=== PATIENT | male | born 1940 | race Caucasian/White ===

== ENCOUNTER → 2017-07-30 | Outpatient (CLI) | payer MEDICARE, BC ==
--- NOTE | 2017-07-30 15:29 | XR ---
Cervical spine HISTORY: Left neck and arm pain 5 views of the cervical spine Anterolisthesis grade 1 C2-3, C3-4 and C4-5, C5-6, there is loss of disc height at C6-7 and to lesser extent the remaining intervertebral levels. Multilevel spondylosis is present. There is multilevel l evel facet arthropathy. Some foraminal encroachment is present at C5-6 and C6-7 bilaterally as well a s on the right at 4, C4-5. Cervical vertebral bodies show preserved height. Bone mineralization may b e slightly reduced. IMPRESSION: Degenerative disc disease and facet arthropathy. Consider cervical MRI.
== END | disposition home or self-care (01) ==
LOC: RADXRMAIN 11:44
PROVIDERS: ATTEND Internal Medicine
DX: M50.30 Other cervical disc degeneration, unspecified cervical region (principal); M46.92 Unspecified inflammatory spondylopathy, cervical region
CPT/HCPCS: 72050

== ENCOUNTER → 2017-08-23 | Outpatient (CLI) | payer MEDICARE ==
--- NOTE | 2017-08-23 12:16 | MR ---
EXAMINATION TYPE: MR cervical spine wo/w con DATE OF EXAM: 08/23/2017 COMPARISON: Plain film 07/30/2017 HISTORY: Spondylosis with myelopathy, cervical TECHNIQUE: Multiplanar, multisequence images of the cervical spine were acquired utilizing 10 mL intravenous Rm avist gadolinium contrast. Diffusion weighted imaging was performed. C2-C3: Broad-based disc bulge causes minimal mass effect on the thecal sac. There is some minimal adonay ateral foraminal encroachment. C3-C4: Posterior broad-based disc bulge causes mild anterior mass effect on the thecal sac, moderate central stenosis. Foraminal encroachment is greater on the left than on the right due to lateral exte nsion endplate disc complex. C4-C5: No significant central stenosis. Bilateral foraminal encroachment is present due to lateral ex tension endplate disc complex. C5-C6: Posterior broad-based disc bulge causes minimal anterior mass effect on the thecal sac. Latera l extension endplate disc complex causes bilateral foraminal encroachment. C6-C7: Posterior extension of endplate disc complex causes mild anterior mass effect on the thecal sa c. Lateral extension of endplate disc complex results in bilateral foraminal encroachment. C7-T1: Posterior broad-based disc bulge causes mild anterior mass effect on the thecal sac. No signif icant foraminal encroachment or central stenosis. Cervical segments are intact. There is normal alignment. Cervical spinal cord is of normal signal. Craniovertebral junction relationships are within normal limits. There is multilevel spondylosis. Hy pertrophic change along the anterior margin of the lower cervical spine could be indicative of diffus e idiopathic skeletal hyper stenosis. Loss of disc height present at C6-7 and C7-T1 greater than the remaining levels of disc desiccation is present throughout the spine, suspect a hemangioma present wi thin the C6 vertebral body. Minimal anterolisthesis grade 1 C2-3, C3-4, C4-5 and C5-6. No abnormal en hancement following contrast administration. IMPRESSION: Multilevel degenerative disc disease, foraminal encroachment as described.
== END | disposition home or self-care (01) ==
LOC: RADMRIMAIN 09:51
PROVIDERS: ATTEND Internal Medicine
DX: M48.02 Spinal stenosis, cervical region (principal); M50.23 Other cervical disc displacement, cervicothoracic region; M47.812 Spondylosis without myelopathy or radiculopathy, cervical region; M50.323 Other cervical disc degeneration at C6-C7 level
CPT/HCPCS: 82565; 72156; A9581

== ENCOUNTER → 2017-11-19 | Day surgery (SDC) | payer MEDICARE ==
[2017-11-15 11:30] VITALS: BMI 31.9
[~2017-11-19] MED LIST: LACTATED RINGERS 1,000 ML IV ONE; LACTATED RINGERS 1,000 ML IV SCH; LIDOCAINE 1% 20 ML VIAL (10MG/ML) FOR IV START INTRADERMA ONE; PROPOFOL 10 MG/ML 20 ML VIAL IV ONE
[2017-11-19 07:54] VITALS: RESP 16; TEMP 97.8
[2017-11-19 08:02] LABS: Glucose,Whole Blood 104 mg/dL (75-99)
--- NOTE | 2017-11-19 09:04 | P.PCN ---
Date of Procedure: 11/19/17 Procedure(s) Performed: Procedure: Total colonoscopy. Preoperative diagnosis: Screening for neoplasia. Postoperative diagnosis: Diverticulosis with no evidence of acute diverticulitis , strictures, polyps or cancer. Preparation: HalfLytely prep. Sedation: Was provided by anesthesia. Brief clinical history: The patient is a 77-year-old male who is scheduled for this evaluation for screening for neoplasia. He had a prior exam more than 11 years ago. The patient has no abdominal complaints, bleeding or anemia. Procedure: With the patient on his left lateral decubitus position and after informed consent and adequate sedation, the perianal area was inspected and it did not show any fissures or fistulas. There were no masses felt on digital rectal examination. The Olympus CFQ 160L video colonoscope was then inserted in the rectum in the usual fashion and advanced to the cecum. There were multiple diverticular orifices seen scattered along the length of the bowel, the majority were on the left side with occasional orifices on the right side and around the hepatic flexure, with no evidence of acute diverticulitis or strictures. The mucosa appeared healthy. No polyps or tumors were seen. I retroflexed the endoscope in the rectum before the endoscope was withdrawn. The patient tolerated the procedure well. Plan: The patient was reassured. Discussed dietary measures. At his age, I did not recommend further screening and repeat colonoscopy can be considered in the future based on his clinical course. He will discuss that with you.
[2017-11-19 09:34] VITALS: BP 153/73; PULSE 77
== END ==
LOC: ORWHC2ENDO 07:20
DX: Z12.11 Encounter for screening for malignant neoplasm of colon (principal); K57.30 Diverticulosis of large intestine without perforation or abscess without bleeding; I48.91 Unspecified atrial fibrillation; Z79.01 Long term (current) use of anticoagulants; E11.40 Type 2 diabetes mellitus with diabetic neuropathy, unspecified; Z79.84 Long term (current) use of oral hypoglycemic drugs; C91.10 Chronic lymphocytic leukemia of B-cell type not having achieved remission; I10 Essential (primary) hypertension; E78.5 Hyperlipidemia, unspecified; M19.90 Unspecified osteoarthritis, unspecified site; G47.33 Obstructive sleep apnea (adult) (pediatric); Z99.89 Dependence on other enabling machines and devices; Z79.899 Other long term (current) drug therapy
CPT/HCPCS: J2704; G0121; 45378

== ENCOUNTER → 2018-09-03 | Outpatient (CLI) | payer MEDICARE ==
--- NOTE | 2018-09-04 09:00 | ECHOF ---
Referral Reason:I50.32 Chronic diastolic (congestive) heart failur MEASUREMENTS -------- HEIGHT: 177.8 cm WEIGHT: 102.1 kg BP: 169/89 RVIDd: 3.3 cm (< 3.3) IVSd: 1.3 cm (0.6 - 1.1) LVIDd: 4.7 cm (3.9 - 5.3) LVPWd: 1.4 cm (0.6 - 1.1) IVSs: 2.0 cm LVIDs: 2.7 cm LVPWs: 1.9 cm LA Diam: 4.4 cm (2.7 - 3.8) LAESV Index (A-L): 33.09 ml/m Ao Diam: 3.2 cm (2.0 - 3.7) AV Cusp: 1.9 cm (1.5 - 2.6) MV EXCURSION: 14.924 mm (> 18.000) MV EF SLOPE: 85 mm/s (70 - 150) EPSS: 0.4 cm FINDINGS -------- Atrial fibrillation. This was a technically good study. The left ventricular size is normal. There is moderate concentric left ventricular hypertrophy. O verall left ventricular systolic function is normal with, an EF between 60 - 65 %. The right ventricle is mildly enlarged. LA is midly dilated 29-33ml/m2. The right atrium is normal in size. Interatrial and interventricular septum intact. There is mild aortic valve sclerosis. The mitral valve leaflets are mildly thickened. Mild mitral annular calcification present. There is trace to mild mitral regurgitation. The tricuspid valve appears structurally normal. Trace/mild (physiologic) pulmonic regurgitation. The aortic root size is normal. IVC Not well visulized. There is no pericardial effusion. CONCLUSIONS -------- 1. Atrial fibrillation. 2. This was a technically good study. 3. The left ventricular size is normal. 4. There is moderate concentric left ventricular hypertrophy. 5. Overall left ventricular systolic function is normal with, an EF between 60 - 65 %. 6. The right ventricle is mildly enlarged. 7. LA is midly dilated 29-33ml/m2. 8. The right atrium is normal in size. 9. Interatrial and interventricular septum intact. 10. There is mild aortic valve sclerosis. 11. The mitral valve leaflets are mildly thickened. 12. Mild mitral annular calcification present. 13. There is trace to mild mitral regurgitation. 14. The tricuspid valve appears structurally normal. 15. Trace/mild (physiologic) pulmonic regurgitation. 16. The aortic root size is normal. 17. IVC Not well visulized. 18. There is no pericardial effusion. SOFTWARE RELEASE ENGINEER: Kay De Leon RDCS
== END | disposition home or self-care (01) ==
LOC: RADECHMAIN 15:54
PROVIDERS: ATTEND Internal Medicine
DX: I48.91 Unspecified atrial fibrillation (principal); I51.7 Cardiomegaly; I35.8 Other nonrheumatic aortic valve disorders; I34.8 Other nonrheumatic mitral valve disorders; I50.32 Chronic diastolic (congestive) heart failure
CPT/HCPCS: 93306

== ENCOUNTER → 2018-10-29 | Outpatient (CLI) | payer MEDICARE ==
--- NOTE | 2018-10-29 15:29 | US ---
EXAMINATION TYPE: US kidneys/renal and bladder DATE OF EXAM: 10/29/2018 COMPARISON: CT 11/20/2015, MRI 10/13/2015 CLINICAL HISTORY: N18.9 Chronic Kidney Disease. Patient states something was seen on recent MRI EXAM MEASUREMENTS: Right Kidney: 10.6 x 5.6 x 5.3 cm Left Kidney: 10.2 x 6.2 x 5.6 cm Right Kidney: No hydronephrosis. Multiple cystic areas visualized, largest lower pole measuring 8.1 x 7.0 x 7.7 cm Left Kidney: No hydronephrosis. Multiple cystic areas visualized, largest lower pole measuring 2.6 x 2.0 x 2.4 cm. Echogenic foci visualized mid pole measuring 0.6 cm Bladder: wnl Bilateral Jets seen: Yes IMPRESSION: 1. Cyst superior pole right kidney 2. Nonobstructing left renal stone. 3. Inferior pole peripelvic cyst.
== END | disposition home or self-care (01) ==
LOC: RADUSWWP 13:57
PROVIDERS: ATTEND Internal Medicine
DX: N28.1 Cyst of kidney, acquired (principal); N20.0 Calculus of kidney; N18.9 Chronic kidney disease, unspecified
CPT/HCPCS: 76770

== ENCOUNTER → 2019-04-13 | Outpatient (CLI) | payer MEDICARE ==
--- NOTE | 2019-04-13 14:47 | CT ---
EXAMINATION TYPE: CT lumbar spine wo con DATE OF EXAM: 04/13/2019 COMPARISON: None HISTORY: lower back pain spinal stenosis CT DLP: [address] of the lumbar spine was performed. Bone and soft tissue window settings are submitted as well as coronal and sagittal reconstructions. L1-L2: Normal disc space height. No disc herniation protrusion or central stenosis. No facet joint arthropathy. No evidence for foraminal encroachment. L2-L3: Normal disc space height. No disc herniation protrusion or central stenosis. No facet joint arthropathy. No evidence for foraminal encroachment. L3-L4: Vacuum disc noted. Circumferential disc bulge greatest posteriorly. Hypertrophy of the ligamen eloisa flavum and facet joint arthropathy resulting in mild central stenosis and bilateral foraminal enc roachment. L4-L5: Vacuum disks noted. Grade 1 anterolisthesis L4 and L5 measuring 5.5 mm. Distortion thecal sac with degenerative change of the facet joints. Mild central stenosis and bilateral foraminal encroachm ent noted. L5-S1: Mild degenerative disc space narrowing. No disc herniation protrusion or central stenosis. No facet joint arthropathy. No evidence for foraminal encroachment. No paraspinal masses are identified. Lumbar segments are free if fracture. IMPRESSION: 1. Degenerative disc disease as the central stenosis at L3-4 and L4-5 as discussed above.
== END | disposition home or self-care (01) ==
LOC: RADCTMAIN 14:04
PROVIDERS: ATTEND Neurological Surgery
DX: M48.061 Spinal stenosis, lumbar region without neurogenic claudication (principal); M51.36 Other intervertebral disc degeneration, lumbar region
CPT/HCPCS: 72131

== ENCOUNTER → 2019-12-01 | Outpatient (CLI) | payer MEDICARE ==
--- NOTE | 2019-12-01 16:08 | CT ---
EXAMINATION TYPE: CT lumbar spine wo con DATE OF EXAM: 12/01/2019 3:58 PM COMPARISON: 04/13/2019 HISTORY: Low back pain radiating into right hip. CT DLP: 1608.7 mGycm Automated exposure control for dose reduction was used. Unenhanced CT of the lumbar spine was performed. Bone and soft tissue window settings are submitted as well as coronal and sagittal reconstructions. There are multiple bilateral renal calculi. There are multiple renal lesions the majority which appea r to be simple cysts. However, there is at least one lesion which does not appear to be compatible wi th a simple cyst on the left measuring under a centimeter and may represent a hemorrhagic cyst. Addit ional 5 mm lesion mid cortex too small to characterize. Atherosclerotic change aorta. There is hypertrophic and degenerative change of the spine with extensive postsurgical changes. Grade 1 anterolisthesis L4 and L5. L1-L2: No disc herniation or canal stenosis. Mild hypertrophic change of the facets. No foraminal enc roachment L2-L3: Moderate degenerative disc disease with 1 mm retrolisthesis. There is facet arthropathy. Mild bilateral foraminal encroachment and borderline to mild canal stenosis with circumferential disc bulg ing. L3-L4: Vacuum disc and severe degenerative disc disease. There is a right hemilaminectomy. There is a bnormal soft tissue extending from the thecal sac posteriorly into the soft tissues likely postsurgic al. Artifact limits assessment. Spinal canal is limited for assessment of disc herniation or canal st enosis. Suspect bilateral foraminal encroachment and facet arthropathy. L4-L5: Grade 1 anterolisthesis. There is postoperative changes extensive abnormal soft tissue extends to the from the thecal sac to the skin surface. There is abnormal attenuation surrounding the thecal sac which could represent extensive granulation or scar tissue. Suspect bilateral foraminal encroach ment. L5-S1: Facet arthropathy and degenerative disc disease. No Canal stenosis. Mild bilateral foraminal e ncroachment. IMPRESSION: 1. Extensive postsurgical changes with grade 1 anterolisthesis of L4 on L5. Assessment of the spinal canal is limited due to resolution and artifact. Suspect canal stenosis L2-3. Retrolisthesis of L3 on L4 with abnormal attenuation which could represent scar or granulation tissue L3-L4. Thecal sac is n ot identified and limited in assessment for disc herniation or canal stenosis. Recommend MRI with con trast. 2. Extensive postsurgical change L4-L5 with extensive abnormal soft tissue encasing the thecal sac ex tending into the posterior soft tissues. This also could represent granulation or scar tissue. There is some encroachment upon the neural foramina. Recommend MRI with contrast. 3. Multilevel foraminal encroachment 4. Bilateral nephrolithiasis with multiple renal lesions as discussed above.
== END | disposition home or self-care (01) ==
LOC: RADCTMAIN 15:28
PROVIDERS: ATTEND Neurological Surgery
DX: M48.061 Spinal stenosis, lumbar region without neurogenic claudication (principal); M43.16 Spondylolisthesis, lumbar region; Z98.890 Other specified postprocedural states
CPT/HCPCS: 72131

== ENCOUNTER → 2019-12-17 | Outpatient (CLI) | payer MEDICARE ==
--- NOTE | 2019-12-17 15:47 | MR ---
EXAMINATION TYPE: MR lumbar spine wo con DATE OF EXAM: 12/17/2019 COMPARISON: MRI lumbar spine October 13, 2015. CT lumbar spine December 01, 2019 HISTORY: Stenosis per order. Low back pain for 3 months going into right buttocks and thigh per patie nt. TECHNIQUE: Multiplanar, multisequence imaging of the lumbar spine is performed without IV contrast. FINDINGS: Sagittal images of the lumbar spine show vertebral body heights to appear satisfactory. The re is slight grade 1 retrolisthesis L2 on L3 and L3 on L4 redemonstrated. There is grade 1 anterolist hesis L4 on L5 redemonstrated. Multilevel disc desiccation is redemonstrated. There is mild to moder ate multilevel disc space narrowing at L2-L3 and L3-L4 levels redemonstrated. New artifact from right sided surgical posterior intrapedicular rods and screws L4-L5 level. Artificial hyperdense disc mate rial does level seen better on CT. The conus medullaris remains stable in position ending superior L 2 level. Persistent mild to moderate multilevel anterior spurring. Axial images show T12-L1 and L1-L2 levels appear within normal limits. Axial images at L2-L3 level show moderate broad disc bulge effacing the anterior thecal sac and causi ng moderate bilateral inferior neural foraminal narrowing. Axial images at L3-L4 level show artifact from right-sided surgical change. There is moderate to austin re broad disc bulge with right lateral disc protrusion component. There is effacement of the right an terolateral thecal sac and encroaching along central right L4 nerves axial image 17, this corresponds to most recent CT axial image 59. Moderate facet arthropathy at this level. Moderate left and modera te to severe right-sided neural foraminal narrowing. Encroachment of exiting right L3 nerve likely pr esent extraforaminal level. Axial images at the L4-L5 level show artifact from disc material beyond right-sided fusion hardware. Spinal canal fairly well-preserved. Patent bilateral neural foramina. Some scar tissue is present. La minectomy defects noted at this level. Axial images at the L5-S1 level show moderate to advanced facet arthropathy bilaterally. Tiny central disc protrusion minimally effaces the anterior thecal sac. Right-sided neural foramina shows mild to moderate narrowing. There are multiple thin-walled cysts scattered throughout visualized portion of both kidneys of varyi ng size and shape. IMPRESSION: Postsurgical change L4-L5 level. Multilevel spondylolisthesis and degenerative changes as detailed above. Attention to the right L3-L4 level where eccentric disc herniation and facet arthrop athy causes severe right-sided neural foraminal narrowing and encroachment right anterolateral thecal sac. Encroachment on central L4 and extraforaminal right L3 nerve is felt present and may be account ing for patient's right-sided radiculopathy type symptoms.
== END | disposition home or self-care (01) ==
LOC: RADMRIMAIN 14:09
PROVIDERS: ATTEND Neurological Surgery
DX: M48.061 Spinal stenosis, lumbar region without neurogenic claudication (principal); M51.26 Other intervertebral disc displacement, lumbar region; M43.16 Spondylolisthesis, lumbar region; M47.816 Spondylosis without myelopathy or radiculopathy, lumbar region; M47.817 Spondylosis without myelopathy or radiculopathy, lumbosacral region; Z98.890 Other specified postprocedural states
CPT/HCPCS: 72148

== ENCOUNTER → 2020-09-01 | Outpatient (CLI) | payer MEDICARE ==
--- NOTE | 2020-09-01 12:54 | US ---
EXAMINATION TYPE: US kidneys/renal and bladder DATE OF EXAM: 09/01/2020 COMPARISON: NONE CLINICAL HISTORY: Z12.31 screening mammogram. Hematuria EXAM MEASUREMENTS: Right Kidney: 11.3 x 5.6 x 6.2 cm Left Kidney: 10.4 x 6.0 x 5.0 cm Right Kidney: multiple cysts with largest measuring 8.2 x 7.5 x 9.3cm Left Kidney: multiple cysts with largest measuring 3.2 x 2.7 x 2.0cm, 0.7cm stone midpole Bladder: wnl Bilateral Jets seen: no There is no evidence for hydronephrosis at this point in time. No masses are identified. The urinar y bladder is anechoic. IMPRESSION: 1. Bilateral renal cysts. 2. Left nephrolithiasis. 3. Bilateral ureteral jets were not seen in the urinary bladder.
== END | disposition home or self-care (01) ==
LOC: RADUSWWP 12:13
PROVIDERS: ATTEND Internal Medicine
DX: N20.0 Calculus of kidney (principal); N28.1 Cyst of kidney, acquired
CPT/HCPCS: 76770

== ENCOUNTER → 2021-08-10 | Outpatient (CLI) | payer MEDICARE ==
[~2021-08-10] MED LIST changes: -LACTATED RINGERS 1,000 ML IV ONE; -LACTATED RINGERS 1,000 ML IV SCH; -LIDOCAINE 1% 20 ML VIAL (10MG/ML) FOR IV START INTRADERMA ONE; -PROPOFOL 10 MG/ML 20 ML VIAL IV ONE; +TIXAGEVIMAB/CILGAVIMAB (EUA) 300 MG/3 ML COMBO.PKG IM ONE
[2021-08-10 12:37] VITALS: RESP 16
[2021-08-10 12:56] VITALS: TEMP 97.7
[2021-08-10 13:37] VITALS: BP 116/79; PULSE 64
== END ==
LOC: PROCWHC3 12:20
PROVIDERS: ATTEND Internal Medicine Hematology & Oncology
DX: C91.10 Chronic lymphocytic leukemia of B-cell type not having achieved remission (principal); Z23 Encounter for immunization; Z87.891 Personal history of nicotine dependence
CPT/HCPCS: Q0220; M0220

== ENCOUNTER → 2021-08-22 | Outpatient (CLI) | payer MEDICARE ==
--- NOTE | 2021-08-22 17:24 | CA ---
Transthoracic Echo Report Name: Deonte Whitt Age: 81 Gender: M : 1940 Exam Date: 08/22/2021 14:48 Exam Location: [facility] Ht (in): 71 Wt (lb): 214 Ordering Physician: Damaris Silva MD Attending/Referring Phys: Damaris Silva MD Balance Wheel Arm Burnisher Rose Iniguez RDCS Procedure CPT: Indications: I48.91 AFIB Cardiac Hx: Technical Quality: Fair Contrast 1: Total Dose (mL): Contrast 2: Total Dose (mL): MEASUREMENTS (Male / Female) Normal Values 2D ECHO LV Diastolic Diameter PLAX 4.5 cm 4.2 - 5.9 / 3.9 - 5.3 cm LV Systolic Diameter PLAX 2.1 cm IVS Diastolic Thickness 1.2 cm 0.6 - 1.0 / 0.6 - 0.9 cm LVPW Diastolic Thickness 1.2 cm 0.6 - 1.0 / 0.6 - 0.9 cm LV Relative Wall Thickness 0.5 LA Volume 80.5 cm??? 18 - 58 / 22 - 52 cm??? M-MODE Aortic Root Diameter MM 2.7 cm LA Systolic Diameter MM 4.4 cm LA Ao Ratio MM 1.7 AV Cusp Separation MM 1.4 cm DOPPLER AV Peak Velocity 137.5 cm/s AV Peak Gradient 7.6 mmHg LVOT Peak Velocity 98.7 cm/s LVOT Peak Gradient 3.9 mmHg MV E' Velocity 7.9 cm/s FINDINGS Left Ventricle Mildly increased left ventricular wall thickness. Normal left ventricular systolic function with no obvious regional wall motion abnormalities. Left ventricular ejection fraction is estimated at 55-60 %. Right Ventricle Mild right ventricular dilatation. Right Atrium Normal right atrial size. Left Atrium Severely increased left atrial volume. No evidence for an atrial septal defect. Mitral Valve Structurally normal mitral valve. Mild mitral annular calcification. Mild to moderate mitral regurgitation. Aortic Valve Trileaflet aortic valve. No aortic stenosis. No aortic regurgitation. Aortic valve sclerosis. Tricuspid Valve Structurally normal tricuspid valve. No evidence of pulmonary hypertension. Mild tricuspid regurgitation. Pulmonic Valve Structurally normal pulmonic valve. Trace pulmonic regurgitation. Pericardium No pericardial effusion. Aorta Normal size aortic root and proximal ascending aorta. CONCLUSIONS Normal LV size and systolic function. Mitral annular calcification with mild- to-moderate mitral regurgitation. No significant pulmonary hypertension. Mild right ventricular dilatation. No pericardial effusion Previewed by: Dr. Avril Lancaster MD (Electronically Signed) Final Date: 22 August 2021 17:23
--- NOTE | 2021-08-22 18:37 | US ---
EXAMINATION TYPE: US carotid duplex BILAT DATE OF EXAM: 08/22/2021 COMPARISON: NONE CLINICAL HISTORY: 81-year-old male I48.91 Atrial Fibrillation;I65.23 Carotid Stenosis. Stenosis, hype rtension, prior smoker. TECHNIQUE: Carotid duplex ultrasound examination. Indirect Doppler criteria was utilized. FINDINGS: EXAM MEASUREMENTS: RIGHT: Peak Systolic Velocity (PSV) cm/sec ----- Right CCA: 95.3 ----- Right ICA: 90.8 ----- Right ECA: 104.3 ICA/CCA ratio: 1.0 RIGHT: End Diastole cm/sec ----- Right CCA: 17.6 ----- Right ICA: 13.8 ----- Right ECA: 9.0 LEFT: Peak Systolic Velocity (PSV) cm/sec ----- Left CCA: 106.2 ----- Left ICA: 110.6 ----- Left ECA: 64.2 ICA/CCA ratio: 1.0 LEFT: End Diastole cm/sec ----- Left CCA: 13.8 ----- Left ICA: 30.3 ----- Left ECA: 0.0 VERTEBRALS (direction of flow): Right Vertebral: Antegrade Left Vertebral: Antegrade Rhythm: Arrhythmia Experimental Aircraft Mechanic notes: Intimal thickening and plaque seen within bilateral carotid arteries, bilateral bu lb, and prox right ICA. No elevated velocities at this time. Difficult to follow right ICA distally. IMPRESSION: 1. No hemodynamically significant internal carotid artery stenosis on either side. 2. Note that the dehydrogenation operator head indicates an irregular cardiac rhythm for a portion of the study. Clinic ally correlate. Criteria for Assigning % of Stenosis / Diameter reduction (Estimation based on the indirect measurements of the internal carotid artery velocities (ICA PSV). 1. Normal (no stenosis)=ICA PSV < 125 cm/s: ratio < 2.0: ICA EDV<40 cm/s. 2. Less than 50% stenosis=ICA PSV < 125 cm/s: ratio < 2.0: ICA EDV<40 cm/s. 3. 50 to 69% stenosis=ICA PSV of 125 to 230 cm/s: ration 2.0 ? 4.0: ICA EDV 40-100 cm/s. 4. Greater than 70% stenosis to near occlusion= ICA PSV > 230 cm/s: ratio > 4.0: ICA EDV > 100 cm/s. 5. Near occlusion= ICA PSV velocities may be low or undetectable: variable ratio and ICA EDV. 6. Total occlusion=unable to detect flow.
== END | disposition home or self-care (01) ==
LOC: RADUSWWP 13:59
PROVIDERS: ATTEND Internal Medicine
DX: I08.8 Other rheumatic multiple valve diseases (principal); I65.23 Occlusion and stenosis of bilateral carotid arteries; I49.9 Cardiac arrhythmia, unspecified; I10 Essential (primary) hypertension; Z87.891 Personal history of nicotine dependence
CPT/HCPCS: 93306; 93880

== ENCOUNTER → 2022-08-07 | Outpatient (CLI) | payer MEDICARE ==
--- NOTE | 2022-08-07 17:27 | CA ---
Transthoracic Echo Report Name: Deonte Whitt Age: 82 Gender: M : 1940 Exam Date: 08/07/2022 11:44 Exam Location: [facility] Ht (in): 72 Wt (lb): 188 Ordering Physician: Jamie Thomas MD Attending/Referring Phys: Jamie Thomas MD Developmental Behavioral Physician Rose Iniguez RDCS Procedure CPT: Indications: [id number] vertigo Cardiac Hx: Technical Quality: Fair Contrast 1: Total Dose (mL): Contrast 2: Total Dose (mL): MEASUREMENTS (Male / Female) Normal Values 2D ECHO LV Diastolic Diameter PLAX 4.5 cm 4.2 - 5.9 / 3.9 - 5.3 cm LV Systolic Diameter PLAX 3.2 cm IVS Diastolic Thickness 1.3 cm 0.6 - 1.0 / 0.6 - 0.9 cm LVPW Diastolic Thickness 1.2 cm 0.6 - 1.0 / 0.6 - 0.9 cm LV Relative Wall Thickness 0.6 RV Internal Dim ED PLAX 3.3 cm LA Volume 79.8 cm??? 18 - 58 / 22 - 52 cm??? M-MODE Aortic Root Diameter MM 2.8 cm LA Systolic Diameter MM 1.4 cm LA Ao Ratio MM 0.5 AV Cusp Separation MM 4.5 cm DOPPLER AV Peak Velocity 223.7 cm/s AV Peak Gradient 20.0 mmHg AV Mean Velocity 159.8 cm/s AV Mean Gradient 11.6 mmHg AV Velocity Time Integral 39.1 cm LVOT Peak Velocity 144.7 cm/s LVOT Peak Gradient 8.4 mmHg Mitral E Point Velocity 98.2 cm/s Mitral A Point Velocity 41.6 cm/s Mitral E to A Ratio 2.4 MV Deceleration Time 210.1 ms MV E' Velocity 7.6 cm/s Mitral E to MV E' Ratio 12.9 FINDINGS Left Ventricle Left ventricular cavity size normal. Mildly increased left ventricular wall thickness. Normal left ventricular systolic function with no obvious regional wall motion abnormalities. Left ventricular ejection fraction is estimated at 55-60 %. Right Ventricle Normal right ventricular size and function. Right ventricular systolic pressure within normal limits. Right Atrium Normal right atrial size. Left Atrium Severely increased left atrial volume. Mildly increased left atrial area. Mitral Valve Structurally normal mitral valve. Mitral valve thickened. Mild mitral annular calcification. Mild mitral regurgitation. Aortic Valve Trileaflet aortic valve. No aortic regurgitation. Mild aortic stenosis with a peak gradient of 20 mmHg and a mean gradient of 12 mmHg. Tricuspid Valve Structurally normal tricuspid valve. Mild tricuspid regurgitation. Pulmonic Valve Structurally normal pulmonic valve. Trace pulmonic regurgitation. Pericardium No pericardial effusion. Aorta Normal size aortic root and proximal ascending aorta. CONCLUSIONS Normal LV systolic function Mild aortic stenosis Mild mitral regurgitation Previewed by: Dr. Barak Dyer MD (Electronically Signed) Final Date: 07 Aug 2022 17:26
== END | disposition home or self-care (01) ==
LOC: RADECHMAIN 11:08
PROVIDERS: ATTEND Internal Medicine
DX: I08.0 Rheumatic disorders of both mitral and aortic valves (principal); R42 Dizziness and giddiness
CPT/HCPCS: 93225; 93226; 93306

== ENCOUNTER → 2022-08-08 | Outpatient (CLI) | payer MEDICARE ==
--- NOTE | 2022-08-08 11:52 | CT ---
EXAMINATION TYPE: CT brain wo con DATE OF EXAM: 08/08/2022 HISTORY: Headache post new change in chemotherapy. Hx of leukemia. CT DLP: 1133.3 mGycm. Automated Exposure Control for Dose Reduction was Utilized. TECHNIQUE: CT scan of the head is performed without contrast. COMPARISON: CT brain April 20, 2022. FINDINGS: There is no acute intracranial hemorrhage or midline shift identified. There is moderate diffuse ventricular and sulcal prominence redemonstrated. There is mild to moderate low-attenuation in the deep and periventricular white matter redemonstrated. 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 There is minimal mucosal thickening and dependent air-fluid level in the left frontal sinus. There is partial opacification of the anterior ethmoid sinuses bilaterally redemo nstrated. There is completely opacified left maxillary sinus again seen. Nasal septum is deviated to left of midline. Bilateral aphakia is redemonstrated. IMPRESSION: No acute intracranial hemorrhage or midline shift. There is moderate diffuse cerebral a trophy and mild to moderate chronic small vessel ischemic change along with old right occipital lobe infarct all redemonstrated without significant interval change. There is new left frontal acute sinu sitis suspected. Correlate clinically. Left ethmoid and maxillary sinus disease is similar appearance to most recent CT.
== END | disposition home or self-care (01) ==
LOC: RADCTMAIN 11:23
PROVIDERS: ATTEND Internal Medicine Hematology & Oncology
DX: C91.10 Chronic lymphocytic leukemia of B-cell type not having achieved remission (principal); I67.82 Cerebral ischemia
CPT/HCPCS: 70450

== ENCOUNTER → 2023-02-22 | Outpatient (CLI) | payer MEDICARE ==
--- NOTE | 2023-02-22 12:02 | XR ---
EXAM TYPE: LUMBAR SPINE X RAY SERIES COMPARISON: 02/22/2023 HISTORY: Pain TECHNIQUE: 7 views are submitted. FINDINGS: Diffuse osteopenia with multilevel hypertrophic and degenerative changes. Grade 1 anterolisthesis of L4-L5. Postsurgical changes at L4-L5. There is posterior spondylosis at multiple levels with spurring anteriorly. Multilevel degenerative disc disease most marked at L3-L4. There is facet arthropathy. C alcifications in the upper quadrant likely related to renal calculi. IMPRESSION: 1. Postsurgical changes with grade 1 anterolisthesis which is similar in appearance on flexion and ex tension views. 2. Multilevel degenerative disc disease with facet arthropathy. Multilevel foraminal encroachment pillo pected. 3. Bilateral renal calculi.
--- NOTE | 2023-02-22 12:05 | XR ---
EXAMINATION TYPE: XR sacrum coccyx DATE OF EXAM: 02/22/2023 COMPARISON: NONE HISTORY: Pain Three views are submitted. Sacrum is intact. SI joints are symmetric. Diffuse osteopenia and posts urgical changes at L4-L5 with grade 1 anterolisthesis. Bilateral hip arthropathy. Vascular calcificat ions. Coccyx appears to be intact. Visualized pelvic structures intact. Bilateral SI joint arthropa thy. Vascular calcifications in the aorta. IMPRESSION: 1. Diffuse osteopenia 2. Postsurgical changes lumbar spine with grade 1 anterolisthesis. 3. Mild SI joint arthropathy
--- NOTE | 2023-02-25 21:11 | CT ---
EXAMINATION TYPE: CT lumbar spine wo con DATE OF EXAM: 02/22/2023 COMPARISON: 12/01/2019 HISTORY: 83-year-old male M5 4.50, lower back pain TECHNIQUE: Contiguous axial scanning of the lumbar spine without IV contrast. Coronal and sagittal re constructions performed. CT DLP: 867.4 mGycm Automated exposure control for dose reduction was used. FINDINGS: Postsurgical change right-sided L4-L5 posterior and interbody fusion. Fixed grade 1 anterolisthesis a t this level. Corresponding laminotomy defects. As compared to 2019, there is been progressive now moderate to severe degenerative disc disease above the fusion at L3-L4. Redemonstrated hypertrophic facet arthropathy throughout with trace grade 1 retrolisthesis L2-L3 and L3-L4. There is Baastrup's disease with progressive degeneration of the intraspinous ligaments and greater d egree of bony abutment of the spinous processes with reactive sclerosis. Vertebral body heights are preserved. Hypertrophic facet arthropathy throughout. Degenerative changes contribute to mild spinal canal stenoses at L2-L3, L3-L4, L4-L5. On the right, changes result in moderate neuroforaminal stenosis at L3-L4 and L2-L3. Mild to moderate L4-L5 and L5-S1. On the left, changes result in moderate to severe neuroforaminal stenosis at L3-L4 and moderate at L2 -L3. Mild to moderate both L4-L5 and L5-S1. Nonobstructive 4 mm right renal calculus. Partially visualized 3.5 cm cyst right kidney and cysts of the left kidney measuring up to at least 3.5 cm. Mild degenerative change of the bilateral SI joints. IMPRESSION: 1. REDEMONSTRATED RIGHT-SIDED L4-L5 POSTERIOR AND INTERBODY FUSION WITH A FIXED GRADE 1 ANTEROLISTHES IS AT THIS LEVEL AND UNDERLYING LAMINOTOMY DEFECTS. 2. PROGRESSIVE BAASTRUP'S DISEASE AND PROGRESSIVE DEGENERATIVE DISC DISEASE ESPECIALLY AT L3-L4 ABOVE THE PATIENT'S FUSION. 3. DEGENERATIVE TRACE GRADE 1 RETROLISTHESIS L2-L3 AND L3-L4 IS SIMILAR. 4. MILD SPINAL CANAL STENOSES L2-L3, L3-L4, AND L4-L5. 5. VARIABLE NEUROFORAMINAL STENOSES OUTLINED ABOVE. MODERATE TO SEVERE ON THE LEFT AT L3-L4.
== END | disposition home or self-care (01) ==
LOC: RADCTMAIN 10:52
PROVIDERS: ATTEND Internal Medicine
DX: M47.816 Spondylosis without myelopathy or radiculopathy, lumbar region (principal); M51.36 Other intervertebral disc degeneration, lumbar region; N20.0 Calculus of kidney; M43.16 Spondylolisthesis, lumbar region; M48.26 Kissing spine, lumbar region; M48.061 Spinal stenosis, lumbar region without neurogenic claudication; M99.73 Connective tissue and disc stenosis of intervertebral foramina of lumbar region; M96.0 Pseudarthrosis after fusion or arthrodesis; M85.88 Other specified disorders of bone density and structure, other site; M46.1 Sacroiliitis, not elsewhere classified; Z98.1 Arthrodesis status
CPT/HCPCS: 72114; 72131; 72220

== ENCOUNTER 2023-03-02 13:59 | Emergency (ER) | payer MEDICARE ==
[2023-03-02 14:25] VITALS: TEMP 98
[2023-03-02] MEDS ORDERED: SODIUM CHLORIDE 0.9% 500 ML 500 ML IV ONE (14:31)
[2023-03-02 14:57] LABS: Basophils % (A) 0 %; Eosinophils # (A) 0.1 k/uL (0-0.7); Eosinophils % (A) 1 %; HCT 42.5 % (39.0-53.0); HGB 14.2 gm/dL (13.0-17.5); Lymphocytes # (A) 1.1 k/uL (1.0-4.8); Lymphocytes % (A) 15 %; MCH 34.9 pg (25.0-35.0); MCHC 33.4 g/dL (31.0-37.0); MCV 104.5 fL (80.0-100.0); Macrocytosis Slight; Mean Platelet Volume 8.3; Monocytes # (A) 0.7 k/uL (0-1.0); Monocytes % (A) 10 %; Neutrophils # (A) 5.3 k/uL (1.3-7.7); Neutrophils % (A) 72 %; Platelet Count 183 k/uL (150-450); RBC 4.06 m/uL (4.30-5.90); RDW 14.3 % (11.5-15.5); WBC 7.3 k/uL (3.8-10.6)
--- NOTE | 2023-03-02 15:03 | ED ---
Recheck HPI - General Chief Complaint: Recheck/Abnormal Lab/Rx Stated Complaint: Low bp Time Seen by Provider: 03/02/23 14:26 Source: patient, RN notes reviewed Mode of arrival: ambulatory Limitations: no limitations - History of Present Illness Initial Comments: 83-year-old male presents emergency Department chief complaint of low blood pressure. He states over the last few days nose blood pressures been lower than usual. He denies any current symptoms including headache, dizziness, chest pain, shortness breath, nausea vomiting he states his blood pressures is normally 120/80 states that recently and they are mid 90s systolic. Patient denies any recent medication changes. Patient states that he is on blood pressure medications. Patient denies any dysuria hematuria no URI symptoms. Patient offers no complaints. - Related Data Home Medications Medication Instructions Recorded Confirmed Enalapril [Vasotec] 5 mg PO HS@1700 09/20/13 08/10/21 metFORMIN HCL [Glucophage] 1,000 mg PO BID 09/20/13 08/10/21 Atorvastatin Calcium [Lipitor] 10 mg PO DAILY 10/12/15 08/10/21 Cinnamon Bark [Cinnamon] 1,000 mg PO BID 10/12/15 08/10/21 Diphenoxylate HCl/Atropine 1 tab PO TID PRN 10/12/15 08/10/21 [Diphenoxylate-Atrop 2.5-0.025] Fenofibrate 160 mg PO DAILY 10/12/15 08/10/21 Ibrutinib [Imbruvica] 420 mg PO DAILY 10/12/15 08/10/21 Rivaroxaban [Xarelto] 20 mg PO DAILY 10/12/15 08/10/21 Folic Acid 1,200 mcg PO BID 11/20/15 08/10/21 Glimepiride [Amaryl] 2 mg PO [id number]-[id number] 09/23/17 08/10/21 Multivitamin [Men's Multi-Vitamin] 1 each PO DAILY 09/23/17 08/10/21 Allergies Allergy/AdvReac Type Severity Reaction Status Date / Time No Known Allergies Allergy Verified 03/02/23 14:10 Review of Systems ROS Statement: Those systems with pertinent positive or pertinent negative responses have been documented in the HPI. ROS Other: All systems not noted in ROS Statement are negative. Past Medical History Past Medical History: Atrial Fibrillation, Cancer, Diabetes Mellitus, GERD/Reflux, Hyperlipidemia, Hypertension, Musculoskeletal Disorder, Neurologic Disorder, Osteoarthritis (OA), Renal Disease, Sleep Apnea/CPAP/BIPAP Additional Past Medical History / Comment(s): CLL-dx. 5 yrs. ago, unaware of renal problems, was having neck pain, neuropathy adonay feet, has cpap machine History of Any Multi-Drug Resistant Organisms: None Reported Past Surgical History: Cholecystectomy, Orthopedic Surgery, Tonsillectomy Additional Past Surgical History / Comment(s): left shoulder rototor cuff repair, Right shoulder Past Anesthesia/Blood Transfusion Reactions: No Reported Reaction Past Psychological History: No Psychological Hx Reported Smoking Status: Former smoker Past Alcohol Use History: Occasional Past Drug Use History: None Reported - Past Family History Mother Family Medical History: Cancer Additional Family Medical History / Comment(s): of pancreatic cancer General Exam Limitations: no limitations General appearance: alert, in no apparent distress Head exam: Present: atraumatic, normocephalic, normal inspection Eye exam: Present: normal appearance, PERRL, EOMI. Absent: scleral icterus, conjunctival injection, periorbital swelling ENT exam: Present: normal exam, normal oropharynx, mucous membranes moist Neck exam: Present: normal inspection, full ROM. Absent: tenderness, meningismus, lymphadenopathy Respiratory exam: Present: normal lung sounds bilaterally. Absent: respiratory distress, wheezes, rales, rhonchi, stridor Cardiovascular Exam: Present: regular rate, normal rhythm, normal heart sounds. Absent: systolic murmur, diastolic murmur, rubs, gallop, clicks GI/Abdominal exam: Present: soft, normal bowel sounds. Absent: distended, tenderness, guarding, rebound, rigid Neurological exam: Present: alert, oriented X3, CN II-XII intact, reflexes n ormal. Absent: motor sensory deficit Skin exam: Present: warm, dry, intact, normal color. Absent: rash Course Vital Signs 03/02/23 03/02/23 03/02/23 14:05 14:41 15:15 Temperature 98 F Pulse Rate 81 74 Pulse Rate [ 76 Sitting Pulse Oximetery] Pulse Rate [ 81 Standing Pulse Oximetery] Pulse Rate [ 69 Supine Pulse Oximetery] Respiratory 18 18 12 Rate Blood Pressure 99/64 106/73 Blood Pressure 101/69 [Left Arm Sitting] Blood Pressure 89/58 [Left Arm Standing] Blood Pressure 105/71 [Left Arm Supine] O2 Sat by Pulse 98 98 100 Oximetry 03/02/23 16:15 Temperature Pulse Rate 82 Pulse Rate [ Sitting Pulse Oximetery] Pulse Rate [ Standing Pulse Oximetery] Pulse Rate [ Supine Pulse Oximetery] Respiratory 18 Rate Blood Pressure 120/59 Blood Pressure [Left Arm Sitting] Blood Pressure [Left Arm Standing] Blood Pressure [Left Arm Supine] O2 Sat by Pulse Oximetry Medical Decision Making - Medical Decision Making Was pt. sent in by a medical professional or institution (, [facility], [employer], urgent care, hospital, or care home...) When possible be specific @ -No Did you speak to anyone other than the patient for history (EMS, parent, family, police, friend...)? What history was obtained from this source @ -No Did you review nursing and triage notes (agree or disagree)? Why? @ -I reviewed and agree with nursing and triage notes Were old charts reviewed (outside hosp., previous admission, EMS record, old EKG, old radiological studies, urgent care reports/EKG's, care home records)? Report findings @ -No old charts were reviewed Differential Diagnosis (chest pain, altered mental status, abdominal pain women, abdominal pain men, vaginal bleeding, weakness, fever, dyspnea, syncope, headache, dizziness, GI bleed, back pain, seizure, CVA, palpatations, mental health, musculoskeletal)? @ -Differential Weakness: Hypoglycemia, shock, sepsis, hyponatremia, anemia, infection, NH, ETOH, adverse medicine reaction, overdose, stroke, this is not meant to be an all-inclusive list.ble EKG interpreted by me (3pts min.). @ -As above X-rays interpreted by me (1pt min.). @ -None done CT interpreted by me (1pt min.). @ -None done U/S interpreted by me (1pt. min.). @ -None done What testing was considered but not performed or refused? (CT, X-rays, U/S, labs)? Why? @ -None What meds were considered but not given or refused? Why? @ -None Did you discuss the management of the patient with other professionals (professionals i.e. [facility] Colon, [employer], lab, RT, psych nurse, child welfare social worker, steward/stewardess room, teacher, commissioned security officer, pillowcase sewer)? Give summary @ -No Was smoking cessation discussed for >3mins.? @ -No Was critical care preformed (if so, how long)? @ -No Were there social determinants of health that impacted care today? How? (Homelessness, low income, unemployed, alcoholism, drug addiction, transportation, low edu. Level, literacy, decrease access to med. care, long term, rehab)? @ -No Was there de-escalation of care discussed even if they declined (Discuss DNR or withdrawal of care, Hospice)? DNR status @ -No What co-morbidities impacted this encounter? (DM, HTN, Smoking, COPD, CAD, Cancer, CVA, ARF, Chemo, Hep., AIDS, mental health diagnosis, sleep apnea, morbid obesity)? @ -None Was patient admitted / discharged? Hospital course, mention meds given and route, prescriptions, significant lab abnormalities, going to OR and other pertinent info. @ -Discharged patient presented for asymptomatic hypotension. Patient's laboratories are unremarkable other than minimal elevation of his kidney function. Patient was well-hydrated blood pressure is improved and remains at 1820. Patient states that he first go home we've given strict return parameters Undiagnosed new problem with uncertain prognosis? @ -No Drug Therapy requiring intensive monitoring for toxicity (Heparin, Nitro, Insulin, Cardizem)? @ -No Were any procedures done? @ -No Diagnosis/symptom? @ -[Dehydration and orthostatic hypotension Acute, or Chronic, or Acute on Chronic? @ -Acute Uncomplicated (without systemic symptoms) or Complicated (systemic symptoms)? @ -[Uncomplicated Side effects of treatment? @ -No Exacerbation, Progression, or Severe Exacerbation? @ -No Poses a threat to life or bodily function? How? (Chest pain, USA, NH, pneumonia, PE, COPD, DKA, ARF, appy, cholecystitis, CVA, Diverticulitis, Homicidal, Suicidal, threat to staff... and all critical care pts) @ -No - Lab Data Result diagrams: 03/02/23 14:35 03/02/23 14:35 Lab Results 03/02/23 03/02/23 03/02/23 Range/Units 14:35 14:35 14:35 WBC 7.3 (3.8-10.6) k/uL RBC 4.06 L (4.30-5.90) m/uL Hgb 14.2 (13.0-17.5) gm/dL Hct 42.5 (39.0-53.0) % MCV 104.5 H (80.0-100.0) fL MCH 34.9 (25.0-35.0) pg MCHC 33.4 (31.0-37.0) g/dL RDW 14.3 (11.5-15.5) % Plt Count 183 (150-450) k/uL MPV 8.3 Neutrophils % 72 % Lymphocytes % 15 % Monocytes % 10 % Eosinophils % 1 % Basophils % 0 % Neutrophils # 5.3 (1.3-7.7) k/uL Lymphocytes # 1.1 (1.0-4.8) k/uL Monocytes # 0.7 (0-1.0) k/uL Eosinophils # 0.1 (0-0.7) k/uL Basophils # 0.0 (0-0.2) k/uL Macrocytosis Slight Sodium 137 (137-145) mmol/L Potassium 4.5 (3.5-5.1) mmol/L Chloride 97 L (98-107) mmol/L Carbon Dioxide 24 (22-30) mmol/L Anion Gap 16 mmol/L BUN 50 H (9-20) mg/dL Creatinine 1.81 H (0.66-1.25) mg/dL Est GFR (CKD-EPI)AfAm 39 (>60 ml/min/1.73 sqM) Est GFR (CKD-EPI)NonAf 34 (>60 ml/min/1.73 sqM) Glucose 140 H (74-99) mg/dL Plasma Lactic Acid Wisam (0.7-2.0) mmol/L Calcium 9.7 (8.4-10.2) mg/dL Total Bilirubin 0.7 (0.2-1.3) mg/dL AST 25 (17-59) U/L ALT 14 (4-49) U/L Alkaline Phosphatase 72 (38-126) U/L Troponin I (0.000-0.034) ng/mL Total Protein 7.6 (6.3-8.2) g/dL Albumin 4.6 (3.5-5.0) g/dL Urine Color Colorless Urine Appearance Clear (Clear) Urine pH 6.5 (5.0-8.0) Ur Specific [place] 1.006 (1.001-1.035) Urine Protein Negative (Negative) Urine Glucose (UA) 3+ H (Negative) Urine Ketones Negative (Negative) Urine Blood Negative (Negative) Urine Nitrite Negative (Negative) Urine Bilirubin Negative (Negative) Urine Urobilinogen <2.0 (<2.0) mg/dL Ur Leukocyte Esterase Negative (Negative) 03/02/23 03/02/23 Range/Units 14:35 14:35 WBC (3.8-10.6) k/uL RBC (4.30-5.90) m/uL Hgb (13.0-17.5) gm/dL Hct (39.0-53.0) % MCV (80.0-100.0) fL MCH (25.0-35.0) pg MCHC (31.0-37.0) g/dL RDW (11.5-15.5) % Plt Count (150-450) k/uL MPV Neutrophils % % Lymphocytes % % Monocytes % % Eosinophils % % Basophils % % Neutrophils # (1.3-7.7) k/uL Lymphocytes # (1.0-4.8) k/uL Monocytes # (0-1.0) k/uL Eosinophils # (0-0.7) k/uL Basophils # (0-0.2) k/uL Macrocytosis Sodium (137-145) mmol/L Potassium (3.5-5.1) mmol/L Chloride (98-107) mmol/L Carbon Dioxide (22-30) mmol/L Anion Gap mmol/L BUN (9-20) mg/dL Creatinine (0.66-1.25) mg/dL Est GFR (CKD-EPI)AfAm (>60 ml/min/1.73 sqM) Est GFR (CKD-EPI)NonAf (>60 ml/min/1.73 sqM) Glucose (74-99) mg/dL Plasma Lactic Acid Wisam 1.2 (0.7-2.0) mmol/L Calcium (8.4-10.2) mg/dL Total Bilirubin (0.2-1.3) mg/dL AST (17-59) U/L ALT (4-49) U/L Alkaline Phosphatase (38-126) U/L Troponin I 0.012 (0.000-0.034) ng/mL Total Protein (6.3-8.2) g/dL Albumin (3.5-5.0) g/dL Urine Color Urine Appearance (Clear) Urine pH (5.0-8.0) Ur Specific [place] (1.001-1.035) Urine Protein (Negative) Urine Glucose (UA) (Negative) Urine Ketones (Negative) Urine Blood (Negative) Urine Nitrite (Negative) Urine Bilirubin (Negative) Urine Urobilinogen (<2.0) mg/dL Ur Leukocyte Esterase (Negative) - EKG Data -: EKG Interpreted by De EKG Comments: EKG performed at 14:55 A. fib with a rate of 73 QRS 105 QT /QTC 391/[address] elevation or depression. Disposition Clinical Impression: Orthostatic hypotension, Dehydration Disposition: HOME SELF-CARE Condition: Stable Instructions (If sedation given, give patient instructions): Dehydration (ED) Additional Instructions: Please return to the Emergency Department if symptoms worsen or any other concerns. Is patient prescribed a controlled substance at d/c from ED?: No Referrals: Jamie Thomas MD [Primary Care Provider] - 1-2 days Time of Disposition: 16:48
[2023-03-02] MEDS ORDERED: SODIUM CHLORIDE 0.9% 1,000 ML IV ONE (15:13)
[2023-03-02 16:13] LABS: ALT 14 U/L (4-49); AST 25 U/L (17-59); African American GFR (CKD) 39 (>60 ml/min/1.73 sqM); Albumin 4.6 g/dL (3.5-5.0); Alkaline Phosphatase 72 U/L (38-126); Anion Gap 16 mmol/L; Blood Urea Nitrogen 50 mg/dL (9-20); Calcium 9.7 mg/dL (8.4-10.2); Carbon Dioxide 24 mmol/L (22-30); Chloride 97 mmol/L (98-107); Glucose 140 mg/dL (74-99); Non-African American GFR(CKD) 34 (>60 ml/min/1.73 sqM); Potassium 4.5 mmol/L (3.5-5.1); Sodium 137 mmol/L (137-145); Total Bilirubin 0.7 mg/dL (0.2-1.3); Total Protein 7.6 g/dL (6.3-8.2)
[2023-03-02 16:39] VITALS: PULSE 82
[2023-03-02 16:39] LABS: Appearance,Urine Clear (Clear); Bilirubin,Urine Negative (Negative); Blood,Urine Negative (Negative); Color,Urine Colorless; Glucose,Urine (UA) 3+ (Negative); Ketones,Urine Negative (Negative); Leukocyte Esterase,Urine Negative (Negative); Nitrite,Urine Negative (Negative); PH, Urine 6.5 (5.0-8.0); Protein,Urine Negative (Negative); Specific Gravity,Urine 1.006 (1.001-1.035); Urobilinogen,Urine <2.0 mg/dL (<2.0)
[2023-03-02 17:00] VITALS: BP 96/66; RESP 16
== END 2023-03-02 16:54 | disposition home or self-care (01) ==
LOC: EC 13:59
DX: I95.1 Orthostatic hypotension (principal); E86.0 Dehydration; I48.91 Unspecified atrial fibrillation; E11.9 Type 2 diabetes mellitus without complications; E78.5 Hyperlipidemia, unspecified; I10 Essential (primary) hypertension; G47.30 Sleep apnea, unspecified; M19.90 Unspecified osteoarthritis, unspecified site; Z87.891 Personal history of nicotine dependence; Z79.1 Long term (current) use of non-steroidal anti-inflammatories (NSAID); Z79.84 Long term (current) use of oral hypoglycemic drugs; Z79.01 Long term (current) use of anticoagulants; Z79.899 Other long term (current) drug therapy
CPT/HCPCS: 36415; 80053; 81003; 83605; 84484; 85025; 93005; 96360; 99284

== ENCOUNTER → 2023-03-08 | Outpatient (CLI) | payer MEDICARE ==
--- NOTE | 2023-03-08 16:37 | CT ---
EXAMINATION TYPE: CT abdomen pelvis wo con DATE OF EXAM: 03/08/2023 COMPARISON: 05/02/2022 HISTORY: bilateral flank pain, chronic back pain CT DLP: 649.3 mGycm Automated exposure control for dose reduction was used. TECHNIQUE: Helical acquisition of images was performed from the lung bases through the pelvis. FINDINGS: There is a calcified granuloma in the right lung base otherwise the lung bases are clear. There is cholecystectomy. There is no organomegaly involving the solid visceral organs of the upper abdomen. There are multiple large renal cysts bilaterally there are 2 small hemorrhagic cysts in the left kidn ey which is stable. On the right, there is a 6.8 mm obstructing calcification. There are 2 loose smaller lydia-like nonob structing calcifications the right kidney. These are seen on the prior study and are stable. On the left there are 2 calcifications approximately 2 3 cm in size. There are nonobstructing. The 5 mm calcification in the mid left kidney is no longer present. A second smaller calcification seen on the prior study has resolved in the interval. There is no hydronephrosis bilaterally. Caliber the abdominal aorta is normal. The bowel loops are normal in caliber is no evidence of obstruction. There is no pelvic mass or adenopathy. There is marked prostatic hypertrophy. There are postsurgical changes of laminectomy and fusion in the lower lumbar spine. IMPRESSION: Preop 1. Bilateral nephrolithiasis without hydronephrosis. There are fewer left renal calcifications compar ed to previous. The right renal calcifications are stable 2. Marked bilateral cortical cysts. 2 cysts in the left kidney are hemorrhagic but are stable. 3. Marked prostatic hypertrophy. 4. Laminectomy and fusion in the lower lumbar spine. 5. Cholecystectomy.
--- NOTE | 2023-03-08 16:57 | US ---
EXAMINATION TYPE: US kidneys/renal and bladder DATE OF EXAM: 03/08/2023 COMPARISON: 03/08/2023 CLINICAL INDICATION: Male, 83 years old with history of N18.31 CHRONIC KIDNEY DISEASE, STAGE 3A; Sho ent denies any signs or symptoms at this time EXAM MEASUREMENTS: Right Kidney: 9.7 x 6.6 x 5.6 cm Left Kidney: 10.0 x 5.3 x 6.0 cm Post Void Residual Volume: NA mL Right Kidney: Multiple calcifications and cysts, largest cyst = 7.5 x 4.0 x 6.5 cm Left Kidney: Multiple calcifications and cysts, largest cyst = 3.1 x 3.1 x 2.8 cm Bladder: WNL Bilateral Jets seen: Yes Normal Post Void Residual: NA There is no evidence for hydronephrosis at this point in time. The urinary bladder is anechoic. Bila teral ureteral jets are seen. IMPRESSION: Bilateral multicystic kidneys with thin septations. No evidence for hydronephrosis. Renal calculi see n on CT not well appreciated.
== END | disposition home or self-care (01) ==
LOC: RADUSWWP 14:58
PROVIDERS: ATTEND Internal Medicine
DX: N40.0 Benign prostatic hyperplasia without lower urinary tract symptoms (principal); N18.31 Chronic kidney disease, stage 3a; N20.0 Calculus of kidney; N28.1 Cyst of kidney, acquired; Z90.49 Acquired absence of other specified parts of digestive tract; Z98.1 Arthrodesis status
CPT/HCPCS: 74176; 76770

== ENCOUNTER → 2023-03-22 | Outpatient (CLI) | payer MEDICARE ==
--- NOTE | 2023-03-23 14:38 | BD ---
EXAMINATION TYPE: Axial Bone Density DATE OF EXAM: 03/22/2023 CLINICAL HISTORY: 83 years old Male. ICD-10 CODE: Z12.31 SCR MAMMO Height: 68.5" Weight: 182.9lbs FRAX RISK QUESTIONS: Alcohol (3 or more units per day): No Family History (Parent hip fracture): No Glucocorticoids (More than 3mos): No (Ex: prednisone, prednisolone, methylprednisolone, dexamethasone, and hydrocortisone). History of Fracture in Adulthood: No Secondary Osteoporosis: 1. Type 1 Diabetes: No 2. Hyperthyroidism: No 3. Menopause before 45: N/A 4. Malnutrition: No 5. Chronic liver disease: No Rheumatoid Arthritis: No Current Tobacco Use: No RISK FACTORS HISTORY OF: Hip Fracture (Right/Left): No Spine Fracture: No History of Wrist Fracture: No Surgery to Spine/Hip(right/left)/Wrist (right/left): L4 & L5 fusion with hardware When: Approximately 3 years ago Family History of Osteoporosis: No Active: Semi Diet low in dairy products/other sources of calcium: No Lost more than 2 inches in height since high school: Yes Frequent falls: No Poor Health: No Hyperparathyroidism: No Adrenal Insufficiency: No MEDICATIONS: Prednisone or other steroids: No Thyroid Medications: No Osteoporosis Medications: No Additional Medications: Metformin for diabetes Additional History: EXAM MEASUREMENTS: Bone mineral densitometry was performed using the [place] Depollution System. Bone mineral density about the R hip (g/cm2): 0.867 Bone mineral density about the L hip (g/cm2): 0.867 T Score values are as follows: -----R Neck: -1.0 -----L Neck: -1.6 -----R Total: -1.1 -----L Total: -1.1 Z Score values are as follows: -----R Neck: 0.1 -----L Neck: -0.5 -----R Total: -0.5 -----L Total: -0.5 Baseline @MPH Bone mineral density about the L Wrist (g/cm2): 0.663 T Score values are as follows: -----Dist. R+U: -1.3 -----Prox. R+U: -1.1 -----Radius total: -1.3 Z Score values are as follows: -----Dist. R+U: -0.1 -----Prox. R+U: 0.2 -----Radius total: 0.0 Baseline @MPH FRAX%s: The graph provided illustrates a 8.7% chance for a major osteoporotic fx and a 3.6% chance fo r the hips probability for fx in 10 years time. IMPRESSION: Osteopenia (T Score between -2.5 and -1). There is slightly increased risk of fracture and the patient may be considered for treatment. Re-Screen 2-5 years. NOTE: T-SCORE=SD OF THE YOUNG ADULT MEAN.
== END | disposition home or self-care (01) ==
LOC: RADBDWWP 13:45
PROVIDERS: ATTEND Internal Medicine
DX: M85.89 Other specified disorders of bone density and structure, multiple sites (principal)
CPT/HCPCS: 77080

== ENCOUNTER 2023-05-26 20:39 | Inpatient (IN) | payer MEDICARE ==
[2023-05-26] MEDS: ACETAMINOPHEN TAB 500 MG TAB PO STA (20:55)
[2023-05-26 21:24] LABS: Basophils % (A) 0 %; Eosinophils % (A) 0 %; HCT 42.8 % (39.0-53.0); HGB 13.9 gm/dL (13.0-17.5); Lymphocytes # (A) 0.4 k/uL (1.0-4.8); Lymphocytes % (A) 4 %; MCH 34.3 pg (25.0-35.0); MCHC 32.5 g/dL (31.0-37.0); MCV 105.4 fL (80.0-100.0); Macrocytosis Moderate; Monocytes # (A) 0.8 k/uL (0-1.0); Monocytes % (A) 8 %; Neutrophils % (A) 87 %; RBC 4.06 m/uL (4.30-5.90); RDW 14.3 % (11.5-15.5); WBC 10.4 k/uL (3.8-10.6)
[2023-05-26 21:25] LABS: INR 1.2 (<1.2); Partial Thromboplastin Time 25.6 sec (22.0-30.0); Prothrombin Time 12.3 sec (10.0-12.5)
[2023-05-26 21:26] LABS: Mean Platelet Volume 8.4; Platelet Count 101 k/uL (150-450)
[2023-05-26 21:32] LABS: ALT 40 U/L (4-49); AST 70 U/L (17-59); African American GFR (CKD) 58 (>60 ml/min/1.73 sqM); Albumin 3.6 g/dL (3.5-5.0); Alkaline Phosphatase 82 U/L (38-126); Anion Gap 12 mmol/L; Blood Urea Nitrogen 33 mg/dL (9-20); Carbon Dioxide 17 mmol/L (22-30); Chloride 104 mmol/L (98-107); Glucose 131 mg/dL (74-99); Magnesium 1.6 mg/dL (1.6-2.3); Non-African American GFR(CKD) 50 (>60 ml/min/1.73 sqM); Potassium 4.5 mmol/L (3.5-5.1); Sodium 133 mmol/L (137-145); Total Bilirubin 1.5 mg/dL (0.2-1.3); Total Protein 6.5 g/dL (6.3-8.2)
[2023-05-26 22:44] LABS: Appearance,Urine Turbid (Clear); Bacteria,Urine Many /hpf; Bilirubin,Urine Negative (Negative); Blood,Urine Moderate (Negative); Color,Urine Light Red; Glucose,Urine (UA) Negative (Negative); Ketones,Urine Negative (Negative); Leukocyte Esterase,Urine Large (Negative); Mucus,Urine Few /hpf; Nitrite,Urine Positive (Negative); Protein,Urine 2+ (Negative); RBC,Urine 37 /hpf (0-5); Urobilinogen,Urine <2.0 mg/dL (<2.0); WBC,Urine >182 /hpf (0-5)
[2023-05-26 22:47] LABS: Specific Gravity,Urine 1.015 (1.001-1.035)
--- NOTE | 2023-05-26 22:48 | CT ---
EXAMINATION TYPE: CT brain wo con CT DLP: 1341.8 mGycm, Automated exposure control for dose reduction was used. DATE OF EXAM: 05/26/2023 9:48 PM COMPARISON: 08/08/2022. CLINICAL INDICATION:Male, 83 years old with history of weakness, weakness TECHNIQUE: Brain: Axial CT images of the brain were obtained with coronal and sagittal reformats created and rev iewed. Contrast used: None. Oral contrast used: None. FINDINGS: Extra-axial spaces: No abnormal extra-axial fluid collections. Ventricular system: Ventricles appear dilated in proportion to the degree of cerebral atrophy. Cerebral parenchyma: No increased attenuation to suggest acute intraparenchymal hemorrhage. The gra y-white matter interface appears maintained. Moderate generalized brain atrophy. Scattered hypoatte nuating areas are seen within the cerebral white matter, nonspecific but most often seen with chronic microvascular ischemic changes; mild/moderate in degree. Stable appearance of remote right occipita l infarct. Cerebellum: No acute abnormality. Mass effect: No evidence of mass effect or midline shift. Intracranial vasculature: Atherosclerotic calcifications of the larger arteries near the skull base. Soft tissues: No acute or concerning abnormality. Visualized orbits: Orbital contents appear grossly intact. There has likely been previous lens surg aysha. Calvarium/osseous structures: No evidence of calvarial fracture. Paranasal sinuses and mastoid air cells: Complete opacification of the left frontal sinus, frontoethm oidal recess, multiple bilateral ethmoid air cells left more than right, and the left maxillary sinus ; this appears generally similar to prior except for the left frontal sinus shows increased opacifica tion. The other sinuses are relatively clear. No air-fluid levels are seen. Mastoid air cells are hakan ar. There is an S-shaped nasal septal deviation. MRI is more sensitive for detecting acute processes such as infarct, and may be considered if clinica lly warranted. IMPRESSION: 1. Atrophy and chronic microvascular ischemic changes. Remote right occipital infarct. 2. No acute intracranial abnormality. 3. Near complete opacification of the left frontal, multiple left anterior ethmoid, and left maxillar y sinuses.
--- NOTE | 2023-05-26 23:52 | XR ---
EXAMINATION TYPE: XR chest 2V DATE OF EXAM: 05/26/2023 9:48 PM CLINICAL INDICATION:Male, 83 years old with history of Weakness; PHH COMPARISON: None TECHNIQUE: XR chest 2V. Frontal and lateral views of the chest.. FINDINGS: Lines/Tubes/Devices: EKG leads overlie the chest. No indwelling lines are seen. Extrinsic densities over the chest. Heart/mediastinum: Heart appears mildly to moderately enlarged. Mildly tortuous partially calcified aorta. Mediastinal contours are relatively well-defined. Pulmonary vascularity: There appears to be central vascular congestion. Diffusely increased interstit ial markings raise concern for edema or pneumonitis. Lungs/Pleura: Lung volumes are somewhat low with crowding of the bronchovascular markings. Linear pat laurent opacities in the mid to lower lungs are seen with partial obscuration of the left costophrenic an gle. Right costophrenic angle is relatively sharp. No pneumothorax evident. Musculoskeletal: No acute osseous abnormality demonstrated in the limits of the exam. Generalized oss eous demineralization. Moderate degenerative changes. Other findings: None. IMPRESSION: 1. Cardiomegaly and ASVD of the aorta. 2. Pulmonary vascular congestion and increased interstitial opacities suggesting edema. Correlate cl inically for CHF. 3. Bibasilar opacities may represent edema and atelectasis, with superimposed infectious process not excluded in the proper setting. Suspect small to moderate left pleural effusion.
[2023-05-26] MEDS ORDERED: ACETAMINOPHEN TAB 325 MG TAB PO PRN (23:59)
[2023-05-26] MEDS ORDERED: NALOXONE 0.4 MG/ML 1 ML VIAL IV PRN (23:59)
--- NOTE | 2023-05-27 00:11 | ED ---
General Adult HPI - General Chief complaint: Fall Stated complaint: Weakness Time Seen by Provider: 05/26/23 20:40 Source: patient, EMS, RN notes reviewed, old records reviewed Mode of arrival: EMS - History of Present Illness Initial comments: Patient is an 83-year-old male who presents emergency department after multiple falls over the last few days. Last fall occurring prior to arrival. He told EMS he is not on blood thinners but patient is on Xarelto. Has a history of A- fib. Has a chronic indwelling Kirk. EMS found the patient with the leg bag Kirk pressurized with backup of urine into his bladder. They drained the Kirk twice. Patient states he has fallen, but states is more of a slumped over. States he is uncertain why. Endorses possible subjective chills. Is alert and oriented x 4. Has no other acute complaints at this time. Denies losing consciousness or hitting his head. Presents for further evaluation. - Related Data Home Medications Medication Instructions Recorded Confirmed Enalapril [Vasotec] 5 mg PO HS@1700 09/20/13 08/10/21 metFORMIN HCL [Glucophage] 1,000 mg PO BID 09/20/13 08/10/21 Atorvastatin Calcium [Lipitor] 10 mg PO DAILY 10/12/15 08/10/21 Cinnamon Bark [Cinnamon] 1,000 mg PO BID 10/12/15 08/10/21 Diphenoxylate HCl/Atropine 1 tab PO TID PRN 10/12/15 08/10/21 [Diphenoxylate-Atrop 2.5-0.025] Fenofibrate 160 mg PO DAILY 10/12/15 08/10/21 Ibrutinib [Imbruvica] 420 mg PO DAILY 10/12/15 08/10/21 Rivaroxaban [Xarelto] 20 mg PO DAILY 10/12/15 08/10/21 Folic Acid 1,200 mcg PO BID 11/20/15 08/10/21 Glimepiride [Amaryl] 2 mg PO [id number]-[id number] 09/23/17 08/10/21 Multivitamin [Men's Multi-Vitamin] 1 each PO DAILY 09/23/17 08/10/21 Allergies Allergy/AdvReac Type Severity Reaction Status Date / Time No Known Allergies Allergy Verified 03/02/23 14:10 Review of Systems ROS Statement: Those systems with pertinent positive or pertinent negative responses have been documented in the HPI. Review of Systems: CONST: Denies fever EYES: Denies blurry vision ENT: Denies nasal congestion C/V: Denies Chest pain RESP: Denies shortness of breath GI: Denies abdominal pain : Denies dysuria SKIN: Denies rash. MSK: Denies joint pain. NEURO: Denies headache ROS Other: All systems not noted in ROS Statement are negative. Past Medical History Past Medical History: Atrial Fibrillation, Cancer, Diabetes Mellitus, GERD/Reflux, Hyperlipidemia, Hypertension, Musculoskeletal Disorder, Neurologic Disorder, Osteoarthritis (OA), Renal Disease, Sleep Apnea/CPAP/BIPAP Additional Past Medical History / Comment(s): CLL-dx. 5 yrs. ago, unaware of renal problems, was having neck pain, neuropathy adonay feet, has cpap machine History of Any Multi-Drug Resistant Organisms: None Reported Past Surgical History: Cholecystectomy, Orthopedic Surgery, Tonsillectomy Additional Past Surgical History / Comment(s): left shoulder rototor cuff repair, Right shoulder Past Anesthesia/Blood Transfusion Reactions: No Reported Reaction Past Psychological History: No Psychological Hx Reported Smoking Status: Former smoker Past Alcohol Use History: Occasional Past Drug Use History: None Reported - Past Family History Mother Family Medical History: Cancer Additional Family Medical History / Comment(s): of pancreatic cancer General Exam - General Exam Comments Initial Comments: General: Appears in no acute distress.. Febrile. HEAD: Normal with no signs of head trauma. Negative Villavicencio sign. Negative raccoon eyes. EYES: PERRLA, EOMI, conjunctiva normal, no discharge. ENT: Hearing grossly intact, normal oropharynx. RESPIRATORY: Clear breath sounds bilaterally. No wheezes, rales, or rhonchi. C/V: Regular rate and rhythm. S1 and S2 auscultated, Symmetrical pitting edema, peripheral pulses 2+ and intact throughout ABD: Abd is soft, nontender, nondistended. Urine is dark. EXT: Normal range of motion, no obvious deformity no midline spinal tenderness to palpation. Pelvis is stable. SKIN: No rashes or lesions observed on exposed skin. NEURO: Alert and oriented x 4. Cranial nerves II-XII intact. No focal sensory or strength deficits. GCS of 15. Course Vital Signs 05/26/23 05/26/23 05/26/23 20:43 21:26 22:03 Temperature 100.9 F H 100.8 F H Pulse Rate 87 82 80 Respiratory 18 19 18 Rate Blood Pressure 129/77 127/68 115/69 O2 Sat by Pulse 97 97 Oximetry 05/26/23 23:02 Temperature Pulse Rate 73 Respiratory 14 Rate Blood Pressure 120/70 O2 Sat by Pulse 98 Oximetry Medical Decision Making - Medical Decision Making Was pt. sent in by a medical professional or institution (, QUINTIN, SCOURING TRAIN OPERATOR CHIEF, urgent care, hospital, or correction...) When possible be specific @ -No Did you speak to anyone other than the patient for history (EMS, parent, family, police, friend...)? What history was obtained from this source @ -No Did you review nursing and triage notes (agree or disagree)? Why? @ -I reviewed and agree with nursing and triage notes Were old charts reviewed (outside hosp., previous admission, EMS record, old EKG, old radiological studies, urgent care reports/EKG's, correction records)? Report findings @ -Old charts reviewed Differential Diagnosis (chest pain, altered mental status, abdominal pain women, abdominal pain men, vaginal bleeding, weakness, fever, dyspnea, syncope, headache, dizziness, GI bleed, back pain, seizure, CVA, palpatations, mental health, musculoskeletal)? @ -Dehydration, intracranial trauma, infection, UTI, Kirk malfunction. This list is not all inclusive. EKG interpreted by me (3pts min.). @ -As above X-rays interpreted by me (1pt min.). @ -Chest x-ray does show findings suggestive of volume overload. No hypoxia. CT interpreted by me (1pt min.). @ -CT brain negative for any obvious acute intracranial injury. U/S interpreted by me (1pt. min.). @ -None done What testing was considered but not performed or refused? (CT, X-rays, U/S, labs)? Why? @ -None What meds were considered but not given or refused? Why? @ -None Did you discuss the management of the patient with other professionals (professionals i.e. QUINTIN Colon, SCOURING TRAIN OPERATOR CHIEF, lab, RT, psych nurse, marriage and family social worker, light cleaner, teacher, sustainability officer, block and case maker)? Give summary @ - I spoke with the admitting physician, Dr. Wakefield who accepted the admission. Was smoking cessation discussed for >3mins.? @ -No Was critical care preformed (if so, how long)? @ -No Were there social determinants of health that impacted care today? How? (Homelessness, low income, unemployed, alcoholism, drug addiction, transportation, low edu. Level, literacy, decrease access to med. care, prison, rehab)? @ -No Was there de-escalation of care discussed even if they declined (Discuss DNR or withdrawal of care, Hospice)? DNR status @ -No What co-morbidities impacted this encounter? (DM, HTN, Smoking, COPD, CAD, Ca ncer, CVA, ARF, Chemo, Hep., AIDS, mental health diagnosis, sleep apnea, morbid obesity)? @ -None Was patient admitted / discharged? Hospital course, mention meds given and route, prescriptions, significant lab abnormalities, going to OR and other pertinent info. @ -Based on the patient's presentation and physical exam, presents after a fall on blood thinners from standing. Does not meet trauma activation criteria. Patient also has a Kirk catheter in place and is febrile. I do suspect a UTI as it appears that when EMS arrived patient was not adequately draining his Kirk bag. He also appears somewhat volume overloaded and states he is no longer on water pills. Presents for further evaluation. Vital signs are within acceptable limits. Laboratory studies remarkable for CKD. Urinalysis positive for UTI. Urine culture sent. Blood culture sent. Kirk catheter replaced. CT brain shows no obvious acute intracranial process. Chest x-ray does show some findings suggestive of volume overload state. On reevaluation, patient remains unchanged. I did offer admission and he did a ccept at this time as he is a fall risk. We will continue to treat his UTI with IV Rocephin. We will treat fevers. Will continue to monitor his volume overload status. I did give him a dose of Lasix and BNP was ordered. Volume overload could be related to the decreased ability of draining has Kirk leg bag. Patient was in agreement this plan. Patient shows no respiratory distress despite appearing to be volume overloaded at this time. I spoke with the admitting physician, Dr. Wakefield who accepted the admission. Undiagnosed new problem with uncertain prognosis? @ -No Drug Therapy requiring intensive monitoring for toxicity (Heparin, Nitro, Insulin, Cardizem)? @ -No Were any procedures done? @ -No Diagnosis/symptom? @ -UTI, volume overload, fall Acute, or Chronic, or Acute on Chronic? @ -Acute Uncomplicated (without systemic symptoms) or Complicated (systemic symptoms)? @ -Complicated Side effects of treatment? @ -No Exacerbation, Progression, or Severe Exacerbation? @ -No Poses a threat to life or bodily function? How? (Chest pain, [place], [place], pneumonia, PE, COPD, DKA, ARF, appy, cholecystitis, CVA, Diverticulitis, Homicidal, Suicidal, threat to staff... and all critical care pts) @ -Yes - Lab Data Result diagrams: 05/26/23 20:54 05/26/23 20:54 Lab Results 05/26/23 05/26/23 05/26/23 Range/Units 20:54 20:54 20:54 WBC 10.4 (3.8-10.6) k/uL RBC 4.06 L (4.30-5.90) m/uL Hgb 13.9 (13.0-17.5) gm/dL Hct 42.8 (39.0-53.0) % MCV 105.4 H (80.0-100.0) fL MCH 34.3 (25.0-35.0) pg MCHC 32.5 (31.0-37.0) g/dL RDW 14.3 (11.5-15.5) % Plt Count 101 L (150-450) k/uL MPV 8.4 Neutrophils % 87 % Lymphocytes % 4 % Monocytes % 8 % Eosinophils % 0 % Basophils % 0 % Neutrophils # 9.0 H (1.3-7.7) k/uL Lymphocytes # 0.4 L (1.0-4.8) k/uL Monocytes # 0.8 (0-1.0) k/uL Eosinophils # 0.0 (0-0.7) k/uL Basophils # 0.0 (0-0.2) k/uL Macrocytosis Moderate PT 12.3 (10.0-12.5) sec INR 1.2 H (<1.2) APTT 25.6 (22.0-30.0) sec Sodium 133 L (137-145) mmol/L Potassium 4.5 (3.5-5.1) mmol/L Chloride 104 (98-107) mmol/L Carbon Dioxide 17 L (22-30) mmol/L Anion Gap 12 mmol/L BUN 33 H (9-20) mg/dL Creatinine 1.32 H (0.66-1.25) mg/dL Est GFR (CKD-EPI)AfAm 58 (>60 ml/min/1.73 sqM) Est GFR (CKD-EPI)NonAf 50 (>60 ml/min/1.73 sqM) Glucose 131 H (74-99) mg/dL Plasma Lactic Acid [place] (0.7-2.0) mmol/L Calcium 9.0 (8.4-10.2) mg/dL Magnesium 1.6 (1.6-2.3) mg/dL Total Bilirubin 1.5 H (0.2-1.3) mg/dL AST 70 H (17-59) U/L ALT 40 (4-49) U/L Alkaline Phosphatase 82 (38-126) U/L Total Protein 6.5 (6.3-8.2) g/dL Albumin 3.6 (3.5-5.0) g/dL Urine Color Urine Appearance (Clear) Urine pH (5.0-8.0) Ur Specific [place] (1.001-1.035) Urine Protein (Negative) Urine Glucose (UA) (Negative) Urine Ketones (Negative) Urine Blood (Negative) Urine Nitrite (Negative) Urine Bilirubin (Negative) Urine Urobilinogen (<2.0) mg/dL Ur Leukocyte Esterase (Negative) Urine RBC (0-5) /hpf Urine WBC (0-5) /hpf Urine WBC Clumps (None) /hpf Urine Bacteria (None) /hpf Urine Mucus (None) /hpf Influenza Type A (PCR) (Not Detectd) Influenza Type B (PCR) (Not Detectd) RSV (PCR) (Not Detectd) SARS-CoV-2 (PCR) (Not Detectd) 05/26/23 05/26/23 05/26/23 Range/Units 20:54 20:54 22:20 WBC (3.8-10.6) k/uL RBC (4.30-5.90) m/uL Hgb (13.0-17.5) gm/dL Hct (39.0-53.0) % MCV (80.0-100.0) fL MCH (25.0-35.0) pg MCHC (31.0-37.0) g/dL RDW (11.5-15.5) % Plt Count (150-450) k/uL MPV Neutrophils % % Lymphocytes % % Monocytes % % Eosinophils % % Basophils % % Neutrophils # (1.3-7.7) k/uL Lymphocytes # (1.0-4.8) k/uL Monocytes # (0-1.0) k/uL Eosinophils # (0-0.7) k/uL Basophils # (0-0.2) k/uL Macrocytosis PT (10.0-12.5) sec INR (<1.2) APTT (22.0-30.0) sec Sodium (137-145) mmol/L Potassium (3.5-5.1) mmol/L Chloride (98-107) mmol/L Carbon Dioxide (22-30) mmol/L Anion Gap mmol/L BUN (9-20) mg/dL Creatinine (0.66-1.25) mg/dL Est GFR (CKD-EPI)AfAm (>60 ml/min/1.73 sqM) Est GFR (CKD-EPI)NonAf (>60 ml/min/1.73 sqM) Glucose (74-99) mg/dL Plasma Lactic Acid [place] 1.5 (0.7-2.0) mmol/L Calcium (8.4-10.2) mg/dL Magnesium (1.6-2.3) mg/dL Total Bilirubin (0.2-1.3) mg/dL AST (17-59) U/L ALT (4-49) U/L Alkaline Phosphatase (38-126) U/L Total Protein (6.3-8.2) g/dL Albumin (3.5-5.0) g/dL Urine Color Light Red Urine Appearance Turbid (Clear) Urine pH 6.0 (5.0-8.0) Ur Specific [place] 1.015 (1.001-1.035) Urine Protein 2+ H (Negative) Urine Glucose (UA) Negative (Negative) Urine Ketones Negative (Negative) Urine Blood Moderate H (Negative) Urine Nitrite Positive (Negative) Urine Bilirubin Negative (Negative) Urine Urobilinogen <2.0 (<2.0) mg/dL Ur Leukocyte Esterase Large H (Negative) Urine RBC 37 H (0-5) /hpf Urine WBC >182 H (0-5) /hpf Urine WBC Clumps Many H (None) /hpf Urine Bacteria Many H (None) /hpf Urine Mucus Few H (None) /hpf Influenza Type A (PCR) Not Detected (Not Detectd) Influenza Type B (PCR) Not Detected (Not Detectd) RSV (PCR) Not Detected (Not Detectd) SARS-CoV-2 (PCR) Not Detected (Not Detectd) - EKG Data -: EKG Interpreted by Me EKG Comments: 12-lead Electrocardiogram Interpretation Note EKG was reviewed and interpreted by myself. 12-lead ECG performed at 2202 is interpreted by me as revealing atrial fibrillation at a rate of 79 beats per minute. [place] is normal. QRS duration is 110 ms, QTc is 410 ms.. There were no ST or T wave abnormalities to suggest myocardial ischemia or injury. R wave progression across the precordium was satisfactory. By my interpretation this EKG is non-diagnostic for acute ischemia. Disposition Clinical Impression: Fall, UTI (urinary tract infection), Volume overload Disposition: ADMITTED IP TO THIS HOSP Condition: Stable Referrals: Jamie Thomas DO [Primary Care Provider] - 1-2 days Time of Disposition: 23:58
[2023-05-27] MEDS: KETOROLAC 15 MG/ML 1 ML VIAL IVP STA (00:16)
[2023-05-27] MEDS: FUROSEMIDE 10 MG/ML 4 ML VIAL IV STA (00:17)
[2023-05-27] MEDS ORDERED: DEXTROSE 50% SYRINGE 50 ML IVP PRN ×2 (01:10)
--- NOTE | 2023-05-27 02:19 | P.HPIM ---
History of Present Illness H&P Date: 05/26/23 Chief Complaint: Frequent falling at home 83-year-old male with A-fib on Xarelto, CKD, diabetes mellitus, peripheral neuropathy Patient coming in for evaluation of multiple falls over the past week or so. He describes that he every time he stands up from a sitting or laying down position he would feel fine but then he tries to take a step and then he feels weak in the legs and falls. Today he had another episode where he stood up from sitting position he felt great try to take a step and then immediately felt weak in the legs and fell down he describes the falls more like a slumped over without head injury without passing out with no reported seizure-like activity. His was trying to help him today however despite that he still fell for which his notified EMS and brought him to the hospital for evaluation. Patient denies any headache changes in vision or hearing denies any new onset focal neurodeficits. He does endorses chronic peripheral neuropathy. With these episodes of falling patient denies any associated dizziness lightheadedness shortness of breath chest pain or palpitations denies any associated profuse sweating. Patient also reports chronic history of bilateral leg swelling that comes and goes usually his doctor will give him some Lasix when the legs are swollen and then goes away. He is supposed to use compression stocking but he does not like them. He denies any history of congestive heart failure He also reports long history of low back pain for which she had surgery in the past but now he is describing some left anterior thigh pain denies any history of left hip replacement or surgeries. Patient was recently diagnosed with urinary retention visited his urologist for which he inserted a Kirk catheter and try to schedule him for a cystoscopy in 2 months patient has an appointment tomorrow with urology and requested a consultation as he is cannot miss that appointment that he was looking forward to. However EMS reported upon their arrival that his urine bag was full with back pressure into his Kirk catheter that required emptying. Patient denies any abdominal pain nausea vomiting fevers or chills Patient does take blood thinners for A-fib however he denies any head injuries with these episodes of falling. review of systems Pertinent positives as noted in HPI. All other systems were reviewed and are negative on exam Constitutional: No acute distress, conversant, pleasant Eyes: Anicteric sclerae, moist conjunctiva, Pupils equal round reactive to light ENMT: NC/AT Oropharynx clear, no erythema, or exudates Neck: Supple, no masses, or JVD No carotid bruits No thyromegaly Lungs: Clear to auscultation Clear to percussion Normal respiratory effort, no accessory muscle use Cardiovascular: Heart regular in rate and rhythm, No murmurs, gallops, or rubs +2 bilateral peripheral leg edema Abdominal: Soft Nontender, no guarding, rebound or rigidity Abdomen moving with respiration Normoactive bowel sounds Extremities: No digital cyanosis No clubbing Pedal pulses intact and symmetrical Radial pulses intact and symmetrical No calf tenderness Psychiatric: Alert and oriented to person, place and time Neuro Muscles Strength 5/5 in bilateral upper extremities, 3 out of 5 in bilateral lower extremities Sensation to light touch grossly present throughout Cranial nerves II-XII grossly intact Past Medical History Past Medical History: Atrial Fibrillation, Cancer, Diabetes Mellitus, GERD/Reflux, Hyperlipidemia, Hypertension, Musculoskeletal Disorder, Neurologic Disorder, Osteoarthritis (OA), Renal Disease, Sleep Apnea/CPAP/BIPAP Additional Past Medical History / Comment(s): CLL-dx. 5 yrs. ago, unaware of renal problems, was having neck pain, neuropathy adonay feet, has cpap machine History of Any Multi-Drug Resistant Organisms: None Reported Past Surgical History: Cholecystectomy, Orthopedic Surgery, Tonsillectomy Additional Past Surgical History / Comment(s): left shoulder rototor cuff repair, Right shoulder Past Anesthesia/Blood Transfusion Reactions: No Reported Reaction Past Psychological History: No Psychological Hx Reported Smoking Status: Former smoker Past Alcohol Use History: Occasional Past Drug Use History: None Reported - Past Family History Mother Family Medical History: Cancer Additional Family Medical History / Comment(s): of pancreatic cancer Medications and Allergies Home Medications Medication Instructions Recorded Confirmed Type Enalapril [Vasotec] 5 mg PO HS@1700 09/20/13 08/10/21 History metFORMIN HCL [Glucophage] 1,000 mg PO BID 09/20/13 08/10/21 History Atorvastatin Calcium [Lipitor] 10 mg PO DAILY 10/12/15 08/10/21 History Cinnamon Bark [Cinnamon] 1,000 mg PO BID 10/12/15 08/10/21 History Diphenoxylate HCl/Atropine 1 tab PO TID PRN 10/12/15 08/10/21 History [Diphenoxylate-Atrop 2.5-0.025] Fenofibrate 160 mg PO DAILY 10/12/15 08/10/21 History Ibrutinib [Imbruvica] 420 mg PO DAILY 10/12/15 08/10/21 History Rivaroxaban [Xarelto] 20 mg PO DAILY 10/12/15 08/10/21 History Folic Acid 1,200 mcg PO BID 11/20/15 08/10/21 History Glimepiride [Amaryl] 2 mg PO [id number] 09/23/17 08/10/21 History Multivitamin [Men's Multi-Vitamin] 1 each PO DAILY 09/23/17 08/10/21 History Allergies Allergy/AdvReac Type Severity Reaction Status Date / Time No Known Allergies Allergy Verified 03/02/23 14:10 Physical Exam Vitals: Vital Signs Temp Pulse Resp BP Pulse Ox 05/26/23 23:02 73 14 120/70 98 05/26/23 22:03 100.8 F H 80 18 115/69 97 05/26/23 21:26 82 19 127/68 05/26/23 20:43 100.9 F H 87 18 129/77 97 Intake and Output 05/26/23 05/26/23 05/27/23 14:59 22:59 06:59 Other: Weight 95.254 kg Results CBC & Chem 7: 05/26/23 20:54 05/26/23 20:54 Labs: Abnormal Lab Results - Last 24 Hours (Table) 05/26/23 05/26/23 05/26/23 Range/Units 20:54 20:54 20:54 RBC 4.06 L (4.30-5.90) m/uL MCV 105.4 H (80.0-100.0) fL Plt Count 101 L (150-450) k/uL Neutrophils # 9.0 H (1.3-7.7) k/uL Lymphocytes # 0.4 L (1.0-4.8) k/uL INR 1.2 H (<1.2) Sodium 133 L (137-145) mmol/L Carbon Dioxide 17 L (22-30) mmol/L BUN 33 H (9-20) mg/dL Creatinine 1.32 H (0.66-1.25) mg/dL Glucose 131 H (74-99) mg/dL Total Bilirubin 1.5 H (0.2-1.3) mg/dL AST 70 H (17-59) U/L Urine Protein (Negative) Urine Blood (Negative) Ur Leukocyte Esterase (Negative) Urine RBC (0-5) /hpf Urine WBC (0-5) /hpf Urine WBC Clumps (None) /hpf Urine Bacteria (None) /hpf Urine Mucus (None) /hpf 05/26/23 Range/Units 22:20 RBC (4.30-5.90) m/uL MCV (80.0-100.0) fL Plt Count (150-450) k/uL Neutrophils # (1.3-7.7) k/uL Lymphocytes # (1.0-4.8) k/uL INR (<1.2) Sodium (137-145) mmol/L Carbon Dioxide (22-30) mmol/L BUN (9-20) mg/dL Creatinine (0.66-1.25) mg/dL Glucose (74-99) mg/dL Total Bilirubin (0.2-1.3) mg/dL AST (17-59) U/L Urine Protein 2+ H (Negative) Urine Blood Moderate H (Negative) Ur Leukocyte Esterase Large H (Negative) Urine RBC 37 H (0-5) /hpf Urine WBC >182 H (0-5) /hpf Urine WBC Clumps Many H (None) /hpf Urine Bacteria Many H (None) /hpf Urine Mucus Few H (None) /hpf Assessment and Plan Assessment: 84-year-old male with A-fib on blood thinners, diabetes mellitus with peripheral neuropathy, coming in for evaluation of multiple falls at home when he changes position from sitting seated or laying down to standing up I discussed the case with ED doctor and accepted the admission for suspected UTI with further neurology and physical therapy evaluation with anticipated length of stay less than 2 midnights Urinary tract infection with Kirk catheter present upon admission from home Kirk catheter care Urology consultation for urinary retention Follow-up cultures Rocephin 2 g IV piggyback daily Tylenol 1 g p.o. every 6 hours as needed for fever or pain Monitor vital signs White count 10.4 hemoglobin 13.9 unremarkable Patient afebrile Urine analysis positive for nitrite Frequent falling CT of the brain showed no acute intracranial findings however suggested chronic small blood vessel ischemia PT evaluation Fall precautions Check orthostatic vitals in the morning Neurology consultation Chronic kidney disease stage III Sodium 133 potassium 4.5 BUN 33 creatinine 1.3 Monitor urine output Monitor renal function Avoid nephrotoxic meds Bilateral leg edema Status post 40 mg IV Lasix once in the ED Compression stockings Reevaluate in a.m. Diabetes mellitus Insulin sliding scale Hypertension Controlled Continue lisinopril Chronic A-fib EKG showing A-fib, showing T wave inversion in lead III which is unchanged compared to EKG from February 2023 Continue with Xarelto 20 mg p.o. 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 every 6 hours as needed Full code DVT prophylaxis on Xarelto for A-fib GI prophylaxis Protonix 40 mg p.o. daily
[2023-05-27] MEDS: ACETAMINOPHEN TAB 500 MG TAB PO PRN (04:43)
[2023-05-27] MEDS: INSULIN ASPART (NovoLOG) 100 UNIT/ML VIAL SQ SCH (06:08)
[2023-05-27 06:09] LABS: Glucose,Whole Blood 132 mg/dL (70-110)
[2023-05-27] MEDS: PANTOPRAZOLE 40 MG TABLET PO SCH (06:15)
[2023-05-27] MEDS: ATORVASTATIN 10 MG TAB PO SCH (09:12)
--- NOTE | 2023-05-27 09:58 | P.GSCN ---
History of Present Illness Consult date: 05/27/23 History of present illness: The 3-year-old gentleman who was brought to the hospital because of persistent inability to stand. He has fallen. He has been somewhat dizzy. He is not on Flomax. He has an indwelling catheter placed last week by for urine retention. We are asked to see him for this reason. He saw Dr. Beltran proximally a month ago for symptomatic BPH and was placed on Flomax without benefit. He subsequently went into urinary retention. The volume was under 1 L according to the patient. He was supposed to be seen for cystoscopy and another voiding trial today in the office. The etiology of his neurologic issues indeterminate. His brain CAT scan was normal. On computed tomography scan back in February he was identified to have bilateral renal cysts and a significantly enlarged prostate. He has had symptomatic BPH for some time. Review of Systems All systems: negative - Constitutional Denies fever, Denies weight loss - EENT Eyes: denies blurred vision Ears, nose, mouth and throat: Denies dysphagia - Cardiovascular Denies chest pain, Denies shortness of breath - Respiratory Denies cough, Denies 7 - Gastrointestinal Reports as per HPI - Genitourinary Denies dysuria, Denies hematuria - Integumentary Denies rash, Denies unusual bruising - Neurological Denies headaches, Denies syncope - Hematologic/Lymphatic Denies easy bleeding, Denies easy bruising Past Medical History Past Medical History: Atrial Fibrillation, Cancer, Diabetes Mellitus, GERD/Reflux, Hyperlipidemia, Hypertension, Musculoskeletal Disorder, Neurologic Disorder, Osteoarthritis (OA), Renal Disease, Sleep Apnea/CPAP/BIPAP Additional Past Medical History / Comment(s): CLL-dx. 5 yrs. ago, unaware of renal problems, was having neck pain, neuropathy adonay feet, has cpap machine History of Any Multi-Drug Resistant Organisms: None Reported Past Surgical History: Cholecystectomy, Orthopedic Surgery, Tonsillectomy Additional Past Surgical History / Comment(s): left shoulder rototor cuff repair, Right shoulder Past Anesthesia/Blood Transfusion Reactions: No Reported Reaction Past Psychological History: No Psychological Hx Reported Smoking Status: Former smoker Past Alcohol Use History: Occasional Past Drug Use History: None Reported - Past Family History Mother Family Medical History: Cancer Additional Family Medical History / Comment(s): of pancreatic cancer Medications and Allergies Home Medications Medication Instructions Recorded Confirmed Type Atorvastatin Calcium [Lipitor] 10 mg PO DAILY 10/12/15 05/27/23 History Fenofibrate 160 mg PO DAILY 10/12/15 05/27/23 History Rivaroxaban [Xarelto] 20 mg PO DAILY 10/12/15 05/27/23 History Acetaminophen [Tylenol Extra 1,000 mg PO Q6H PRN 05/27/23 05/27/23 History Strength] Gabapentin [Neurontin] 300 mg PO BID 05/27/23 05/27/23 History Semaglutide [Ozempic] 0.25 mg SQ Q7D 05/27/23 05/27/23 History Tamsulosin [Flomax] 0.4 mg PO DAILY 05/27/23 05/27/23 History Venetoclax [Venclexta] 300 mg PO DAILY 05/27/23 05/27/23 History metFORMIN HCL ER [Glucophage XR] 500 mg PO DAILY 05/27/23 05/27/23 History Allergies Allergy/AdvReac Type Severity Reaction Status Date / Time No Known Allergies Allergy Verified 03/02/23 14:10 Surgical - Exam Vital Signs Temp Pulse Resp BP Pulse Ox 100.9 F H 87 18 129/77 97 05/26/23 20:43 05/26/23 20:43 05/26/23 20:43 05/26/23 20:43 05/26/23 20:43 - General well developed, well nourished, no distress - Eyes normal ocular movement, no icteric - ENT no hearing loss, no congestion - Neck no masses, trachea midline - Respiratory normal respiratory effort, clear to auscultation - Abdomen Abdomen: soft, non tender, no guarding, no rigid, no rebound - Integumentary no rash, no abnormal pigmentation - Neurologic no disoriented, no combative - Psychiatric oriented to time, oriented to person, oriented to place, speech is normal, memory intact Results - Labs 05/26/23 20:54 05/26/23 20:54 Abnormal Lab Results - Last 24 Hours (Table) 05/26/23 05/26/23 05/26/23 Range/Units 20:54 20:54 20:54 RBC 4.06 L (4.30-5.90) m/uL MCV 105.4 H (80.0-100.0) fL Plt Count 101 L (150-450) k/uL Neutrophils # 9.0 H (1.3-7.7) k/uL Lymphocytes # 0.4 L (1.0-4.8) k/uL INR 1.2 H (<1.2) Sodium 133 L (137-145) mmol/L Carbon Dioxide 17 L (22-30) mmol/L BUN 33 H (9-20) mg/dL Creatinine 1.32 H (0.66-1.25) mg/dL Glucose 131 H (74-99) mg/dL POC Glucose (mg/dL) (70-110) mg/dL Total Bilirubin 1.5 H (0.2-1.3) mg/dL AST 70 H (17-59) U/L Urine Protein (Negative) Urine Blood (Negative) Ur Leukocyte Esterase (Negative) Urine RBC (0-5) /hpf Urine WBC (0-5) /hpf Urine WBC Clumps (None) /hpf Urine Bacteria (None) /hpf Urine Mucus (None) /hpf 05/26/23 05/27/23 Range/Units 22:20 06:08 RBC (4.30-5.90) m/uL MCV (80.0-100.0) fL Plt Count (150-450) k/uL Neutrophils # (1.3-7.7) k/uL Lymphocytes # (1.0-4.8) k/uL INR (<1.2) Sodium (137-145) mmol/L Carbon Dioxide (22-30) mmol/L BUN (9-20) mg/dL Creatinine (0.66-1.25) mg/dL Glucose (74-99) mg/dL POC Glucose (mg/dL) 132 H (70-110) mg/dL Total Bilirubin (0.2-1.3) mg/dL AST (17-59) U/L Urine Protein 2+ H (Negative) Urine Blood Moderate H (Negative) Ur Leukocyte Esterase Large H (Negative) Urine RBC 37 H (0-5) /hpf Urine WBC >182 H (0-5) /hpf Urine WBC Clumps Many H (None) /hpf Urine Bacteria Many H (None) /hpf Urine Mucus Few H (None) /hpf Diabetes panel 05/26/23 Range/Units 20:54 Sodium 133 L (137-145) mmol/L Potassium 4.5 (3.5-5.1) mmol/L Chloride 104 (98-107) mmol/L Carbon Dioxide 17 L (22-30) mmol/L BUN 33 H (9-20) mg/dL Creatinine 1.32 H (0.66-1.25) mg/dL Glucose 131 H (74-99) mg/dL Calcium 9.0 (8.4-10.2) mg/dL AST 70 H (17-59) U/L ALT 40 (4-49) U/L Alkaline Phosphatase 82 (38-126) U/L Total Protein 6.5 (6.3-8.2) g/dL Albumin 3.6 (3.5-5.0) g/dL Calcium panel 05/26/23 Range/Units 20:54 Calcium 9.0 (8.4-10.2) mg/dL Albumin 3.6 (3.5-5.0) g/dL Pituitary panel 05/26/23 Range/Units 20:54 Sodium 133 L (137-145) mmol/L Potassium 4.5 (3.5-5.1) mmol/L Chloride 104 (98-107) mmol/L Carbon Dioxide 17 L (22-30) mmol/L BUN 33 H (9-20) mg/dL Creatinine 1.32 H (0.66-1.25) mg/dL Glucose 131 H (74-99) mg/dL Calcium 9.0 (8.4-10.2) mg/dL Adrenal panel 05/26/23 Range/Units 20:54 Sodium 133 L (137-145) mmol/L Potassium 4.5 (3.5-5.1) mmol/L Chloride 104 (98-107) mmol/L Carbon Dioxide 17 L (22-30) mmol/L BUN 33 H (9-20) mg/dL Creatinine 1.32 H (0.66-1.25) mg/dL Glucose 131 H (74-99) mg/dL Calcium 9.0 (8.4-10.2) mg/dL Total Bilirubin 1.5 H (0.2-1.3) mg/dL AST 70 H (17-59) U/L ALT 40 (4-49) U/L Alkaline Phosphatase 82 (38-126) U/L Total Protein 6.5 (6.3-8.2) g/dL Albumin 3.6 (3.5-5.0) g/dL - Imaging CT scan - abdomen: report reviewed, image reviewed CT scan - pelvis: report reviewed, image reviewed Assessment and Plan Assessment: Impression: Urinary retention secondary large prostate. BPH with obstruction. Recommendations: Clearly urologic standpoint nothing further should be done. He states Flomax did not work and given that he has had dizziness I do not recommend restarting that. I will discuss with and make appropriate follow-up appointment with him for cystoscopy as previously planned.
--- NOTE | 2023-05-27 11:03 | P.PN ---
Subjective Progress Note Date: 05/27/23 83-year-old male with PMH of atrial fibrillation on Xarelto, chronic kidney disease, diabetes mellitus, peripheral neuropathy, urinary retention with Kirk catheter presents the ED for multiple falls, left anterior thigh pain. Of note, patient had a Kirk catheter placed by his urologist with plans of cystoscopy in 2 months. EMS reported upon their arrival that his urine bag was full with back pressure into his Kirk catheter that required emptying. In the ED, he underwent extensive evaluation. BP 129/77, HR 87, RR 18, T 100.9 F, 97% on RA. CBC, coag panel and CMP done significant for RBC 4.06, MCV 105.4, platelet 101, INR 1.2, sodium 133, bicarb 17, BUN 33, creatinine 1.3 to, glucose 131, total bilirubin 1.5, AST 70. Lactic acid 1.5. Magnesium 1.6. BNP 3150. Urinalysis 2+ protein, moderate blood, positive nitrite, large leukocyte esterase with greater than 182 CBCs. Flu, RSV, COVID-[address] showed atrophy and chronic microvascular ischemic changes with sinusitis. Chest x-ray showed pulmonary vascular congestion with basilar opacities. EKG showed atrial fibrillation with ventricular rate of 79. Patient is admitted for further workup and management. 05/26 Patient was seen and examined. Appears quite uncomfortable due to the pain in his left thigh. Urology recommends outpatient follow up. General: non toxic, no distress, appears at stated age Derm: warm, dry Head: atraumatic, normocephalic, symmetric Eyes: EOMI, no lid lag, anicteric sclera Mouth: no lip lesion, mucus membranes moist Cardiovascular: S1S2 Irreg, no murmur Lungs: CTA bilateral, no rhonchi, no rales , no accessory muscle use Abdominal: soft, nontender to palpation, no guarding, no appreciable organomegaly, + Kirk Ext: no gross muscle atrophy, 2+ bilateral LE edema, no contractures Neuro: Strength 3/5 in bilateral lower extremities. Strength 5/5 otherwise and sensation intact to touch. Psych: Alert, oriented, appropriate affect Based on my assessment of this patient, this patient meets a moderate complexity level of care. Patient has an acute diagnosis of UTI with lower extremity weakness that poses a threat to life or bodily function. UTI due to Kirk catheter present on admission: Rocephin 2g IV QD. Patient does not meet sepsis criteria. UCx and BCx collected. Left anterior thigh pain: Obtain Femur, Hip and Lumbar XR to evaluate for referred pain. Fall precautions. PT and OT evaluation. Lower extremity weakness: Neurology consulted. Metabolic acidosis: Likely due to CKD. Encourage hydration by mouth. Macrocytosis: Obtain B12, Folate. Hyponatremia: Encourage hydration by mouth. Supratherapeutic INR: Patient on Xarelto. Transaminitis: Repeat CMP tomorrow. Abdominal exam benign. Obtain Liver and GB US if remains elevated tomorrow. Chronic conditions: Atrial fibrillation on Xarelto, chronic kidney disease, diabetes mellitus, peripheral neuropathy, urinary retention with Kirk catheter CODE STATUS: FULL CODE. DVT Prophylaxis: Xarelto GI Prophylaxis: Protonix PO Designated medical POA if patient is not able to make medical decisions for themselves: I have reviewed the following solar consultant notes: Urology. I have reviewed the results of the following tests: I have ordered the following tests: As above. I have discussed the care of this patient with the following independent historian: Case management at bedside. I have independently interpreted the following test below: I have discussed the management of this patient with the following physician: Objective - Vital Signs Vital signs: Vital Signs Temp 98.1 F 05/27/23 07:00 Pulse 74 05/27/23 08:00 Resp 16 05/27/23 08:00 BP 101/66 05/27/23 07:00 Pulse Ox 97 05/27/23 09:01 FiO2 21 05/27/23 09:01 Intake & Output 05/26/23 05/27/23 05/27/23 18:59 06:59 18:59 Intake Total 118 Output Total 250 Balance -250 118 Weight 95.254 kg Intake: Oral 118 Output: Urine 250 Other: Voiding Method Indwelling Catheter Indwelling Catheter # Bowel Movements 0 1 - Labs CBC & Chem 7: 05/26/23 20:54 05/26/23 20:54 Labs: Abnormal Lab Results - Last 24 Hours (Table) 05/26/23 05/26/23 05/26/23 Range/Units 20:54 20:54 20:54 RBC 4.06 L (4.30-5.90) m/uL MCV 105.4 H (80.0-100.0) fL Plt Count 101 L (150-450) k/uL Neutrophils # 9.0 H (1.3-7.7) k/uL Lymphocytes # 0.4 L (1.0-4.8) k/uL INR 1.2 H (<1.2) Sodium 133 L (137-145) mmol/L Carbon Dioxide 17 L (22-30) mmol/L BUN 33 H (9-20) mg/dL Creatinine 1.32 H (0.66-1.25) mg/dL Glucose 131 H (74-99) mg/dL POC Glucose (mg/dL) (70-110) mg/dL Total Bilirubin 1.5 H (0.2-1.3) mg/dL AST 70 H (17-59) U/L Urine Protein (Negative) Urine Blood (Negative) Ur Leukocyte Esterase (Negative) Urine RBC (0-5) /hpf Urine WBC (0-5) /hpf Urine WBC Clumps (None) /hpf Urine Bacteria (None) /hpf Urine Mucus (None) /hpf 05/26/23 05/27/23 Range/Units 22:20 06:08 RBC (4.30-5.90) m/uL MCV (80.0-100.0) fL Plt Count (150-450) k/uL Neutrophils # (1.3-7.7) k/uL Lymphocytes # (1.0-4.8) k/uL INR (<1.2) Sodium (137-145) mmol/L Carbon Dioxide (22-30) mmol/L BUN (9-20) mg/dL Creatinine (0.66-1.25) mg/dL Glucose (74-99) mg/dL POC Glucose (mg/dL) 132 H (70-110) mg/dL Total Bilirubin (0.2-1.3) mg/dL AST (17-59) U/L Urine Protein 2+ H (Negative) Urine Blood Moderate H (Negative) Ur Leukocyte Esterase Large H (Negative) Urine RBC 37 H (0-5) /hpf Urine WBC >182 H (0-5) /hpf Urine WBC Clumps Many H (None) /hpf Urine Bacteria Many H (None) /hpf Urine Mucus Few H (None) /hpf
[2023-05-27] MEDS: RIVAROXABAN 20 MG TAB PO SCH (11:42)
[2023-05-27 12:08] LABS: Glucose,Whole Blood 122 mg/dL (70-110)
--- NOTE | 2023-05-27 13:42 | XR ---
EXAMINATION TYPE: XR Hip Complete LT DATE OF EXAM: 05/27/2023 COMPARISON: NONE HISTORY: LEFT HIP PAIN TECHNIQUE: 2 views submitted FINDINGS: There is no evidence of erosive change or acute fracture. Diffuse osteopenia. Mild hypertrophic arthr opathy of the left hip. Spur along the greater trochanter. Vascular calcium aeration is noted. IMPRESSION: 1. Left hip arthropathy. Correlate for femoral acetabular impingement.
--- NOTE | 2023-05-27 13:52 | XR ---
EXAMINATION TYPE: XR femur LT DATE OF EXAM: 05/27/2023 CLINICAL HISTORY: None TECHNIQUE: Two views of the more femur are obtained. COMPARISON: None FINDINGS: There is no acute fracture or dislocation seen in the left femur. There is arthritic daly e involving the knee and hip. Spurring along the patella. Diffuse osteopenia. Vascular calcifications . IMPRESSION: 1. Arthropathy of the hip and knee joint with no acute fracture.
--- NOTE | 2023-05-27 13:54 | XR ---
EXAM TYPE: LUMBAR SPINE X RAY SERIES COMPARISON: 02/22/2023 HISTORY: Low back pain TECHNIQUE: 4 views are submitted. FINDINGS: Alignment is anatomic. The pedicles are intact. The transverse processes are intact. There is diff use osteopenia and multilevel hypertrophic and degenerative disc disease. Postsurgical changes L4-L5 with grade 1 anterolisthesis. Posterior spondylosis L3-L4. Multilevel facet arthropathy and foraminal encroachment. Vascular calcifications aorta. IMPRESSION: 1. Postsurgical changes L4-L5. 2. Multilevel degenerative disc disease with multilevel foraminal encroachment. 3. There is a grade 1 anterolisthesis L4-L5
[2023-05-27] MEDS: Venetoclax [Venclexta] 100 MG Tablet PO SCH (14:24)
[2023-05-27 16:31] LABS: Immunoglobulin M 37.8 mg/dL (40.0-280.0)
[2023-05-27 17:21] LABS: Glucose,Whole Blood 188 mg/dL (70-110)
[2023-05-27] MEDS: lisinopriL 5 MG TAB PO SCH (17:42)
[2023-05-27 20:13] LABS: Glucose,Whole Blood 141 mg/dL (70-110)
[2023-05-28 06:16] LABS: Glucose,Whole Blood 138 mg/dL (70-110)
[2023-05-28 08:46] LABS: ALT 37 U/L (4-49); AST 59 U/L (17-59); African American GFR (CKD) 60 (>60 ml/min/1.73 sqM); Albumin 3.1 g/dL (3.5-5.0); Albumin/Globulin Ratio 1.2; Alkaline Phosphatase 104 U/L (38-126); Anion Gap 10 mmol/L; Blood Urea Nitrogen 31 mg/dL (9-20); Calcium 8.5 mg/dL (8.4-10.2); Carbon Dioxide 20 mmol/L (22-30); Chloride 104 mmol/L (98-107); Globulin 2.6 g/dL; Glucose 138 mg/dL (74-99); Non-African American GFR(CKD) 52 (>60 ml/min/1.73 sqM); Potassium 3.9 mmol/L (3.5-5.1); Sodium 134 mmol/L (137-145); Total Protein 5.7 g/dL (6.3-8.2)
--- NOTE | 2023-05-28 10:33 | P.CNNES ---
History of Present Illness Consult date: 05/27/23 Requesting physician: Kane Wakefield Reason for Consult: Bilateral leg weakness History of Present Illness: Patient is a 83-year-old right-handed male came to the hospital by ambulance yesterday at 8:39 PM with history of chronic back pain, previous back surgery developed urinary retention about 1 and half to 2 weeks ago. He has been seen by urologist diagnosed with prostate enlargement, underwent placement of Kirk's catheter by the urologist. However in the last couple days, he started falling, and has fell about 2 or 3 times. After the last fall, his left leg has been hurting, 10, pointing to the left anterior thigh region. He also had similar pain in the right thigh but has gone away now only involving the left anterior thigh. Patient states that he has history of low back surgery about 3-1/2 years ago. Now the upper and lower and of the previous fusion has been painful. He has been complaining of some neck pain in the last 1 to 2 days, which he believes may have occurred after he fell, when he twisted his neck trying to get around. Patient lives at home with his . Patient at present complaining of low back pain 08/18. He is noticing that he is losing upper body strength, because when he falls down, he cannot get up. His has to help him get up. And when she lets him go, he wobbles and goes down. Patient has history of diabetes type 2 for last 5 to 6 years. 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 He has developed peripheral neuropathy since he was diagnosed with CLL 2 years ago. He has numbness of his lower legs from knees down to the feet. Denies any numbness of the hands. As per EMS flowsheet, they were dispatched to the scene for a male who fell. When they arrived, patient was alert and oriented x 4, laying supine on the floor. Patient mentioned that this is his second fall in 24 hours. He mentioned that he has been experiencing generalized weakness for the last 3 days. Patient mentioned that he caught himself during both falls, so he did not injure himself in the time. Patient was too weak to stand on his own. Patient has a Kirk's catheter in place. Patient's urine bag was very full, inflated with pressure. EMS emptied the urine into a urinal. The urine was dark in color and had a foul odor. EKG shows sinus rhythm. Patient was warm to touch, otherwise was not hurting. Temperature was 100.2. Patient does have history of hypertension, chronic back pain, type 2 diabetes. Patient's blood pressure was 159/76, pulse rate 103, heart rate 90, saturation 97%, blood glucose 146. Temperature 37.9. Patient's Tmax is 100.9 on arrival. Blood pressure was 129/77. Blood test shows normal CBC with elevated MCV 105. PT PTT normal, sodium 133 potassium is normal, BUN 33 creatinine 1.32. AST is slightly elevated 70 with normal ALT. UA shows large amount of leukocyte esterase, more than 182 WBCs, many WBC clumps and many bacteria. Influenza, RSV and coronavirus PCR negative. CT head revealed atrophy and chronic microvascular ischemic changes. Remote right occipital infarct. No acute intracranial abnormality. Near complete opacification of the left frontal, multiple left anterior ethmoid, and left maxillary sinuses. I personally reviewed CT head, agree with the findings. Chest x-ray showed cardiomegaly and ASVD of the aorta. Pulmonary vascular congestion increased interstitial opacities suggesting edema. Correlate clinically for CHF. Bibasilar opacities may represent edema and atelectasis. Superimposed infectious process not excluded in the proper setting. Suspect small to moderate left pleural effusion. EKG shows atrial fibrillation. Home medications include Xarelto 20 mg, fenofibrate, Lipitor 10 mg, Ozempic, gabapentin 300 mg twice daily, metformin, Flomax and Venclexta. Patient states that at baseline he did not used to use any assistive device at home. For the last 1-1/2 years, when he goes outside for a walk, then he has been using high roller walker for last 1 and half years. Just in the last few days, he has been using walker because of the frequent falls. He does have numerous canes at home as well. Patient smoked 1 to 2 pack/day from age 21 until he quit at age 51. He takes some mixed drinks occasionally. Not a regular drinker. Review of Systems Constitutional: Reports weight loss (With Ozempic), Denies chills, Denies fever Eyes: bilateral blurred vision (Once in a while), bilateral diplopia (Once in a while), denies pain Ears: deny: decreased hearing, tinnitus Ears, nose, mouth and throat: Denies headache, Denies sore throat Cardiovascular: Denies chest pain, Denies lightheadedness, Denies shortness of breath Respiratory: Reports cough with sputum (in am), Denies excessive sputum Gastrointestinal: Denies abdominal pain, Denies diarrhea, Denies nausea, Denies vomiting Genitourinary: Reports urinary retention, Denies dysuria, Denies incontinence Musculoskeletal: Reports frequent falls, Reports low back pain, Reports muscle weakness, Denies neck pain Integumentary: Denies pruritus, Denies rash Neurological: Reports as per HPI Psychiatric: Denies anxiety, Denies depression Endocrine: Reports fatigue, Reports weight change Hematologic/Lymphatic: Reports easy bleeding, Reports easy bruising Past Medical History Past Medical History: Atrial Fibrillation, Cancer, Diabetes Mellitus, GERD/Reflux, Hyperlipidemia, Hypertension, Musculoskeletal Disorder, Neurologic Disorder, Osteoarthritis (OA), Renal Disease, Sleep Apnea/CPAP/BIPAP Additional Past Medical History / Comment(s): CLL-dx. 5 yrs. ago, unaware of renal problems, was having neck pain, neuropathy adonay feet, has cpap machine History of Any Multi-Drug Resistant Organisms: None Reported Past Surgical History: Cholecystectomy, Orthopedic Surgery, Tonsillectomy Additional Past Surgical History / Comment(s): left shoulder rototor cuff repair, Right shoulder Past Anesthesia/Blood Transfusion Reactions: No Reported Reaction Past Psychological History: No Psychological Hx Reported Smoking Status: Former smoker Past Alcohol Use History: Occasional Past Drug Use History: None Reported - Past Family History Mother Family Medical History: Cancer Additional Family Medical History / Comment(s): of pancreatic cancer Medications and Allergies Home Medications Medication Instructions Recorded Confirmed Type Atorvastatin Calcium [Lipitor] 10 mg PO DAILY 10/12/15 05/27/23 History Fenofibrate 160 mg PO DAILY 10/12/15 05/27/23 History Rivaroxaban [Xarelto] 20 mg PO DAILY 10/12/15 05/27/23 History Acetaminophen [Tylenol Extra 1,000 mg PO Q6H PRN 05/27/23 05/27/23 History Strength] Gabapentin [Neurontin] 300 mg PO BID 05/27/23 05/27/23 History Semaglutide [Ozempic] 0.25 mg SQ Q7D 05/27/23 05/27/23 History Tamsulosin [Flomax] 0.4 mg PO DAILY 05/27/23 05/27/23 History Venetoclax [Venclexta] 300 mg PO DAILY 05/27/23 05/27/23 History metFORMIN HCL ER [Glucophage XR] 500 mg PO DAILY 05/27/23 05/27/23 History Allergies Allergy/AdvReac Type Severity Reaction Status Date / Time No Known Allergies Allergy Verified 03/02/23 14:10 Physical Examination - Vital Signs Vital Signs: Vital Signs Temp Pulse Pulse Resp BP BP Pulse Ox 05/27/23 09:01 97 05/27/23 07:00 98.1 F 74 16 101/66 97 05/27/23 02:00 16 05/27/23 01:20 98.5 F 84 16 118/69 97 05/27/23 00:22 84 17 123/82 96 05/26/23 23:02 73 14 120/70 98 05/26/23 22:03 100.8 F H 80 18 115/69 97 05/26/23 21:26 82 19 127/68 05/26/23 20:43 100.9 F H 87 18 129/77 97 FiO2 05/27/23 09:01 21 05/27/23 07:00 05/27/23 02:00 05/27/23 01:20 05/27/23 00:22 05/26/23 23:02 05/26/23 22:03 05/26/23 21:26 05/26/23 20:43 Intake and Output 05/26/23 05/27/23 05/27/23 22:59 06:59 14:59 Intake Total 118 Output Total 250 Balance -250 118 Intake: Oral 118 Output: Urine 250 Other: Voiding Method Indwelling Catheter # Bowel Movements 0 Weight 95.254 kg 95.254 kg Patient is an elderly male, in no acute distress. Patient is alert awake oriented to time place and person. Speech and language functions are normal. Patient can name and repeat very well. No aphasia or dysarthria. Attention, concentration and fund of knowledge is adequate. On cranial nerve examination, pupils are equal, round and reacting to light, visual messina are full on confrontation, with no neglect on double simultaneous stimulation. Extraocular muscles are intact with no nystagmus. Face is symmetric, tongue protrudes to the midline. Palatal elevation and sensation normal, hearing and shoulder shrug normal, facial sensation normal. On muscle strength testing, there is no pronator drift and the strength is normal in arms distally and proximally. In the lower extremities hip flexion is 4-/3-, adduction 5/5, abduction 5/5, knee extension 5/5, ankles and toes are all normal bilaterally. Deep tendon reflexes are symmetric trace at the biceps, trace at the brachioradialis, 0 at the knees, plantars are flat. Questionable up on the left. Sensory to touch revealed decreased sensation from toes up to below knees bilaterally. Cerebellar function showed no ataxia for [id number] testing on either side. No dysdiadochokinesia. No ataxia for [id number] testing with the right leg, cannot perform with the left leg. Tone and bulk of muscles normal. Gait deferred.. On general examination, there is no carotid bruit or murmur, S1-S2 audible. Chest is clear on consultation. Abdomen is soft nontender. No organomegaly, bowel sounds present. Peripheral pulses are present. Patient has moderate peripheral edema. Results - Laboratory Findings CBC and BMP: 05/26/23 20:54 05/28/23 06:31 Abnormal Lab Findings: Abnormal Labs 05/26/23 05/26/23 05/26/23 20:54 20:54 20:54 RBC 4.06 L MCV 105.4 H Plt Count 101 L Neutrophils # 9.0 H Lymphocytes # 0.4 L INR 1.2 H Sodium 133 L Carbon Dioxide 17 L BUN 33 H Creatinine 1.32 H Glucose 131 H POC Glucose (mg/dL) Total Bilirubin 1.5 H AST 70 H Urine Protein Urine Blood Ur Leukocyte Esterase Urine RBC Urine WBC Urine WBC Clumps Urine Bacteria Urine Mucus 05/26/23 05/27/23 22:20 06:08 RBC MCV Plt Count Neutrophils # Lymphocytes # INR Sodium Carbon Dioxide BUN Creatinine Glucose POC Glucose (mg/dL) 132 H Total Bilirubin AST Urine Protein 2+ H Urine Blood Moderate H Ur Leukocyte Esterase Large H Urine RBC 37 H Urine WBC >182 H Urine WBC Clumps Many H Urine Bacteria Many H Urine Mucus Few H Assessment and Plan Assessment: * New onset recurrent falls, unclear cause. Patient has chronic back pain, with previous history of back surgery, but has developed low back pain, left anterior thigh pain and weakness of the left hip flexion. Rule out lumbar radiculopathy. * History of back surgery 3-1/2 years ago. * Peripheral neuropathy. * Diabetes, not well-controlled. Last A1c 7.9 on 07/09/2022. * Urinary retention, probably due to prostate enlargement. Urologist on case. * Acute UTI. * Left frontal, maxillary and ethmoid sinuses with complete opacification of left frontal and left maxillary sinus. * Atrial fibrillation, currently on Xarelto * History of CLL * Ex tobacco use Plan: * MRI of the thoracic and lumbar spine to evaluate for possible disc herniation * Patient has peripheral neuropathy. We will check B12, folate, MMA, B6, A1c, IgG, IgA, IgM, immunofixation electrophoresis. * PT OT, evaluate gait. * Urologist on the case for prostate enlargement and urinary retention. Patient has acute UTI, currently on ceftriaxone. * Neurology will follow. Thank you for the consult. Time with Patient: Greater than 30
[2023-05-28 11:40] LABS: BUN/Creat Ratio 21.36 Ratio (12.00-20.00); Blood Urea Nitrogen 29.9 mg/dL (9.0-27.0); Calcium 8.9 mg/dL (8.7-10.3); Carbon Dioxide 21.3 mmol/L (21.6-31.8); Chloride 100 mmol/L (96-109); Glucose 140 mg/dL (70-110); Sodium 135 mmol/L (135-145)
[2023-05-28 11:48] LABS: Basophils # (A) 0.02 X 10*3/uL (0.00-0.10); Basophils % (A) 0.3 %; Eosinophils # (A) 0.01 X 10*3/uL (0.04-0.35); Eosinophils % (A) 0.1 %; HCT 40.2 % (39.6-50.0); HGB 13.3 g/dL (13.0-17.0); Lymphocytes # (A) 0.53 X 10*3/uL (0.90-5.00); Lymphocytes % (A) 7.6 %; MCH 34.1 pg (27.0-32.0); MCHC 33.1 g/dL (32.0-37.0); MCV 103.1 FL (80.0-97.0); Monocytes # (A) 0.91 X 10*3/uL (0.20-1.00); Monocytes % (A) 13.1 %; NRBC Per 100 WBC 0 X 10*3/uL (0.00-0.01); Neutrophils # (A) 5.46 X 10*3/uL (1.80-7.70); Neutrophils % (A) 78.6 %; Platelet Count 80 X 10*3/uL (140-440); RBC Morphology Normal (Normal); RDW 14.3 % (11.5-14.5); WBC 6.95 X 10*3/uL (4.50-10.00)
[2023-05-28] MEDS: LACTOBACILLUS ACIDOPHILUS/PECT 1 EACH CAPSULE PO SCH (14:13)
[2023-05-28] MEDS: CYANOCOBALAMIN 1,000 MCG/ML 1 ML VIAL IM SCH (14:13)
[2023-05-28] MEDS ORDERED: HYDROcodone/APAP 5-325MG 1 EACH TAB PO PRN (15:02)
--- NOTE | 2023-05-28 15:10 | P.PN ---
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 He presented to the emergency department on 05/26/2023 secondary to recurrent falls at home with a chief complaint of generalized weakness. Upon arrival to the emergency department, patient underwent full evaluation. Vital signs upon ar rival show blood pressure 129/77, heart rate 87, respiratory rate 18, temp 100.9 F, and SpO2 of 97% on room air. EKG was completed showing atrial fibrillation with a controlled ventricular rate of 79 bpm. Chest x-ray completed showing cardiomegaly and ASVD of the aorta with pulmonary vascular congestion and increased interstitial opacities secondary to pulmonary edema versus infectious process. CT brain was completed showing atrophy and chronic microvascular ischemic changes with a remote right occipital infarct and near complete opacification of the left frontal, multiple left anterior easement wide, and left maxillary sinuses. X-ray left hip completed showing left hip arthroplasty and concerning for possible femoral acetabular impingement. X-ray left femur showing arthropathy of the hip and knee joint with no acute fracture. X-ray lumbar spine showing postsurgical changes of L4-L5 and multilevel degenerative disc disease with multilevel foraminal and encroachment and grade 1 a nterolisthesis L4-L5. Labs completed and reviewed. CBC showing thrombocytopenia with platelet count of 101. Coagulation profile showing slightly elevated INR of 1.2. BMP revealing hyponatremia with sodium of 133 and hypocarbia with bicarb of 17 and renal function consistent with known stage IIIb CKD with BUN of 33, creatinine 1.32, GFR 50 with baseline creatinine of 1.3. Liver profile showing hyperbilirubinemia with bilirubin of 1.5 and elevated AST of 70. proBNP was 3150. Urinalysis positive for blood and infection. Influenza A, influenza B, RSV, and COVID PCR negative. Patient was admitted under our services with consultation to urology. Preliminary blood cultures positive x 2 for gram-negative bacilli. Physical exam: Patient seen and fully evaluated at bedside this morning. Patient was attempting to get up and walk with physical therapy. Patient reports significant pain to left lateral hip and difficulties ambulating. Patient requiring a walker and does not require any walking aids at baseline. Vital signs reviewed and stable. General: Nontoxic, no distress and appears stated age. Derm: Skin warm and dry, normal coloration for ethnicity. Head: Atraumatic, normocephalic and symmetric. Eyes: EOMs intact, no lid lag, and anicteric sclera Mouth: no lip lesions, mucus membranes moist Cardiovascular: Irregularly irregular with normal S1S2, systolic murmur, positive posterior tibial pulses bilaterally, and cap refill < 2 seconds. Lungs: Respirations even, regular, and unlabored on room air. Lungs CTA bilaterally, no rhonchi, no rales, no wheezing, and no accessory muscle usage. Abdominal: soft, nontender to palpation, no guarding, no appreciable organomegaly Ext: No gross muscle atrophy, no edema, no contractures. Movement and sensation intact. Patient continues to have pain left lateral lower leg and hi p. Neuro: Speech clear, face symmetrical and CN II-XII grossly intact with no noted focal neuro deficits Psych: Alert and oriented to person, place, time, and situation. Appropriate and pleasant affect. Assessment and Plan of Care: UTI, associated with chronic indwelling Kirk catheter Bacteremia, gram-negative likely secondary to above -Follow-up on final blood culture results and sensitivity report -Follow-up on urine culture results once available -Continue IV antibiotics with Rocephin 2 g daily -Infectious disease consulted -Urology following, reviewed documentation in chart Left lower extremity pain and weakness -X-ray left hip completed showing left hip arthroplasty and concerning for possible femoral acetabular impingement. -X-ray left femur showing arthropathy of the hip and knee joint with no acute fracture. X-ray lumbar spine showing postsurgical changes of L4-L5 and multilevel degenerative disc disease with multilevel foraminal and encroachment and grade 1 anterolisthesis L4-L5. -Orthopedic surgery consulted -PT/OT following -Fall precautions in place -Continue symptomatic care and pain management -Neurology following. Metabolic acidosis: Likely due to CKD. Continue oral hydration. Macrocytosis: B12 is low at 159 and folate 13.70. Hyponatremia: Improving, continue to encourage hydration by mouth. Transaminitis: Resolved. Chronic conditions: Chronic atrial fibrillation on Xarelto, chronic kidney disease, diabetes mellitus, peripheral neuropathy. Data reviewed: Morning labs reviewed. CBC showing continued macrocytosis with MCH 103.1 and thrombocytopenia with platelet count of 80. BMP revealing mild hyponatremia with sodium of 134 and hypocarbia with bicarb of 20, renal function consistent with CKD stage III with BUN of 31, creatinine 1.27, and GFR of 52. Hemoglobin A1c resulting at 6.2%. Vital signs reviewed. Blood pressure 104/64, heart rate 73, respiratory rate 16, temp 99.4 F, and SpO2 of 99% on room air. Orthostatic vitals also completed and upon review, they were negative for orthostatic hypotension. CODE STATUS: DNR/DNI DVT prophylaxis: Xarelto Anticipated discharge date: Clinical course to determine Anticipated discharge place: Clinical course to determine Patient was seen independently by Nurse Pracitioner. This document was prepared using [employer]anno dictation software. 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 I reviewed the documentation as provided by the JANNETTE above, who is the original author of this note. I agree with the documented assessment and plan, with the following changes: none Objective - Vital Signs Vital signs: Vital Signs Temp 99.4 F 05/28/23 07:00 Pulse 73 05/28/23 07:00 Resp 16 05/28/23 07:00 BP 104/64 05/28/23 07:00 Pulse Ox 99 05/28/23 07:00 FiO2 21 05/27/23 09:01 Intake & Output 05/27/23 05/28/23 05/28/23 18:59 06:59 18:59 Intake Total 776 Output Total 850 1400 651 Balance -74 -1400 -651 Intake: Oral 776 Output: Urine 850 1400 650 Stool 1 Other: Voiding Method Indwelling Catheter Indwelling Catheter # Bowel Movements 1 - Labs CBC & Chem 7: 05/28/23 06:31 05/28/23 06:31 Labs: Abnormal Lab Results - Last 24 Hours (Table) 05/27/23 05/27/23 05/27/23 Range/Units 12:06 12:14 12:14 Sodium (137-145) mmol/L Carbon Dioxide (22-30) mmol/L BUN (9-20) mg/dL Creatinine (0.66-1.25) mg/dL Glucose (74-99) mg/dL POC Glucose (mg/dL) 122 H (70-110) mg/dL Total Protein (6.3-8.2) g/dL Albumin (3.5-5.0) g/dL Vitamin B12 159.0 L (200.0-944.0) pg/mL IgM 37.8 L (40.0-280.0) mg/dL 05/27/23 05/27/23 05/28/23 Range/Units 17:20 20:12 06:14 Sodium (137-145) mmol/L Carbon Dioxide (22-30) mmol/L BUN (9-20) mg/dL Creatinine (0.66-1.25) mg/dL Glucose (74-99) mg/dL POC Glucose (mg/dL) 188 H 141 H 138 H (70-110) mg/dL Total Protein (6.3-8.2) g/dL Albumin (3.5-5.0) g/dL Vitamin B12 (200.0-944.0) pg/mL IgM (40.0-280.0) mg/dL 05/28/23 Range/Units 06:31 Sodium 134 L (137-145) mmol/L Carbon Dioxide 20 L (22-30) mmol/L BUN 31 H (9-20) mg/dL Creatinine 1.27 H (0.66-1.25) mg/dL Glucose 138 H (74-99) mg/dL POC Glucose (mg/dL) (70-110) mg/dL Total Protein 5.7 L (6.3-8.2) g/dL Albumin 3.1 L (3.5-5.0) g/dL Vitamin B12 (200.0-944.0) pg/mL IgM (40.0-280.0) mg/dL Microbiology - Last 24 Hours (Table) 05/26/23 23:59 Blood Culture Gram Stain - Preliminary Blood Blood Culture - Preliminary Gram Neg Bacilli 05/27/23 00:15 Blood Culture Gram Stain - Preliminary Blood Blood Culture - Preliminary Gram Neg Bacilli
--- NOTE | 2023-05-28 17:01 | MR ---
EXAMINATION TYPE: MR lumbar spine wo/w con, MR thoracic spine wo con DATE OF EXAM: 05/28/2023 2:00 PM CLINICAL INDICATION:Male, 83 years old with history of Falls, left leg pain, hx of back surgery; COMPARISON: 05/27/2023 02/27/2023. TECHNIQUE: Multi planar, multi sequence imaging was performed utilizing: T1-weighted, T2-weighted, a nd turbo inversion recovery imaging of the the thoracic and lumbar spine. IV Contrast: cc 9 cc Gadavist utilized for the lumbar spine with postcontrast imaging performed. FINDINGS: Alignment: The lumbar vertebral bodies have preserved heights and alignment. Cord: The conus medullaris and the distal spinal cord appear unremarkable with regards to their signa l intensity and morphology. No abnormal postcontrast enhancement. Bones/Discs: Degeneration changes throughout the spine with osteophyte formation and facet joint arth ropathy. Multilevel disc desiccation is present. No abnormal postcontrast enhancement. Fixation hardw are present at L4 and L5. Postsurgical changes in this region without evidence for abnormal postcontr ast enhancement. Thoracic spine:Degeneration changes throughout the spine with osteophyte formation and facet joint ar thropathy. No evidence for significant spinal canal stenosis or neural foraminal stenosis. T12-L1: No evidence of significant spinal canal stenosis or neural foraminal stenosis. L1-L2: No evidence of significant spinal canal stenosis or neural foraminal stenosis. L2-L3: Disc bulge and facet joint arthropathy result in mild spinal canal and moderate to severe bila teral neural foraminal stenosis. L3-L4: Disc bulge and facet joint arthropathy result in mild spinal canal and severe bilateral neural foraminal stenosis. L4-L5: Disc bulge and facet joint arthropathy result in mild spinal canal and moderate to severe bila teral neural foraminal stenosis. L5-S1: The disc is rounded posterior morphology without significant spinal canal stenosis. Facet join t arthropathy with moderate to severe bilateral neural foraminal stenosis. No significant spinal canal or neural foraminal stenosis in the remainder of the visualized levels. Other findings: None. IMPRESSION: 1. Postsurgical change with degeneration changes present. 2. Neural foraminal stenosis worse at L3-L4 bilaterally with severe stenosis. Moderate to severe shahram nosis at L4-L5 and L5-S1 as well as L2-L3. 3. No evidence for significant spinal canal stenosis in the lumbar spine. No abnormal postcontrast e nhancement. 4. Degeneration changes of the thoracic spine without evidence of significant spinal canal or neural foraminal stenosis.
[2023-05-28 17:26] LABS: Glucose,Whole Blood 140 mg/dL (70-110)
[2023-05-28 21:01] LABS: Glucose,Whole Blood 176 mg/dL (70-110)
--- NOTE | 2023-05-28 23:10 | P.CONS ---
History of Present Illness - Reason for Consult Consult date: 05/28/23 Bacteremia Requesting physician: Siva Lizarraga - Chief Complaint Weakness and fall x days - History of Present Illness Patient is a 83-year-old male with a past medical history significant for diabetes mellitus hypertension hyperlipidemia atrial fibrillation presenting to the hospital for evaluation of multiple falls apparently has been going on for about a week before presentation to the hospital patient was complaining of weakness anytime he stands up his legs can give out patient also have some urinary retention requiring Kirk catheter placement patient has significant burning frequency suprapubic of flank pain patient denies having headache or URI symptoms no chest pain shortness of breath or cough no nausea no vomiting no abdominal pain did have some diarrhea patient on presentation to the hospital was febrile temperature of 100.9 F patient fever has resolved subsequently patient was not tachycardic hypotensive or hypoxic and no need for supplemental oxygen did have white count of 10.4 BUN and creatinine has been mildly elevated liver enzymes also mildly elevated especially bilirubin and AST subsequently normalized, patient did have a positive UA influenza RSV COVID testing was negative blood and urine cultures came back positive with gram-negative bacilli prompting this infectious disease consultation Review of Systems Positive point and negatives has been mentioned in the HPI, complete review of systems was performed and all other systems are negative Past Medical History Past Medical History: Atrial Fibrillation, Cancer, Diabetes Mellitus, GERD/Reflux, Hyperlipidemia, Hypertension, Musculoskeletal Disorder, Neurologic Disorder, Osteoarthritis (OA), Renal Disease, Sleep Apnea/CPAP/BIPAP Additional Past Medical History / Comment(s): CLL-dx. 5 yrs. ago, unaware of renal problems, was having neck pain, neuropathy adonay feet, has cpap machine History of Any Multi-Drug Resistant Organisms: None Reported Past Surgical History: Cholecystectomy, Orthopedic Surgery, Tonsillectomy Additional Past Surgical History / Comment(s): left shoulder rototor cuff repair, Right shoulder Past Anesthesia/Blood Transfusion Reactions: No Reported Reaction Past Psychological History: No Psychological Hx Reported Smoking Status: Former smoker Past Alcohol Use History: Occasional Past Drug Use History: None Reported - Past Family History Mother Family Medical History: Cancer Additional Family Medical History / Comment(s): of pancreatic cancer Medications and Allergies Home Medications Medication Instructions Recorded Confirmed Type Atorvastatin Calcium [Lipitor] 10 mg PO DAILY 10/12/15 05/27/23 History Fenofibrate 160 mg PO DAILY 10/12/15 05/27/23 History Rivaroxaban [Xarelto] 20 mg PO DAILY 10/12/15 05/27/23 History Acetaminophen [Tylenol Extra 1,000 mg PO Q6H PRN 05/27/23 05/27/23 History Strength] Gabapentin [Neurontin] 300 mg PO BID 05/27/23 05/27/23 History Semaglutide [Ozempic] 0.25 mg SQ Q7D 05/27/23 05/27/23 History Tamsulosin [Flomax] 0.4 mg PO DAILY 05/27/23 05/27/23 History Venetoclax [Venclexta] 300 mg PO DAILY 05/27/23 05/27/23 History metFORMIN HCL ER [Glucophage XR] 500 mg PO DAILY 05/27/23 05/27/23 History Allergies Allergy/AdvReac Type Severity Reaction Status Date / Time No Known Allergies Allergy Verified 03/02/23 14:10 Physical Exam Vitals: Vital Signs Temp Pulse Pulse Pulse Pulse Resp BP 05/28/23 10:21 98.1 F 79 75 80 16 117/66 05/28/23 07:00 99.4 F 73 16 05/28/23 02:00 97.7 F 75 82 79 118/70 05/27/23 20:00 99.4 F 71 05/27/23 16:45 99.1 F 78 81 77 18 107/65 05/27/23 14:00 74 16 BP BP BP Pulse Ox 05/28/23 10:21 115/68 111/71 98 05/28/23 07:00 104/64 99 05/28/23 02:00 120/72 115/68 100 05/27/23 20:00 113/69 100 05/27/23 16:45 132/70 115/66 92 L 05/27/23 14:00 Intake and Output 05/27/23 05/28/23 05/28/23 22:59 06:59 14:59 Intake Total 118 118 Output Total 400 1000 651 Balance -970 -7647 -420 Intake: Oral 118 118 Output: Urine 400 1000 650 Stool 1 Other: Voiding Method Indwelling Catheter Indwelling Catheter # Bowel Movements 2 GENERAL DESCRIPTION: Elderly male up in the chair, no distress. No tachypnea or accessory muscle of respiration use. HEENT: Shows Pallor , no scleral icterus. Oral mucous membrane is dry. No pharyngeal erythema or thrush NECK: Trachea central, no thyromegaly. LUNGS: Unlabored breathing. Clear to auscultation anteriorly. No wheeze or c rackle. HEART: S1, S2, regular rate and rhythm. No loud murmur ABDOMEN: Soft, no tenderness , guarding or rigidity, no organomegaly EXTREMITIES: No edema of feet. SKIN: No rash, no masses palpable. NEUROLOGICAL: The patient is awake, alert, mood and affect normal. Results CBC & Chem 7: 05/28/23 06:31 05/28/23 06:31 Labs: Abnormal Lab Results - Last 24 Hours (Table) 05/27/23 05/27/23 05/27/23 Range/Units 12:06 12:14 12:14 RBC (4.40-5.60) X 10*6/uL MCV (80.0-97.0) FL MCH (27.0-32.0) pg Plt Count (140-440) X 10*3/uL Lymphocytes # (0.90-5.00) X 10*3/uL Eosinophils # (0.04-0.35) X 10*3/uL Sodium (137-145) mmol/L Carbon Dioxide (21.6-31.8) mmol/L Anion Gap (4.00-12.00) mmol/L BUN (9.0-27.0) mg/dL Creatinine (0.66-1.25) mg/dL Est GFR (CKD-EPI) (>=60) BUN/Creatinine Ratio (12.00-20.00) Ratio Glucose (70-110) mg/dL POC Glucose (mg/dL) 122 H (70-110) mg/dL Hemoglobin A1c (<=6.0) % Total Protein (6.3-8.2) g/dL Albumin (3.5-5.0) g/dL Vitamin B12 159.0 L (200.0-944.0) pg/mL IgM 37.8 L (40.0-280.0) mg/dL 05/27/23 05/27/23 05/28/23 Range/Units 17:20 20:12 06:14 RBC (4.40-5.60) X 10*6/uL MCV (80.0-97.0) FL MCH (27.0-32.0) pg Plt Count (140-440) X 10*3/uL Lymphocytes # (0.90-5.00) X 10*3/uL Eosinophils # (0.04-0.35) X 10*3/uL Sodium (137-145) mmol/L Carbon Dioxide (21.6-31.8) mmol/L Anion Gap (4.00-12.00) mmol/L BUN (9.0-27.0) mg/dL Creatinine (0.66-1.25) mg/dL Est GFR (CKD-EPI) (>=60) BUN/Creatinine Ratio (12.00-20.00) Ratio Glucose (70-110) mg/dL POC Glucose (mg/dL) 188 H 141 H 138 H (70-110) mg/dL Hemoglobin A1c (<=6.0) % Total Protein (6.3-8.2) g/dL Albumin (3.5-5.0) g/dL Vitamin B12 (200.0-944.0) pg/mL IgM (40.0-280.0) mg/dL 05/28/23 05/28/23 05/28/23 Range/Units 06:30 06:31 06:31 RBC 3.90 L (4.40-5.60) X 10*6/uL MCV 103.1 H (80.0-97.0) FL MCH 34.1 H (27.0-32.0) pg Plt Count 80 L (140-440) X 10*3/uL Lymphocytes # 0.53 L (0.90-5.00) X 10*3/uL Eosinophils # 0.01 L (0.04-0.35) X 10*3/uL Sodium (137-145) mmol/L Carbon Dioxide 21.3 L (21.6-31.8) mmol/L Anion Gap 13.70 H (4.00-12.00) mmol/L BUN 29.9 H (9.0-27.0) mg/dL Creatinine (0.66-1.25) mg/dL Est GFR (CKD-EPI) 50 L (>=60) BUN/Creatinine Ratio 21.36 H (12.00-20.00) Ratio Glucose 140 H (70-110) mg/dL POC Glucose (mg/dL) (70-110) mg/dL Hemoglobin A1c 6.2 H (<=6.0) % Total Protein (6.3-8.2) g/dL Albumin (3.5-5.0) g/dL Vitamin B12 (200.0-944.0) pg/mL IgM (40.0-280.0) mg/dL 05/28/23 Range/Units 06:31 RBC (4.40-5.60) X 10*6/uL MCV (80.0-97.0) FL MCH (27.0-32.0) pg Plt Count (140-440) X 10*3/uL Lymphocytes # (0.90-5.00) X 10*3/uL Eosinophils # (0.04-0.35) X 10*3/uL Sodium 134 L (137-145) mmol/L Carbon Dioxide 20 L (21.6-31.8) mmol/L Anion Gap (4.00-12.00) mmol/L BUN 31 H (9.0-27.0) mg/dL Creatinine 1.27 H (0.66-1.25) mg/dL Est GFR (CKD-EPI) (>=60) BUN/Creatinine Ratio (12.00-20.00) Ratio Glucose 138 H (70-110) mg/dL POC Glucose (mg/dL) (70-110) mg/dL Hemoglobin A1c (<=6.0) % Total Protein 5.7 L (6.3-8.2) g/dL Albumin 3.1 L (3.5-5.0) g/dL Vitamin B12 (200.0-944.0) pg/mL IgM (40.0-280.0) mg/dL Microbiology - Last 24 Hours (Table) 05/26/23 22:20 Urine Culture - Preliminary Urine,Voided Gram Neg Bacilli 05/26/23 23:59 Blood Culture Gram Stain - Preliminary Blood Blood Culture - Preliminary Gram Neg Bacilli 05/27/23 00:15 Blood Culture Gram Stain - Preliminary Blood Blood Culture - Preliminary Gram Neg Bacilli Assessment and Plan (1) Positive blood culture Current Visit: Yes Status: Acute Code(s): R78.81 - BACTEREMIA SNOMED Code(s): 995873523 (2) UTI (urinary tract infection) Current Visit: Yes Status: Acute Code(s): N39.0 - URINARY TRACT INFECTION, SITE NOT SPECIFIED SNOMED Code(s): 34562310 Plan: 1patient with a E. coli bacteremia source likely UTI in this patient who did have symptoms of urinary retention requiring Kirk catheter likely risk factor for his UTI and bacteremia 2-patient did have elevated creatinine will need to rule out any obstructive uropathy 3-we will check ultrasound of the kidney and the bladder area 4-continue with Rocephin 2 g daily while waiting for sensitivity to finalize We will follow on clinical condition and cultures to further adjust medication if needed Thank you for this consultation we will follow the patient along with you Dictation was produced using [employer] dictation software. please excuse any grammatical, word or spelling errors. Time with Patient: Greater than 30
[2023-05-29 06:01] LABS: Glucose,Whole Blood 160 mg/dL (70-110)
--- NOTE | 2023-05-29 08:42 | US ---
EXAMINATION TYPE: US kidneys/renal and bladder DATE OF EXAM: 05/29/2023 COMPARISON: NONE CLINICAL INDICATION: Male, 83 years old with history of uti and bacteremia; UTI, bacteremia EXAM MEASUREMENTS: Right Kidney: 12.1 x 5.5 x 5.5 cm Left Kidney: 11.6 x 6.4 x 5.1 cm Right Kidney: multiple cystic lesions, largest = 6.1 x 4.4 x 5.5cm. dense echogenic focus = 0.5cm Left Kidney: multiple cystic lesions, largest = 3.3 x 3.4 x 3.5cm Bladder: Kirk catheter There is no evidence for hydronephrosis at this point in time. No nephrolithiasis is seen. No suspi cious masses are identified. The urinary bladder is nondistended and limited due to Kirk catheter p lacement.. IMPRESSION: 1. Bilateral simple appearing renal cysts. 2. Nonobstructing 5 mm right renal calculus.
--- NOTE | 2023-05-29 10:07 | P.PN ---
Subjective Progress Note Date: 05/28/23 Patient was seen for a follow-up. Patient's sister was also present today. Patient is sitting comfortably in the recliner. Patient offers no new complaints. Still has pain in the left anterior thigh but better. Objective - Vital Signs Vital signs: Vital Signs Temp 97.7 F 05/28/23 15:00 Pulse 74 05/28/23 15:00 Resp 16 05/28/23 15:00 BP 120/73 05/28/23 15:00 Pulse Ox 99 05/28/23 15:00 FiO2 21 05/27/23 09:01 Intake & Output 05/27/23 05/28/23 05/28/23 18:59 06:59 18:59 Intake Total 776 236 Output Total 850 1400 1500 Balance -74 -1400 -1264 Intake: Oral 776 236 Output: Urine 850 1400 1500 Other: Voiding Method Indwelling Catheter Indwelling Catheter Indwelling Catheter # Bowel Movements 1 1 - Exam Examination unchanged. Detailed examination deferred. Mentation is normal. - Labs CBC & Chem 7: 05/28/23 06:31 05/28/23 06:31 Labs: Abnormal Lab Results - Last 24 Hours (Table) 05/27/23 05/28/23 05/28/23 Range/Units 20:12 06:14 06:30 RBC (4.40-5.60) X 10*6/uL MCV (80.0-97.0) FL MCH (27.0-32.0) pg Plt Count (140-440) X 10*3/uL Lymphocytes # (0.90-5.00) X 10*3/uL Eosinophils # (0.04-0.35) X 10*3/uL Sodium (137-145) mmol/L Carbon Dioxide (21.6-31.8) mmol/L Anion Gap (4.00-12.00) mmol/L BUN (9.0-27.0) mg/dL Creatinine (0.66-1.25) mg/dL Est GFR (CKD-EPI) (>=60) BUN/Creatinine Ratio (12.00-20.00) Ratio Glucose (70-110) mg/dL POC Glucose (mg/dL) 141 H 138 H (70-110) mg/dL Hemoglobin A1c 6.2 H (<=6.0) % Total Protein (6.3-8.2) g/dL Albumin (3.5-5.0) g/dL 05/28/23 05/28/23 05/28/23 Range/Units 06:31 06:31 06:31 RBC 3.90 L (4.40-5.60) X 10*6/uL MCV 103.1 H (80.0-97.0) FL MCH 34.1 H (27.0-32.0) pg Plt Count 80 L (140-440) X 10*3/uL Lymphocytes # 0.53 L (0.90-5.00) X 10*3/uL Eosinophils # 0.01 L (0.04-0.35) X 10*3/uL Sodium 134 L (137-145) mmol/L Carbon Dioxide 21.3 L 20 L (21.6-31.8) mmol/L Anion Gap 13.70 H (4.00-12.00) mmol/L BUN 29.9 H 31 H (9.0-27.0) mg/dL Creatinine 1.27 H (0.66-1.25) mg/dL Est GFR (CKD-EPI) 50 L (>=60) BUN/Creatinine Ratio 21.36 H (12.00-20.00) Ratio Glucose 140 H 138 H (70-110) mg/dL POC Glucose (mg/dL) (70-110) mg/dL Hemoglobin A1c (<=6.0) % Total Protein 5.7 L (6.3-8.2) g/dL Albumin 3.1 L (3.5-5.0) g/dL 05/28/23 Range/Units 17:24 RBC (4.40-5.60) X 10*6/uL MCV (80.0-97.0) FL MCH (27.0-32.0) pg Plt Count (140-440) X 10*3/uL Lymphocytes # (0.90-5.00) X 10*3/uL Eosinophils # (0.04-0.35) X 10*3/uL Sodium (137-145) mmol/L Carbon Dioxide (21.6-31.8) mmol/L Anion Gap (4.00-12.00) mmol/L BUN (9.0-27.0) mg/dL Creatinine (0.66-1.25) mg/dL Est GFR (CKD-EPI) (>=60) BUN/Creatinine Ratio (12.00-20.00) Ratio Glucose (70-110) mg/dL POC Glucose (mg/dL) 140 H (70-110) mg/dL Hemoglobin A1c (<=6.0) % Total Protein (6.3-8.2) g/dL Albumin (3.5-5.0) g/dL Microbiology - Last 24 Hours (Table) 05/26/23 22:20 Urine Culture - Preliminary Urine,Voided Gram Neg Bacilli 05/26/23 23:59 Blood Culture Gram Stain - Preliminary Blood Blood Culture - Preliminary Gram Neg Bacilli 05/27/23 00:15 Blood Culture Gram Stain - Preliminary Blood Blood Culture - Preliminary Gram Neg Bacilli Assessment and Plan Assessment: * New onset recurrent falls, unclear cause. Patient has chronic back pain, with previous history of back surgery, but has developed low back pain, left anterior thigh pain and weakness of the left hip flexion. Possible L3 radiculopathy. * History of back surgery 3-1/2 years ago. * Peripheral neuropathy. * Vitamin B12 deficiency * Diabetes, not well-controlled. Last A1c 7.9 on 07/09/2022. * Urinary retention, probably due to prostate enlargement. Urologist on case. * Acute UTI. * Left frontal, maxillary and ethmoid sinuses with complete opacification of left frontal and left maxillary sinus. * Atrial fibrillation, currently on Xarelto * History of CLL * Ex tobacco use Plan: * MRI of the thoracic and lumbar spine revealed postsurgical change with degeneration changes present. Neural foraminal stenosis worse at L3-L4 bilaterally with severe stenosis. Moderate to severe stenosis at L4-L5 and L5-S1 as well as L2-L3. No evidence for significant spinal canal stenosis in the lumbar spine. No abnormal postcontrast enhancement. * Orthopedic surgery consultation initiated for possible left L3 radiculopathy. * Patient has peripheral neuropathy. 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 Suggest hematology consultation. * PT OT, evaluate gait. * Urologist on the case for prostate enlargement and urinary retention. Patient has acute UTI, currently on ceftriaxone.
--- NOTE | 2023-05-29 12:17 | P.CNOR ---
History of Present Illness - HPI Consult date: 05/29/23 History of present illness: Physical 83-year-old who is admitted after multiple falls. Orthopedics is consulted due to left hip pain. Patient is seen and evaluated at bedside today. Patient states that he has had multiple falls over the last few days. Patient states that when he stands he feels weak in his legs and falls. Patient also reports significant pain in the left hip. Patient denies any numbness or tingling in the legs. Patient states that he has a history of back surgery a few years ago by Dr. Vega. Patient states that he is currently using a walker to ambulate, but continues to feel weakness in both lower extremities. Patient's past medical history is significant for atrial fibrillation, CLL, Diabetes Mellitus, GERD/Reflux, Hyperlipidemia, Hypertension, Musculoskeletal Disorder, Neurologic Disorder, Osteoarthritis (OA), Renal Disease with mason catheter, Sleep Apnea/CPAP/BIPAP. Review of Systems See HPI. Past Medical History Past Medical History: Atrial Fibrillation, Cancer, Diabetes Mellitus, GERD/Reflux, Hyperlipidemia, Hypertension, Musculoskeletal Disorder, Neurologic Disorder, Osteoarthritis (OA), Renal Disease, Sleep Apnea/CPAP/BIPAP Additional Past Medical History / Comment(s): CLL-dx. 5 yrs. ago, unaware of renal problems, was having neck pain, neuropathy adonay feet, has cpap machine History of Any Multi-Drug Resistant Organisms: None Reported Past Surgical History: Cholecystectomy, Orthopedic Surgery, Tonsillectomy Additional Past Surgical History / Comment(s): left shoulder rototor cuff repair, Right shoulder Past Anesthesia/Blood Transfusion Reactions: No Reported Reaction Past Psychological History: No Psychological Hx Reported Smoking Status: Former smoker Past Alcohol Use History: Occasional Past Drug Use History: None Reported - Past Family History Mother Family Medical History: Cancer Additional Family Medical History / Comment(s): of pancreatic cancer Medications and Allergies Home Medications Medication Instructions Recorded Confirmed Type Atorvastatin Calcium [Lipitor] 10 mg PO DAILY 10/12/15 05/27/23 History Fenofibrate 160 mg PO DAILY 10/12/15 05/27/23 History Rivaroxaban [Xarelto] 20 mg PO DAILY 10/12/15 05/27/23 History Acetaminophen [Tylenol Extra 1,000 mg PO Q6H PRN 05/27/23 05/27/23 History Strength] Gabapentin [Neurontin] 300 mg PO BID 05/27/23 05/27/23 History Semaglutide [Ozempic] 0.25 mg SQ Q7D 05/27/23 05/27/23 History Tamsulosin [Flomax] 0.4 mg PO DAILY 05/27/23 05/27/23 History Venetoclax [Venclexta] 300 mg PO DAILY 05/27/23 05/27/23 History metFORMIN HCL ER [Glucophage XR] 500 mg PO DAILY 05/27/23 05/27/23 History Allergies Allergy/AdvReac Type Severity Reaction Status Date / Time No Known Allergies Allergy Verified 03/02/23 14:10 Physical Examination On exam patient is sitting comfortably in a chair in no acute distress. Patient is alert and oriented x3. There is significant discomfort and limited motion wit h internal and external rotation of the left hip. Positive straight leg raise. Patient has pain and some weakness with active elevation of the left thigh. Otherwise, strength is intact of bilateral lower extremities. Neurovascular status and circulatory status are intact bilaterally. Results X-rays of the left hip and femur are reviewed and reveal mild arthritic changes of the left hip. - Labs Labs: Abnormal Lab Results - Last 24 Hours (Table) 05/27/23 05/27/23 05/28/23 Range/Units 12:14 12:14 17:24 POC Glucose (mg/dL) 140 H (70-110) mg/dL Vitamin B6 2 L (5-50) ug/L Methylmalonic Acid 0.50 H (<0.40) umol/L 05/28/23 05/29/23 Range/Units 20:59 05:59 POC Glucose (mg/dL) 176 H 160 H (70-110) mg/dL Vitamin B6 (5-50) ug/L Methylmalonic Acid (<0.40) umol/L Microbiology - Last 24 Hours (Table) 05/27/23 00:15 Blood Culture Gram Stain - Final Blood Blood Culture - Final Escherichia coli 05/26/23 23:59 Blood Culture Gram Stain - Final Blood Blood Culture - Final Escherichia coli 05/26/23 22:20 Urine Culture - Final Urine,Voided Escherichia coli H & H 05/26/23 05/28/23 Range/Units 20:54 06:31 Hgb 13.9 13.3 (13.0-17.5) gm/dL Hct 42.8 40.2 (39.0-53.0) % Coagulation 05/26/23 Range/Units 20:54 INR 1.2 H (<1.2) Result Diagrams: 05/28/23 06:31 05/28/23 06:31 Assessment and Plan Plan: 1. A CT of the left hip is pending. 2. Recommend spine consult to evaluate lower extremity weakness. 3. Patient will likely benefit from physical therapy for mobilization. Further recommendations pending CT results.
--- NOTE | 2023-05-29 12:23 | P.CNOR ---
History of Present Illness - [facility] Consult date: 05/29/23 Consult reason: other (Left lower extremity weakness) History of present illness: Patient is a very pleasant 83-year-old male who lives at home with his and normally is a community ambulator without any assistance. He says that about a week ago he he started having trouble urinating and was not able to urinate. He went to his doctor had a catheter placed. He says that the day after that he started having weakness in his left lower extremity where he tried to get up and his left leg was not strong enough to hold him up. He said when he tried to get up a few times over the past week he fell because his left leg was not supporting him. He has pain over his left thigh and toward his left knee. He has a history of chronic low back issues. He had lumbar spinal fusion about 3 and half years ago at L4-[address] His graham. He says that at that point his pain was severe at his back and that this pain is not similar to the pain that he had then. He said this pain is different and that it just feels like his left leg is weak but he does have significant pain in his left leg. He says his back pain is not worse than it usually is. He denies any fevers chills. Denies any chest pain shortness of breath. He still is a Kirk catheter in place. He does not feel safe standing up and walking around. He feels that he is left leg does not hold him well and he would fall and was uses walker but even then can only use this for transferring. He has been seen by neurology as well as infectious disease and orthopedics and we are counseled in regards to his lower extremity weakness as it relates to his spine. Review of Systems As stated per HPI. He denies any fevers or chills. Denies any new injury. Denies any problems in his right lower extremity. He says his back chronically has some pain and that is normal for him. But the left lower extremity is new issue for him particular with the weakness. Past Medical History Past Medical History: Atrial Fibrillation, Cancer, Diabetes Mellitus, GERD/Reflux, Hyperlipidemia, Hypertension, Musculoskeletal Disorder, Neurologic Disorder, Osteoarthritis (OA), Renal Disease, Sleep Apnea/CPAP/BIPAP Additional Past Medical History / Comment(s): CLL-dx. 5 yrs. ago, unaware of renal problems, was having neck pain, neuropathy adonay feet, has cpap machine. History of lumbar fusion L4-5 approximately 3 and half years ago with Dr. Vega for low back pain History of Any Multi-Drug Resistant Organisms: None Reported Past Surgical History: Cholecystectomy, Orthopedic Surgery, Tonsillectomy Additional Past Surgical History / Comment(s): left shoulder rototor cuff repair, Right shoulder Past Anesthesia/Blood Transfusion Reactions: No Reported Reaction Past Psychological History: No Psychological Hx Reported Smoking Status: Former smoker Past Alcohol Use History: Occasional Past Drug Use History: None Reported - Past Family History Mother Family Medical History: Cancer Additional Family Medical History / Comment(s): of pancreatic cancer Medications and Allergies Home Medications Medication Instructions Recorded Confirmed Type Atorvastatin Calcium [Lipitor] 10 mg PO DAILY 10/12/15 05/27/23 History Fenofibrate 160 mg PO DAILY 10/12/15 05/27/23 History Rivaroxaban [Xarelto] 20 mg PO DAILY 10/12/15 05/27/23 History Acetaminophen [Tylenol Extra 1,000 mg PO Q6H PRN 05/27/23 05/27/23 History Strength] Gabapentin [Neurontin] 300 mg PO BID 05/27/23 05/27/23 History Semaglutide [Ozempic] 0.25 mg SQ Q7D 05/27/23 05/27/23 History Tamsulosin [Flomax] 0.4 mg PO DAILY 05/27/23 05/27/23 History Venetoclax [Venclexta] 300 mg PO DAILY 05/27/23 05/27/23 History metFORMIN HCL ER [Glucophage XR] 500 mg PO DAILY 05/27/23 05/27/23 History Allergies Allergy/AdvReac Type Severity Reaction Status Date / Time No Known Allergies Allergy Verified 03/02/23 14:10 Physical Examination Osteopathic Statement: *. No significant issues noted on an osteopathic structural exam other than those noted in the History and Physical/Consult. - L Spine: dermatomal strength & reflexes left Strength: hip flexion: 4/5 (His back incision site is clear and well-healed. There is no erythema and no new drainage. His left lower extremity has 4-5 strength with hip flexion and knee extension. Right lower extremity is 5 out of 5.) Strength: ankle dorsiflexion: 5/5 (Dorsiflexion bilaterally is 5 out of 5 plantarflexion is 5-5. He has pain with rotation around his knee but he is not tender with palpation his knee. There is no erythema no significant swelling. He has diffuse edema of the bilateral lower extremities) Strength: ankle plantar flexion: 5/5 Results - Labs Labs: Abnormal Lab Results - Last 24 Hours (Table) 05/27/23 05/27/23 05/28/23 Range/Units 12:14 12:14 17:24 POC Glucose (mg/dL) 140 H (70-110) mg/dL Vitamin B6 2 L (5-50) ug/L Methylmalonic Acid 0.50 H (<0.40) umol/L 05/28/23 05/29/23 Range/Units 20:59 05:59 POC Glucose (mg/dL) 176 H 160 H (70-110) mg/dL Vitamin B6 (5-50) ug/L Methylmalonic Acid (<0.40) umol/L Microbiology - Last 24 Hours (Table) 05/27/23 00:15 Blood Culture Gram Stain - Final Blood Blood Culture - Final Escherichia coli 05/26/23 23:59 Blood Culture Gram Stain - Final Blood Blood Culture - Final Escherichia coli 05/26/23 22:20 Urine Culture - Final Urine,Voided Escherichia coli H & H 05/26/23 05/28/23 Range/Units 20:54 06:31 Hgb 13.9 13.3 (13.0-17.5) gm/dL Hct 42.8 40.2 (39.0-53.0) % Coagulation 05/26/23 Range/Units 20:54 INR 1.2 H (<1.2) Result Diagrams: 05/28/23 06:31 05/28/23 06:31 - Diagnostic results Lumbar MRI with contrast: report reviewed (There is no significant central stenosis. There is no evidence of any cauda equina syndrome. There is bilateral foraminal stenosis L3-4 L4-5 L5-S1. Prior fusion L4-5 which appears stable. Thoracic spine does not show to significant stenosis), image reviewed (Thoracic and lumbar MRI imaging and reports reviewed. There is prior laminectomy decompression with unilateral pedicle screws and interbody device at L4-5. There is some foraminal stenosis L3-4 L4-5 L5-S1. There is no s ignificant central stenosis) Assessment and Plan Assessment: New left lower extremity weakness of uncertain etiology Chronic foraminal encroachment with stenosis L3-4 L4-5 L5-S1 No significant central stenosis at the lumbar or thoracic spine History of prior fusion L4-5 which appears stable Urinary tract infection Difficulty ambulating with multiple falls and gait abnormality due to lower extremity weakness Plan: New left lower extremity weakness of uncertain etiology Chronic foraminal encroachment with stenosis L3-4 L4-5 L5-S1 No significant central stenosis at the lumbar or thoracic spine History of prior fusion L4-5 which appears stable Urinary tract infection Difficulty ambulating with multiple falls and gait abnormality due to lower extremity weakness The patient is continuing his treatment in regards to his urinary tract infection and urinary retention appropriately. In regards to the patient's falls and lower extremity weakness, it is difficult to determine the specific cause. His prior fusion at L4-5 appears to be stable. There is foraminal stenosis L3-4 L4-5 and L5-S1 in the upper labels 6 can correlate with lower extremity weakness. However there is not appear to be any new disc herniation and there is no significant central stenosis. There is no evidence of any cauda equina syndrome. The foraminal stenosis can cause some radicular symptoms however it would be quite unusual for the appearance of no significant new herniation or acute obvious change to cause his abrupt symptoms in terms of his spine. He may have some irritation at his nerve root contributing to some of his symptoms and he can have some benefit with dedicated treatment. I think that it could be useful to try a short course of steroid medication first 30 IV and then transitioning to oral tapering steroid to see if this helps alleviate some of the lower extremity issues. He should continue with his physical therapy as well. He should continue with mobilization and transfers ambulation and strengthening. If he is not making benefit then he could consider interventional pain management for epidural steroid injections. He is on blood thinner and does have active urinary tract infection so I would try the medications prior to pursuing this. I discussed this with him today. If he is not making progress with safely mobilizing that I think he is a good candidate for senior living or rehab placement prior to returning home. At this point I do not have acute plan for surgical intervention for his spine and he should continue with conservative treatment.
[2023-05-29 12:27] LABS: Glucose,Whole Blood 124 mg/dL (70-110)
--- NOTE | 2023-05-29 14:58 | CT ---
EXAMINATION TYPE: CT hip LT wo con CT DLP: 364 mGycm, Automated exposure control for dose reduction was used. DATE OF EXAM: 05/28/2023 1:44 PM COMPARISON: CT abdomen pelvis of 03/08/2023 CLINICAL INDICATION:Male, 83 years old with history of pain; PHH, left hip pain TECHNIQUE: Axial images were obtained of the CT hip LT wo con, Additional coronal and sagittal reform atted images and soft tissue and bone window were obtained for review. 3-D reconstruction was created on a separate workstation. Contrast used: mL of , (None if empty) Oral contrast used: (None if empty) FINDINGS: There is no evidence of fracture, subluxation, or dislocation. No significant soft tissue swelling or joint effusion is identified. No focal muscular atrophy or edema is identified. No radiop aque foreign body identified. Cartilage loss in the posterior hip joint is identified. No subchondral geodes or sclerosis appreciat ed. IMPRESSION: No evidence of fracture.
--- NOTE | 2023-05-29 15:24 | P.PN ---
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 He presented to the emergency department on 05/26/2023 secondary to recurrent falls at home with a chief complaint of generalized weakness. Upon arrival to the emergency department, patient underwent full evaluation. Vital signs upon arrival show blood pressure 129/77, heart rate 87, respiratory rate 18, temp 100.9 F, and SpO2 of 97% on room air. EKG was completed showing atrial fibrillation with a controlled ventricular rate of 79 bpm. Chest x-ray completed showing cardiomegaly and ASVD of the aorta with pulmonary vascular congestion and increased interstitial opacities secondary to pulmonary edema versus infectious process. CT brain was completed showing atrophy and chronic microvascular ischemic changes with a remote right occipital infarct and near complete opacification of the left frontal, multiple left anterior easement wide, and left maxillary sinuses. X-ray left hip completed showing left hip arthroplasty and concerning for possible femoral acetabular impingement. X-ray left femur showing arthropathy of the hip and knee joint with no acute fracture. X-ray lumbar spine showing postsurgical changes of L4-L5 and multilevel degenerative disc disease with multilevel foraminal and encroachment and grade 1 anterolisthesis L4-L5. Labs completed and reviewed. CBC showing thrombocytopenia with platelet count of 101. Coagulation profile showing slightly elevated INR of 1.2. BMP revealing hyponatremia with sodium of 133 and hypocarbia with bicarb of 17 and renal function consistent with known stage IIIb CKD with BUN of 33, creatinine 1.32, GFR 50 with baseline creatinine of 1.3. Liver profile showing hyperbilirubinemia with bilirubin of 1.5 and elevated AST of 70. proBNP was 3150. Urinalysis positive for blood and infection. Influenza A, influenza B, RSV, and COVID PCR negative. Patient was admitted under our services with consultation to urology. Preliminary blood cultures positive x 2 for gram-negative bacilli. Physical exam: Patient seen and fully evaluated at bedside this morning. Patient was attempting to get up and walk with physical therapy. Patient reports significant pain continues to left lateral hip and difficulties ambulating. Vital signs reviewed and stable. General: Nontoxic, no distress and appears stated age. Derm: Skin warm and dry, normal coloration for ethnicity. Head: Atraumatic, normocephalic and symmetric. Eyes: EOMs intact, no lid lag, and anicteric sclera Mouth: no lip lesions, mucus membranes moist Cardiovascular: Irregularly irregular with normal S1S2, systolic murmur, positive posterior tibial pulses bilaterally, and cap refill < 2 seconds. Lungs: Respirations even, regular, and unlabored on room air. Lungs CTA bilaterally, no rhonchi, no rales, no wheezing, and no accessory muscle usage. Abdominal: soft, nontender to palpation, no guarding, no appreciable organomegaly. Kirk catheter remains in place. Ext: No gross muscle atrophy, no edema, no contractures. Movement and sensa tion intact. Patient continues to have pain left lateral lower leg and hip. Neuro: Speech clear, face symmetrical and CN II-XII grossly intact with no noted focal neuro deficits Psych: Alert and oriented to person, place, time, and situation. Appropriate and pleasant affect. Assessment and Plan of Care: E: UTI, associated with chronic indwelling Kirk catheter E. coli bacteremia, secondary to complicated UTI -2 of 2 blood cultures positive for E. coli -Urine culture positive for E. 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 Consult placed to hematology as requested by neurologist. Metabolic acidosis: Improved. Likely due to CKD. Continue oral hydration. Macrocytosis: B12 is low at 159 and folate 13.70. Hyponatremia: Improved, continue to encourage hydration by mouth. Transaminitis: Resolved. Chronic conditions: Chronic atrial fibrillation on Xarelto, chronic kidney disease, diabetes mellitus, peripheral neuropathy. Data reviewed: Morning labs reviewed. 2 of 2 blood cultures positive for E. coli -Urine culture positive for E. coli Vital signs reviewed. Imaging reviewed CT thoracic and lumbar spine showing neuroforaminal stenosis worse at L3-L4 bilaterally with severe stenosis, moderate to severe stenosis at L4-L5 and L5-S1 and L2-L3. Abdominal ultrasound completed showing bilateral simple appearing renal cyst with nonobstructing 5 mm right renal calculi. CODE STATUS: DNR/DNI DVT prophylaxis: Xarelto Anticipated discharge date: Clinical course to determine Anticipated discharge place: SNF Patient was seen independently by Nurse Pracitioner. This document was prepared using [employer] dictation software. Please allow for errors in thread singer, while rare they do occur. Siva Lizarraga NURSES ASSISTANT rendered care for this patient independently, reviewed the findings and plan as documented in the note above. I did not physically speak with or examine the patient on this date. Objective - Vital Signs Vital signs: Vital Signs Temp 98.4 F 05/29/23 07:00 Pulse 78 05/29/23 07:00 Resp 17 05/29/23 07:00 BP 110/73 05/29/23 07:00 Pulse Ox 98 05/29/23 07:00 FiO2 21 05/27/23 09:01 Intake & Output 05/28/23 05/29/23 05/29/23 18:59 06:59 18:59 Intake Total 236 Output Total 1900 1040 Balance -1664 -1040 Intake: Oral 236 Output: Urine 1900 1040 Other: Voiding Method Indwelling Catheter Indwelling Catheter # Voids 1 # Bowel Movements 1 1 - Labs CBC & Chem 7: 05/28/23 06:31 05/28/23 06:31 Labs: Abnormal Lab Results - Last 24 Hours (Table) 05/27/23 05/28/23 05/28/23 Range/Units 12:14 06:30 06:31 RBC 3.90 L (4.40-5.60) X 10*6/uL MCV 103.1 H (80.0-97.0) FL MCH 34.1 H (27.0-32.0) pg Plt Count 80 L (140-440) X 10*3/uL Lymphocytes # 0.53 L (0.90-5.00) X 10*3/uL Eosinophils # 0.01 L (0.04-0.35) X 10*3/uL Carbon Dioxide (21.6-31.8) mmol/L Anion Gap (4.00-12.00) mmol/L BUN (9.0-27.0) mg/dL Est GFR (CKD-EPI) (>=60) BUN/Creatinine Ratio (12.00-20.00) Ratio Glucose (70-110) mg/dL POC Glucose (mg/dL) (70-110) mg/dL Hemoglobin A1c 6.2 H (<=6.0) % Methylmalonic Acid 0.50 H (<0.40) umol/L 05/28/23 05/28/23 05/28/23 Range/Units 06:31 17:24 20:59 RBC (4.40-5.60) X 10*6/uL MCV (80.0-97.0) FL MCH (27.0-32.0) pg Plt Count (140-440) X 10*3/uL Lymphocytes # (0.90-5.00) X 10*3/uL Eosinophils # (0.04-0.35) X 10*3/uL Carbon Dioxide 21.3 L (21.6-31.8) mmol/L Anion Gap 13.70 H (4.00-12.00) mmol/L BUN 29.9 H (9.0-27.0) mg/dL Est GFR (CKD-EPI) 50 L (>=60) BUN/Creatinine Ratio 21.36 H (12.00-20.00) Ratio Glucose 140 H (70-110) mg/dL POC Glucose (mg/dL) 140 H 176 H (70-110) mg/dL Hemoglobin A1c (<=6.0) % Methylmalonic Acid (<0.40) umol/L 05/29/23 Range/Units 05:59 RBC (4.40-5.60) X 10*6/uL MCV (80.0-97.0) FL MCH (27.0-32.0) pg Plt Count (140-440) X 10*3/uL Lymphocytes # (0.90-5.00) X 10*3/uL Eosinophils # (0.04-0.35) X 10*3/uL Carbon Dioxide (21.6-31.8) mmol/L Anion Gap (4.00-12.00) mmol/L BUN (9.0-27.0) mg/dL Est GFR (CKD-EPI) (>=60) BUN/Creatinine Ratio (12.00-20.00) Ratio Glucose (70-110) mg/dL POC Glucose (mg/dL) 160 H (70-110) mg/dL Hemoglobin A1c (<=6.0) % Methylmalonic Acid (<0.40) umol/L Microbiology - Last 24 Hours (Table) 05/26/23 22:20 Urine Culture - Final Urine,Voided Escherichia coli 05/26/23 23:59 Blood Culture Gram Stain - Preliminary Blood Blood Culture - Preliminary Gram Neg Bacilli 05/27/23 00:15 Blood Culture Gram Stain - Preliminary Blood Blood Culture - Preliminary Gram Neg Bacilli
[2023-05-29] MEDS: methylPREDNISolone SOD SUCCI 125 MG/2 ML VIAL IV SCH (16:22)
--- NOTE | 2023-05-29 16:41 | P.CONS ---
History of Present Illness - Reason for Consult Consult date: 05/29/23 IgG [place] pararoteinemia, Hx on CLL Requesting physician: Siva Lizarraga - Chief Complaint can't walk, no leg strength - History of Present Illness Mr. Alexander is a pleasant 83-year-old longtime patient of Dr. Irlanda peralta, diagnosed with CLL in 2008. He stayed on a watchful approach for quite some time. In 2013 lymphocytosis and anemia were worsening. 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 CAP showed borderline enlarged generalized lymphadenopathy and splenomegaly. Anemia worsened, admitted to hospital 09/18/2013 with hemolysis. Patient recovered, started on [id number] trial, randomized to ibrutinib, started 10/05/2013, September 2014 he was changed to active treatment because the trial was discontinued when the hospital was sold to a different company. Follow-up imaging showed no adenopathy. Repeat bone marrow 05/11/2014 revealed 30 to 35% monoclonal B-cell population. Patient continued and did well. Was admitted 10/12/2015 to the hospital for right upper quadrant pain, elevated LFTs, fall at home, CT CAP was normal, ibrutinib was held. Ultimately found to have a common bile duct stone, ERCP with sphincterectomy 11/23/2015 and cholecystectomy 11/25/2015. He resumed ibrutinib 12/07/2015. 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 He was started on venetoclax July 2022. He has been on since with no significant complaints. Recently the patient reported that he was unable to urinate, he was seen by urology, catheter was placed. After that time he could not stand, he fell twice. He came to the ER, no other symptoms other than the weak legs. His left leg continues to be weak. He denies any joint swelling. He is going to be seen by Orthopedics for L spine imaging abnormalities, he is on antibiotics. 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 Review of Systems 10 point review of systems is negative except as stated in HPI Past Medical History Past Medical History: Atrial Fibrillation, Cancer, Diabetes Mellitus, GERD/Reflux, Hyperlipidemia, Hypertension, Musculoskeletal Disorder, Neurologic Disorder, Osteoarthritis (OA), Renal Disease, Sleep Apnea/CPAP/BIPAP Additional Past Medical History / Comment(s): CLL-dx. 5 yrs. ago, unaware of renal problems, was having neck pain, neuropathy adonay feet, has cpap machine. History of lumbar fusion L4-5 approximately 3 and half years ago with Dr. Vega for low back pain History of Any Multi-Drug Resistant Organisms: None Reported Past Surgical History: Cholecystectomy, Orthopedic Surgery, Tonsillectomy Additional Past Surgical History / Comment(s): left shoulder rototor cuff repair, Right shoulder Past Anesthesia/Blood Transfusion Reactions: No Reported Reaction Past Psychological History: No Psychological Hx Reported Smoking Status: Former smoker Past Alcohol Use History: Occasional Past Drug Use History: None Reported - Past Family History Mother Family Medical History: Cancer Additional Family Medical History / Comment(s): of pancreatic cancer Medications and Allergies Home Medications Medication Instructions Recorded Confirmed Type Atorvastatin Calcium [Lipitor] 10 mg PO DAILY 10/12/15 05/27/23 History Fenofibrate 160 mg PO DAILY 10/12/15 05/27/23 History Rivaroxaban [Xarelto] 20 mg PO DAILY 10/12/15 05/27/23 History Acetaminophen [Tylenol Extra 1,000 mg PO Q6H PRN 05/27/23 05/27/23 History Strength] Gabapentin [Neurontin] 300 mg PO BID 05/27/23 05/27/23 History Semaglutide [Ozempic] 0.25 mg SQ Q7D 05/27/23 05/27/23 History Tamsulosin [Flomax] 0.4 mg PO DAILY 05/27/23 05/27/23 History Venetoclax [Venclexta] 300 mg PO DAILY 05/27/23 05/27/23 History metFORMIN HCL ER [Glucophage XR] 500 mg PO DAILY 05/27/23 05/27/23 History Allergies Allergy/AdvReac Type Severity Reaction Status Date / Time No Known Allergies Allergy Verified 03/02/23 14:10 Physical Exam Vitals: Vital Signs Temp Pulse Pulse Resp BP BP Pulse Ox 05/29/23 15:00 97.9 F 76 16 112/66 98 05/29/23 07:00 98.4 F 78 17 110/73 98 05/29/23 02:00 98.7 F 72 16 113/73 100 05/28/23 20:00 99.2 F 75 16 112/69 98 05/28/23 18:35 87 116/74 Intake and Output 05/29/23 05/29/23 05/29/23 06:59 14:59 22:59 Intake Total 354 Output Total 800 1200 Balance -800 -846 Intake: Oral 354 Output: Urine 800 1200 Other: Voiding Method Indwelling Catheter # Bowel Movements 2 - Constitutional General appearance: average body habitus, cooperative, no acute distress - EENT Eyes: anicteric sclerae, EOMI ENT: hearing grossly normal, normal oropharynx - Neck Neck: no lymphadenopathy - Respiratory Respiratory: bilateral: CTA - Cardiovascular Rhythm: regular Heart sounds: normal: S1, S2 Abnormal Heart Sounds: no systolic murmur, no diastolic murmur, no rub, no S3 Gallop, no S4 Gallop, no click, no other leg Peripheral Edema: bilateral: None - Gastrointestinal General gastrointestinal: no absent bowel sounds, no decreased bowel sounds, no distended, no hepatomegaly, no hyperactive bowel sounds, normal bowel sounds, no organomegaly, no rigid, no scaphoid, soft, no splenomegaly, no tenderness, no umbilical hernia, no ventral hernia - Integumentary Integumentary: normal - Neurologic Neurologic: CNII-XII intact - Psychiatric Psychiatric: A&O x's 3, appropriate affect, intact judgment & insight Results CBC & Chem 7: 05/28/23 06:31 05/28/23 06:31 Labs: Abnormal Lab Results - Last 24 Hours (Table) 05/27/23 05/27/23 05/28/23 Range/Units 12:14 12:14 17:24 POC Glucose (mg/dL) 140 H (70-110) mg/dL Vitamin B6 2 L (5-50) ug/L Methylmalonic Acid 0.50 H (<0.40) umol/L 05/28/23 05/29/23 05/29/23 Range/Units 20:59 05:59 12:25 POC Glucose (mg/dL) 176 H 160 H 124 H (70-110) mg/dL Vitamin B6 (5-50) ug/L Methylmalonic Acid (<0.40) umol/L Microbiology - Last 24 Hours (Table) 05/27/23 00:15 Blood Culture Gram Stain - Final Blood Blood Culture - Final Escherichia coli 05/26/23 23:59 Blood Culture Gram Stain - Final Blood Blood Culture - Final Escherichia coli 05/26/23 22:20 Urine Culture - Final Urine,Voided Escherichia coli Comments: Multiple spinal images taken, reports briefly reviewed CT Scan - head: report reviewed Assessment and Plan (1) CLL (chronic lymphocytic leukemia) Current Visit: No Status: Chronic Priority: Low Code(s): C91.10 - CHRONIC LYMPHOCYTIC LEUK OF B-CELL TYPE NOT ACHIEVE REMIS SNOMED Code(s): 21264205 Plan: 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 History of CLL -Diagnosis as documented in HPI -Been on Venclexta for almost a year. Done well overall. Hold Venclexta while hospitalized. Will advise patient when to resume. -Patient concerned about CLL progressing well off. Patient has done very well on treatment, being off treatment for few days even a few weeks is not going to impact his disease. Doctor attests: I performed a history and physical examination of this patient, developed impression and plan of care. Discussed with dictator. I agree with dictators note, documented as a scribe.
[2023-05-29] MEDS: LOPERAMIDE 2 MG CAP PO PRN (16:56)
[2023-05-29 17:28] LABS: Glucose,Whole Blood 118 mg/dL (70-110)
[2023-05-29] MEDS: PYRIDOXINE 50 MG TAB PO SCH (18:56)
[2023-05-29 21:00] LABS: Glucose,Whole Blood 281 mg/dL (70-110)
--- NOTE | 2023-05-29 23:33 | P.PN ---
Subjective Progress Note Date: 05/29/23 Principal diagnosis: Reason for follow-up is E. coli UTI and bacteremia Patient is a 83-year-old male with a past medical history significant for diabetes mellitus hypertension hyperlipidemia atrial fibrillation presenting to the hospital for evaluation of multiple falls, patient noted to have positive UA with both urine and blood cultures coming back positive with E. coli prompting this consultation. On today's evaluation that is 05/29/2023,the patient denies any fever or any chills, patient is breathing comfortably on room air, the patient denies chest pain shortness of breath and no significant cough, patient denies abdominal pain, no nausea vomiting or diarrhea. No new labs has been obtained today his white count was normal as of yesterday Objective - Vital Signs Vital signs: Vital Signs Temp 98.2 F 05/29/23 19:29 Pulse 72 05/29/23 19:29 Resp 15 05/29/23 19:29 BP 147/81 05/29/23 19:29 Pulse Ox 98 05/29/23 19:29 FiO2 21 05/27/23 09:01 Intake & Output 05/29/23 05/29/23 05/30/23 06:59 18:59 06:59 Intake Total 590 Output Total 1040 1200 1200 Balance -1040 -610 -1200 Intake: Oral 590 Output: Urine 1040 1200 1200 Other: Voiding Method Indwelling Catheter Indwelling Catheter # Voids 1 # Bowel Movements 1 2 - Exam GENERAL DESCRIPTION: An elderly male up in the chair in no distress RESPIRATORY SYSTEM: Unlabored breathing , decreased breath sounds at bases HEART: S1 S2 regular rate and rhythm , ABDOMEN: Soft , no tenderness EXTREMITIES: No edema feet - Labs CBC & Chem 7: 05/28/23 06:31 05/28/23 06:31 Labs: Abnormal Lab Results - Last 24 Hours (Table) 05/27/23 05/27/23 05/29/23 Range/Units 12:14 12:14 05:59 POC Glucose (mg/dL) 160 H (70-110) mg/dL Vitamin B6 2 L (5-50) ug/L Methylmalonic Acid 0.50 H (<0.40) umol/L 05/29/23 05/29/23 05/29/23 Range/Units 12:25 17:25 20:56 POC Glucose (mg/dL) 124 H 118 H 281 H (70-110) mg/dL Vitamin B6 (5-50) ug/L Methylmalonic Acid (<0.40) umol/L Microbiology - Last 24 Hours (Table) 05/27/23 00:15 Blood Culture Gram Stain - Final Blood Blood Culture - Final Escherichia coli 05/26/23 23:59 Blood Culture Gram Stain - Final Blood Blood Culture - Final Escherichia coli 05/26/23 22:20 Urine Culture - Final Urine,Voided Escherichia coli Assessment and Plan (1) Positive blood culture Current Visit: Yes Status: Acute Code(s): R78.81 - BACTEREMIA SNOMED Code(s): 360126900 (2) UTI (urinary tract infection) Current Visit: Yes Status: Acute Code(s): N39.0 - URINARY TRACT INFECTION, SITE NOT SPECIFIED SNOMED Code(s): 08110217 Plan: 1patient with a E. coli bacteremia source likely UTI in this patient who did have symptoms of urinary retention requiring Kirk catheter likely risk factor for his UTI and bacteremia 2-patient did have elevated creatinine, ultrasound kidney bladder area did not show any hydronephrosis some simple appearing cyst and nonobstructing stone 3-patient will continue with Rocephin 2 g daily while inpatient however plan to finish therapy with oral antibiotics Dictation was produced using [employer] dictation software. please excuse any grammatical, word or spelling errors. Time with Patient: Less than 30
[2023-05-30 06:16] LABS: Glucose,Whole Blood 243 mg/dL (70-110)
[2023-05-30 08:33] LABS: HCT 38.1 % (39.6-50.0); HGB 12.7 g/dL (13.0-17.0); MCH 33.7 pg (27.0-32.0); MCHC 33.3 g/dL (32.0-37.0); MCV 101.1 FL (80.0-97.0); Mean Platelet Volume 10.1 FL (9.5-12.2); NRBC Per 100 WBC 0 X 10*3/uL (0.00-0.01); Platelet Count 93 X 10*3/uL (140-440); RBC 3.77 X 10*6/uL (4.40-5.60); RDW 14.1 % (11.5-14.5); WBC 3.73 X 10*3/uL (4.50-10.00)
[2023-05-30 09:45] LABS: Erythrocyte Sedimentation Rate 56 mm/Hr (0-20)
--- NOTE | 2023-05-30 09:55 | P.PN ---
Progress Note - Text Progress Note Date: 05/30/23 Patient is seen and examined today at bedside. Pain is being controlled with medication. Patient feels he may have some slight improvement in terms of his legs and his stability. He is able to get up with his walker and he feels comfortable with this but he has great difficulty when he lets go of the walker. Physical Exam Afebrile with stable vital signs Abdomen is soft nontender. Chest has good excursion deep and space expiration Extremities have not had neurologic changed. He still has weakness with hip flexion and knee extension on the left Calves and thighs were soft nontender without evidence of DVT. Assessment/Plan Lower extremity weakness particularly to the left side with frequent falls No specific evidence of central compression or cauda equina but there is some foraminal stenosis which may contribute to his lower extremity issues. I do not have any plans for surgical intervention but he has made some improvement with his oral medication and I would continue with oral care and physical therapy. He may weight-bear as tolerated. Once he leaves it is okay t o transition him over to oral steroids for tapering continuation. If he is having continued issues then he should consider interventional pain management referral. We will continue to increase the patient's mobilization with therapy.
--- NOTE | 2023-05-30 10:56 | P.PN ---
Subjective Progress Note Date: 05/30/23 This is an 83-year-old male who is admitted for lower extremity weakness, urinary tract infection and multiple falls. Patient is seen and evaluated at bedside today regarding his left hip pain. Patient states that he was able to walk with physical therapy today using a walker. Patient states that he has noticed a little improvement in his pain and weakness. Patient states that his pain is worse in the morning and improves when he starts moving. Patient he denies any new complaints. Objective - Vital Signs Vital signs: Vital Signs Temp 97.4 F L 05/30/23 07:00 Pulse 70 05/30/23 07:00 Resp 16 05/30/23 07:00 BP 122/72 05/30/23 07:00 Pulse Ox 98 05/30/23 07:00 FiO2 21 05/27/23 09:01 Intake & Output 05/29/23 05/30/23 05/30/23 18:59 06:59 18:59 Intake Total 590 Output Total 1200 1950 150 Balance -610 1950 -150 Intake: Oral 590 Output: Urine 1200 1950 150 Other: Voiding Method Indwelling Catheter Indwelling Catheter # Bowel Movements 2 - Exam On exam patient is resting comfortably in a chair in no acute distress. Patient is alert and oriented 3. There is mild discomfort with motion of the left hip. There is discomfort and limitation with internal and external rotation of the left hip. Calf is soft and nontender to palpation. Sensation intact. Neurovascular status and circulatory status are intact. - Labs CBC & Chem 7: 05/30/23 06:19 05/28/23 06:31 Labs: Abnormal Lab Results - Last 24 Hours (Table) 05/27/23 05/29/23 05/29/23 Range/Units 12:14 12:25 17:25 WBC (4.50-10.00) X 10*3/uL RBC (4.40-5.60) X 10*6/uL Hgb (13.0-17.0) g/dL Hct (39.6-50.0) % MCV (80.0-97.0) FL MCH (27.0-32.0) pg Plt Count (140-440) X 10*3/uL ESR (0-20) mm/Hr POC Glucose (mg/dL) 124 H 118 H (70-110) mg/dL Vitamin B6 2 L (5-50) ug/L 05/29/23 05/30/23 05/30/23 Range/Units 20:56 06:15 06:19 WBC 3.73 L (4.50-10.00) X 10*3/uL RBC 3.77 L (4.40-5.60) X 10*6/uL Hgb 12.7 L (13.0-17.0) g/dL Hct 38.1 L (39.6-50.0) % MCV 101.1 H (80.0-97.0) FL MCH 33.7 H (27.0-32.0) pg Plt Count 93 L (140-440) X 10*3/uL ESR 56 H (0-20) mm/Hr POC Glucose (mg/dL) 281 H 243 H (70-110) mg/dL Vitamin B6 (5-50) ug/L Microbiology - Last 24 Hours (Table) 05/28/23 12:15 Stool Culture - Preliminary Stool 05/27/23 00:15 Blood Culture Gram Stain - Final Blood Blood Culture - Final Escherichia coli 05/26/23 23:59 Blood Culture Gram Stain - Final Blood Blood Culture - Final Escherichia coli 05/26/23 22:20 Urine Culture - Final Urine,Voided Escherichia coli Assessment and Plan (1) Hip pain Current Visit: Yes Status: Acute Code(s): M25.559 - PAIN IN UNSPECIFIED HIP SNOMED Code(s): 99658555 (2) Fall Current Visit: Yes Status: Acute Code(s): W19.XXXA - UNSPECIFIED FALL, INITIAL ENCOUNTER SNOMED Code(s): 9735088 (3) Osteoarthritis of left hip Current Visit: Yes Status: Acute Code(s): M16.12 - UNILATERAL PRIMARY OSTEOARTHRITIS, LEFT HIP SNOMED Code(s): 566844282451113 Plan: 1. The CT report of the left hip dated 05/28/2023 shows: No evidence of fracture. Cartilage loss in the posterior hip joint is identified. 2. Recommend continuation of physical therapy for mobilization. Patient may follow-up as an outpatient as needed basis.
[2023-05-30 11:11] LABS: Glucose,Whole Blood 343 mg/dL (70-110)
--- NOTE | 2023-05-30 11:16 | P.PN ---
Subjective Progress Note Date: 05/29/23 Patient was seen for a follow-up. Patient is sitting comfortably in the recliner. Patient states the infection in the blood is better. He feels good. He continues to have pain in the left anterior thigh region, and also involved sometimes the left hip region. Denies any pain in the lower back. When he is sitting still, it is around 2/10 but when he moves around, the pain goes up to 9/10. No other concerns. Objective - Vital Signs Vital signs: Vital Signs Temp 97.4 F L 05/30/23 07:00 Pulse 70 05/30/23 07:00 Resp 16 05/30/23 07:00 BP 122/72 05/30/23 07:00 Pulse Ox 98 05/30/23 07:00 FiO2 21 05/27/23 09:01 Intake & Output 05/29/23 05/30/23 05/30/23 18:59 06:59 18:59 Intake Total 590 Output Total 1200 1950 150 Balance -610 -1950 -150 Intake: Oral 590 Output: Urine 1200 1950 150 Other: Voiding Method Indwelling Catheter Indwelling Catheter Indwelling Catheter # Bowel Movements 2 - Exam Patient's mental status, speech and language functions are normal. Cranial nerves are normal. On muscle strength testing, the strength is normal in the both upper limbs. In the lower limbs (right/left) hip flexion 5/3+4-, adduction 5/5, abduction 4/4-, knee extension 5/5, ankle dorsiflexion 5/5. Reflexes are absent in the lower limbs. - Labs CBC & Chem 7: 05/30/23 06:19 05/28/23 06:31 Labs: Abnormal Lab Results - Last 24 Hours (Table) 05/27/23 05/29/23 05/29/23 Range/Units 12:14 12:25 17:25 WBC (4.50-10.00) X 10*3/uL RBC (4.40-5.60) X 10*6/uL Hgb (13.0-17.0) g/dL Hct (39.6-50.0) % MCV (80.0-97.0) FL MCH (27.0-32.0) pg Plt Count (140-440) X 10*3/uL ESR (0-20) mm/Hr POC Glucose (mg/dL) 124 H 118 H (70-110) mg/dL Vitamin B6 2 L (5-50) ug/L 05/29/23 05/30/23 05/30/23 Range/Units 20:56 06:15 06:19 WBC 3.73 L (4.50-10.00) X 10*3/uL RBC 3.77 L (4.40-5.60) X 10*6/uL Hgb 12.7 L (13.0-17.0) g/dL Hct 38.1 L (39.6-50.0) % MCV 101.1 H (80.0-97.0) FL MCH 33.7 H (27.0-32.0) pg Plt Count 93 L (140-440) X 10*3/uL ESR 56 H (0-20) mm/Hr POC Glucose (mg/dL) 281 H 243 H (70-110) mg/dL Vitamin B6 (5-50) ug/L Microbiology - Last 24 Hours (Table) 05/28/23 12:15 Stool Culture - Preliminary Stool 05/27/23 00:15 Blood Culture Gram Stain - Final Blood Blood Culture - Final Escherichia coli 05/26/23 23:59 Blood Culture Gram Stain - Final Blood Blood Culture - Final Escherichia coli 05/26/23 22:20 Urine Culture - Final Urine,Voided Escherichia coli Assessment and Plan Assessment: * New onset recurrent falls, unclear cause. Patient has chronic back pain, with previous history of back surgery, but has developed low back pain, left anterior thigh pain and weakness of the left hip flexion. Possible L3 radiculopathy. * History of back surgery 3-1/2 years ago. * Peripheral neuropathy. * Vitamin B12 deficiency * Monoclonal gammopathy noted on [place]. * Diabetes, not well-controlled. Last A1c 7.9 on 07/09/2022. * Urinary retention, probably due to prostate enlargement. Urologist on case. * Acute E. coli UTI, and bacteremia. ID on the case. * Left frontal, maxillary and ethmoid sinuses with complete opacification of left frontal and left maxillary sinus. * Atrial fibrillation, currently on Xarelto * History of CLL * Ex tobacco use Plan: * MRI of the thoracic and lumbar spine revealed postsurgical change with degeneration changes present. Neural foraminal stenosis worse at L3-L4 bilaterally with severe stenosis. Moderate to severe stenosis at L4-L5 and L5-S1 as well as L2-L3. No evidence for significant spinal canal stenosis in the lumbar spine. No abnormal postcontrast enhancement. * Orthopedic surgery consultation initiated for possible left L3 radiculopathy. * Patient has peripheral neuropathy. 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 * Appreciate hematology consultation. Awaiting quantitation of kappa/lambda light chains. Patient has history of CLL, stable. * Patient has significant vitamin B12 deficiency. Patient started on daily vitamin B12 injections 1000 mcg IM daily for 5 days. * PT OT, evaluate gait. * Urologist on the case for prostate enlargement and urinary retention. Patient has acute UTI, with bacteremia, currently on ceftriaxone. ID following.
[2023-05-30 12:01] LABS: Magnesium 2.1 mg/dL (1.5-2.4)
[2023-05-30 12:02] LABS: BUN/Creat Ratio 21.64 Ratio (12.00-20.00); Blood Urea Nitrogen 23.8 mg/dL (9.0-27.0); Calcium 8.7 mg/dL (8.7-10.3); Carbon Dioxide 19.7 mmol/L (21.6-31.8); Chloride 105 mmol/L (96-109); Glucose 244 mg/dL (70-110); Potassium 4.4 mmol/L (3.5-5.5); Sodium 138 mmol/L (135-145)
--- NOTE | 2023-05-30 12:48 | P.PN ---
Progress Note - Text Progress Note Date: 05/30/23 the patient is improving. The catheter remains in place with clear urine.upon discharge he should see Dr Jama in the office in one week for cystoscopy as previously recommended.
--- NOTE | 2023-05-30 15:45 | P.PN ---
Subjective Progress Note Date: 05/30/23 Principal diagnosis: Reason for follow-up is E. coli UTI and bacteremia Patient is a 83-year-old male with a past medical history significant for diabetes mellitus hypertension hyperlipidemia atrial fibrillation presenting to the hospital for evaluation of multiple falls, patient noted to have positive UA with both urine and blood cultures coming back positive with E. coli prompting this consultation. On today's evaluation that is 05/30/2023,the patient remains to be afebrile, patient is on room air not requiring supplemental oxygen and denies any shortness of breath no chest pain or cough.Patient denies having any nausea or vomiting, no abdominal pain and no diarrhea has been reported, complaining of some weakness of the left lower extremity no back pain. Patient did have a white count of 3.73 sed rate is 56 creatinine is 1.1 Objective - Vital Signs Vital signs: Vital Signs Temp 97.4 F L 05/30/23 07:00 Pulse 70 05/30/23 07:00 Resp 16 05/30/23 07:00 BP 122/72 05/30/23 07:00 Pulse Ox 98 05/30/23 07:00 FiO2 21 05/27/23 09:01 Intake & Output 05/29/23 05/30/23 05/30/23 18:59 06:59 18:59 Intake Total 590 Output Total 1200 1950 150 Balance -610 -1950 -150 Intake: Oral 590 Output: Urine 1200 1950 150 Other: Voiding Method Indwelling Catheter Indwelling Catheter Indwelling Catheter # Bowel Movements 2 - Exam GENERAL DESCRIPTION: An elderly male up in the chair in no distress RESPIRATORY SYSTEM: Unlabored breathing , decreased breath sounds at bases HEART: S1 S2 regular rate and rhythm , ABDOMEN: Soft , no tenderness EXTREMITIES: No edema feet - Labs CBC & Chem 7: 05/30/23 06:19 05/30/23 06:19 Labs: Abnormal Lab Results - Last 24 Hours (Table) 05/27/23 05/29/23 05/29/23 Range/Units 12:14 12:25 17:25 WBC (4.50-10.00) X 10*3/uL RBC (4.40-5.60) X 10*6/uL Hgb (13.0-17.0) g/dL Hct (39.6-50.0) % MCV (80.0-97.0) FL MCH (27.0-32.0) pg Plt Count (140-440) X 10*3/uL ESR (0-20) mm/Hr POC Glucose (mg/dL) 124 H 118 H (70-110) mg/dL Vitamin B6 2 L (5-50) ug/L 05/29/23 05/30/23 05/30/23 Range/Units 20:56 06:15 06:19 WBC 3.73 L (4.50-10.00) X 10*3/uL RBC 3.77 L (4.40-5.60) X 10*6/uL Hgb 12.7 L (13.0-17.0) g/dL Hct 38.1 L (39.6-50.0) % MCV 101.1 H (80.0-97.0) FL MCH 33.7 H (27.0-32.0) pg Plt Count 93 L (140-440) X 10*3/uL ESR 56 H (0-20) mm/Hr POC Glucose (mg/dL) 281 H 243 H (70-110) mg/dL Vitamin B6 (5-50) ug/L 05/30/23 Range/Units 11:09 WBC (4.50-10.00) X 10*3/uL RBC (4.40-5.60) X 10*6/uL Hgb (13.0-17.0) g/dL Hct (39.6-50.0) % MCV (80.0-97.0) FL MCH (27.0-32.0) pg Plt Count (140-440) X 10*3/uL ESR (0-20) mm/Hr POC Glucose (mg/dL) 343 H (70-110) mg/dL Vitamin B6 (5-50) ug/L Microbiology - Last 24 Hours (Table) 05/28/23 12:15 Stool Culture - Preliminary Stool 05/27/23 00:15 Blood Culture Gram Stain - Final Blood Blood Culture - Final Escherichia coli 05/26/23 23:59 Blood Culture Gram Stain - Final Blood Blood Culture - Final Escherichia coli 05/26/23 22:20 Urine Culture - Final Urine,Voided Escherichia coli Assessment and Plan (1) Positive blood culture Current Visit: Yes Status: Acute Code(s): R78.81 - BACTEREMIA SNOMED Code(s): 091976875 (2) UTI (urinary tract infection) Current Visit: Yes Status: Acute Code(s): N39.0 - URINARY TRACT INFECTION, SITE NOT SPECIFIED SNOMED Code(s): 81070297 Plan: 1patient with a E. coli bacteremia source likely UTI in this patient who did have symptoms of urinary retention requiring Kirk catheter likely risk factor for his UTI and bacteremia 2-patient did have elevated creatinine, ultrasound kidney bladder area did not show any hydronephrosis some simple appearing cyst and nonobstructing stone 3-patient is afebrile and did have some clinic improvement, will continue with Rocephin 2 g daily while inpatient however plan to finish therapy with oral Cipro x 10 days on discharge Dictation was produced using [employer] dictation software. please excuse any grammatical, word or spelling errors. Time with Patient: Less than 30
--- NOTE | 2023-05-30 17:07 | P.PN ---
Subjective Progress Note Date: 05/30/23 Principal diagnosis: CLL, IGG KLC on work up In f/u today pt reports that he can now stand up with help of walker! His legs have some strength in them today Objective - Vital Signs Vital signs: Vital Signs Temp 97.5 F L 05/30/23 14:07 Pulse 72 05/30/23 14:07 Resp 16 05/30/23 14:07 BP 150/70 05/30/23 14:07 Pulse Ox 99 05/30/23 14:07 FiO2 21 05/27/23 09:01 Intake & Output 05/29/23 05/30/23 05/30/23 18:59 06:59 18:59 Intake Total 590 240 Output Total 1200 1950 150 Balance -610 -1950 90 Intake: Oral 590 240 Output: Urine 1200 1950 150 Other: Voiding Method Indwelling Catheter Indwelling Catheter Indwelling Catheter # Voids 1 # Bowel Movements 2 - Constitutional General appearance: Present: average body habitus, cooperative, no acute distress - EENT Eyes: Present: anicteric sclerae, EOMI ENT: Present: hearing grossly normal - Respiratory Details: Respirations even and unlabored at rest - Cardiovascular Details: Skin warm and dry to the touch - Peripheral edema leg Peripheral Edema: bilateral: None - Integumentary Integumentary: Present: normal - Musculoskeletal Musculoskeletal: Present: generalized weakness - Psychiatric Psychiatric: Present: A&O x's 3, appropriate affect, intact judgment & insight - Labs CBC & Chem 7: 05/30/23 06:19 05/30/23 06:19 Labs: Abnormal Lab Results - Last 24 Hours (Table) 05/29/23 05/29/23 05/30/23 Range/Units 17:25 20:56 06:15 WBC (4.50-10.00) X 10*3/uL RBC (4.40-5.60) X 10*6/uL Hgb (13.0-17.0) g/dL Hct (39.6-50.0) % MCV (80.0-97.0) FL MCH (27.0-32.0) pg Plt Count (140-440) X 10*3/uL ESR (0-20) mm/Hr Carbon Dioxide (21.6-31.8) mmol/L Anion Gap (4.00-12.00) mmol/L BUN/Creatinine Ratio (12.00-20.00) Ratio Glucose (70-110) mg/dL POC Glucose (mg/dL) 118 H 281 H 243 H (70-110) mg/dL C-Reactive Protein (0.00-0.80) mg/dL 05/30/23 05/30/23 05/30/23 Range/Units 06:19 06:19 11:09 WBC 3.73 L (4.50-10.00) X 10*3/uL RBC 3.77 L (4.40-5.60) X 10*6/uL Hgb 12.7 L (13.0-17.0) g/dL Hct 38.1 L (39.6-50.0) % MCV 101.1 H (80.0-97.0) FL MCH 33.7 H (27.0-32.0) pg Plt Count 93 L (140-440) X 10*3/uL ESR 56 H (0-20) mm/Hr Carbon Dioxide 19.7 L (21.6-31.8) mmol/L Anion Gap 13.30 H (4.00-12.00) mmol/L BUN/Creatinine Ratio 21.64 H (12.00-20.00) Ratio Glucose 244 H (70-110) mg/dL POC Glucose (mg/dL) 343 H (70-110) mg/dL C-Reactive Protein 9.30 H (0.00-0.80) mg/dL Microbiology - Last 24 Hours (Table) 05/28/23 12:15 Stool Culture - Preliminary Stool Assessment and Plan (1) CLL (chronic lymphocytic leukemia) Current Visit: No Status: Chronic Priority: Low Code(s): C91.10 - CHRONIC LYMPHOCYTIC LEUK OF B-CELL TYPE NOT ACHIEVE REMIS SNOMED Code(s): 80233379 Plan: 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 History of CLL -Diagnosis as documented in HPI of consult -Been on Venclexta for almost a year. Done well overall. Hold Venclexta while hospitalized and while on antibiotics and while in rehab. Patient is not to resume until after he has completed antibiotics and rehabilitation. Patient verbalized understanding. -F/U Dr. Fournier in DC plan Patient being followed by Orthopedics for musculoskeletal complaints. He is also being seen by PT/OT and being treated for UTI-which may have contributed to patient's lower extremity weakness.
[2023-05-30 17:18] LABS: Glucose,Whole Blood 196 mg/dL (70-110)
--- NOTE | 2023-05-30 18:24 | P.PN ---
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 He presented to the emergency department on 05/26/2023 secondary to recurrent falls at home with a chief complaint of generalized weakness. Upon arrival to the emergency department, patient underwent full evaluation. Vital signs upon arrival show blood pressure 129/77, heart rate 87, respiratory rate 18, temp 100.9 F, and SpO2 of 97% on room air. EKG was completed showing atrial fibrillation with a controlled ventricular rate of 79 bpm. Chest x-ray completed showing cardiomegaly and ASVD of the aorta with pulmonary vascular congestion and increased interstitial opacities secondary to pulmonary edema versus infectious process. CT brain was completed showing atrophy and chronic microvascular ischemic changes with a remote right occipital infarct and near complete opacification of the left frontal, multiple left anterior easement wide, and left maxillary sinuses. X-ray left hip completed showing left hip arthroplasty and concerning for possible femoral acetabular impingement. X-ray left femur showing arthropathy of the hip and knee joint with no acute fracture. X-ray lumbar spine showing postsurgical changes of L4-L5 and multilevel degenerative disc disease with multilevel foraminal and encroachment and grade 1 anterolisthesis L4-L5. Labs completed and reviewed. CBC showing thrombocytopenia with platelet count of 101. Coagulation profile showing slightly elevated INR of 1.2. BMP revealing hyponatremia with sodium of 133 and hypocarbia with bicarb of 17 and renal function consistent with known stage IIIb CKD with BUN of 33, creatinine 1.32, GFR 50 with baseline creatinine of 1.3. Liver profile showing hyperbilirubinemia with bilirubin of 1.5 and elevated AST of 70. proBNP was 3150. Urinalysis positive for blood and infection. Influenza A, influenza B, RSV, and COVID PCR negative. Patient was admitted under our services with consultation to urology. Preliminary blood cultures positive x 2 for gram-negative bacilli.MRI thoracic and lumbar spine showing neuroforaminal stenosis worse at L3-L4 bilaterally with severe stenosis, moderate to severe stenosis at L4-L5 and L5-S1 and L2-L3. Abdominal ultrasound completed showing bilateral simple appearing renal cyst with nonobstructing 5 mm right renal calculi. Physical exam: Patient seen and fully evaluated at bedside this morning. Patient sitting up in the chair this morning. He reports pain is improved from yesterday but continues in lower back and left lateral hip and thigh. He denies having any other complaints at this time. Vital signs reviewed and stable. General: Nontoxic, no distress and appears stated age. Derm: Skin warm and dry, normal coloration for ethnicity. Head: Atraumatic, normocephalic and symmetric. Eyes: EOMs intact, no lid lag, and anicteric sclera Mouth: no lip lesions, mucus membranes moist Cardiovascular: Irregularly irregular with normal S1S2, systolic murmur, positive posterior tibial pulses bilaterally, and cap refill < 2 seconds. Lungs: Respirations even, regular, and unlabored on room air. Lungs CTA bilaterally, no rhonchi, no rales, no wheezing, and no accessory muscle usage. Abdominal: soft, nontender to palpation, no guarding, no appreciable organomegaly. Kirk catheter remains in place. Ext: No gross muscle atrophy, no edema, no contractures. Movement and sensation intact. Patient continues to have pain left lateral lower leg and hip. Neuro: Speech clear, face symmetrical and CN II-XII grossly intact with no noted focal neuro deficits Psych: Alert and oriented to person, place, time, and situation. Appropriate and pleasant affect. Assessment and Plan of Care: E. coli UTI, associated with chronic indwelling Kirk catheter E. coli bacteremia, secondary to complicated UTI -2 of 2 blood cultures positive for E. coli -Urine culture positive for E. 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 Consult placed to hematology as requested by neurologist. Pancytopenia. CBC showing pancytopenia with WBC count of 3.73, hemoglobin 12.7, and platelet count of 93. Possibly secondary to Venclexta vs current infectious process. Will continue to monitor closely with repeat morning CBC. Hematology/oncology is following. Metabolic acidosis: Improved. Likely due to CKD. Continue oral hydration. Macrocytosis: B12 is low at 159, B6 also low at 2 and folate 13.70. Patient was started on pyridoxine 50 mg daily and cyanocobalamin 1000 mcg daily. Hyponatremia: Improved, continue to encourage hydration by mouth. Transaminitis: Resolved. Chronic conditions: Chronic atrial fibrillation on Xarelto, chronic kidney disease, diabetes mellitus, peripheral neuropathy. Data reviewed: Morning labs reviewed. CBC showing pancytopenia with WBC count of 3.73, hemoglobin 12.7, and platelet count of 93. Possibly secondary to Venclexta vs current infectious process. BMP showing hyperglycemia with glucose of 244. Magnesium 2.1. CRP 9.30. ESR 56. 2 of 2 blood cultures positive for E. coli -Urine culture positive for E. coli Vital signs reviewed. Imaging reviewed CT left hip completed and radiology report reviewed stating negative for acute process. CODE STATUS: DNR/DNI DVT prophylaxis: Xarelto Anticipated discharge date: Plans for discharge tomorrow morning to [facility] Anticipated discharge place: [facility] Patient was seen independently by Nurse Pracitioner. This document was prepared using [employer] dictation software. Please allow for errors in sports administrator, while rare they do occur. Siva Lizarraga NP rendered care for this patient independently, reviewed the findings and plan as documented in the note above. I did not physically speak with or examine the patient on this date. Objective - Vital Signs Vital signs: Vital Signs Temp 97.4 F L 05/30/23 07:00 Pulse 70 05/30/23 07:00 Resp 16 05/30/23 07:00 BP 122/72 05/30/23 07:00 Pulse Ox 98 05/30/23 07:00 FiO2 21 05/27/23 09:01 Intake & Output 05/29/23 05/30/23 05/30/23 18:59 06:59 18:59 Intake Total 590 Output Total 1200 1950 Balance -610 -1949 Intake: Oral 590 Output: Urine 1200 1950 Other: Voiding Method Indwelling Catheter Indwelling Catheter # Bowel Movements 2 - Labs CBC & Chem 7: 05/30/23 06:19 05/30/23 06:19 Labs: Abnormal Lab Results - Last 24 Hours (Table) 05/27/23 05/29/23 05/29/23 Range/Units 12:14 12:25 17:25 WBC (4.50-10.00) X 10*3/uL RBC (4.40-5.60) X 10*6/uL Hgb (13.0-17.0) g/dL Hct (39.6-50.0) % MCV (80.0-97.0) FL MCH (27.0-32.0) pg Plt Count (140-440) X 10*3/uL POC Glucose (mg/dL) 124 H 118 H (70-110) mg/dL Vitamin B6 2 L (5-50) ug/L 05/29/23 05/30/23 05/30/23 Range/Units 20:56 06:15 06:19 WBC 3.73 L (4.50-10.00) X 10*3/uL RBC 3.77 L (4.40-5.60) X 10*6/uL Hgb 12.7 L (13.0-17.0) g/dL Hct 38.1 L (39.6-50.0) % MCV 101.1 H (80.0-97.0) FL MCH 33.7 H (27.0-32.0) pg Plt Count 93 L (140-440) X 10*3/uL POC Glucose (mg/dL) 281 H 243 H (70-110) mg/dL Vitamin B6 (5-50) ug/L Microbiology - Last 24 Hours (Table) 05/27/23 00:15 Blood Culture Gram Stain - Final Blood Blood Culture - Final Escherichia coli 05/26/23 23:59 Blood Culture Gram Stain - Final Blood Blood Culture - Final Escherichia coli 05/26/23 22:20 Urine Culture - Final Urine,Voided Escherichia coli
[2023-05-30 20:36] LABS: Glucose,Whole Blood 259 mg/dL (70-110)
[2023-05-31 05:52] LABS: Glucose,Whole Blood 218 mg/dL (70-110)
[2023-05-31 08:02] LABS: Protein, Total 5.8 g/dL (6.2-8.2)
[2023-05-31 08:19] VITALS: BP 147/94; PULSE 71; RESP 18; TEMP 97.6
--- NOTE | 2023-05-31 10:15 | P.PN ---
Subjective Progress Note Date: 05/30/23 Patient was seen for a follow-up. Patient is sitting comfortably in the recliner. Patient states the infection in the blood is better. He feels good. He continues to have pain in the left anterior thigh region, and also involved sometimes the left hip region. Denies any pain in the lower back. When he is sitting still, it is around 2/10 but when he moves around, the pain goes up to 6/10, overall better than yesterday. Patient states that he has been using walker all the time. He does have some back pain, but it does not stop him from walking. The pain continues to be in the left anterior thigh region, which is worse when he gets out of bed in the morning as when the left hip hurts as well. Denies any numbness in the legs. Patient is currently on Solu-Medrol 60 mg every 12 hours and initiated by orthopedic surgery for possible lumbar radiculopathy. Objective - Vital Signs Vital signs: Vital Signs Temp 97.4 F L 05/30/23 07:00 Pulse 70 05/30/23 07:00 Resp 16 05/30/23 07:00 BP 122/72 05/30/23 07:00 Pulse Ox 98 05/30/23 07:00 FiO2 21 05/27/23 09:01 Intake & Output 05/29/23 05/30/23 05/30/23 18:59 06:59 18:59 Intake Total 590 Output Total 1200 1950 150 Balance -610 1950 -150 Intake: Oral 590 Output: Urine 1200 1950 150 Other: Voiding Method Indwelling Catheter Indwelling Catheter Indwelling Catheter # Bowel Movements 2 - Exam Patient's mental status, speech and language functions are normal. Cranial nerves are normal. On muscle strength testing, the strength is normal in the both upper limbs. In the lower limbs (right/left) hip flexion 5/4+5-, knee extension 5/5, ankle dorsiflexion 5/5. Reflexes are absent in the lower limbs. Patient has moderate peripheral edema bilaterally. - Labs CBC & Chem 7: 05/30/23 06:19 05/30/23 06:19 Labs: Abnormal Lab Results - Last 24 Hours (Table) 05/29/23 05/29/23 05/30/23 Range/Units 17:25 20:56 06:15 WBC (4.50-10.00) X 10*3/uL RBC (4.40-5.60) X 10*6/uL Hgb (13.0-17.0) g/dL Hct (39.6-50.0) % MCV (80.0-97.0) FL MCH (27.0-32.0) pg Plt Count (140-440) X 10*3/uL ESR (0-20) mm/Hr Carbon Dioxide (21.6-31.8) mmol/L Anion Gap (4.00-12.00) mmol/L BUN/Creatinine Ratio (12.00-20.00) Ratio Glucose (70-110) mg/dL POC Glucose (mg/dL) 118 H 281 H 243 H (70-110) mg/dL C-Reactive Protein (0.00-0.80) mg/dL 05/30/23 05/30/23 05/30/23 Range/Units 06:19 06:19 11:09 WBC 3.73 L (4.50-10.00) X 10*3/uL RBC 3.77 L (4.40-5.60) X 10*6/uL Hgb 12.7 L (13.0-17.0) g/dL Hct 38.1 L (39.6-50.0) % MCV 101.1 H (80.0-97.0) FL MCH 33.7 H (27.0-32.0) pg Plt Count 93 L (140-440) X 10*3/uL ESR 56 H (0-20) mm/Hr Carbon Dioxide 19.7 L (21.6-31.8) mmol/L Anion Gap 13.30 H (4.00-12.00) mmol/L BUN/Creatinine Ratio 21.64 H (12.00-20.00) Ratio Glucose 244 H (70-110) mg/dL POC Glucose (mg/dL) 343 H (70-110) mg/dL C-Reactive Protein 9.30 H (0.00-0.80) mg/dL Microbiology - Last 24 Hours (Table) 05/28/23 12:15 Stool Culture - Preliminary Stool 05/27/23 00:15 Blood Culture Gram Stain - Final Blood Blood Culture - Final Escherichia coli 05/26/23 23:59 Blood Culture Gram Stain - Final Blood Blood Culture - Final Escherichia coli Assessment and Plan Assessment: * New onset recurrent falls, unclear cause. Patient has chronic back pain, with previous history of back surgery, but has developed low back pain, left anterior thigh pain and weakness of the left hip flexion. Possible left L3 radiculopathy. * History of back surgery 3-1/2 years ago. * Peripheral neuropathy. * Vitamin B12 deficiency * Monoclonal gammopathy noted on [place]. * Vitamin B6 deficiency * Diabetes, much better controlled now. Repeat A1c 6.2 but improved * Urinary retention, probably due to prostate enlargement. Urologist on case. * Acute E. coli UTI, and bacteremia. ID on the case. * Left frontal, maxillary and ethmoid sinuses with complete opacification of left frontal and left maxillary sinus. * Atrial fibrillation, currently on Xarelto * History of CLL * Ex tobacco use Plan: * MRI of the thoracic and lumbar spine revealed postsurgical change with degeneration changes present. Neural foraminal stenosis worse at L3-L4 bilaterally with severe stenosis. Moderate to severe stenosis at L4-L5 and L5-S1 as well as L2-L3. No evidence for significant spinal canal stenosis in the lumbar spine. No abnormal postcontrast enhancement. * Orthopedic surgery consultation initiated for possible left L3 radiculopathy. * Patient has peripheral neuropathy. B12 159, MMA elevated 0.50, vitamin B6 is 2 (5-50). Folate 13.7, B6, A1c 6.2, IgG 831, IgA 245, IgM 37.8, immunofixation electrophoresis revealed IgG kappa paraprotein. * Appreciate hematology consultation. Awaiting quantitation of kappa/lambda light chains. Patient has history of CLL, stable. * Patient has significant vitamin B12 deficiency. Patient started on daily vitamin B12 injections 1000 mcg IM daily for 5 days. * Patient also has vitamin B6 deficiency, started on vitamin B6 50 mg daily. * PT OT, evaluate gait. * Urologist on the case for prostate enlargement and urinary retention. Patient has acute UTI, with bacteremia, currently on ceftriaxone. ID following. * Neurologically clear otherwise.
--- NOTE | 2023-05-31 11:54 | P.DS ---
Providers Date of admission: 05/28/23 09:16 Expected date of discharge: 05/31/23 Attending physician: Kane Wakefield MD Consults: 05/27/23 02:04 Consult Physician Routine Consulting Provider: Martín Shaffer Consult Reason/Comments: bilateral leg weakness Do you want consulting provider notified?: Yes, Notify in am Consult Physician Routine Consulting Provider: Jb Beltran Consult Reason/Comments: urinary retention Do you want consulting provider notified?: Yes, Notify in am 05/28/23 09:15 Consult Physician Routine Consulting Provider: Morro Winn Consult Reason/Comments: possible impingement syndrome L hip, pain and BLE weakness Do you want consulting provider notified?: Yes 05/28/23 09:17 Consult Physician Routine Consulting Provider: Viji Sinclair Consult Reason/Comments: bactermia Do you want consulting provider notified?: Yes 05/29/23 10:11 Consult Physician Routine Consulting Provider: Patti Saleh Consult Reason/Comments: Positive immune fixation w/ IgG kappa paraprotein Do you want consulting provider notified?: Yes 05/29/23 11:37 Consult Physician Routine Consulting Provider: Lm Silva Consult Reason/Comments: LE weakness Do you want consulting provider notified?: Already Contacted [facility] Course: Discharge Diagnosis: E. coli UTI, associated with chronic indwelling Kirk catheter. Patient completed a 5-day course of IV antibiotics with Rocephin and evaluated by infectious disease recommending discharge on ciprofloxacin 500 mg twice daily for an additional 10 days. E. coli bacteremia, secondary to complicated UTI. Patient completed a 5-day course of IV antibiotics with Rocephin and evaluated by infectious disease recommending discharge on ciprofloxacin 500 mg twice daily for an additional 10 days. Severe lumbar stenosis with Left lower extremity pain and weakness. Patient was evaluated by orthopedic surgery and orthospine surgery.Orthospine surgery started pt on steroids and he began to have some improvement in your pain. Orthopedic surgery recommending continuation of prednisone 10 mg daily for an additional 24 days and if pt continues to have pain/discomfort, he may follow-up in their office as needed and also recommend evaluation by a pain management physician for possible epidural injections for long-term management of this pain.. Pancytopenia. CBC showing pancytopenia with WBC count of 3.73, hemoglobin 12.7, and platelet count of 93. Possibly secondary to Venclexta vs current infectious process. Follow-up outpatient with hematology/oncology upon discharge from [facility]. Metabolic acidosis: Improved. Likely due to CKD. Continue oral hydration. Macrocytosis: B12 is low at 159, B6 also low at 2 and folate 13.70. Patient was started on pyridoxine 50 mg daily and cyanocobalamin 500 mcg daily. Hyponatremia: Improved, continue to encourage hydration by mouth. Transaminitis: Resolved. Chronic conditions: Chronic atrial fibrillation on Xarelto, chronic kidney disease, diabetes mellitus, peripheral neuropathy. 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 He presented to the emergency department on 05/26/2023 secondary to recurrent falls at home with a chief complaint of generalized weakness. Upon arrival to the emergency department, patient underwent full evaluation. Vital signs upon arrival show blood pressure 129/77, heart rate 87, respiratory rate 18, temp 100.9 F, and SpO2 of 97% on room air. EKG was completed showing atrial fibrillation with a controlled ventricular rate of 79 bpm. Chest x-ray completed showing cardiomegaly and ASVD of the aorta with pulmonary vascular congestion and increased interstitial opacities secondary to pulmonary edema versus infectious process. CT brain was completed showing atrophy and chronic microvascular ischemic changes with a remote right occipital infarct and near complete opacification of the left frontal, multiple left anterior easement wide, and left maxillary sinuses. X-ray left hip completed showing left hip arthroplasty and concerning for possible femoral acetabular impingement. X-ray left femur showing arthropathy of the hip and knee joint with no acute fracture. X-ray lumbar spine showing postsurgical changes of L4-L5 and multilevel degenerative disc disease with multilevel foraminal and encroachment and grade 1 anterolisthesis L4-L5. Labs completed and reviewed. CBC showing thrombocytopenia with platelet count of 101. Coagulation profile showing slightly elevated INR of 1.2. BMP revealing hyponatremia with sodium of 133 and hypocarbia with bicarb of 17 and renal function consistent with known stage IIIb CKD with BUN of 33, creatinine 1.32, GFR 50 with baseline creatinine of 1.3. Liver profile showing hyperbilirubinemia with bilirubin of 1.5 and elevated AST of 70. proBNP was 3150. Urinalysis positive for blood and infection. Influenza A, influenza B, RSV, and COVID PCR negative. Patient was admitted under our services with consultation to urology. MRI thoracic and lumbar spine showing neuroforaminal stenosis worse at L3-L4 bilaterally with severe stenosis, moderate to severe stenosis at L4-L5 and L5-S1 and L2-L3. Abdominal ultrasound completed showing bilateral simple appearing renal cyst with nonobstructing 5 mm right renal calculi. 2 of 2 blood cultures positive for E. coli and Urine culture positive for E. coli he completed a 5-day course of IV antibiotics with Rocephin and evaluated by infectious disease recommending discharge on ciprofloxacin 500 mg twice daily for an additional [address] left hip completed and radiology report reviewed stating negative for acute process. Patient was evaluated by orthopedic surgery and orthospine surgery.Orthospine surgery started pt on steroids and he began to have some improvement in your pain. Orthopedic surgery recommending continuation of prednisone 10 mg daily for an additional 24 days and if pt continues to have pain/discomfort, he may follow-up in their office as needed and also recommend evaluation by a pain management physician for possible epidural injections for long-term management of this pain.. Patient is medically cleared for discharge at this time and has been cleared by infectious disease, orthospine surgery, hematology/oncology, and urology. Patient being discharged to [facility] for rehab with physical and Occupational Therapy. Physical exam: Vital signs reviewed and stable. General: Nontoxic, no distress and appears stated age. Derm: Skin warm and dry, normal coloration for ethnicity. Head: Atraumatic, normocephalic and symmetric. Eyes: EOMs intact, no lid lag, and anicteric sclera Mouth: no lip lesions, mucus membranes moist Cardiovascular: Irregularly irregular with normal S1S2, systolic murmur, positive posterior tibial pulses bilaterally, and cap refill < 2 seconds. Lungs: Respirations even, regular, and unlabored on room air. Lungs CTA bilaterally, no rhonchi, no rales, no wheezing, and no accessory muscle usage. Abdominal: soft, nontender to palpation, no guarding, no appreciable organomegaly. Kirk catheter remains in place. Ext: No gross muscle atrophy, no edema, no contractures. Movement and sensation intact. Patient continues to have pain left lateral lower leg and hip. Neuro: Speech clear, face symmetrical and CN II-XII grossly intact with no noted focal neuro deficits Psych: Alert and oriented to person, place, time, and situation. Appropriate and pleasant affect. A total of 38 minutes of time were spent preparing this complex discharge summary. Pt was discharged on 05/31/2023 at 10:59 AM. Patient was seen independently by Nurse Practitioner. This document was prepared using [employer] dictation software. Please allow for errors in manufacturing job titles while rare they do occur. Siva Lizarraga NP rendered care for this patient independently, reviewed the findings and plan as documented in the note above. I did not physically speak with or examine the patient on this date. Patient Condition at Discharge: Stable Plan - Discharge Summary Discharge Rx Participant: No New Discharge Prescriptions: New predniSONE 10 mg PO DAILY #24 tab Ciprofloxacin HCl [Cipro] 500 mg PO Q12HR 10 Days #20 tab HYDROcodone/APAP 5-325MG [[place] 5-325] 1 each PO Q4HR PRN #6 tab PRN Reason: Moderate Pain (Scale 4 To 6) INSULIN ASPART (NovoLOG) [NovoLOG (formulary)] See Rx Instructions .ROUTE .COMPLEX each Pantoprazole [Protonix] 40 mg PO AC-BRKFST tab Cyanocobalamin [Vitamin B-12] 500 mcg PO DAILY #30 tablet Pyridoxine [Vitamin B-6] 50 mg PO DAILY tab Continue Fenofibrate 160 mg PO DAILY Rivaroxaban [Xarelto] 20 mg PO DAILY Atorvastatin Calcium [Lipitor] 10 mg PO DAILY metFORMIN HCL ER [Glucophage XR] 500 mg PO DAILY Tamsulosin [Flomax] 0.4 mg PO DAILY Acetaminophen [Tylenol Extra Strength] 1,000 mg PO Q6H PRN PRN Reason: Fever And/ Or Pain Gabapentin [Neurontin] 300 mg PO BID #6 cap Discontinued Semaglutide [Ozempic] 0.25 mg SQ Q7D Venetoclax [Venclexta] 300 mg PO DAILY Discharge Medication List Atorvastatin Calcium [Lipitor] 10 mg PO DAILY 10/12/15 [History] Fenofibrate 160 mg PO DAILY 10/12/15 [History] Rivaroxaban [Xarelto] 20 mg PO DAILY 10/12/15 [History] Acetaminophen [Tylenol Extra Strength] 1,000 mg PO Q6H PRN 05/27/23 [History] Tamsulosin [Flomax] 0.4 mg PO DAILY 05/27/23 [History] metFORMIN HCL ER [Glucophage XR] 500 mg PO DAILY 05/27/23 [History] predniSONE 10 mg PO DAILY #24 tab 05/30/23 [Rx] Ciprofloxacin HCl [Cipro] 500 mg PO Q12HR 10 Days #20 tab 05/31/23 [Rx] Cyanocobalamin [Vitamin B-12] 500 mcg PO DAILY #30 tablet 05/31/23 [Rx] Gabapentin [Neurontin] 300 mg PO BID #6 cap 05/31/23 [Rx] HYDROcodone/APAP 5-325MG [[place] 5-325] 1 each PO Q4HR PRN #6 tab 05/31/23 [Rx] INSULIN ASPART (NovoLOG) [NovoLOG (formulary)] See Rx Instructions .ROUTE .COMPLEX each 05/31/23 [Rx] Pantoprazole [Protonix] 40 mg PO AC-BRKFST tab 05/31/23 [Rx] Pyridoxine [Vitamin B-6] 50 mg PO DAILY tab 05/31/23 [Rx] Follow up Appointment(s)/Referral(s): Jb Beltran MD [STAFF PHYSICIAN] - 1 Week (cysto) Jamie Thomas DO [Primary Care Provider] - 1-2 days Hiram Fournier MD [STAFF PHYSICIAN] - 07/26/23 2:00 pm Viji Sinclair MD [STAFF PHYSICIAN] - 1 Week Activity/Diet/Wound Care/Special Instructions: Activity: As tolerated. Take breaks as needed. Diet: Heart healthy and carb consistent diet. Avoid salts, or foods with hidden salts such as canned or boxed foods and frozen dinners. Extra salt makes your heart work harder and traps the fluid in your body for longer. Special Instructions: As we discussed at bedside, you will need to hold your Venclexta and Ozempic while you are at rehab and [facility] and will continue with NovoLog sliding scale for control of your blood sugars. Once discharged from rehab, you may discontinue sliding scale insulin and resume your Ozempic 0.25 mg subcutaneously every 7 days and Venclexta 300 mg daily as previously prescribed. Thank you for allowing us to participate in your care, it was truly a pleasure having you for our patient!!! . Discharge Disposition: TRANSFER TO SNF/ECF
[2023-05-31 12:14] LABS: Glucose,Whole Blood 381 mg/dL (70-110)
[2023-05-31 12:34] LABS: Free Kappa Lt Chain Qnt, Serum 3.87 mg/dL (0.33-1.94); Free Lambda Lt Chain Qnt, Seru 1.65 mg/dL (0.57-2.63)
[2023-05-31 12:44] LABS: Glucose,Whole Blood 396 mg/dL (70-110)
[2023-05-31 15:46] LABS: Albumin 2.97 g/dL (3.80-4.90); Gamma Globulin 0.64 g/dL (0.70-1.50)
--- NOTE | 2023-05-31 16:30 | P.PN ---
Subjective Progress Note Date: 05/31/23 Principal diagnosis: Reason for follow-up is E. coli UTI and bacteremia Patient is a 83-year-old male with a past medical history significant for diabetes mellitus hypertension hyperlipidemia atrial fibrillation presenting to the hospital for evaluation of multiple falls, patient noted to have positive UA with both urine and blood cultures coming back positive with E. coli prompting this consultation. On today's evaluation that is 05/31/2023, the patient continues to be afebrile, the patient is on room air and breathing comfortably, the Pt denies having any chest pain or cough, the patient denies having any abdominal pain no vomiting or any diarrhea, overall feeling better. No new labs has been obtained today blood culture repeat so far negative Objective - Vital Signs Vital signs: Vital Signs Temp 97.6 F 05/31/23 08:00 Pulse 71 05/31/23 08:00 Resp 18 05/31/23 08:00 BP 147/94 05/31/23 08:00 Pulse Ox 100 05/31/23 08:00 FiO2 21 05/27/23 09:01 Intake & Output 05/30/23 05/31/23 05/31/23 18:59 06:59 18:59 Intake Total 240 500 240 Output Total 400 1200 Balance -160 -700 240 Intake: Oral 240 500 240 Output: Urine 400 1200 Other: Voiding Method Indwelling Catheter Indwelling Catheter Indwelling Catheter # Voids 1 - Exam GENERAL DESCRIPTION: An elderly male up in the chair in no distress RESPIRATORY SYSTEM: Unlabored breathing , decreased breath sounds at bases HEART: S1 S2 regular rate and rhythm , ABDOMEN: Soft , no tenderness EXTREMITIES: No edema feet - Labs CBC & Chem 7: 05/30/23 06:19 05/30/23 06:19 Labs: Abnormal Lab Results - Last 24 Hours (Table) 05/30/23 05/30/23 05/30/23 Range/Units 00:28 06:19 17:16 Carbon Dioxide 19.7 L (21.6-31.8) mmol/L Anion Gap 13.30 H (4.00-12.00) mmol/L BUN/Creatinine Ratio 21.64 H (12.00-20.00) Ratio Glucose 244 H (70-110) mg/dL POC Glucose (mg/dL) 196 H (70-110) mg/dL C-Reactive Protein 9.30 H (0.00-0.80) mg/dL Total Protein (PEP) 5.8 L (6.2-8.2) g/dL 05/30/23 05/31/23 Range/Units 20:34 05:50 Carbon Dioxide (21.6-31.8) mmol/L Anion Gap (4.00-12.00) mmol/L BUN/Creatinine Ratio (12.00-20.00) Ratio Glucose (70-110) mg/dL POC Glucose (mg/dL) 259 H 218 H (70-110) mg/dL C-Reactive Protein (0.00-0.80) mg/dL Total Protein (PEP) (6.2-8.2) g/dL Microbiology - Last 24 Hours (Table) 05/28/23 12:15 Stool Culture - Final Stool Assessment and Plan (1) Positive blood culture Status: Acute Code(s): R78.81 - BACTEREMIA SNOMED Code(s): 423199915 (2) UTI (urinary tract infection) Status: Acute Code(s): N39.0 - URINARY TRACT INFECTION, SITE NOT SPECIFIED SNOMED Code(s): 28060869 Plan: 1patient with a E. coli bacteremia source likely UTI in this patient who did have symptoms of urinary retention requiring Kirk catheter likely risk factor for his UTI and bacteremia 2-patient did have elevated creatinine, ultrasound kidney bladder area did not show any hydronephrosis some simple appearing cyst and nonobstructing stone 3-patient is afebrile and repeat blood cultures have been negative so far, plan to finish therapy with oral Cipro x 10 days on discharge and close outpatient follow-up Dictation was produced using [employer] dictation software. please excuse any grammatical, word or spelling errors.
== END 2023-05-31 13:30 | DRG 699 ==
LOC: EC 20:39 → 6NMEDSUR 05-27 00:01 → OBSVTOIN 05-28 09:16
PROVIDERS: ADMIT Internal Medicine; ATTEND Internal Medicine
DX: T83.511A Infection and inflammatory reaction due to indwelling urethral catheter, initial encounter (principal); C91.10 Chronic lymphocytic leukemia of B-cell type not having achieved remission; D61.818 Other pancytopenia; R78.81 Bacteremia; E87.20 Acidosis, unspecified; E87.1 Hypo-osmolality and hyponatremia; I48.20 Chronic atrial fibrillation, unspecified; N13.8 Other obstructive and reflux uropathy; I13.0 Hypertensive heart and chronic kidney disease with heart failure and stage 1 through stage 4 chronic kidney disease, or unspecified chronic kidney disease; E86.0 Dehydration; N39.0 Urinary tract infection, site not specified; E11.42 Type 2 diabetes mellitus with diabetic polyneuropathy; E11.22 Type 2 diabetes mellitus with diabetic chronic kidney disease; E11.65 Type 2 diabetes mellitus with hyperglycemia; N18.32 Chronic kidney disease, stage 3b; I50.9 Heart failure, unspecified; B96.20 Unspecified Escherichia coli [E. coli] as the cause of diseases classified elsewhere; D75.89 Other specified diseases of blood and blood-forming organs; N40.1 Benign prostatic hyperplasia with lower urinary tract symptoms; M48.061 Spinal stenosis, lumbar region without neurogenic claudication; T45.1X5A Adverse effect of antineoplastic and immunosuppressive drugs, initial encounter; E78.5 Hyperlipidemia, unspecified; E53.8 Deficiency of other specified B group vitamins; D47.2 Monoclonal gammopathy; Z66 Do not resuscitate; G89.29 Other chronic pain; E53.1 Pyridoxine deficiency; G47.30 Sleep apnea, unspecified; R74.01 Elevation of levels of liver transaminase levels; K21.9 Gastro-esophageal reflux disease without esophagitis; M19.90 Unspecified osteoarthritis, unspecified site; R33.8 Other retention of urine; M48.07 Spinal stenosis, lumbosacral region; M43.16 Spondylolisthesis, lumbar region; M51.36 Other intervertebral disc degeneration, lumbar region; N20.0 Calculus of kidney; N28.1 Cyst of kidney, acquired; R29.6 Repeated falls; R79.1 Abnormal coagulation profile; M16.12 Unilateral primary osteoarthritis, left hip; M54.2 Cervicalgia; M79.652 Pain in left thigh; R16.1 Splenomegaly, not elsewhere classified; Z79.84 Long term (current) use of oral hypoglycemic drugs; Z79.01 Long term (current) use of anticoagulants; Z79.899 Other long term (current) drug therapy; Z79.85 Long-term (current) use of injectable non-insulin antidiabetic drugs; Z91.81 History of falling; Z87.891 Personal history of nicotine dependence; Z96.642 Presence of left artificial hip joint; Z98.1 Arthrodesis status; Z86.73 Personal history of transient ischemic attack (TIA), and cerebral infarction without residual deficits; Y84.6 Urinary catheterization as the cause of abnormal reaction of the patient, or of later complication, without mention of misadventure at the time of the procedure; W19.XXXA Unspecified fall, initial encounter; Y92.009 Unspecified place in unspecified non-institutional (private) residence as the place of occurrence of the external cause
CPT/HCPCS: 36415; 51702; 51798; 70450; 71046; 72100; 72146; 72158; 73502; 76770; 80048; 80053; 81001; 82607; 82746; 82784; 83036; 83605; 83735; 83880; 83883; 83921; 84165; 84207; 85025; 85027; 85610; 85652; 85730; 86140; 86334; 87040; 87045; 87046; 87077; 87086; 87186; 87324; 87636; 93005; 94760; 96365; 96375; 99285

== ENCOUNTER → 2023-07-08 | Outpatient (CLI) | payer MEDICARE ==
--- NOTE | 2023-07-09 10:22 | CA ---
Transthoracic Echo Report Name: Deonte Whitt Age: 83 Gender: M : 1940 Exam Date: 07/08/2023 13:35 Exam Location: [facility] Ht (in): 70 Wt (lb): 192 Ordering Physician: Jamie Thomas DO Attending/Referring Phys: Jamie Thomas DO Compensation Business Partner Rose Iniguez RDCS Procedure CPT: Indications: R60.0 lower extremity edema Cardiac Hx: Technical Quality: Fair Contrast 1: Total Dose (mL): Contrast 2: Total Dose (mL): MEASUREMENTS (Male / Female) Normal Values 2D ECHO LV Diastolic Diameter PLAX 4.3 cm 4.2 - 5.9 / 3.9 - 5.3 cm LV Systolic Diameter PLAX 2.2 cm IVS Diastolic Thickness 1.1 cm 0.6 - 1.0 / 0.6 - 0.9 cm LVPW Diastolic Thickness 1.4 cm 0.6 - 1.0 / 0.6 - 0.9 cm LV Relative Wall Thickness 0.6 RV Internal Dim ED PLAX 3.2 cm LVOT Diameter 2.1 cm LA Volume 82.7 cm??? 18 - 58 / 22 - 52 cm??? LA Volume Index 39.6 cm???/m??? 16 - 28 cm???/m??? M-MODE Aortic Root Diameter MM 2.7 cm LA Systolic Diameter MM 4.7 cm LA Ao Ratio MM 1.7 AV Cusp Separation MM 1.5 cm DOPPLER AV Peak Velocity 220.2 cm/s AV Peak Gradient 19.4 mmHg AV Mean Velocity 143.2 cm/s AV Mean Gradient 9.3 mmHg AV Velocity Time Integral 40.3 cm LVOT Peak Velocity 114.8 cm/s LVOT Peak Gradient 5.3 mmHg LVOT Velocity Time Integral 23.2 cm LVOT Stroke Volume 82.6 cm??? LVOT Stroke Volume Index 40.3 ml/m??? LVOT Cardiac Index 2449.7 cm???/min???m??? AV Area Cont Eq vti 2.0 cm??? AV Area Cont Eq pk 1.9 cm??? MV E' Velocity 8.4 cm/s TR Peak Velocity 231.5 cm/s TR Peak Gradient 21.4 mmHg Right Ventricular Systolic Press 25.2 mmHg FINDINGS Left Ventricle Mildly increased left ventricular wall thickness. Left ventricular cavity size normal. Normal left ventricular systolic function with no obvious regional wall motion abnormalities. Left ventricular ejection fraction is estimated at 55-60 %. Grade 1 diastolic dysfunction. Right Ventricle Normal right ventricular size and function. Right ventricular systolic pressure within normal limits. Right Atrium Mild right atrial dilatation. Left Atrium Moderately increased left atrial volume. Mildly increased left atrial area. Mitral Valve Mitral valve thickened. Moderate mitral annular calcification. [id number] mitral regurgitation. Aortic Valve Trileaflet aortic valve. Mild aortic stenosis with a peak gradient of 19 mmHg and a mean gradient of 9mmHg. Tricuspid Valve Structurally normal tricuspid valve. Qcyi-ic-vyhjnsyk tricuspid regurgitation. Pulmonic Valve Structurally normal pulmonic valve. Pericardium No pericardial effusion. Aorta Normal size aortic root and proximal ascending aorta. CONCLUSIONS Normal LV systolic function Normal RV systolic function Moderate biatrial enlargement Mild to moderate mitral regurgitation. Mitral annular calcification Aortic sclerosis with mild aortic stenosis No evidence of pericardial effusion Previewed by: Dr. Galindo Savaedra MD (Electronically Signed) Final Date: 09 July 2023 10:21
== END | disposition home or self-care (01) ==
LOC: RADECHMAIN 13:21
PROVIDERS: ATTEND Internal Medicine
DX: I08.0 Rheumatic disorders of both mitral and aortic valves (principal); R60.0 Localized edema
CPT/HCPCS: 93306

== ENCOUNTER 2023-09-05 11:47 | Emergency (ER) | payer MEDICARE ==
[2023-09-05 11:54] VITALS: RESP 16
[2023-09-05 12:33] LABS: Appearance,Urine Cloudy (Clear); Bacteria,Urine Occasional /hpf; Bilirubin,Urine Negative (Negative); Blood,Urine Small (Negative); Color,Urine Yellow; Glucose,Urine (UA) 4+ (Negative); Hyaline Casts,Urine 1 /lpf (0-2); Ketones,Urine Negative (Negative); Leukocyte Esterase,Urine Large (Negative); Mucus,Urine Rare /hpf; Nitrite,Urine Negative (Negative); PH, Urine 5.5 (5.0-8.0); Protein,Urine 1+ (Negative); RBC,Urine 2 /hpf (0-5); Specific Gravity,Urine 1.013 (1.001-1.035); Urobilinogen,Urine <2.0 mg/dL (<2.0); WBC,Urine >182 /hpf (0-5)
--- NOTE | 2023-09-05 12:43 | ED ---
Male Urogenital HPI - General Chief complaint: Urogenital Stated complaint: Urogenital Time Seen by Provider: 09/05/23 11:55 Source: patient, family, RN notes reviewed Mode of arrival: wheelchair Limitations: no limitations - History of Present Illness Initial comments: This is an 83-year-old male who presents to the emergency department for urinary hesitancy/retention. States that over the last 24 hours he has been struggling to urinate and has only been able to go small amounts, causing substantial pain. He does follow with Dr. Beltran, urology, for prostate issues and has had problems with retention and UTIs in the past. Denies any fever/chills or nausea/vomiting. Since coming to the emergency department he has been able to urinate and states that his pain did improve afterwards. He does still complain of some suprapubic pressure. - Related Data Home Medications Medication Instructions Recorded Confirmed Atorvastatin Calcium [Lipitor] 10 mg PO DAILY 10/12/15 05/27/23 Fenofibrate 160 mg PO DAILY 10/12/15 05/27/23 Rivaroxaban [Xarelto] 20 mg PO DAILY 10/12/15 05/27/23 Acetaminophen [Tylenol Extra 1,000 mg PO Q6H PRN 05/27/23 05/27/23 Strength] Tamsulosin [Flomax] 0.4 mg PO DAILY 05/27/23 05/27/23 metFORMIN HCL ER [Glucophage XR] 500 mg PO DAILY 05/27/23 05/27/23 Previous Rx's Medication Instructions Recorded predniSONE 10 mg PO DAILY #24 tab 05/30/23 Ciprofloxacin HCl [Cipro] 500 mg PO Q12HR 10 Days #20 tab 05/31/23 Cyanocobalamin [Vitamin B-12] 500 mcg PO DAILY #30 tablet 05/31/23 Gabapentin [Neurontin] 300 mg PO BID #6 cap 05/31/23 HYDROcodone/APAP 5-325MG [[place] 1 each PO Q4HR PRN #6 tab 05/31/23 5-325] INSULIN ASPART (NovoLOG) [NovoLOG See Rx Instructions .ROUTE 05/31/23 (formulary)] .COMPLEX each Pantoprazole [Protonix] 40 mg PO AC-BRKFST tab 05/31/23 Pyridoxine [Vitamin B-6] 50 mg PO DAILY tab 05/31/23 cefUROXime axetiL [Ceftin] 500 mg PO BID 10 Days #20 tab 09/05/23 Allergies Allergy/AdvReac Type Severity Reaction Status Date / Time No Known Allergies Allergy Verified 03/02/23 14:10 Review of Systems ROS Statement: Those systems with pertinent positive or pertinent negative responses have been documented in the HPI. ROS Other: All systems not noted in ROS Statement are negative. Past Medical History Past Medical History: Atrial Fibrillation, Cancer, Diabetes Mellitus, GERD/Reflux, Hyperlipidemia, Hypertension, Musculoskeletal Disorder, Neurologic Disorder, Osteoarthritis (OA), Renal Disease, Sleep Apnea/CPAP/BIPAP Additional Past Medical History / Comment(s): CLL-dx. 5 yrs. ago, unaware of renal problems, was having neck pain, neuropathy adonay feet, has cpap machine History of Any Multi-Drug Resistant Organisms: None Reported Past Surgical History: Cholecystectomy, Orthopedic Surgery, Tonsillectomy Additional Past Surgical History / Comment(s): left shoulder rototor cuff repair, Right shoulder Past Anesthesia/Blood Transfusion Reactions: No Reported Reaction Past Psychological History: No Psychological Hx Reported Smoking Status: Former smoker Past Alcohol Use History: Occasional Past Drug Use History: None Reported - Past Family History Mother Family Medical History: Cancer Additional Family Medical History / Comment(s): of pancreatic cancer General Exam Limitations: no limitations General appearance: alert, in no apparent distress Head exam: Present: atraumatic, normocephalic, normal inspection Respiratory exam: Present: normal lung sounds bilaterally. Absent: respiratory distress, wheezes, rales, rhonchi, stridor Cardiovascular Exam: Present: regular rate, normal rhythm, normal heart sounds. Absent: systolic murmur, diastolic murmur, rubs, gallop, clicks GI/Abdominal exam: Present: soft, normal bowel sounds. Absent: distended, tenderness, guarding, rebound, rigid Neurological exam: Present: alert, oriented X3, CN II-XII intact Psychiatric exam: Present: normal affect, normal mood Skin exam: Present: warm, dry, intact, normal color. Absent: rash Course Vital Signs 09/05/23 09/05/23 11:52 14:13 Temperature 97.8 F 98 F Pulse Rate 80 78 Respiratory 16 16 Rate Blood Pressure 164/84 151/79 O2 Sat by Pulse 98 98 Oximetry Medical Decision Making - Medical Decision Making This is an 83 year old male who presents to the emergency department for urinary retention Was pt. sent in by a medical professional or institution? @ -No Did you speak to anyone other than the patient for history? @ -No Did you review nursing and triage notes? @ -Yes, and I agree, it is accurate with regards to the patient's symptoms. Were old charts reviewed? @ -No Differential Diagnosis? @ -Differential Urinary Retention: UTI, ureteral calculus, pyelonephritis, blood clot, neurological issue, this is not meant to be an all-inclusive list. EKG interpreted by me (3pts min.)? @ -Not obtained X-rays interpreted by me (1pt min.)? @ -Not obtained CT interpreted by me (1pt min.)? @ -Not obtained U/S interpreted by me (1pt. min.)? @ -Not obtained What testing was considered but not performed? (CT, X-rays, U/S, labs)? Why? @ -None What meds were considered but not given? Why? @ -None Did you discuss the management of the patient with other professionals? @ -No Did you reconcile home meds? @ -No Was smoking cessation discussed for >3mins.? @ -No Was critical care preformed (if so, how long)? @ -No Were there social determinants of health that impacted care today? How? (Homelessness, low income, unemployed, alcoholism, drug addiction, transportatio n, low edu. Level, literacy, decrease access to med. care, residential, rehab)? @ -No Was there de-escalation of care discussed even if they declined? (Discuss DNR or withdrawal of care, Hospice)? @ -No What co-morbidities impacted this encounter? (DM, HTN, Smoking, COPD, CAD, Cancer, CVA, Hep., AIDS, mental health diagnosis, sleep apnea, morbid obesity)? @ -BPH Was patient admitted / discharged? @ -Discharged. After the patient was brought back in the emergency department he was able to urinate and had improvement in symptoms. Bladder scan performed demonstrating about 12 mL of urine. Urinalysis consistent with infection and urine was sent for culture. We did another bladder scan demonstrating 30 to 100 mL of urine. Discussed with the patient that at this current level a catheter is not indicated. Patient is in agreement with this given that he is now able to urinate. 1 g ceftriaxone administered in the emergency department and a prescription for cefuroxime was provided. He was given strict return parameters with regards to additional episodes of urinary retention and will otherwise follow-up with his PCP. Undiagnosed new problem with uncertain prognosis? @ -None Drug Therapy requiring intensive monitoring for toxicity (Heparin, Nitro, Insulin, Cardizem)? @ -None Were any procedures done? @ -None Diagnosis/symptom? @ -UTI, urinary retention Acute, or Chronic, or Acute on Chronic? @ -Acute Uncomplicated (without systemic symptoms) or Complicated (systemic symptoms)? @ -Uncomplicated Side effects of treatment? @ -None Exacerbation, Progression, or Severe Exacerbation] @ -Not applicable Poses a threat to life or bodily function? @ -No Return precautions reviewed in depth, the patient is instructed to return to the emergency department with any new, worsening, or concerning symptoms. Patient verbalized understanding. This case was discussed in detail with the attending ED physician, Dr. Gómez. Presentation, findings, and treatment plan discussed in detail as well. - Lab Data Lab Results 09/05/23 Range/Units 12:08 Urine Color Yellow Urine Appearance Cloudy (Clear) Urine pH 5.5 (5.0-8.0) Ur Specific [place] 1.013 (1.001-1.035) Urine Protein 1+ H (Negative) Urine Glucose (UA) 4+ H (Negative) Urine Ketones Negative (Negative) Urine Blood Small H (Negative) Urine Nitrite Negative (Negative) Urine Bilirubin Negative (Negative) Urine Urobilinogen <2.0 (<2.0) mg/dL Ur Leukocyte Esterase Large H (Negative) Urine RBC 2 (0-5) /hpf Urine WBC >182 H (0-5) /hpf Urine WBC Clumps Few H (None) /hpf Urine Bacteria Occasional H (None) /hpf Hyaline Casts 1 (0-2) /lpf Urine Mucus Rare H (None) /hpf Disposition Clinical Impression: UTI (urinary tract infection), Urinary retention Disposition: HOME SELF-CARE Instructions (If sedation given, give patient instructions): Urinary Retention in Men (ED), Urinary Tract Infection in Men (ED) Additional Instructions: Return to the emergency department with any new, worsening, or concerning symptoms. Take the antibiotic as prescribed for 10 days. Follow up with your primary care provider in 1-2 days. Prescriptions: cefUROXime axetiL [Ceftin] 500 mg PO BID 10 Days #20 tab Is patient prescribed a controlled substance at d/c from ED?: No Referrals: Jamie Thomas DO [Primary Care Provider] - 1-2 days Time of Disposition: 13:30
[2023-09-05] MEDS: cefTRIAXone 1,000 MG VIAL (IM USE) IM STA (13:49)
[2023-09-05 14:14] VITALS: BP 151/79; PULSE 78; TEMP 98
== END 2023-09-05 14:14 | disposition home or self-care (01) ==
LOC: EC 11:47
DX: N39.0 Urinary tract infection, site not specified (principal); Z87.891 Personal history of nicotine dependence
CPT/HCPCS: 51798; 81001; 87086; 99284; 96372; J0696

== ENCOUNTER → 2023-10-10 | Outpatient (CLI) | payer MEDICARE ==
--- NOTE | 2023-10-10 18:41 | XR ---
EXAMINATION TYPE: XR chest 2V DATE OF EXAM: 10/10/2023 2:12 PM CLINICAL INDICATION:Male, 83 years old with history of R06.09 CH XR 2V; [facility] COMPARISON: Chest radiographs from 05/26/2023 TECHNIQUE: XR chest 2V Frontal view of the chest. FINDINGS: Lungs/Pleura: There is no evidence of pleural effusion, focal consolidation, or pneumothorax. Pulmonary vascularity: Unremarkable. Heart/mediastinum: Cardiomediastinal silhouette is unremarkable. Musculoskeletal: No acute osseous pathology. IMPRESSION: No acute cardiopulmonary disease/process.
== END | disposition home or self-care (01) ==
LOC: RADXRMAIN 13:50
PROVIDERS: ATTEND Internal Medicine
DX: R06.09 Other forms of dyspnea (principal)
CPT/HCPCS: 71046

== ENCOUNTER → 2023-10-10 | Outpatient (CLI) | payer MEDICARE ==
[2023-10-10 13:01] LABS: African American GFR (CKD) 69 (>60 ml/min/1.73 sqM); Blood Urea Nitrogen 23 mg/dL (9-20); Non-African American GFR(CKD) 59 (>60 ml/min/1.73 sqM)
--- NOTE | 2023-10-10 16:26 | CT ---
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 Delayed images through the kidneys were obtained. Coronal/ sagittal reconstructions performed. C1190.8 1190.8 mGycm Automated exposure control for dose reduction was used. FINDINGS: Chest: Heart borderline enlarged without pericardial effusion. LAD and RCA coronary artery calcifications ar e present. Ectatic upper descending thoracic aorta. Mild atherosclerotic arch calcifications with conventional a [place] vessel branching anatomy. No thoracic lymphadenopathy by CT size criteria. Moderate emphysematous change. Mild interstitial prominence suggesting some underlying interstitial f ibrosis. 5 mm lingular pulmonary nodule, axial image 32, unchanged. Calcified granuloma right middle lobe, axi al image 35. Unchanged 3 mm pulmonary nodule lateral left base, axial image 45. No suspicious pulmona ry nodules. No consolidation or pleural effusion. ABDOMEN: No focal liver lesion. Portal venous system is patent. No biliary ductal dilatation. Cholecystectomy clips. Adrenal glands, spleen, and pancreas within normal limits. 2.6 cm diverticulum of the second portion of the duodenum projecting into the pancreatic head region. A punctate 3 mm nonobstructive stone within either kidney. Numerous bilateral renal cortical cysts measuring up to 7.1 cm on the right and 3.5 cm on the left. A hemorrhagic 1.4 cm cyst posterior lower pole left kidney is also redemonstrated. No dilated small bowel, free fluid, or free air. Mild stool burden. There is extensive sigmoid diverticulosis. Pericolonic stranding likely prominent pericolonic vessels. Correlate for any symptoms to exclude mild acute diverticulitis. There is new retroperitoneal adenopathy. Aortocaval node measuring 3.3 cm. Retrocaval node measuring 1.9 cm. Left periaortic node measuring up to 9 mm. Numerous left iliac chain nodes measuring up to 1.1 cm. No mesenteric adenopathy seen. Pelvis: Mild cerebral ventral bladder wall thickening. Marked prostatomegaly measuring up to 6.6 cm with soft tissue impressing into the base of the bladder. Pelvic phleboliths. No abnormal fluid collection the pelvis. Slightly patulous right neural canal. There is a right femoral canal/inguinal lymph node radha t is likely mildly enlarged at 1.6 cm, also increased in the interval. Bones: Mild to moderate degenerative change of the hips. Mild degenerative change SI joints. Postsurgical change of right-sided posterior lumbar fusion at L4-L5 with interbody fusion. Advanced h ypertrophic facet arthropathy mid to lower lumbar spine. Moderate degenerative disc disease L3-L4. IMPRES N: 1. New disease (compared to 03/08/2023) characterized by retroperitoneal adenopathy measuring up to 3 .3 cm. Numerous small left iliac chain lymph nodes are new as well measuring up to 1.1 cm. A right fe moral femoral chain lymph node near the inguinal region is borderline enlarged at 1.6 cm. 2. COPD with moderate emphysema. A few pulmonary nodules measuring up to 5 mm remain stable and benig n. 3. Extensive sigmoid diverticulosis. Pericolonic stranding likely represents prominent pericolonic ve ssels. Correlate with symptoms to exclude mild acute diverticulitis.
== END | disposition home or self-care (01) ==
LOC: RADCTMAIN 12:28
PROVIDERS: ATTEND Internal Medicine Hematology & Oncology
DX: C91.10 Chronic lymphocytic leukemia of B-cell type not having achieved remission (principal); D75.1 Secondary polycythemia; R19.7 Diarrhea, unspecified; D69.6 Thrombocytopenia, unspecified; E11.9 Type 2 diabetes mellitus without complications; R59.0 Localized enlarged lymph nodes; I51.7 Cardiomegaly; R91.8 Other nonspecific abnormal finding of lung field; K57.30 Diverticulosis of large intestine without perforation or abscess without bleeding; Z71.3 Dietary counseling and surveillance
CPT/HCPCS: 82565; 84520; 71260; 74177; 36415; Q9967

== ENCOUNTER 2023-10-21 12:46 | Emergency (ER) | payer MEDICARE ==
[2023-10-21] MEDS ORDERED: KETOROLAC 15 MG/ML 1 ML VIAL ONE (15:14)
[2023-10-21] MEDS ORDERED: PHENAZOPYRIDINE 100 MG TAB ONE ×2 (15:50→15:52)
[2023-10-21] MEDS ORDERED: cefTRIAXone 1,000 MG VIAL (IM USE) IM ONE (15:51)
== END 2023-10-21 16:40 | disposition home or self-care (01) ==
LOC: EC 12:46
DX: N39.0 Urinary tract infection, site not specified (principal)
CPT/HCPCS: 51798; 99283

== ENCOUNTER 2023-11-04 19:58 | Emergency (ER) | payer MEDICARE ==
--- NOTE | 2023-11-04 20:26 | ED ---
Fall HPI - General Chief Complaint: Fall Stated Complaint: Fall- weakness Time Seen by Provider: 11/04/23 20:12 Source: patient, EMS, RN notes reviewed Mode of arrival: EMS - History of Present Illness Initial Comments: 83-year-old male with history of A-fib on Xarelto presents to the emergency department via EMS for chief complaint of a fall. Patient states that he was in his bathroom on a stool getting dressed when he slid off the stool and fell between the stool and his washer and had a difficult time getting up due to weakness. Patient states that he has been experiencing diffuse weakness over the past few months and has an appointment scheduled with his primary care provider this week for further evaluation of this. Patient denies hitting his head or loss of consciousness at the time of this event. Patient denies exertional dyspnea. Currently he is denying chest pain, shortness of breath, difficulty breathing, headaches, blurry or double vision. Patient denies any bony complaints at this time. - Related Data Home Medications Medication Instructions Recorded Confirmed Atorvastatin Calcium [Lipitor] 10 mg PO DAILY 10/12/15 05/27/23 Fenofibrate 160 mg PO DAILY 10/12/15 05/27/23 Rivaroxaban [Xarelto] 20 mg PO DAILY 10/12/15 05/27/23 Acetaminophen [Tylenol Extra 1,000 mg PO Q6H PRN 05/27/23 05/27/23 Strength] Tamsulosin [Flomax] 0.4 mg PO DAILY 05/27/23 05/27/23 metFORMIN HCL ER [Glucophage XR] 500 mg PO DAILY 05/27/23 05/27/23 Previous Rx's Medication Instructions Recorded predniSONE 10 mg PO DAILY #24 tab 05/30/23 Ciprofloxacin HCl [Cipro] 500 mg PO Q12HR 10 Days #20 tab 05/31/23 Cyanocobalamin [Vitamin B-12] 500 mcg PO DAILY #30 tablet 05/31/23 Gabapentin [Neurontin] 300 mg PO BID #6 cap 05/31/23 HYDROcodone/APAP 5-325MG [[place] 1 each PO Q4HR PRN #6 tab 05/31/23 5-325] INSULIN ASPART (NovoLOG) [NovoLOG See Rx Instructions .ROUTE 05/31/23 (formulary)] .COMPLEX each Pantoprazole [Protonix] 40 mg PO AC-BRKFST tab 05/31/23 Pyridoxine [Vitamin B-6] 50 mg PO DAILY tab 05/31/23 cefUROXime axetiL [Ceftin] 500 mg PO BID 10 Days #20 tab 09/05/23 Nitrofurantoin Monohyd/M-Cryst 100 mg PO Q12HR #20 cap 09/09/23 [Macrobid] Ciprofloxacin HCl [Cipro] 500 mg PO Q12HR #20 tablet 11/04/23 Allergies Allergy/AdvReac Type Severity Reaction Status Date / Time No Known Allergies Allergy Verified 03/02/23 14:10 Review of Systems ROS Statement: Those systems with pertinent positive or pertinent negative responses have been documented in the HPI. ROS Other: All systems not noted in ROS Statement are negative. Past Medical History Past Medical History: Atrial Fibrillation, Cancer, Diabetes Mellitus, GERD/Reflux, Hyperlipidemia, Hypertension, Musculoskeletal Disorder, Neurologic Disorder, Osteoarthritis (OA), Renal Disease, Sleep Apnea/CPAP/BIPAP Additional Past Medical History / Comment(s): CLL-dx. 5 yrs. ago, unaware of renal problems, was having neck pain, neuropathy adonay feet, has cpap machine History of Any Multi-Drug Resistant Organisms: None Reported Past Surgical History: Cholecystectomy, Orthopedic Surgery, Tonsillectomy Additional Past Surgical History / Comment(s): left shoulder rototor cuff repair, Right shoulder Past Anesthesia/Blood Transfusion Reactions: No Reported Reaction Past Psychological History: No Psychological Hx Reported Smoking Status: Former smoker Past Alcohol Use History: Occasional Past Drug Use History: None Reported - Past Family History Mother Family Medical History: Cancer Additional Family Medical History / Comment(s): of pancreatic cancer Course Vital Signs 11/04/23 20:01 Temperature 100 F H Pulse Rate 64 Respiratory 18 Rate Blood Pressure 117/65 Medical Decision Making - Medical Decision Making Was pt. sent in by a medical professional or institution (, PA, TELEPHONE CLEANER, urgent care, hospital, or retirement...) When possible be specific @ -No Did you speak to anyone other than the patient for history (EMS, parent, family, police, friend...)? What history was obtained from this source @ -No Did you review nursing and triage notes (agree or disagree)? Why? @ -I reviewed and agree with nursing and triage notes Were old charts reviewed (outside hosp., previous admission, EMS record, old EKG, old radiological studies, urgent care reports/EKG's, retirement records)? Report findings @ -No old charts were reviewed Differential Diagnosis (chest pain, altered mental status, abdominal pain women, abdominal pain men, vaginal bleeding, weakness, fever, dyspnea, syncope, headache, dizziness, GI bleed, back pain, seizure, CVA, palpatations, mental health, musculoskeletal)? @ -Differential Weakness: Hypoglycemia, shock, sepsis, hyponatremia, anemia, infection, [place], ETOH, adverse medicine reaction, overdose, stroke, this is not meant to be an all-inclusive list. EKG interpreted by me (3pts min.). @ -Completed at 2045, atrial fibrillation with PVCs, ventricular rate 95, QTc 389. No acute signs of ischemia. X-rays interpreted by me (1pt min.). @ -None done CT interpreted by me (1pt min.). @ -None done U/S interpreted by me (1pt. min.). @ -None done What testing was considered but not performed or refused? (CT, X-rays, U/S, labs)? Why? @ -None What meds were considered but not given or refused? Why? @ -None Did you discuss the management of the patient with other professionals (professionals i.e. , PA, TELEPHONE CLEANER, lab, RT, psych nurse, geriatric social worker, post partum nurse, teacher, ict customer support officer, binder caser)? Give summary @ -No Was smoking cessation discussed for >3mins.? @ -No Was critical care preformed (if so, how long)? @ -No Were there social determinants of health that impacted care today? How? (Home lessness, low income, unemployed, alcoholism, drug addiction, transportation, low edu. Level, literacy, decrease access to med. care, residential, rehab)? @ -No Was there de-escalation of care discussed even if they declined (Discuss DNR or withdrawal of care, Hospice)? DNR status @ -No What co-morbidities impacted this encounter? (DM, HTN, Smoking, COPD, CAD, Cancer, CVA, ARF, Chemo, Hep., AIDS, mental health diagnosis, sleep apnea, morbid obesity)? @ -None Was patient admitted / discharged? Hospital course, mention meds given and route, prescriptions, significant lab abnormalities, going to OR and other pertinent info. @ -3-year-old male with weakness. Patient was brought to the emergency depart ment via EMS for chief complaint of a fall when he was dressing himself in his bathroom. He was sitting on a stool when he slipped between the washer and stool was unable to get up. Patient states that over the past 2 months he has been experiencing bilateral lower and upper extremity weakness. He is asymptomatic and is denying bony pain. CLL atrial fibrillation, rate controlled. CBC reveals hyponatremia correct sodium of 132, BUN of 28 and creatinine 1.68 which is consistent as compared to previous laboratory results, urinalysis remarkable for infection including large leukocyte esterase greater than 182 white blood cells and red blood cell clumps. Patient is provided with a 1 L fluid bolus and dose of ciprofloxacin in the emergency department for concern of urinary tract infection. Patient's bladder scan revealed over 400 cc of urine retained and a Kirk catheter was placed. Patient does have an appointment scheduled with his urologist on Saturday of this week and urinary catheter will be kept in place until follow-up with urology. Patient is sent a prescription for ciprofloxacin to his pharmacy. All questions answered at bedside and strict return parameters mellisa with the patient he is verbalized understanding. Discussed with Dr. Hoover. Undiagnosed new problem with uncertain prognosis? @ -No Drug Therapy requiring intensive monitoring for toxicity (Heparin, Nitro, Insulin, Cardizem)? @ -No Were any procedures done? @ -No Diagnosis/symptom? @ -hyponatremia, UTI, urinary retention, fall Acute, or Chronic, or Acute on Chronic? @ -acute Uncomplicated (without systemic symptoms) or Complicated (systemic symptoms)? @ -uncomplicated Side effects of treatment? @ -No Exacerbation, Progression, or Severe Exacerbation? @ -No Poses a threat to life or bodily function? How? (Chest pain, [place], [place], pneumonia, PE, COPD, DKA, ARF, appy, cholecystitis, CVA, Diverticulitis, Homicidal, Suicidal, threat to staff... and all critical care pts) @ -No - Lab Data Result diagrams: 11/04/23 20:44 11/04/23 20:44 Lab Results 11/04/23 11/04/23 11/04/23 Range/Units 20:44 20:44 20:44 WBC 10.2 (3.8-10.6) k/uL RBC 3.37 L (4.30-5.90) m/uL Hgb 11.7 L (13.0-17.5) gm/dL Hct 35.8 L (39.0-53.0) % MCV 106.3 H (80.0-100.0) fL MCH 34.6 (25.0-35.0) pg MCHC 32.6 (31.0-37.0) g/dL RDW 15.7 H (11.5-15.5) % Plt Count 146 L (150-450) k/uL MPV 8.3 Neutrophils % 83 % Lymphocytes % 8 % Monocytes % 7 % Eosinophils % 1 % Basophils % 0 % Neutrophils # 8.5 H (1.3-7.7) k/uL Lymphocytes # 0.8 L (1.0-4.8) k/uL Monocytes # 0.8 (0-1.0) k/uL Eosinophils # 0.1 (0-0.7) k/uL Basophils # 0.0 (0-0.2) k/uL Macrocytosis Moderate Sodium 131 L (137-145) mmol/L Potassium 4.1 (3.5-5.1) mmol/L Chloride 101 (98-107) mmol/L Carbon Dioxide 18 L (22-30) mmol/L Anion Gap 12 mmol/L BUN 28 H (9-20) mg/dL Creatinine 1.68 H (0.66-1.25) mg/dL Est GFR (CKD-EPI)AfAm 43 (>60 ml/min/1.73 sqM) Est GFR (CKD-EPI)NonAf 37 (>60 ml/min/1.73 sqM) Glucose 162 H (74-99) mg/dL Calcium 9.6 (8.4-10.2) mg/dL Phosphorus 2.5 (2.5-4.5) mg/dL Magnesium 1.4 L (1.6-2.3) mg/dL Total Bilirubin 1.3 (0.2-1.3) mg/dL AST 31 (17-59) U/L ALT 15 (4-49) U/L Alkaline Phosphatase 67 (38-126) U/L Troponin I (0.000-0.034) ng/mL Total Protein 6.6 (6.3-8.2) g/dL Albumin 3.9 (3.5-5.0) g/dL Urine Color Light Yellow Urine Appearance Turbid (Clear) Urine pH 5.5 (5.0-8.0) Ur Specific [place] 1.012 (1.001-1.035) Urine Protein 1+ H (Negative) Urine Glucose (UA) Negative (Negative) Urine Ketones Negative (Negative) Urine Blood Small H (Negative) Urine Nitrite Negative (Negative) Urine Bilirubin Negative (Negative) Urine Urobilinogen <2.0 (<2.0) mg/dL Ur Leukocyte Esterase Large H (Negative) Urine RBC 8 H (0-5) /hpf Urine WBC >182 H (0-5) /hpf Urine WBC Clumps Occasional H (None) /hpf Urine Bacteria Occasional H (None) /hpf Influenza Type A (PCR) (Not Detectd) Influenza Type B (PCR) (Not Detectd) RSV (PCR) (Not Detectd) SARS-CoV-2 (PCR) (Not Detectd) 11/04/23 11/04/23 Range/Units 20:44 20:44 WBC (3.8-10.6) k/uL RBC (4.30-5.90) m/uL Hgb (13.0-17.5) gm/dL Hct (39.0-53.0) % MCV (80.0-100.0) fL MCH (25.0-35.0) pg MCHC (31.0-37.0) g/dL RDW (11.5-15.5) % Plt Count (150-450) k/uL MPV Neutrophils % % Lymphocytes % % Monocytes % % Eosinophils % % Basophils % % Neutrophils # (1.3-7.7) k/uL Lymphocytes # (1.0-4.8) k/uL Monocytes # (0-1.0) k/uL Eosinophils # (0-0.7) k/uL Basophils # (0-0.2) k/uL Macrocytosis Sodium (137-145) mmol/L Potassium (3.5-5.1) mmol/L Chloride (98-107) mmol/L Carbon Dioxide (22-30) mmol/L Anion Gap mmol/L BUN (9-20) mg/dL Creatinine (0.66-1.25) mg/dL Est GFR (CKD-EPI)AfAm (>60 ml/min/1.73 sqM) Est GFR (CKD-EPI)NonAf (>60 ml/min/1.73 sqM) Glucose (74-99) mg/dL Calcium (8.4-10.2) mg/dL Phosphorus (2.5-4.5) mg/dL Magnesium (1.6-2.3) mg/dL Total Bilirubin (0.2-1.3) mg/dL AST (17-59) U/L ALT (4-49) U/L Alkaline Phosphatase (38-126) U/L Troponin I 0.020 (0.000-0.034) ng/mL Total Protein (6.3-8.2) g/dL Albumin (3.5-5.0) g/dL Urine Color Urine Appearance (Clear) Urine pH (5.0-8.0) Ur Specific [place] (1.001-1.035) Urine Protein (Negative) Urine Glucose (UA) (Negative) Urine Ketones (Negative) Urine Blood (Negative) Urine Nitrite (Negative) Urine Bilirubin (Negative) Urine Urobilinogen (<2.0) mg/dL Ur Leukocyte Esterase (Negative) Urine RBC (0-5) /hpf Urine WBC (0-5) /hpf Urine WBC Clumps (None) /hpf Urine Bacteria (None) /hpf Influenza Type A (PCR) Not Detected (Not Detectd) Influenza Type B (PCR) Not Detected (Not Detectd) RSV (PCR) Not Detected (Not Detectd) SARS-CoV-2 (PCR) Not Detected (Not Detectd) Disposition Clinical Impression: Weakness, Hyponatremia, Urinary retention, UTI (urinary tract infection) Disposition: HOME SELF-CARE Condition: Good Instructions (If sedation given, give patient instructions): Urinary Tract Infection in Men (ED), Fall Prevention for Older Adults (ED) Additional Instructions: Return to the emergency department for any new or worsening symptoms. Complete full course of antibiotics as prescribed. Follow-up with urology as scheduled this week for further evaluation and potential removal of catheter. Prescriptions: Ciprofloxacin HCl [Cipro] 500 mg PO Q12HR #20 tablet Is patient prescribed a controlled substance at d/c from ED?: No Referrals: Jamie Thomas DO [Primary Care Provider] - 1-2 days Time of Disposition: 22:01
[2023-11-04] MEDS: ACETAMINOPHEN TAB 500 MG TAB PO STA (20:31)
[2023-11-04 21:03] LABS: Basophils % (A) 0 %; Eosinophils # (A) 0.1 k/uL (0-0.7); Eosinophils % (A) 1 %; HCT 35.8 % (39.0-53.0); HGB 11.7 gm/dL (13.0-17.5); Lymphocytes # (A) 0.8 k/uL (1.0-4.8); Lymphocytes % (A) 8 %; MCH 34.6 pg (25.0-35.0); MCHC 32.6 g/dL (31.0-37.0); MCV 106.3 fL (80.0-100.0); Macrocytosis Moderate; Mean Platelet Volume 8.3; Monocytes # (A) 0.8 k/uL (0-1.0); Monocytes % (A) 7 %; Neutrophils # (A) 8.5 k/uL (1.3-7.7); Neutrophils % (A) 83 %; Platelet Count 146 k/uL (150-450); RBC 3.37 m/uL (4.30-5.90); RDW 15.7 % (11.5-15.5); WBC 10.2 k/uL (3.8-10.6)
[2023-11-04 21:18] LABS: Appearance,Urine Turbid (Clear); Bacteria,Urine Occasional /hpf; Bilirubin,Urine Negative (Negative); Blood,Urine Small (Negative); Color,Urine Light Yellow; Glucose,Urine (UA) Negative (Negative); Ketones,Urine Negative (Negative); Leukocyte Esterase,Urine Large (Negative); Nitrite,Urine Negative (Negative); PH, Urine 5.5 (5.0-8.0); Protein,Urine 1+ (Negative); RBC,Urine 8 /hpf (0-5); Specific Gravity,Urine 1.012 (1.001-1.035); Urobilinogen,Urine <2.0 mg/dL (<2.0); WBC,Urine >182 /hpf (0-5)
[2023-11-04 21:23] LABS: ALT 15 U/L (4-49); AST 31 U/L (17-59); African American GFR (CKD) 43 (>60 ml/min/1.73 sqM); Albumin 3.9 g/dL (3.5-5.0); Alkaline Phosphatase 67 U/L (38-126); Anion Gap 12 mmol/L; Blood Urea Nitrogen 28 mg/dL (9-20); Calcium 9.6 mg/dL (8.4-10.2); Carbon Dioxide 18 mmol/L (22-30); Chloride 101 mmol/L (98-107); Glucose 162 mg/dL (74-99); Magnesium 1.4 mg/dL (1.6-2.3); Non-African American GFR(CKD) 37 (>60 ml/min/1.73 sqM); Phosphorus 2.5 mg/dL (2.5-4.5); Potassium 4.1 mmol/L (3.5-5.1); Sodium 131 mmol/L (137-145); Total Bilirubin 1.3 mg/dL (0.2-1.3); Total Protein 6.6 g/dL (6.3-8.2)
[2023-11-04] MEDS: SODIUM CHLORIDE 0.9% 1,000 ML IV STA (21:38)
[2023-11-04] MEDS: MAGNESIUM OXIDE 400 MG TAB PO STA ×2 (22:17→22:18)
[2023-11-04] MEDS: CIPROFLOXACIN HCL 500 MG TAB PO STA (22:18)
[2023-11-05 00:24] VITALS: RESP 18; TEMP 98
[2023-11-05 00:29] VITALS: PULSE 93
[2023-11-05 00:31] VITALS: BP 94/55
== END 2023-11-05 05:24 | disposition home or self-care (01) ==
LOC: EC 19:58
DX: R53.1 Weakness (principal); E87.1 Hypo-osmolality and hyponatremia; N39.0 Urinary tract infection, site not specified; W01.0XXA Fall on same level from slipping, tripping and stumbling without subsequent striking against object, initial encounter
CPT/HCPCS: 36415; 80053; 81001; 83735; 84100; 84484; 85025; 87636; 93005; 96360; 96361; 99285

== ENCOUNTER 2023-11-05 10:48 | Inpatient (IN) | payer MEDICARE ==
[2023-11-05 11:45] LABS: Basophils % (A) 0 %; Eosinophils # (A) 0.1 k/uL (0-0.7); Eosinophils % (A) 1 %; HCT 34.3 % (39.0-53.0); HGB 11.3 gm/dL (13.0-17.5); Hypochromasia Slight; Lymphocytes # (A) 0.6 k/uL (1.0-4.8); Lymphocytes % (A) 5 %; MCH 34.6 pg (25.0-35.0); MCV 105.1 fL (80.0-100.0); Macrocytosis Moderate; Mean Platelet Volume 7.7; Monocytes # (A) 0.9 k/uL (0-1.0); Monocytes % (A) 8 %; Neutrophils # (A) 9.6 k/uL (1.3-7.7); Neutrophils % (A) 85 %; Platelet Count 135 k/uL (150-450); RBC 3.27 m/uL (4.30-5.90); RDW 15.2 % (11.5-15.5); WBC 11.3 k/uL (3.8-10.6)
[2023-11-05 11:57] LABS: ALT 17 U/L (4-49); AST 43 U/L (17-59); African American GFR (CKD) 51 (>60 ml/min/1.73 sqM); Albumin 3.5 g/dL (3.5-5.0); Alkaline Phosphatase 62 U/L (38-126); Anion Gap 12 mmol/L; Blood Urea Nitrogen 25 mg/dL (9-20); Carbon Dioxide 16 mmol/L (22-30); Chloride 104 mmol/L (98-107); Glucose 107 mg/dL (74-99); Magnesium 1.5 mg/dL (1.6-2.3); Non-African American GFR(CKD) 44 (>60 ml/min/1.73 sqM); Potassium 3.9 mmol/L (3.5-5.1); Sodium 132 mmol/L (137-145); Total Bilirubin 1.1 mg/dL (0.2-1.3)
--- NOTE | 2023-11-05 13:10 | ED ---
Weakness HPI - General Chief complaint: Weakness Stated complaint: Weakness Time Seen by Provider: 11/05/23 10:55 Source: patient, EMS, RN notes reviewed Mode of arrival: EMS Limitations: no limitations - History of Present Illness Initial comments: 83-year-old male presents emergency department with chief complaint of weakness. Patient was seen over the night diagnosed UTI, urinary retention and weakness states that he was discharged home in which she was unable to get up out of his chair as after he was brought home. Patient states he is too weak to ambulate. Patient denies any falls, injuries. He states that he does live at home with his usually walks with a walker states he still unable to ambulate with help. Denies any fever no chest pain. - Related Data Home Medications Medication Instructions Recorded Confirmed Atorvastatin Calcium [Lipitor] 10 mg PO DAILY 10/12/15 05/27/23 Fenofibrate 160 mg PO DAILY 10/12/15 05/27/23 Rivaroxaban [Xarelto] 20 mg PO DAILY 10/12/15 05/27/23 Acetaminophen [Tylenol Extra 1,000 mg PO Q6H PRN 05/27/23 05/27/23 Strength] Tamsulosin [Flomax] 0.4 mg PO DAILY 05/27/23 05/27/23 metFORMIN HCL ER [Glucophage XR] 500 mg PO DAILY 05/27/23 05/27/23 Previous Rx's Medication Instructions Recorded predniSONE 10 mg PO DAILY #24 tab 05/30/23 Ciprofloxacin HCl [Cipro] 500 mg PO Q12HR 10 Days #20 tab 05/31/23 Cyanocobalamin [Vitamin B-12] 500 mcg PO DAILY #30 tablet 05/31/23 Gabapentin [Neurontin] 300 mg PO BID #6 cap 05/31/23 HYDROcodone/APAP 5-325MG [Mcnary 1 each PO Q4HR PRN #6 tab 05/31/23 5-325] INSULIN ASPART (NovoLOG) [NovoLOG See Rx Instructions .ROUTE 05/31/23 (formulary)] .COMPLEX each Pantoprazole [Protonix] 40 mg PO AC-BRKFST tab 05/31/23 Pyridoxine [Vitamin B-6] 50 mg PO DAILY tab 05/31/23 cefUROXime axetiL [Ceftin] 500 mg PO BID 10 Days #20 tab 09/05/23 Nitrofurantoin Monohyd/M-Cryst 100 mg PO Q12HR #20 cap 09/09/23 [Macrobid] Ciprofloxacin HCl [Cipro] 500 mg PO Q12HR #20 tablet 11/04/23 Allergies Allergy/AdvReac Type Severity Reaction Status Date / Time No Known Allergies Allergy Verified 11/05/23 10:54 Review of Systems ROS Statement: Those systems with pertinent positive or pertinent negative responses have been documented in the HPI. ROS Other: All systems not noted in ROS Statement are negative. Past Medical History Past Medical History: Atrial Fibrillation, Cancer, Diabetes Mellitus, GERD/Reflux, Hyperlipidemia, Hypertension, Musculoskeletal Disorder, Neurologic Disorder, Osteoarthritis (OA), Renal Disease, Sleep Apnea/CPAP/BIPAP Additional Past Medical History / Comment(s): CLL-dx. 5 yrs. ago, unaware of renal problems, was having neck pain, neuropathy adonay feet, has cpap machine History of Any Multi-Drug Resistant Organisms: None Reported Past Surgical History: Cholecystectomy, Orthopedic Surgery, Tonsillectomy Additional Past Surgical History / Comment(s): left shoulder rototor cuff repair , Right shoulder Past Anesthesia/Blood Transfusion Reactions: No Reported Reaction Past Psychological History: No Psychological Hx Reported Smoking Status: Former smoker Past Alcohol Use History: Occasional Past Drug Use History: None Reported - Past Family History Mother Family Medical History: Cancer Additional Family Medical History / Comment(s): of pancreatic cancer General Exam Limitations: no limitations General appearance: alert, in no apparent distress Head exam: Present: atraumatic, normocephalic, normal inspection Eye exam: Present: normal appearance, PERRL, EOMI. Absent: scleral icterus, conjunctival injection, periorbital swelling ENT exam: Present: normal exam, mucous membranes moist Neck exam: Present: normal inspection, full ROM. Absent: tenderness, meningismus, lymphadenopathy Respiratory exam: Present: normal lung sounds bilaterally. Absent: respiratory distress, wheezes, rales, rhonchi, stridor Cardiovascular Exam: Present: regular rate, normal rhythm, normal heart sounds. Absent: systolic murmur, diastolic murmur, rubs, gallop, clicks GI/Abdominal exam: Present: soft, normal bowel sounds. Absent: distended, tenderness, guarding, rebound, rigid Neurological exam: Present: alert, oriented X3 Course Vital Signs 11/05/23 11/05/23 11/05/23 11:13 13:15 13:53 Temperature 97.9 F Pulse Rate 82 79 86 Respiratory 16 14 20 Rate Blood Pressure 108/90 103/76 115/62 O2 Sat by Pulse 99 99 95 Oximetry EKG Findings - EKG Comments: EKG Findings:: EKG 111: 30 A-fib with rate of 91 QRS 102 QT/QTc 372/420 - EKG Results: EKG: interpreted by ERMD Medical Decision Making - Medical Decision Making Was pt. sent in by a medical professional or institution (, QUINTIN, STORE CLERK CHECKER, urgent care, hospital, or assisted...) When possible be specific @ -No Did you speak to anyone other than the patient for history (EMS, parent, family, police, friend...)? What history was obtained from this source @ -No Did you review nursing and triage notes (agree or disagree)? Why? @ -I reviewed and agree with nursing and triage notes Were old charts reviewed (outside hosp., previous admission, EMS record, old EKG, old radiological studies, urgent care reports/EKG's, assisted records)? Report findings @ -Reviewed laboratory studies from yesterday including CBC comp urinalysis Differential Diagnosis (chest pain, altered mental status, abdominal pain women, abdominal pain men, vaginal bleeding, weakness, fever, dyspnea, syncope, headache, dizziness, GI bleed, back pain, seizure, CVA, palpatations, mental health, musculoskeletal)? @ -Differential Weakness: UTI dehydration hypoglycemia, shock, sepsis, hyponatremia, anemia, infection, PR, ETOH, adverse medicine reaction, overdose, stroke, this is not meant to be an all-inclusive list. EKG interpreted by me (3pts min.). @ -As above X-rays interpreted by me (1pt min.). @ -None done CT interpreted by me (1pt min.). @ -None done U/S interpreted by me (1pt. min.). @ -None done What testing was considered but not performed or refused? (CT, X-rays, U/S, labs)? Why? @ -None What meds were considered but not given or refused? Why? @ -None Did you discuss the management of the patient with other professionals (professionals i.e. , QUINTIN, STORE CLERK CHECKER, lab, RT, psych nurse, school social worker, director of first impressions, teacher, interface control officer, mattress spring encaser)? Give summary @ -Siva on-call for sound physician group excepting admission Was smoking cessation discussed for >3mins.? @ -No Was critical care preformed (if so, how long)? @ -No Were there social determinants of health that impacted care today? How? (Homelessness, low income, unemployed, alcoholism, drug addiction, transportation, low edu. Level, literacy, decrease access to med. care, shelter, rehab)? @ -No Was there de-escalation of care discussed even if they declined (Discuss DNR or withdrawal of care, Hospice)? DNR status @ -No What co-morbidities impacted this encounter? (DM, HTN, Smoking, COPD, CAD, Cancer, CVA, ARF, Chemo, Hep., AIDS, mental health diagnosis, sleep apnea, morbid obesity)? @ -Diabetes CAD Was patient admitted / discharged? Hospital course, mention meds given and route, prescriptions, significant lab abnormalities, going to OR and other pertinent info. @ -Admitted patient profoundly weak, unable to ambulate without significant assistance and still barely able to ambulate patient is found to be acutely dehydrated acute kidney injury with UTI started on IV antibiotics, IV fluids, consult to therapy and Occupational Therapy Undiagnosed new problem with uncertain prognosis? @ -No Drug Therapy requiring intensive monitoring for toxicity (Heparin, Nitro, Insul in, Cardizem)? @ -No Were any procedures done? @ -No Diagnosis/symptom? @ -Acute kidney injury, UTI, dehydration, weakness, unable to ambulate Acute, or Chronic, or Acute on Chronic? @ -Acute Uncomplicated (without systemic symptoms) or Complicated (systemic symptoms)? @ -Complicated Side effects of treatment? @ -No Exacerbation, Progression, or Severe Exacerbation? @ -No Poses a threat to life or bodily function? How? (Chest pain, USA, PR, pneumonia, PE, COPD, DKA, ARF, appy, cholecystitis, CVA, Diverticulitis, Homicidal, Suicidal, threat to staff... and all critical care pts) @ -No - Lab Data Result diagrams: 11/05/23 11:31 11/05/23 11:31 Lab Results 11/05/23 11/05/23 11/05/23 Range/Units 10:57 11:31 11:31 WBC 11.3 H (3.8-10.6) k/uL RBC 3.27 L (4.30-5.90) m/uL Hgb 11.3 L (13.0-17.5) gm/dL Hct 34.3 L (39.0-53.0) % MCV 105.1 H (80.0-100.0) fL MCH 34.6 (25.0-35.0) pg MCHC 33.0 (31.0-37.0) g/dL RDW 15.2 (11.5-15.5) % Plt Count 135 L (150-450) k/uL MPV 7.7 Neutrophils % 85 % Lymphocytes % 5 % Monocytes % 8 % Eosinophils % 1 % Basophils % 0 % Neutrophils # 9.6 H (1.3-7.7) k/uL Lymphocytes # 0.6 L (1.0-4.8) k/uL Monocytes # 0.9 (0-1.0) k/uL Eosinophils # 0.1 (0-0.7) k/uL Basophils # 0.0 (0-0.2) k/uL Hypochromasia Slight Macrocytosis Moderate Sodium 132 L (137-145) mmol/L Potassium 3.9 (3.5-5.1) mmol/L Chloride 104 (98-107) mmol/L Carbon Dioxide 16 L (22-30) mmol/L Anion Gap 12 mmol/L BUN 25 H (9-20) mg/dL Creatinine 1.47 H (0.66-1.25) mg/dL Est GFR (CKD-EPI)AfAm 51 (>60 ml/min/1.73 sqM) Est GFR (CKD-EPI)NonAf 44 (>60 ml/min/1.73 sqM) Glucose 107 H (74-99) mg/dL Plasma Lactic Acid [place] (0.7-2.0) mmol/L Calcium 9.0 (8.4-10.2) mg/dL Magnesium 1.5 L (1.6-2.3) mg/dL Total Bilirubin 1.1 (0.2-1.3) mg/dL AST 43 (17-59) U/L ALT 17 (4-49) U/L Alkaline Phosphatase 62 (38-126) U/L Troponin I (0.000-0.034) ng/mL Total Protein 6.0 L (6.3-8.2) g/dL Albumin 3.5 (3.5-5.0) g/dL Urine Color Yellow Urine Appearance Turbid (Clear) Urine pH 5.5 (5.0-8.0) Ur Specific [place] 1.016 (1.001-1.035) Urine Protein 1+ H (Negative) Urine Glucose (UA) Negative (Negative) Urine Ketones Trace H (Negative) Urine Blood Moderate H (Negative) Urine Nitrite Negative (Negative) Urine Bilirubin Negative (Negative) Urine Urobilinogen <2.0 (<2.0) mg/dL Ur Leukocyte Esterase Large H (Negative) Urine RBC 13 H (0-5) /hpf Urine WBC >182 H (0-5) /hpf Urine WBC Clumps Many H (None) /hpf Ur Squamous Epith Cells 1 (0-4) /hpf Urine Mucus Rare H (None) /hpf 11/05/23 11/05/23 Range/Units 11:31 11:31 WBC (3.8-10.6) k/uL RBC (4.30-5.90) m/uL Hgb (13.0-17.5) gm/dL Hct (39.0-53.0) % MCV (80.0-100.0) fL MCH (25.0-35.0) pg MCHC (31.0-37.0) g/dL RDW (11.5-15.5) % Plt Count (150-450) k/uL MPV Neutrophils % % Lymphocytes % % Monocytes % % Eosinophils % % Basophils % % Neutrophils # (1.3-7.7) k/uL Lymphocytes # (1.0-4.8) k/uL Monocytes # (0-1.0) k/uL Eosinophils # (0-0.7) k/uL Basophils # (0-0.2) k/uL Hypochromasia Macrocytosis Sodium (137-145) mmol/L Potassium (3.5-5.1) mmol/L Chloride (98-107) mmol/L Carbon Dioxide (22-30) mmol/L Anion Gap mmol/L BUN (9-20) mg/dL Creatinine (0.66-1.25) mg/dL Est GFR (CKD-EPI)AfAm (>60 ml/min/1.73 sqM) Est GFR (CKD-EPI)NonAf (>60 ml/min/1.73 sqM) Glucose (74-99) mg/dL Plasma Lactic Acid [place] 1.3 (0.7-2.0) mmol/L Calcium (8.4-10.2) mg/dL Magnesium (1.6-2.3) mg/dL Total Bilirubin (0.2-1.3) mg/dL AST (17-59) U/L ALT (4-49) U/L Alkaline Phosphatase (38-126) U/L Troponin I 0.029 (0.000-0.034) ng/mL Total Protein (6.3-8.2) g/dL Albumin (3.5-5.0) g/dL Urine Color Urine Appearance (Clear) Urine pH (5.0-8.0) Ur Specific [place] (1.001-1.035) Urine Protein (Negative) Urine Glucose (UA) (Negative) Urine Ketones (Negative) Urine Blood (Negative) Urine Nitrite (Negative) Urine Bilirubin (Negative) Urine Urobilinogen (<2.0) mg/dL Ur Leukocyte Esterase (Negative) Urine RBC (0-5) /hpf Urine WBC (0-5) /hpf Urine WBC Clumps (None) /hpf Ur Squamous Epith Cells (0-4) /hpf Urine Mucus (None) /hpf Disposition Clinical Impression: UTI (urinary tract infection), Weakness, Unable to ambulate, Dehydration, GUERITA (acute kidney injury) Disposition: ADMITTED IP TO THIS [facility] Time of Disposition: 13:41
[2023-11-05] MEDS: SODIUM CHLORIDE 0.9% 500 ML 500 ML IV ONE (13:22)
[2023-11-05] MEDS: SODIUM CHLORIDE 0.9% 1,000 ML IV SCH (13:26)
[2023-11-05] MEDS ORDERED: ONDANSETRON 4 MG/2 ML VIAL IVP PRN (13:41)
[2023-11-05] MEDS ORDERED: NALOXONE 0.4 MG/ML 1 ML VIAL IV PRN (13:41)
[2023-11-05 13:55] LABS: Appearance,Urine Turbid (Clear); Bilirubin,Urine Negative (Negative); Blood,Urine Moderate (Negative); Color,Urine Yellow; Glucose,Urine (UA) Negative (Negative); Ketones,Urine Trace (Negative); Leukocyte Esterase,Urine Large (Negative); Mucus,Urine Rare /hpf; Nitrite,Urine Negative (Negative); PH, Urine 5.5 (5.0-8.0); Protein,Urine 1+ (Negative); RBC,Urine 13 /hpf (0-5); Specific Gravity,Urine 1.016 (1.001-1.035); Squamous Epithelial Cell,Urine 1 /hpf (0-4); Urobilinogen,Urine <2.0 mg/dL (<2.0); WBC,Urine >182 /hpf (0-5)
[2023-11-05] MEDS: MAGNESIUM SULFATE-D5W PMX 1 GM in DEXTROSE/WATER 1 100ML.BAG IVPB SCH (16:06)
--- NOTE | 2023-11-05 17:00 | P.HPIM ---
History of Present Illness H&P Date: 11/05/23 History of Presenting Illness: Patient is a pleasant 83-year-old male with a past medical history of hypertension, hyperlipidemia, atrial fibrillation on anticoagulation with Eliq uis, insulin-dependent diabetes mellitus, chronic kidney disease stage IIIa, CLL, and neuropathy. He presented to the emergency department with a chief complaint of generalized weakness. Patient recently seen in the emergency department where he was diagnosed with urinary retention and a UTI and d ischarged home with Kirk catheter in place and on oral antibiotic. Patient reports since discharge from the emergency department he has experienced increased weakness and lethargy resulting in inability to ambulate. He denies having any fevers, chills, dizziness, lightheadedness, chest pain, palpitations, shortness of breath, abdominal pain or discomfort, back pain, experiencing any numbness/tingling/weakness in his extremities and denies any recent falls or injuries. He reports his weakness is due to the extreme that he is unable to ambulate or care for himself. Patient and requesting evaluation for his UTI and possible placement in rehab. He reports that he had an appointment with urologist on 11/06/2023, but is unable to make it to the appointment secondary to his new onset weakness. Upon arrival to our facility, patient underwent evaluation in the emergency department. Vital signs upon arrival show blood pressure 108/90, heart rate 82, respiratory rate 16, temp 97.9 F, and SpO2 of 99% on room air. EKG was completed showing atrial fibrillation with occasional PVC with a controlled rate of 91 bpm. Labs completed and reviewed. CBC showing leukocytosis with a WBC count of 11.3 and bicytopenia with hemoglobin of 11.3 and platelet count of 135. BMP showing mild hyponatremia with sodium of 132 and slightly elevated renal function with BUN of 25, creatinine 1.47, and GFR 44 with baseline creatinine around 1.2. Magnesium was low at 1.5. Liver profile normal findings. Troponin was 0.029. Urinalysis positive for ketones, blood, 13 RBCs, leukocyte esterase and greater than 182 WBCs. Blood culture and urine culture were sent to lab for analysis. Review of systems: Pertinent positives and negatives as discussed in HPI, a complete review of systems was performed and all other systems are negative. Physical exam: Vital signs reviewed and stable. General: Nontoxic, no distress and appears stated age. Derm: Skin warm and dry, normal coloration for ethnicity. Head: Atraumatic, normocephalic and symmetric. Eyes: EOM's intact, no lid lag, and anicteric sclera Mouth: no lip lesions, mucus membranes moist Cardiovascular: Irregularly irregular with systolic murmur, positive posterior tibial pulses bilaterally, and cap refill < 2 seconds. Lungs: Respirations even, regular, and unlabored on room air. Lungs CTA bilaterally, no rhonchi, no rales, no wheezing, and no accessory muscle usage. Abdominal: soft, nontender to palpation, no guarding, no appreciable organomegaly. Kirk catheter in place. Ext: ROM intact. No gross muscle atrophy, plus pitting bilateral lower extremity edema, no contractures Neuro: Speech clear, face symmetrical and CN II-XII grossly intact with no noted focal neuro deficits Psych: Alert and oriented to person, place, time, and situation. Appropriate and pleasant affect. Assessment and Plan of Care: Acute cystitis Urinary retention Generalized weakness, secondary to above Hyponatremia Acute kidney injury on chronic kidney disease Continue gentle IV fluid hydration with 0.9% normal saline at 75 cc/h. Continue IV antibiotic with Rocephin 2 g every 24 hours. Follow-up on urine culture and blood culture results. Consult placed to urology, appreciate recommendations Continue Kirk catheter management. Continue Flomax 0.8 mg nightly. Chronic atrial fibrillation Hypertension Hyperlipidemia CLL Continue daily medication regimen with Xarelto 20 mg daily, atorvastatin 10 mg nightly, fenofibrate 160 mg daily and will hold Bumex at this time secondary to GUERITA and mild hyponatremia. Troponin was negative at 0.029 and patient asymptomatic of cardiac complaints will repeat troponin level x 1 secondary to patient's reports of generalized weakness. Patient to remain on telemetry monitoring pending repeat troponin results. Insulin-dependent diabetes mellitus Diabetic neuropathy Continue glycemic protocol with NovoLog sliding scale. Continue Levemir 13 units nightly. Continue Neurontin 300 mg daily for treatment of diabetic neuropathy. Data and imaging reviewed: As stated above in HPI The patient is admitted with an anticipated less than 2 midnight stay for evaluation of generalized weakness and acute cystitis CODE STATUS: Full code DVT prophylaxis: Xarelto Anticipated discharge date: Pending clinical course, likely 24 to 48-hour Anticipated discharge place: [facility] Patient was seen independently by Nurse Practitioner. This document was prepared using [employer] dictation software. Please allow for errors in life agent while rare they do occur. I reviewed the documentation as provided by the JANNETTE above, who is the original author of this note. I agree with the documented assessment and plan, with the following changes: none Past Medical History Past Medical History: Atrial Fibrillation, Cancer, Diabetes Mellitus, GERD/Reflux, Hyperlipidemia, Hypertension, Musculoskeletal Disorder, Neurologic Disorder, Osteoarthritis (OA), Renal Disease, Sleep Apnea/CPAP/BIPAP Additional Past Medical History / Comment(s): CLL-dx. 5 yrs. ago, unaware of renal problems, was having neck pain, neuropathy adonay feet, has cpap machine History of Any Multi-Drug Resistant Organisms: None Reported Past Surgical History: Cholecystectomy, Orthopedic Surgery, Tonsillectomy Additional Past Surgical History / Comment(s): left shoulder rototor cuff repair, Right shoulder Past Anesthesia/Blood Transfusion Reactions: No Reported Reaction Past Psychological History: No Psychological Hx Reported Smoking Status: Former smoker Past Alcohol Use History: Occasional Past Drug Use History: None Reported - Past Family History Mother Family Medical History: Cancer Additional Family Medical History / Comment(s): of pancreatic cancer Medications and Allergies Home Medications Medication Instructions Recorded Confirmed Type Atorvastatin Calcium [Lipitor] 10 mg PO HS 10/12/15 11/05/23 History Fenofibrate 160 mg PO DAILY 10/12/15 11/05/23 History Rivaroxaban [Xarelto] 20 mg PO DAILY 10/12/15 11/05/23 History Tamsulosin [Flomax] 0.8 mg PO HS 05/27/23 11/05/23 History metFORMIN HCL ER [Glucophage XR] 500 mg PO DAILY 05/27/23 11/05/23 History Bumetanide [Bumex] 0.5 mg PO DAILY 11/05/23 11/05/23 History Ergocalciferol (Vitamin D2) 1,250 mcg PO WEEKLY 11/05/23 11/05/23 History [Drisdol (50,000 Iu)] Gabapentin [Neurontin] 300 mg PO DAILY 11/05/23 11/05/23 History Insulin Glargine,Hum.rec.anlog 13 units SQ HS 11/05/23 11/05/23 History [Lantus Solostar Pen] glipiZIDE XL [Glucotrol Xl] 10 mg PO DAILY 11/05/23 11/05/23 History Allergies Allergy/AdvReac Type Severity Reaction Status Date / Time No Known Allergies Allergy Verified 11/05/23 16:16 Physical Exam Vitals: Vital Signs Temp Pulse Resp BP Pulse Ox 11/05/23 13:53 86 20 115/62 95 11/05/23 13:15 79 14 103/76 99 11/05/23 11:13 97.9 F 82 16 108/90 99 Intake and Output 11/04/23 11/05/23 11/05/23 22:59 06:59 14:59 Other: Voiding Method Indwelling Catheter Weight 77.111 kg Results CBC & Chem 7: 11/11/23 08:43 11/11/23 08:43 Labs: Abnormal Lab Results - Last 24 Hours (Table) 11/05/23 11/05/23 11/05/23 Range/Units 10:57 11:31 11:31 WBC 11.3 H (3.8-10.6) k/uL RBC 3.27 L (4.30-5.90) m/uL Hgb 11.3 L (13.0-17.5) gm/dL Hct 34.3 L (39.0-53.0) % MCV 105.1 H (80.0-100.0) fL Plt Count 135 L (150-450) k/uL Neutrophils # 9.6 H (1.3-7.7) k/uL Lymphocytes # 0.6 L (1.0-4.8) k/uL Sodium 132 L (137-145) mmol/L Carbon Dioxide 16 L (22-30) mmol/L BUN 25 H (9-20) mg/dL Creatinine 1.47 H (0.66-1.25) mg/dL Glucose 107 H (74-99) mg/dL Magnesium 1.5 L (1.6-2.3) mg/dL Total Protein 6.0 L (6.3-8.2) g/dL Urine Protein 1+ H (Negative) Urine Ketones Trace H (Negative) Urine Blood Moderate H (Negative) Ur Leukocyte Esterase Large H (Negative) Urine RBC 13 H (0-5) /hpf Urine WBC >182 H (0-5) /hpf Urine WBC Clumps Many H (None) /hpf Urine Mucus Rare H (None) /hpf
[2023-11-05] MEDS ORDERED: DEXTROSE 50% SYRINGE 50 ML IVP PRN (17:08)
[2023-11-05 18:10] LABS: Glucose,Whole Blood 78 mg/dL (70-110)
[2023-11-05 19:26] LABS: Glucose,Whole Blood 94 mg/dL (70-110)
[2023-11-05] MEDS: ACETAMINOPHEN TAB 325 MG TAB PO PRN (19:37)
[2023-11-05] MEDS: INSULIN ASPART (NovoLOG) 100 UNIT/ML VIAL SQ SCH (19:40)
[2023-11-05] MEDS: SODIUM CHLORIDE 0.9% 1,000 ML IV ONE (21:42)
[2023-11-05] MEDS: ATORVASTATIN 10 MG TAB PO SCH (21:43)
[2023-11-05] MEDS: TAMSULOSIN 0.4 MG CAP.ER.24H PO SCH (21:44)
[2023-11-05] MEDS: INSULIN DETEMIR (LEVEMIR) 100 UNIT/ML SYR SQ SCH (21:48)
[2023-11-06] MEDS ORDERED: VANCOMYCIN IV PER PHARMACY 1 EACH MISC MISCELLANE PRN ×2 (00:13→21:15)
[2023-11-06] MEDS: SODIUM CHLORIDE 0.9% 1,000 ML IV ONE (00:18)
[2023-11-06] MEDS: IBUPROFEN 400 MG TAB PO STA (00:41)
[2023-11-06] MEDS: VANCOMYCIN 1,500 MG in SODIUM CHLORIDE 0.9% 500 ML 500 ML IVPB ONE (00:43)
[2023-11-06 01:45] LABS: Glucose,Whole Blood 79 mg/dL (70-110)
[2023-11-06] MEDS: NOREPINEPHRINE 4 MG in SODIUM CHLORIDE 0.9% 250 ML IV SCH (03:42)
[2023-11-06] MEDS: CEFEPIME 2 GM in SODIUM CHLORIDE 0.9% 100 ML IVPB SCH (03:43)
[2023-11-06 04:02] LABS: African American GFR (CKD) 83 (>60 ml/min/1.73 sqM); Anion Gap 5 mmol/L; Blood Urea Nitrogen 17 mg/dL (9-20); Calcium 7.7 mg/dL (8.4-10.2); Carbon Dioxide 15 mmol/L (22-30); Chloride 112 mmol/L (98-107); Non-African American GFR(CKD) 72 (>60 ml/min/1.73 sqM); Potassium 2.9 mmol/L (3.5-5.1); Sodium 132 mmol/L (137-145)
[2023-11-06 04:06] LABS: Basophils % (A) 0 %; Eosinophils % (A) 0 %; HCT 28.9 % (39.0-53.0); Lymphocytes # (A) 0.6 k/uL (1.0-4.8); Lymphocytes % (A) 6 %; MCV 106.2 fL (80.0-100.0); Macrocytosis Moderate; Mean Platelet Volume 8.5; Monocytes # (A) 0.7 k/uL (0-1.0); Monocytes % (A) 6 %; Neutrophils # (A) 9.4 k/uL (1.3-7.7); Neutrophils % (A) 87 %; Platelet Count 105 k/uL (150-450); RBC 2.72 m/uL (4.30-5.90); RDW 15.6 % (11.5-15.5); WBC 10.9 k/uL (3.8-10.6)
[2023-11-06 04:10] LABS: Glucose 47 mg/dL (74-99); HGB 9.5 gm/dL (13.0-17.5)
[2023-11-06] MEDS: DEXTROSE 50% SYRINGE 50 ML IVP PRN (04:21)
[2023-11-06] MEDS ORDERED: Potassium Replacement Protocol 1 EACH MISC MISCELLANE PRN (04:22)
[2023-11-06 04:28] LABS: Glucose,Whole Blood 66 mg/dL (70-110)
[2023-11-06] MEDS: POTASSIUM CHLORIDE ER 20 MEQ TAB.ER PO SCH (04:43)
[2023-11-06 04:53] LABS: Glucose,Whole Blood 181 mg/dL (70-110)
--- NOTE | 2023-11-06 04:55 | XR ---
EXAM: XR Chest, 1 View CLINICAL HISTORY: ITS.REASON XR Reason: sepsis TECHNIQUE: Frontal view of the chest. COMPARISON: Chest radiograph On 10/10/2023 FINDINGS: Hardware: None. Lungs/pleura: Prominent lung markings and hazy opacities. No pleural effusion or pneumothorax. Heart/mediastinum: Borderline size of the cardiac silhouette. Atherosclerotic changes in aorta. Soft tissues: Unremarkable. Bones: No acute fracture. Upper abdomen: Normal. IMPRESSION: Prominent lung markings and hazy opacities may be secondary to technique and atelectasis versus pulmonary vasculature congestion/edema.
[2023-11-06] MEDS ORDERED: Magnesium Replacement Protocol 1 EACH MISC MISCELLANE PRN (04:58)
[2023-11-06] MEDS ORDERED: Phosphorus Replacement Protoco 1 EACH MISC MISCELLANE PRN (04:58)
--- NOTE | 2023-11-06 04:58 | P.CNPUL ---
History of Present Illness Consult date: 11/06/23 Requesting physician: Heide Corona Reason for consult: other (ICU evaluation) Chief complaint: Generalized weakness History of present illness: I was contacted by [facility] about this patient who is an ER hold at the moment. He was originally brought in for generalized weakness and thought to have urinary tract infection/urosepsis. He has been hypotensive and received several fluid boluses. He has been fluid resuscitated with a total of 30 mL per kilogram of Normal saline. Despite this, he remains hypotensive, most recent blood pressure 70s/40s mmHg. We were asked to evaluate this patient for possible ICU transfer. Patient is a 83-year-old white male with past medical history significant for atrial fibrillation, hyperlipidemia, hypertension, CLL, frequent falls, lower extremity weakness, BPH, urinary retention, previous urinary tract infections, among other things. Of note, he was evaluated by the emergency room department on 11/04/2023. Apparently, had a fall while at home. He has been progressively more weak. He was found to have urinary retention, had an indwelling urinary catheter placed, and diagnosed with urinary tract infection. He was discharged home on antibiotics and direction to follow-up with urologist. Less than 24 hours later, could not stand up out of chair without assistance, and brought back into the emergency department for evaluation. Urinalysis positive for leukocyte esterase. Urine culture pending. Patient currently covered on broad-spectrum antibiotics in the form of cefepime and vancomycin. CBC: WBC count 11, hemoglobin 9.5, hematocrit 28.9, platelets 105. Most recent BMP: Sodium 132, potassium 2.9, chloride 112, serum bicarb 15, BUN 17, creatinine 0.98, glucose 79. Lactic 0.8. Troponin 0.026. Patient is currently in the emergency department. Current vital signs include blood pressure 78/49, heart rate 81 bpm, respiratory rate 20, SpO2 97% on room air, febrile with a Tmax of 100.5 F. Normal saline infusing at 130 mL/h. He is currently lying in bed with his legs elevated. No apparent distress. He is very hard of hearing. He is alert and answers most of my questions appropriately, although unfamiliar with some of his medical history. He denies any specific complaints. Previously, was having issues with "dribbling" and incomplete voiding. Denies any dysuria, hematuria. There is an indwelling urinary catheter. He is also been incontinent to stool. He has chronic lumbar back pain. Previously evaluated by orthopedics. Denies flank pain. Denies nausea, vomiting, abdominal pain, suprapubic pain. As stated above, patient's blood pressure remains hypotensive, he will have to be started on vasopressors. Will be admitted to the intensive care unit once bed available. Review of Systems REVIEW OF SYSTEMS: CONSTITUTIONAL: Denies any recent significant weight loss or weight gain. Admits progressively worsening generalized weakness and fatigue. No longer can ambulate without assistance. EYES: Denies change in vision. EARS, NOSE, MOUTH, THROAT: Denies headaches, denies sore throat. CARDIOVASCULAR: Denies chest pain, palpitations or syncopal episodes. RESPIRATORY: Denies shortness of breath, cough, congestion or hemoptysis. GASTROINTESTINAL: Denies change in appetite, abdominal pain, nausea and vomiting, or diarrhea. Admits occasional fecal incontinence GENITOURINARY: See HPI MUSKULOSKELETAL: Denies pain, denies swelling. INTEGUMENTARY: Denies rash, denies eczema. NEUROLOGICAL: Denies recent memory loss, no recent seizure activity. PSYCHIATRIC: Denies anxiety, denies depression. HEMATOLOGIC/LYMPHATIC: Denies anemia, denies enlarged lymph node Past Medical History Past Medical History: Atrial Fibrillation, Cancer, Diabetes Mellitus, GERD/Reflux, Hyperlipidemia, Hypertension, Musculoskeletal Disorder, Neurologic Disorder, Osteoarthritis (OA), Renal Disease, Sleep Apnea/CPAP/BIPAP Additional Past Medical History / Comment(s): CLL-dx. 5 yrs. ago, unaware of renal problems, was having neck pain, neuropathy adonay feet, has cpap machine History of Any Multi-Drug Resistant Organisms: None Reported Past Surgical History: Cholecystectomy, Orthopedic Surgery, Tonsillectomy Additional Past Surgical History / Comment(s): left shoulder rototor cuff repair, Right shoulder Past Anesthesia/Blood Transfusion Reactions: No Reported Reaction Past Psychological History: No Psychological Hx Reported Smoking Status: Former smoker Past Alcohol Use History: Occasional Additional Past Alcohol Use History / Comment(s): Patient was a smoker 3 packs per day for 25 years, quit 28 years ago. Past Drug Use History: None Reported - Past Family History Mother Family Medical History: Cancer Additional Family Medical History / Comment(s): of pancreatic cancer Medications and Allergies Home Medications Medication Instructions Recorded Confirmed Type Atorvastatin Calcium [Lipitor] 10 mg PO HS 10/12/15 11/05/23 History Fenofibrate 160 mg PO DAILY 10/12/15 11/05/23 History Rivaroxaban [Xarelto] 20 mg PO DAILY 10/12/15 11/05/23 History Tamsulosin [Flomax] 0.8 mg PO HS 05/27/23 11/05/23 History metFORMIN HCL ER [Glucophage XR] 500 mg PO DAILY 05/27/23 11/05/23 History Bumetanide [Bumex] 0.5 mg PO DAILY 11/05/23 11/05/23 History Ergocalciferol (Vitamin D2) 1,250 mcg PO WEEKLY 11/05/23 11/05/23 History [Drisdol (50,000 Iu)] Gabapentin [Neurontin] 300 mg PO DAILY 11/05/23 11/05/23 History Insulin Glargine,Hum.rec.anlog 13 units SQ 11/05/23 11/05/23 History [Lantus Solostar Pen] glipiZIDE XL [Glucotrol Xl] 10 mg PO DAILY 11/05/23 11/05/23 History Allergies Allergy/AdvReac Type Severity Reaction Status Date / Time No Known Allergies Allergy Verified 11/05/23 16:16 Physical Exam Vitals: Vital Signs Temp Pulse Resp BP Pulse Ox 11/06/23 04:00 75 20 85/50 11/06/23 03:47 73 18 82/49 97 11/06/23 02:06 100.4 F H 11/06/23 02:00 81 20 78/49 97 11/06/23 01:45 98 20 88/58 98 11/06/23 00:14 99.5 F 120 H 32 H 159/105 97 11/05/23 21:18 99.2 F 79 17 93/53 94 L 11/05/23 19:37 100.5 F H 11/05/23 19:25 92 17 88/77 97 11/05/23 13:53 86 20 115/62 95 11/05/23 13:15 79 14 103/76 99 11/05/23 11:13 97.9 F 82 16 108/90 99 Intake and Output 11/05/23 11/05/23 11/06/23 14:59 22:59 06:59 Intake Total 2.937 Output Total 1000 Balance -997.063 Intake: Intake, IV Titration 2.937 Amount Norepinephrine 4 mg In 2.937 Sodium Chloride 0.9% 250 ml @ 0.03 MCG/KG/MIN 8. 814 mls/hr IV .Q[facility]H [facility] Rx#:[id number] Output: Urine 1000 Other: Voiding Method Indwelling Catheter Weight 77.111 kg 77.111 kg GENERAL EXAM: Alert, 83-year-old white male, lying in the stretcher with his legs elevated, fairly comfortable in no apparent distress. Blood pressure remains profoundly hypotensive. Normal saline infusing at 130 mL/h. Indwelling urinary catheter noted. HEAD: Normocephalic and atraumatic EYES: Normal reaction of pupils, equal size. NOSE: Clear with pink turbinates. THROAT: No erythema or exudates. NECK: No masses, no JVD. CHEST: No chest wall deformity. LUNGS: Equal air entry with no crackles, wheeze, rhonchi or dullness. On room air. No conversational dyspnea or accessory muscle use.. CVS: S1 and S2 normal with no audible murmur, regular rhythm. No extra heart sounds ABDOMEN: No hepatosplenomegaly, active bowel sounds, no guarding or rigidity. SPINE: No scoliosis or deformity. Negative for CVA tenderness. SKIN: No rashes CENTRAL NERVOUS SYSTEM: No focal deficits, tone is normal in all 4 extremities. EXTREMITIES: There is bilateral lower extremity mild nonpitting edema. Distal extremities warm. No cyanosis. Peripheral pulses are intact. Results - Laboratory Findings CBC and BMP: 11/05/23 11:31 11/05/23 11:31 Abnormal lab findings: Abnormal Labs 11/05/23 11/05/23 11/05/23 10:57 11:31 11:31 WBC 11.3 H RBC 3.27 L Hgb 11.3 L Hct 34.3 L MCV 105.1 H Plt Count 135 L Neutrophils # 9.6 H Lymphocytes # 0.6 L Sodium 132 L Carbon Dioxide 16 L BUN 25 H Creatinine 1.47 H Glucose 107 H Plasma Lactic Acid Wisam Magnesium 1.5 L Total Protein 6.0 L Urine Protein 1+ H Urine Ketones Trace H Urine Blood Moderate H Ur Leukocyte Esterase Large H Urine RBC 13 H Urine WBC >182 H Urine WBC Clumps Many H Urine Mucus Rare H 11/06/23 00:10 WBC RBC Hgb Hct MCV Plt Count Neutrophils # Lymphocytes # Sodium Carbon Dioxide BUN Creatinine Glucose Plasma Lactic Acid Wisam 2.5 H* Magnesium Total Protein Urine Protein Urine Ketones Urine Blood Ur Leukocyte Esterase Urine RBC Urine WBC Urine WBC Clumps Urine Mucus Assessment and Plan Assessment: Hypotension, refractory to fluid resuscitation with a total of 30 mL/kg, going to be initiated on vasopressors in the form of norepinephrine. Sepsis and septic shock, likely urinary source Urinary retention, status post indwelling urinary catheterization History of BPH Acute kidney injury, likely postrenal, improved Hypokalemia, being replaced per protocol Non-anion gap metabolic acidosis Diabetes mellitus type 2 Hypoglycemia, treated with 1 amp dextrose History of hyperlipidemia Atrial fibrillation with controlled ventricular response, anticoagulated on Xarelto Chronic lymphocytic leukemia Anemia Frequent falls, bilateral lower extremity weakness, and gait disturbance, previous evaluated by orthopedic surgery Plan: I was contacted by [facility], patient has remained hypotensive despite adequate fluid resuscitation with a total of 2.5 L normal saline bolus. He is going to be initiated on norepinephrine for blood pressure support to maintain a mean arterial pressure greater than 65 mmHg. He will need to be transferred to the intensive care unit once bed available. Continue on broad-spectrum antibiotic coverage. Blood and urine cultures are pending Indwelling urinary catheter in place. Urology consulted Monitor intake output Hypoglycemia protocol, will likely need adjustment in his insulin coverage, as he is not eating per usual Replace electrolytes per protocol including potassium Obtain chest x-ray, portable Anticoagulated on Xarelto Protonix for GI prophylaxis Patient's condition is critical, and he is being transferred to the intensive care unit once bed available. I have personally seen and examined the patient, performed the documentation and the assessment and plan as written. Number of minutes spent on the visit:20 Time with Patient: Greater than 30
[2023-11-06 06:50] LABS: Glucose,Whole Blood 256 mg/dL (70-110)
[2023-11-06 07:23] LABS: Glucose,Whole Blood 236 mg/dL (70-110)
[2023-11-06 07:28] LABS: Magnesium 1.9 mg/dL (1.6-2.3)
[2023-11-06] MEDS: PANTOPRAZOLE 40 MG/10 ML VIAL IV SCH (08:14)
[2023-11-06] MEDS: GABAPENTIN 300 MG CAP PO SCH (08:15)
[2023-11-06] MEDS: RIVAROXABAN 20 MG TAB PO SCH (08:37)
[2023-11-06] MEDS: FENOFIBRATE 160 MG TAB PO SCH (08:37)
[2023-11-06] MEDS: MAGNESIUM SULFATE-D5W PMX 1 GM in DEXTROSE/WATER 1 100ML.BAG IVPB ONE (10:27)
[2023-11-06 11:59] LABS: Glucose,Whole Blood 236 mg/dL (70-110)
[2023-11-06] MEDS: POTASSIUM CHLORIDE 20 MEQ in WATER FOR INJECTION 1 100ML.BAG IVPB SCH (14:31)
--- NOTE | 2023-11-06 15:33 | P.PN ---
Subjective Progress Note Date: 11/06/23 Principal diagnosis: UTI 83-year-old male with a past medical history of hypertension, hyperlipidemia, atrial fibrillation on anticoagulation with Eliquis, insulin-dependent diabetes mellitus, chronic kidney disease stage IIIa, CLL, and neuropathy. He presented to the emergency department with a chief complaint of generalized weakness. Patient recently seen in the emergency department where he was diagnosed with urinary retention and a UTI and discharged home with Kirk catheter in place and on oral antibiotic. Patient reports since discharge from the emergency departm ent he has experienced increased weakness and lethargy resulting in inability to ambulate. He denies having any fevers, chills, dizziness, lightheadedness, chest pain, palpitations, shortness of breath, abdominal pain or discomfort, back pain, experiencing any numbness/tingling/weakness in his extremities and denies any recent falls or injuries. He reports his weakness is due to the extreme that he is unable to ambulate or care for himself. Patient and requesting evaluation for his UTI and possible placement in rehab. He reports that he had an appointment with urologist on 11/06/2023, but is unable to make it to the appointment secondary to his new onset weakness. Upon arrival to our facility, patient underwent evaluation in the emergency department. Vital signs upon arrival show blood pressure 108/90, heart rate 82, respiratory rate 16, temp 97.9 F, and SpO2 of 99% on room air. EKG was completed showing atrial fibrillation with occasional PVC with a controlled rate of 91 bpm. Labs completed and reviewed. CBC showing leukocytosis with a WBC count of 11.3 and bicytopenia with hemoglobin of 11.3 and platelet count of 135. BMP showing mild hyponatremia with sodium of 132 and slightly elevated renal function with BUN of 25, creatinine 1.47, and GFR 44 with baseline creatinine around 1.2. Magnesium was low at 1.5. Liver profile normal findings. Troponin was 0.029. Urinalysis positive for ketones, blood, 13 RBCs, leukocyte esterase and greater than 182 WBCs. Blood culture and urine culture were sent to lab for analysis. 11/05 reports feeling well, blood glucose was low this morning, he is hypotensive, requiring low-dose Levophed. Objective - Vital Signs Vital signs: Vital Signs Temp 97.8 F 11/06/23 14:00 Pulse 80 11/06/23 12:00 Resp 23 11/06/23 14:00 BP 100/57 11/06/23 14:00 Pulse Ox 96 11/06/23 14:00 FiO2 Intake & Output 11/05/23 11/06/23 11/06/23 18:59 06:59 18:59 Intake Total 36.723 948.328 Output Total 1000 515 Balance -963.277 433.328 Weight 77.111 kg 77.111 kg 77.111 kg Intake: IV 765 0.9 765 Intake, IV Titration 36.723 183.328 Amount Norepinephrine 4 mg In 36.723 183.328 Sodium Chloride 0.9% 250 ml @ 0.03 MCG/KG/MIN 8. 814 mls/hr IV .Q24H [facility] Rx#:[id number] Output: Urine 1000 515 Other: Voiding Method Indwelling Catheter Indwelling Catheter - Exam Vital signs reviewed and stable. General: Nontoxic, no distress and appears stated age. Derm: Skin warm and dry, normal coloration for ethnicity. Head: Atraumatic, normocephalic and symmetric. Eyes: EOM's intact, no lid lag, and anicteric sclera Mouth: no lip lesions, mucus membranes moist Cardiovascular: Irregularly irregular with systolic murmur, positive posterior tibial pulses bilaterally, and cap refill < 2 seconds. Lungs: Respirations even, regular, and unlabored on room air. Lungs CTA bilaterally, no rhonchi, no rales, no wheezing, and no accessory muscle usage. Abdominal: soft, nontender to palpation, no guarding, no appreciable organomegaly. Kirk catheter in place. Ext: ROM intact. No gross muscle atrophy, plus pitting bilateral lower extremity edema, no contractures Neuro: Speech clear, face symmetrical and CN II-XII grossly intact with no noted focal neuro deficits Psych: Alert and oriented to person, place, time, and situation. Appropriate and pleasant affect. - Labs CBC & Chem 7: 11/06/23 03:21 11/06/23 11:17 Labs: Abnormal Lab Results - Last 24 Hours (Table) 11/06/23 11/06/23 11/06/23 Range/Units 00:10 03:21 03:21 WBC 10.9 H (3.8-10.6) k/uL RBC 2.72 L (4.30-5.90) m/uL Hgb 9.5 L D (13.0-17.5) gm/dL Hct 28.9 L (39.0-53.0) % MCV 106.2 H (80.0-100.0) fL RDW 15.6 H (11.5-15.5) % Plt Count 105 L (150-450) k/uL Neutrophils # 9.4 H (1.3-7.7) k/uL Lymphocytes # 0.6 L (1.0-4.8) k/uL Sodium 132 L (137-145) mmol/L Potassium 2.9 L (3.5-5.1) mmol/L Chloride 112 H (98-107) mmol/L Carbon Dioxide 15 L (22-30) mmol/L Glucose 47 L* (74-99) mg/dL POC Glucose (mg/dL) (70-110) mg/dL Plasma Lactic Acid Wisam 2.5 H* (0.7-2.0) mmol/L Calcium 7.7 L (8.4-10.2) mg/dL 11/06/23 11/06/23 11/06/23 Range/Units 04:26 04:51 06:43 WBC (3.8-10.6) k/uL RBC (4.30-5.90) m/uL Hgb (13.0-17.5) gm/dL Hct (39.0-53.0) % MCV (80.0-100.0) fL RDW (11.5-15.5) % Plt Count (150-450) k/uL Neutrophils # (1.3-7.7) k/uL Lymphocytes # (1.0-4.8) k/uL Sodium (137-145) mmol/L Potassium (3.5-5.1) mmol/L Chloride (98-107) mmol/L Carbon Dioxide (22-30) mmol/L Glucose (74-99) mg/dL POC Glucose (mg/dL) 66 L 181 H 256 H (70-110) mg/dL Plasma Lactic Acid Wisam (0.7-2.0) mmol/L Calcium (8.4-10.2) mg/dL 11/06/23 11/06/23 11/06/23 Range/Units 07:22 11:17 11:57 WBC (3.8-10.6) k/uL RBC (4.30-5.90) m/uL Hgb (13.0-17.5) gm/dL Hct (39.0-53.0) % MCV (80.0-100.0) fL RDW (11.5-15.5) % Plt Count (150-450) k/uL Neutrophils # (1.3-7.7) k/uL Lymphocytes # (1.0-4.8) k/uL Sodium (137-145) mmol/L Potassium 3.1 L (3.5-5.1) mmol/L Chloride (98-107) mmol/L Carbon Dioxide (22-30) mmol/L Glucose (74-99) mg/dL POC Glucose (mg/dL) 236 H 236 H (70-110) mg/dL Plasma Lactic Acid Wisam (0.7-2.0) mmol/L Calcium (8.4-10.2) mg/dL Assessment and Plan Plan: Acute cystitis has hx of MDR organisms Urinary retention, hx of BPH Generalized weakness, secondary to above Hyponatremia Acute kidney injury on chronic kidney disease Continue gentle IV fluid hydration with 0.9% normal saline at 75 cc/h. Continue IV antibiotic with Rocephin 2 g every 24 hours. Follow-up on urine culture and blood culture results. Consult placed to urology, appreciate recommendations Continue Kirk catheter management. Continue Flomax 0.8 mg nightly. Hypotension, refractory to fluid resuscitation, on vasopressors in the form of norepinephrine. Sepsis and septic shock, likely urinary source Acute kidney injury, likely postrenal, improved Chronic atrial fibrillation Hypertension Hyperlipidemia CLL Continue daily medication regimen with Xarelto 20 mg daily, atorvastatin 10 mg nightly, fenofibrate 160 mg daily and will hold Bumex at this time secondary to GUERITA and mild hyponatremia. Troponin was negative at 0.029 and patient asymptomatic of cardiac complaints will repeat troponin level x 1 secondary to patient's reports of generalized weakness. Patient to remain on telemetry monitoring pending repeat troponin results. Insulin-dependent diabetes mellitus with hypoglycemia Diabetic neuropathy Continue glycemic protocol with NovoLog sliding scale. NO LONG ACTING INSULIN FOR NOW HE IS NOT EATING Continue Neurontin 300 mg daily for treatment of diabetic neuropathy. Data and imaging reviewed: As stated above in HPI The patient is admitted with an anticipated less than 2 midnight stay for evaluation of generalized weakness and acute cystitis CODE STATUS: Full code DVT prophylaxis: Xarelto Anticipated discharge date: Pending clinical course, likely 24 to 48-hour [address]tic[address] discharge place: SN[facility]
[2023-11-06 16:26] LABS: Glucose,Whole Blood 102 mg/dL (70-110)
[2023-11-06] MEDS ORDERED: VANCOMYCIN 1,500 MG in SODIUM CHLORIDE 0.9% 500 ML 500 ML IVPB SCH (17:00)
[2023-11-06] MEDS ORDERED: ZINC OXIDE PASTE (Z-GUARD) 1 APPLIC TOPICAL PRN (18:20)
[2023-11-06 20:11] LABS: Glucose,Whole Blood 191 mg/dL (70-110)
--- NOTE | 2023-11-06 21:18 | P.CONS ---
History of Present Illness - Reason for Consult Consult date: 11/06/23 Sepsis Requesting physician: Heide Corona - Chief Complaint Weakness x few days - History of Present Illness Patient is a 83-year-old male with a past medical history significant for atrial fibrillation hypertension hyperlipidemia CLL BPH UTIs presenting to the ER for evaluation of weakness that apparently has been getting worse for few days patient denies any falls or injuries with generalized weakness patient presenting to the ER patient was complaining of low-grade fever and chills denies any headache or URI symptoms no chest pain shortness of the cough did have some nausea but no vomiting no abdominal pain and did have some diarrhea but no blood or mucus in the stool patient on presentation to the hospital did have low-grade fever 100.5 degrees following right patient was tachycardic at 1 point hypotensive requiring fluid bolus and subsequently has been transferred to ICU patient is currently on room air patient did have white count of 11.3 with a left shift BUN and creatinine was mildly elevated subsequently normalized liver isms are normal urine was positive stool for C. difficile negative culture currently pending patient was started on vancomycin and cefepime infectious disease was consulted for further management of antibiotic therapy Review of Systems Positive point and negatives has been mentioned in the HPI, complete review of systems was performed and all other systems are negative Past Medical History Past Medical History: Atrial Fibrillation, Cancer, Diabetes Mellitus, GERD/Reflux, Hyperlipidemia, Hypertension, Musculoskeletal Disorder, Neurologic Disorder, Osteoarthritis (OA), Renal Disease, Sleep Apnea/CPAP/BIPAP Additional Past Medical History / Comment(s): CLL-dx. 5 yrs. ago, unaware of renal problems, was having neck pain, neuropathy adonay feet, has cpap machine History of Any Multi-Drug Resistant Organisms: None Reported Past Surgical History: Cholecystectomy, Orthopedic Surgery, Tonsillectomy Additional Past Surgical History / Comment(s): left shoulder rototor cuff repair, Right shoulder Past Anesthesia/Blood Transfusion Reactions: No Reported Reaction Past Psychological History: No Psychological Hx Reported Smoking Status: Former smoker Past Alcohol Use History: Occasional Additional Past Alcohol Use History / Comment(s): Patient was a smoker 3 packs per day for 25 years, quit 28 years ago. Past Drug Use History: None Reported - Past Family History Mother Family Medical History: Cancer Additional Family Medical History / Comment(s): of pancreatic cancer Medications and Allergies Home Medications Medication Instructions Recorded Confirmed Type Atorvastatin Calcium [Lipitor] 10 mg PO HS 08/03/16 08/27/24 History Fenofibrate 160 mg PO DAILY 10/12/15 11/05/23 History Rivaroxaban [Xarelto] 20 mg PO DAILY 10/12/15 11/05/23 History Tamsulosin [Flomax] 0.8 mg PO HS 05/27/23 11/05/23 History metFORMIN HCL ER [Glucophage XR] 500 mg PO DAILY 05/27/23 11/05/23 History Bumetanide [Bumex] 0.5 mg PO DAILY 11/05/23 11/05/23 History Ergocalciferol (Vitamin D2) 1,250 mcg PO WEEKLY 11/05/23 11/05/23 History [Drisdol (50,000 Iu)] Gabapentin [Neurontin] 300 mg PO DAILY 11/05/23 11/05/23 History Insulin Glargine,Hum.rec.anlog 13 units SQ 11/05/23 11/05/23 History [Lantus Solostar Pen] glipiZIDE XL [Glucotrol Xl] 10 mg PO DAILY 11/05/23 11/05/23 History Allergies Allergy/AdvReac Type Severity Reaction Status Date / Time No Known Allergies Allergy Verified 11/05/23 16:16 Physical Exam Vitals: Vital Signs Temp Pulse Resp BP Pulse Ox 11/06/23 10:00 18 86/56 92 L 11/06/23 09:00 72 18 100/62 86 L 11/06/23 08:00 97.5 F L 82 19 108/58 99 11/06/23 07:00 73 9 L 105/69 11/06/23 06:50 69 20 105/69 97 11/06/23 04:46 98/56 11/06/23 04:00 75 20 85/50 11/06/23 03:47 73 18 82/49 97 11/06/23 02:06 100.4 F H 11/06/23 02:00 89 8 L 88/58 96 11/06/23 01:45 98 20 88/58 98 11/06/23 01:00 98 22 109/54 96 11/06/23 00:14 99.5 F 120 H 32 H 159/105 97 11/06/23 00:00 120 H 27 H 156/130 11/05/23 23:00 87 16 99/48 11/05/23 22:00 77 17 83/50 11/05/23 21:18 99.2 F 79 17 93/53 94 L 11/05/23 21:00 78 20 91/55 98 11/05/23 20:00 93 19 118/56 98 11/05/23 19:37 100.5 F H 11/05/23 19:25 92 17 88/77 97 11/05/23 19:00 91/44 11/05/23 18:00 102/61 11/05/23 17:00 120/63 11/05/23 16:00 110/71 11/05/23 15:00 107/70 11/05/23 14:00 115/62 11/05/23 13:53 86 20 115/62 95 11/05/23 13:20 108/90 11/05/23 13:15 79 14 103/76 99 11/05/23 11:13 97.9 F 82 16 108/90 99 Intake and Output 11/05/23 11/06/23 11/06/23 22:59 06:59 14:59 Intake Total 36.723 703.328 Output Total 1000 310 Balance -963.277 393.328 Intake: IV 520 0.9 520 Intake, IV Titration 36.723 183.328 Amount Norepinephrine 4 mg In 36.723 183.328 Sodium Chloride 0.9% 250 ml @ 0.03 MCG/KG/MIN 8. 814 mls/hr IV .Q24H [facility] Rx#:[id number] Output: Urine 1000 310 Other: Voiding Method Indwelling Catheter Weight 77.111 kg GENERAL DESCRIPTION: Elderly male lying in bed, no distress. No tachypnea or accessory muscle of respiration use. HEENT: Shows Pallor , no scleral icterus. Oral mucous membrane is dry. No pharyngeal erythema or thrush NECK: Trachea central, no thyromegaly. LUNGS: Unlabored breathing. Clear to auscultation anteriorly. No wheeze or crackle. HEART: S1, S2, regular rate and rhythm. No loud murmur ABDOMEN: Soft, no tenderness , guarding or rigidity, no organomegaly EXTREMITIES: No edema of feet. SKIN: No rash, no masses palpable. NEUROLOGICAL: The patient is awake, alert, oriented x3, mood and affect normal. Results CBC & Chem 7: 11/06/23 03:21 11/06/23 11:17 Labs: Abnormal Lab Results - Last 24 Hours (Table) 11/05/23 11/05/23 11/05/23 Range/Units 10:57 11:31 11:31 WBC 11.3 H (3.8-10.6) k/uL RBC 3.27 L (4.30-5.90) m/uL Hgb 11.3 L (13.0-17.5) gm/dL Hct 34.3 L (39.0-53.0) % MCV 105.1 H (80.0-100.0) fL RDW (11.5-15.5) % Plt Count 135 L (150-450) k/uL Neutrophils # 9.6 H (1.3-7.7) k/uL Lymphocytes # 0.6 L (1.0-4.8) k/uL Sodium 132 L (137-145) mmol/L Potassium (3.5-5.1) mmol/L Chloride (98-107) mmol/L Carbon Dioxide 16 L (22-30) mmol/L BUN 25 H (9-20) mg/dL Creatinine 1.47 H (0.66-1.25) mg/dL Glucose 107 H (74-99) mg/dL POC Glucose (mg/dL) (70-110) mg/dL Plasma Lactic Acid Wisam (0.7-2.0) mmol/L Calcium (8.4-10.2) mg/dL Magnesium 1.5 L (1.6-2.3) mg/dL Total Protein 6.0 L (6.3-8.2) g/dL Urine Protein 1+ H (Negative) Urine Ketones Trace H (Negative) Urine Blood Moderate H (Negative) Ur Leukocyte Esterase Large H (Negative) Urine RBC 13 H (0-5) /hpf Urine WBC >182 H (0-5) /hpf Urine WBC Clumps Many H (None) /hpf Urine Mucus Rare H (None) /hpf 11/06/23 11/06/23 11/06/23 Range/Units 00:10 03:21 03:21 WBC 10.9 H (3.8-10.6) k/uL RBC 2.72 L (4.30-5.90) m/uL Hgb 9.5 L D (13.0-17.5) gm/dL Hct 28.9 L (39.0-53.0) % MCV 106.2 H (80.0-100.0) fL RDW 15.6 H (11.5-15.5) % Plt Count 105 L (150-450) k/uL Neutrophils # 9.4 H (1.3-7.7) k/uL Lymphocytes # 0.6 L (1.0-4.8) k/uL Sodium 132 L (137-145) mmol/L Potassium 2.9 L (3.5-5.1) mmol/L Chloride 112 H (98-107) mmol/L Carbon Dioxide 15 L (22-30) mmol/L BUN (9-20) mg/dL Creatinine (0.66-1.25) mg/dL Glucose 47 L* (74-99) mg/dL POC Glucose (mg/dL) (70-110) mg/dL Plasma Lactic Acid Wisam 2.5 H* (0.7-2.0) mmol/L Calcium 7.7 L (8.4-10.2) mg/dL Magnesium (1.6-2.3) mg/dL Total Protein (6.3-8.2) g/dL Urine Protein (Negative) Urine Ketones (Negative) Urine Blood (Negative) Ur Leukocyte Esterase (Negative) Urine RBC (0-5) /hpf Urine WBC (0-5) /hpf Urine WBC Clumps (None) /hpf Urine Mucus (None) /hpf 11/06/23 11/06/23 11/06/23 Range/Units 04:26 04:51 06:43 WBC (3.8-10.6) k/uL RBC (4.30-5.90) m/uL Hgb (13.0-17.5) gm/dL Hct (39.0-53.0) % MCV (80.0-100.0) fL RDW (11.5-15.5) % Plt Count (150-450) k/uL Neutrophils # (1.3-7.7) k/uL Lymphocytes # (1.0-4.8) k/uL Sodium (137-145) mmol/L Potassium (3.5-5.1) mmol/L Chloride (98-107) mmol/L Carbon Dioxide (22-30) mmol/L BUN (9-20) mg/dL Creatinine (0.66-1.25) mg/dL Glucose (74-99) mg/dL POC Glucose (mg/dL) 66 L 181 H 256 H (70-110) mg/dL Plasma Lactic Acid Wisam (0.7-2.0) mmol/L Calcium (8.4-10.2) mg/dL Magnesium (1.6-2.3) mg/dL Total Protein (6.3-8.2) g/dL Urine Protein (Negative) Urine Ketones (Negative) Urine Blood (Negative) Ur Leukocyte Esterase (Negative) Urine RBC (0-5) /hpf Urine WBC (0-5) /hpf Urine WBC Clumps (None) /hpf Urine Mucus (None) /hpf 11/06/23 Range/Units 07:22 WBC (3.8-10.6) k/uL RBC (4.30-5.90) m/uL Hgb (13.0-17.5) gm/dL Hct (39.0-53.0) % MCV (80.0-100.0) fL RDW (11.5-15.5) % Plt Count (150-450) k/uL Neutrophils # (1.3-7.7) k/uL Lymphocytes # (1.0-4.8) k/uL Sodium (137-145) mmol/L Potassium (3.5-5.1) mmol/L Chloride (98-107) mmol/L Carbon Dioxide (22-30) mmol/L BUN (9-20) mg/dL Creatinine (0.66-1.25) mg/dL Glucose (74-99) mg/dL POC Glucose (mg/dL) 236 H (70-110) mg/dL Plasma Lactic Acid Wisam (0.7-2.0) mmol/L Calcium (8.4-10.2) mg/dL Magnesium (1.6-2.3) mg/dL Total Protein (6.3-8.2) g/dL Urine Protein (Negative) Urine Ketones (Negative) Urine Blood (Negative) Ur Leukocyte Esterase (Negative) Urine RBC (0-5) /hpf Urine WBC (0-5) /hpf Urine WBC Clumps (None) /hpf Urine Mucus (None) /hpf Assessment and Plan (1) Septic shock Current Visit: Yes Status: Acute Code(s): A41.9 - SEPSIS, UNSPECIFIED ORGANISM; R65.21 - SEVERE SEPSIS WITH SEPTIC SHOCK SNOMED Code(s): 13834940 (2) UTI (urinary tract infection) Current Visit: Yes Status: Acute Code(s): N39.0 - URINARY TRACT INFECTION, SITE NOT SPECIFIED SNOMED Code(s): 27318238 Plan: 1patient presented to hospital with sepsis in this patient who did have a fever tachycardia hypotension elevated white count source likely urinary with significantly positive UA likely from enteric gram-negative pathogen, positive pathogen such as Enterococcus not entirely excluded 2-patient will be treated with vancomycin pharmacy to dose for watching kidney function closely and cefepime while waiting for the culture to finalize Family at the bedside questions were answered We will follow on clinical condition and cultures to further adjust medication if needed Thank you for this consultation we will follow the patient along with you Dictation was produced using [employer] dictation software. please excuse any grammatical, word or spelling errors. Time with Patient: Greater than 30
[2023-11-07 07:00] LABS: Basophils % (A) 0 %; Eosinophils % (A) 0 %; HCT 28.2 % (39.0-53.0); HGB 9.3 gm/dL (13.0-17.5); Hypochromasia Slight; Lymphocytes # (A) 0.5 k/uL (1.0-4.8); Lymphocytes % (A) 7 %; MCH 35.2 pg (25.0-35.0); MCV 106.6 fL (80.0-100.0); Macrocytosis Marked; Mean Platelet Volume 8.8; Monocytes # (A) 0.6 k/uL (0-1.0); Monocytes % (A) 7 %; Neutrophils # (A) 6.7 k/uL (1.3-7.7); Neutrophils % (A) 84 %; Platelet Count 97 k/uL (150-450); RBC 2.64 m/uL (4.30-5.90); RDW 15.6 % (11.5-15.5); WBC 7.9 k/uL (3.8-10.6)
[2023-11-07] MEDS: VANCOMYCIN 1,500 MG in SODIUM CHLORIDE 0.9% 500 ML 500 ML IVPB SCH ×2 (07:30→13:32)
[2023-11-07 07:58] LABS: African American GFR (CKD) >90 (>60 ml/min/1.73 sqM); Anion Gap 2 mmol/L; Blood Urea Nitrogen 10 mg/dL (9-20); Calcium 7.7 mg/dL (8.4-10.2); Carbon Dioxide 11 mmol/L (22-30); Chloride 111 mmol/L (98-107); Glucose 113 mg/dL (74-99); Non-African American GFR(CKD) 78 (>60 ml/min/1.73 sqM); Sodium 124 mmol/L (137-145)
[2023-11-07 08:14] LABS: Glucose,Whole Blood 147 mg/dL (70-110)
--- NOTE | 2023-11-07 08:21 | XR ---
EXAMINATION TYPE: XR chest 1V portable DATE OF EXAM: 11/07/2023 4:04 AM CLINICAL INDICATION: Male, 83 years old with history of SOB; COMPARISON: Chest radiographs from 11/06/2023. TECHNIQUE: XR chest 1V portable Frontal view of the chest. FINDINGS: Lungs/Pleura: There is no evidence of pleural effusion, focal consolidation, or pneumothorax. Pulmonary vascularity: Unremarkable. Heart/mediastinum: Cardiomediastinal silhouette is unremarkable. Musculoskeletal: No acute osseous pathology. IMPRESSION: Cardiomegaly and mild pulmonary vascular congestion. Correlate with BNP for congestive heart failure.
[2023-11-07] MEDS: MAG HYDROX/AL HYDROX/SIMETH 30 ML CUP PO PRN (08:50)
[2023-11-07] MEDS: LOPERAMIDE 2 MG CAP PO STA (08:51)
[2023-11-07 11:09] LABS: Glucose,Whole Blood 205 mg/dL (70-110)
--- NOTE | 2023-11-07 11:15 | P.PN ---
Subjective Progress Note Date: 11/07/23 I was contacted by sound physician about this patient who is an ER hold at the moment. He was originally brought in for generalized weakness and thought to have urinary tract infection/urosepsis. He has been hypotensive and received several fluid boluses. He has been fluid resuscitated with a total of 30 mL per kilogram of Normal saline. Despite this, he remains hypotensive, most recent blood pressure 70s/40s mmHg. We were asked to evaluate this patient for possible ICU transfer. Patient is a 83-year-old white male with past medical history significant for atrial fibrillation, hyperlipidemia, hypertension, CLL, frequent falls, lower extremity weakness, BPH, urinary retention, previous urinary tract infections, among other things. Of note, he was evaluated by the emergency room department on 11/04/2023. Apparently, had a fall while at home. He has been progressively more weak. He was found to have urinary retention, had an indwelling urinary catheter placed, and diagnosed with urinary tract infection. He was discharged home on antibiotics and direction to follow-up with urologist. Less than 24 hours later, could not stand up out of chair without assistance, and brought back into the emergency department for evaluation. Urinalysis positive for leukocyte esterase. Urine culture pending. Patient currently covered on broad-spectrum antibiotics in the form of cefepime and vancomycin. CBC: WBC count 11, hemoglobin 9.5, hematocrit 28.9, platelets 105. Most recent BMP: Sodium 132, potassium 2.9, chloride 112, serum bicarb 15, BUN 17, creatinine 0.98, glucose 79. Lactic 0.8. Troponin 0.026. Patient is currently in the emergency department. Current vital signs include blood pressure 78/49, heart rate 81 bpm, respiratory rate 20, SpO2 97% on room air, febrile with a Tmax of 100.5 F. Normal saline infusing at 130 mL/h. He is currently lying in bed with his legs elevated. No apparent distress. He is very hard of hearing. He is alert and answers most of my questions appropriately, although unfamiliar with some of his medical history. He denies any specific complaints. Previously, was having issues with "dribbling" and incomplete voiding. Denies any dysuria, hematuria. There is an indwelling urinary catheter. He is also been incontinent to stool. He has chronic lumbar back pain. Previously evaluated by orthopedics. Denies flank pain. Denies nausea, vomiting, abdominal pain, suprapubic pain. As stated above, patient's blood pressure remains hypotensive, he will have to be started on vasopressors. Will be admitted to the intensive care unit once bed available. The patient is seen today November 07, 2023 in follow-up in the intensive care [facility]. He is currently awake and alert in no acute distress. Resting comfortably in bed. Maintaining good O2 saturations in the 90s on room air. He has been off norepinephrine. He has normal saline at 75 mL/h. He remains on cefepime and vancomycin. He has been having some issues with diarrhea. C. difficile screen was negative. His urine culture is positive for group D Enterococcus. White count 7.9. Hemoglobin 9.3. Platelets 97,000. Sodium 124. Potassium 4.0. Chloride 111. Bicarb 11. BUN 10. Creatinine 0.91. Glucose 113. He is anticoagulated with Xarelto. Objective - Vital Signs Vital signs: Vital Signs Temp 97.9 F 11/07/23 08:00 Pulse 89 11/07/23 08:00 Resp 26 H 11/07/23 08:00 BP 121/62 11/07/23 08:00 Pulse Ox 100 11/07/23 08:00 FiO2 Intake & Output 11/06/23 11/07/23 11/07/23 18:59 06:59 18:59 Intake Total 2114.328 1665 150 Output Total 695 1075 400 Balance 1419.328 590 -250 Weight 77.111 kg 86 kg Intake: IV 1140 1425 150 0.9 1140 825 150 Cefepime 2 gm In Sodium 100 Chloride 0.9% 100 ml @ 25 mls/hr IVPB Q12H [facility] Rx# :[id number] Vancomycin 1,500 mg In 500 Sodium Chloride 0.9% 500 ml 500 ml @ 167 mls/hr IVPB Q16H [facility] Rx#: [id number] Intake, IV Titration 737.328 Amount Norepinephrine 4 mg In 437.328 Sodium Chloride 0.9% 250 ml @ 0.03 MCG/KG/MIN 8. 814 mls/hr IV .Q24H [facility] Rx#:[id number] Potassium Chloride 20 meq 200 In Water For Injection 1 100ml.bag @ 50 mls/hr IVPB Q2H [facility] Rx#: [id number] cefTRIAXone 2 gm In 100 Sodium Chloride 0.9% 50 ml @ 100 mls/hr IVPB Q24HR [facility] Rx#:[id number] Oral 237 240 Output: Urine 695 1075 400 Other: Voiding Method Indwelling Catheter Indwelling Catheter Indwelling Catheter # Bowel Movements 1 1 - Exam GENERAL EXAM: Alert, 83-year-old male, comfortable in no apparent distress. On room air. HEAD: Normocephalic and atraumatic EYES: Normal reaction of pupils, equal size. NOSE: Clear with pink turbinates. THROAT: No erythema or exudates. NECK: No masses, no JVD. CHEST: No chest wall deformity. LUNGS: Equal air entry with no crackles, wheeze, rhonchi or dullness. No conversational dyspnea or accessory muscle use. CVS: S1 and S2 normal with no audible murmur, regular rhythm. No extra heart sounds ABDOMEN: No hepatosplenomegaly, active bowel sounds, no guarding or rigidity. SPINE: No scoliosis or deformity. Negative for CVA tenderness. SKIN: No rashes CENTRAL NERVOUS SYSTEM: No focal deficits, tone is normal in all 4 extremities. EXTREMITIES: There is bilateral lower extremity mild nonpitting edema. Distal extremities warm. No cyanosis. Peripheral pulses are intact. - Labs CBC & Chem 7: 11/07/23 06:10 11/07/23 06:10 Labs: Abnormal Lab Results - Last 24 Hours (Table) 11/06/23 11/06/23 11/06/23 Range/Units 11:17 11:57 20:10 RBC (4.30-5.90) m/uL Hgb (13.0-17.5) gm/dL Hct (39.0-53.0) % MCV (80.0-100.0) fL MCH (25.0-35.0) pg RDW (11.5-15.5) % Plt Count (150-450) k/uL Lymphocytes # (1.0-4.8) k/uL Macrocytosis Sodium (137-145) mmol/L Potassium 3.1 L (3.5-5.1) mmol/L Chloride (98-107) mmol/L Carbon Dioxide (22-30) mmol/L Glucose (74-99) mg/dL POC Glucose (mg/dL) 236 H 191 H (70-110) mg/dL Calcium (8.4-10.2) mg/dL 11/07/23 11/07/23 11/07/23 Range/Units 06:10 06:10 08:13 RBC 2.64 L (4.30-5.90) m/uL Hgb 9.3 L (13.0-17.5) gm/dL Hct 28.2 L (39.0-53.0) % MCV 106.6 H (80.0-100.0) fL MCH 35.2 H (25.0-35.0) pg RDW 15.6 H (11.5-15.5) % Plt Count 97 L (150-450) k/uL Lymphocytes # 0.5 L (1.0-4.8) k/uL Macrocytosis Marked A Sodium 124 L (137-145) mmol/L Potassium (3.5-5.1) mmol/L Chloride 111 H (98-107) mmol/L Carbon Dioxide 11 L (22-30) mmol/L Glucose 113 H (74-99) mg/dL POC Glucose (mg/dL) 147 H (70-110) mg/dL Calcium 7.7 L (8.4-10.2) mg/dL Microbiology - Last 24 Hours (Table) 11/05/23 10:57 Urine Culture - Preliminary Urine,Voided Group D Enterococcus 11/05/23 11:31 Blood Culture - Preliminary Blood Assessment and Plan Assessment: Hypotension, refractory to fluid resuscitation with a total of 30 mL/kg, initiated on vasopressors in the form of norepinephrine, since recovered and off pressors Sepsis and septic shock, secondary to group D Enterococcus urinary tract infection Urinary retention, status post indwelling urinary catheterization History of BPH Acute kidney injury, likely postrenal, improved Hypokalemia, being replaced per protocol Hyponatremia Diarrhea, C. difficile screen negative Non-anion gap metabolic acidosis Diabetes mellitus type 2 Hypoglycemia, treated with 1 amp dextrose History of hyperlipidemia Atrial fibrillation with controlled ventricular response, anticoagulated on Xarelto Chronic lymphocytic leukemia Anemia Frequent falls, bilateral lower extremity weakness, and gait disturbance, previous evaluated by orthopedic surgery Plan: The patient was seen and evaluated X-ray, labs and medications reviewed Continue normal saline at 75 mL/h Continue cefepime Discontinue vancomycin Anticoagulated with Xarelto Transfer to the regular medical floor We will continue to follow I have personally seen and examined the patient, performed the documentation and the assessment and plan as written. Number of minutes spent on the visit: 10.
[2023-11-07 11:24] LABS: Glucose,Whole Blood 207 mg/dL (70-110)
[2023-11-07] MEDS ORDERED: VANCOMYCIN IV PER PHARMACY 1 EACH MISC MISCELLANE PRN (12:04)
--- NOTE | 2023-11-07 14:15 | P.PN ---
Subjective Progress Note Date: 11/07/23 Principal diagnosis: UTI patient having diarrhea, had about 7 bowel movements, watery since last night. Denies having nausea or vomiting. No fevers or chills. No abdominal pain. No chest pain or shortness of breath. Objective - Vital Signs Vital signs: Vital Signs Temp 97.9 F 11/07/23 13:43 Pulse 88 11/07/23 13:43 Resp 24 11/07/23 13:43 BP 105/57 11/07/23 13:43 Pulse Ox 96 11/07/23 13:43 FiO2 Intake & Output 11/06/23 11/07/23 11/07/23 18:59 06:59 18:59 Intake Total 2114.328 1665 150.588 Output Total 695 1075 400 Balance 1419.328 590 -249.412 Weight 77.111 kg 86 kg Intake: IV 1140 1425 150 0.9 1140 825 150 Cefepime 2 gm In Sodium 100 Chloride 0.9% 100 ml @ 25 mls/hr IVPB Q12H [facility] Rx# :[id number] Vancomycin 1,500 mg In 500 Sodium Chloride 0.9% 500 ml 500 ml @ 167 mls/hr IVPB Q16H [facility] Rx#: [id number] Intake, IV Titration 737.328 0.588 Amount Norepinephrine 4 mg In 437.328 0.588 Sodium Chloride 0.9% 250 ml @ 0.03 MCG/KG/MIN 8. 814 mls/hr IV .Q24H [facility] Rx#:[id number] Potassium Chloride 20 meq 200 In Water For Injection 1 100ml.bag @ 50 mls/hr IVPB Q2H [facility] Rx#: [id number] cefTRIAXone 2 gm In 100 Sodium Chloride 0.9% 50 ml @ 100 mls/hr IVPB Q24HR [facility] Rx#:[id number] Oral 237 240 Output: Urine 695 1075 400 Other: Voiding Method Indwelling Catheter Indwelling Catheter Indwelling Catheter # Bowel Movements 1 1 - Exam Vital signs reviewed and stable. General: Nontoxic, no distress and appears stated age. Derm: Skin warm and dry, normal coloration for ethnicity. Head: Atraumatic, normocephalic and symmetric. Eyes: EOM's intact, no lid lag, and anicteric sclera Mouth: no lip lesions, mucus membranes moist Cardiovascular: Irregularly irregular with systolic murmur, positive posterior tibial pulses bilaterally, and cap refill < 2 seconds. Lungs: Respirations even, regular, and unlabored on room air. Lungs CTA bilaterally, no rhonchi, no rales, no wheezing, and no accessory muscle usage. Abdominal: soft, nontender to palpation, no guarding, no appreciable organomegaly. Kirk catheter in place. Ext: ROM intact. No gross muscle atrophy, plus pitting bilateral lower extremity edema, no contractures Neuro: Speech clear, face symmetrical and CN II-XII grossly intact with no noted focal neuro deficits Psych: Alert and oriented to person, place, time, and situation. Appropriate and pleasant affect. - Labs CBC & Chem 7: 11/07/23 06:10 11/07/23 06:10 Labs: Abnormal Lab Results - Last 24 Hours (Table) 11/06/23 11/07/23 11/07/23 Range/Units 20:10 06:10 06:10 RBC 2.64 L (4.30-5.90) m/uL Hgb 9.3 L (13.0-17.5) gm/dL Hct 28.2 L (39.0-53.0) % MCV 106.6 H (80.0-100.0) fL MCH 35.2 H (25.0-35.0) pg RDW 15.6 H (11.5-15.5) % Plt Count 97 L (150-450) k/uL Lymphocytes # 0.5 L (1.0-4.8) k/uL Macrocytosis Marked A Sodium 124 L (137-145) mmol/L Chloride 111 H (98-107) mmol/L Carbon Dioxide 11 L (22-30) mmol/L Glucose 113 H (74-99) mg/dL POC Glucose (mg/dL) 191 H (70-110) mg/dL Calcium 7.7 L (8.4-10.2) mg/dL 11/07/23 11/07/23 11/07/23 Range/Units 08:13 11:08 11:23 RBC (4.30-5.90) m/uL Hgb (13.0-17.5) gm/dL Hct (39.0-53.0) % MCV (80.0-100.0) fL MCH (25.0-35.0) pg RDW (11.5-15.5) % Plt Count (150-450) k/uL Lymphocytes # (1.0-4.8) k/uL Macrocytosis Sodium (137-145) mmol/L Chloride (98-107) mmol/L Carbon Dioxide (22-30) mmol/L Glucose (74-99) mg/dL POC Glucose (mg/dL) 147 H 205 H 207 H (70-110) mg/dL Calcium (8.4-10.2) mg/dL Microbiology - Last 24 Hours (Table) 11/05/23 10:57 Urine Culture - Preliminary Urine,Voided Group D Enterococcus 11/05/23 11:31 Blood Culture - Preliminary Blood Assessment and Plan Plan: Acute cystitis has hx of MDR organisms Urinary retention, hx of BPH Generalized weakness, secondary to above Acute kidney injury on chronic kidney disease Continue gentle IV fluid hydration with 0.9% normal saline at 75 cc/h. Continue IV antibiotic with vancomycin. growing enterococcus in the urine, we'll follow final cultures. Consult placed to urology, appreciate recommendations Continue Kirk catheter management. Continue Flomax 0.8 mg nightly. Hypotension, refractory to fluid resuscitation, on vasopressors in the form of norepinephrine. Sepsis and septic shock, likely urinary source did not require pressors for the past 48 hours. hyponatremia Secondary to diarrhea, IV fluids Follow sodium in a.m. Chronic atrial fibrillation Hypertension Hyperlipidemia CLL Continue daily medication regimen with Xarelto 20 mg daily, atorvastatin 10 mg nightly, fenofibrate 160 mg daily and will hold Bumex at this time secondary to GUERITA and mild hyponatremia. Troponin was negative at 0.029 and patient asymptomatic of cardiac complaints will repeat troponin level x 1 secondary to patient's reports of generalized weakness. Patient to remain on telemetry monitoring pending repeat troponin results. Insulin-dependent diabetes mellitus with hypoglycemia Diabetic neuropathy Continue glycemic protocol with NovoLog sliding scale. NO LONG ACTING INSULIN FOR NOW HE IS NOT EATING Continue Neurontin 300 mg daily for treatment of diabetic neuropathy. CODE STATUS: Full code DVT prophylaxis: Xarelto Anticipated discharge date: Pending clinical course, likely 24 to 48-hour Anticipated discharge place: [facility]
--- NOTE | 2023-11-07 14:23 | XR ---
EXAMINATION TYPE: XR chest 1V portable DATE OF EXAM: 11/07/2023 2:00 PM CLINICAL INDICATION: Male, 83 years old with history of sob; COMPARISON: Chest radiographs from 11/07/2023 TECHNIQUE: XR chest 1V portable Frontal view of the chest. FINDINGS: Lungs/Pleura: There is no evidence of pleural effusion, focal consolidation, or pneumothorax. Pulmonary vascularity: Pulmonary vascular congestion. Heart/mediastinum: Cardiomediastinal silhouette is enlarged. Musculoskeletal: No acute osseous pathology. IMPRESSION: Cardiomegaly and mild pulmonary vascular congestion. Correlate with BNP for congestive heart failure.
--- NOTE | 2023-11-07 15:00 | P.GSCN ---
History of Present Illness Consult date: 11/06/23 Reason for Consult: Urinary retention, UTI Requesting physician: Siva Lizarraga History of present illness: The patient is an 83-year-old white male initially seen by Dr. Beltran in March 2023 for kidney stones. Examination at that time revealed the prostate to be enlarged but smooth. He was noted to be emptying his bladder incompletely in April and developed urinary retention in May, requiring an indwelling Kirk catheter. Cystoscopy was performed and was unremarkable. He is being treated with tamsulosin and when last seen in the office on June 20, 2023 the postvoid residual was 27 cc. He is now admitted with septic shock due to a UTI, and has been found to be in urinary retention. Past Medical History Past Medical History: Atrial Fibrillation, Cancer, Diabetes Mellitus, GERD/Reflux, Hyperlipidemia, Hypertension, Musculoskeletal Disorder, Neurologic Disorder, Osteoarthritis (OA), Renal Disease, Sleep Apnea/CPAP/BIPAP Additional Past Medical History / Comment(s): CLL-dx. 5 yrs. ago, unaware of renal problems, was having neck pain, neuropathy adonay feet, has cpap machine History of Any Multi-Drug Resistant Organisms: None Reported Past Surgical History: Cholecystectomy, Orthopedic Surgery, Tonsillectomy Additional Past Surgical History / Comment(s): left shoulder rototor cuff repair, Right shoulder Past Anesthesia/Blood Transfusion Reactions: No Reported Reaction Past Psychological History: No Psychological Hx Reported Smoking Status: Former smoker Past Alcohol Use History: Occasional Additional Past Alcohol Use History / Comment(s): Patient was a smoker 3 packs per day for 25 years, quit 28 years ago. Past Drug Use History: None Reported - Past Family History Mother Family Medical History: Cancer Additional Family Medical History / Comment(s): of pancreatic cancer Medications and Allergies Home Medications Medication Instructions Recorded Confirmed Type Atorvastatin Calcium [Lipitor] 10 mg PO HS 10/12/15 11/05/23 History Fenofibrate 160 mg PO DAILY 10/12/15 11/05/23 History Rivaroxaban [Xarelto] 20 mg PO DAILY 10/12/15 11/05/23 History Tamsulosin [Flomax] 0.8 mg PO HS 05/27/23 11/05/23 History metFORMIN HCL ER [Glucophage XR] 500 mg PO DAILY 05/27/23 11/05/23 History Bumetanide [Bumex] 0.5 mg PO DAILY 11/05/23 11/05/23 History Ergocalciferol (Vitamin D2) 1,250 mcg PO WEEKLY 11/05/23 11/05/23 History [Drisdol (50,000 Iu)] Gabapentin [Neurontin] 300 mg PO DAILY 11/05/23 11/05/23 History Insulin Glargine,Hum.rec.anlog 13 units SQ HS 11/05/23 11/05/23 History [Lantus Solostar Pen] glipiZIDE XL [Glucotrol Xl] 10 mg PO DAILY 11/05/23 11/05/23 History Allergies Allergy/AdvReac Type Severity Reaction Status Date / Time No Known Allergies Allergy Verified 11/05/23 16:16 Surgical - Exam Vital Signs Temp Pulse Resp BP Pulse Ox 97.9 F 82 16 108/90 99 11/05/23 11:13 11/05/23 11:13 11/05/23 11:13 11/05/23 11:13 11/05/23 11:13 - General well developed, well nourished, no distress - Respiratory normal respiratory effort - Abdomen Abdomen: soft, non tender, no guarding, no rigid, no rebound - Psychiatric oriented to time, oriented to person, oriented to place, speech is normal, memory intact Results - Labs 11/07/23 06:10 11/07/23 06:10 Abnormal Lab Results - Last 24 Hours (Table) 11/05/23 11/05/23 11/05/23 Range/Units 10:57 11:31 11:31 WBC 11.3 H (3.8-10.6) k/uL RBC 3.27 L (4.30-5.90) m/uL Hgb 11.3 L (13.0-17.5) gm/dL Hct 34.3 L (39.0-53.0) % MCV 105.1 H (80.0-100.0) fL RDW (11.5-15.5) % Plt Count 135 L (150-450) k/uL Neutrophils # 9.6 H (1.3-7.7) k/uL Lymphocytes # 0.6 L (1.0-4.8) k/uL Sodium 132 L (137-145) mmol/L Potassium (3.5-5.1) mmol/L Chloride (98-107) mmol/L Carbon Dioxide 16 L (22-30) mmol/L BUN 25 H (9-20) mg/dL Creatinine 1.47 H (0.66-1.25) mg/dL Glucose 107 H (74-99) mg/dL POC Glucose (mg/dL) (70-110) mg/dL Plasma Lactic Acid Wisam (0.7-2.0) mmol/L Calcium (8.4-10.2) mg/dL Magnesium 1.5 L (1.6-2.3) mg/dL Total Protein 6.0 L (6.3-8.2) g/dL Urine Protein 1+ H (Negative) Urine Ketones Trace H (Negative) Urine Blood Moderate H (Negative) Ur Leukocyte Esterase Large H (Negative) Urine RBC 13 H (0-5) /hpf Urine WBC >182 H (0-5) /hpf Urine WBC Clumps Many H (None) /hpf Urine Mucus Rare H (None) /hpf 11/06/23 11/06/23 11/06/23 Range/Units 00:10 03:21 03:21 WBC 10.9 H (3.8-10.6) k/uL RBC 2.72 L (4.30-5.90) m/uL Hgb 9.5 L D (13.0-17.5) gm/dL Hct 28.9 L (39.0-53.0) % MCV 106.2 H (80.0-100.0) fL RDW 15.6 H (11.5-15.5) % Plt Count 105 L (150-450) k/uL Neutrophils # 9.4 H (1.3-7.7) k/uL Lymphocytes # 0.6 L (1.0-4.8) k/uL Sodium 132 L (137-145) mmol/L Potassium 2.9 L (3.5-5.1) mmol/L Chloride 112 H (98-107) mmol/L Carbon Dioxide 15 L (22-30) mmol/L BUN (9-20) mg/dL Creatinine (0.66-1.25) mg/dL Glucose 47 L* (74-99) mg/dL POC Glucose (mg/dL) (70-110) mg/dL Plasma Lactic Acid Wisam 2.5 H* (0.7-2.0) mmol/L Calcium 7.7 L (8.4-10.2) mg/dL Magnesium (1.6-2.3) mg/dL Total Protein (6.3-8.2) g/dL Urine Protein (Negative) Urine Ketones (Negative) Urine Blood (Negative) Ur Leukocyte Esterase (Negative) Urine RBC (0-5) /hpf Urine WBC (0-5) /hpf Urine WBC Clumps (None) /hpf Urine Mucus (None) /hpf 11/06/23 11/06/23 11/06/23 Range/Units 04:26 04:51 06:43 WBC (3.8-10.6) k/uL RBC (4.30-5.90) m/uL Hgb (13.0-17.5) gm/dL Hct (39.0-53.0) % MCV (80.0-100.0) fL RDW (11.5-15.5) % Plt Count (150-450) k/uL Neutrophils # (1.3-7.7) k/uL Lymphocytes # (1.0-4.8) k/uL Sodium (137-145) mmol/L Potassium (3.5-5.1) mmol/L Chloride (98-107) mmol/L Carbon Dioxide (22-30) mmol/L BUN (9-20) mg/dL Creatinine (0.66-1.25) mg/dL Glucose (74-99) mg/dL POC Glucose (mg/dL) 66 L 181 H 256 H (70-110) mg/dL Plasma Lactic Acid Wisam (0.7-2.0) mmol/L Calcium (8.4-10.2) mg/dL Magnesium (1.6-2.3) mg/dL Total Protein (6.3-8.2) g/dL Urine Protein (Negative) Urine Ketones (Negative) Urine Blood (Negative) Ur Leukocyte Esterase (Negative) Urine RBC (0-5) /hpf Urine WBC (0-5) /hpf Urine WBC Clumps (None) /hpf Urine Mucus (None) /hpf Diabetes panel 11/05/23 11/06/23 Range/Units 11:31 03:21 Sodium 132 L 132 L (137-145) mmol/L Potassium 3.9 2.9 L (3.5-5.1) mmol/L Chloride 104 112 H (98-107) mmol/L Carbon Dioxide 16 L 15 L (22-30) mmol/L BUN 25 H 17 (9-20) mg/dL Creatinine 1.47 H 0.98 (0.66-1.25) mg/dL Glucose 107 H 47 L* (74-99) mg/dL Calcium 9.0 7.7 L (8.4-10.2) mg/dL AST 43 (17-59) U/L ALT 17 (4-49) U/L Alkaline Phosphatase 62 (38-126) U/L Total Protein 6.0 L (6.3-8.2) g/dL Albumin 3.5 (3.5-5.0) g/dL Calcium panel 11/05/23 11/06/23 Range/Units 11:31 03:21 Calcium 9.0 7.7 L (8.4-10.2) mg/dL Albumin 3.5 (3.5-5.0) g/dL Pituitary panel 11/05/23 11/06/23 Range/Units 11:31 03:21 Sodium 132 L 132 L (137-145) mmol/L Potassium 3.9 2.9 L (3.5-5.1) mmol/L Chloride 104 112 H (98-107) mmol/L Carbon Dioxide 16 L 15 L (22-30) mmol/L BUN 25 H 17 (9-20) mg/dL Creatinine 1.47 H 0.98 (0.66-1.25) mg/dL Glucose 107 H 47 L* (74-99) mg/dL Calcium 9.0 7.7 L (8.4-10.2) mg/dL Adrenal panel 11/05/23 11/06/23 Range/Units 11:31 03:21 Sodium 132 L 132 L (137-145) mmol/L Potassium 3.9 2.9 L (3.5-5.1) mmol/L Chloride 104 112 H (98-107) mmol/L Carbon Dioxide 16 L 15 L (22-30) mmol/L BUN 25 H 17 (9-20) mg/dL Creatinine 1.47 H 0.98 (0.66-1.25) mg/dL Glucose 107 H 47 L* (74-99) mg/dL Calcium 9.0 7.7 L (8.4-10.2) mg/dL Total Bilirubin 1.1 (0.2-1.3) mg/dL AST 43 (17-59) U/L ALT 17 (4-49) U/L Alkaline Phosphatase 62 (38-126) U/L Total Protein 6.0 L (6.3-8.2) g/dL Albumin 3.5 (3.5-5.0) g/dL Assessment and Plan (1) Retention of urine, unspecified Current Visit: Yes Status: Acute Code(s): R33.9 - RETENTION OF URINE, UNSPECIFIED SNOMED Code(s): 415612167 (2) UTI (urinary tract infection) Current Visit: Yes Status: Acute Code(s): N39.0 - URINARY TRACT INFECTION, SITE NOT SPECIFIED SNOMED Code(s): 39032864 Plan: - Continue Kirk catheter drainage. - Continue tamsulosin - Continue antibiotics, pending final urine and blood culture results. Time with Patient: Greater than 30
--- NOTE | 2023-11-07 15:01 | P.PN ---
Subjective Progress Note Date: 11/07/23 Principal diagnosis: Reason for follow-up is sepsis UTI Patient is a 83-year-old male with a past medical history significant for atrial fibrillation hypertension hyperlipidemia CLL BPH UTIs presenting to the ER for evaluation of weakness, patient diagnosed with sepsis secondary urinary tract infection requiring admission to ICU because of hypotension. On today's evaluation that is 11/07/2023, patient has been afebrile, patient is breathing comfortably and is currently on room air, patient did have dry cough no chest pain shortness of breath, patient denies nausea vomiting or abdominal pain, has been complaining of diarrhea. Patient white count normalized to 7.9 creatinine 0.91 urine is growing Enterococcus blood culture for negative stool for C. difficile negative Objective - Vital Signs Vital signs: Vital Signs Temp 97.9 F 11/07/23 08:00 Pulse 89 11/07/23 08:00 Resp 26 H 11/07/23 08:00 BP 121/62 11/07/23 08:00 Pulse Ox 100 11/07/23 08:00 FiO2 Intake & Output 11/06/23 11/07/23 11/07/23 18:59 06:59 18:59 Intake Total 2114.328 1665 150.588 Output Total 695 1075 400 Balance 1419.328 590 -249.412 Weight 77.111 kg 86 kg Intake: IV 1140 1425 150 0.9 1140 825 150 Cefepime 2 gm In Sodium 100 Chloride 0.9% 100 ml @ 25 mls/hr IVPB Q12H KERRY Rx# :[id number] Vancomycin 1,500 mg In 500 Sodium Chloride 0.9% 500 ml 500 ml @ 167 mls/hr IVPB Q16H KERRY Rx#: [id number] Intake, IV Titration 737.328 0.588 Amount Norepinephrine 4 mg In 437.328 0.588 Sodium Chloride 0.9% 250 ml @ 0.03 MCG/KG/MIN 8. 814 mls/hr IV .Q24H KERRY Rx#:[id number] Potassium Chloride 20 meq 200 In Water For Injection 1 100ml.bag @ 50 mls/hr IVPB Q2H K[facility]Y Rx#: [id number] cefTRIAXone 2 gm In 100 Sodium Chloride 0.9% 50 ml @ 100 mls/hr IVPB Q24HR [facility]ERRY Rx#:[id number] Oral 237 240 Output: Urine 695 1075 400 Other: Voiding Method Indwelling Catheter Indwelling Catheter Indwelling Catheter # Bowel Movements 1 1 - Exam GENERAL DESCRIPTION: An elderly male lying in bed in no distress RESPIRATORY SYSTEM: Unlabored breathing , coarse breath sounds bilaterally HEART: S1 S2 regular rate and rhythm , ABDOMEN: Soft , no tenderness EXTREMITIES: No edema feet - Labs CBC & Chem 7: 11/07/23 06:10 11/07/23 06:10 Labs: Abnormal Lab Results - Last 24 Hours (Table) 11/06/23 11/06/23 11/07/23 Range/Units 11:17 20:10 06:10 RBC 2.64 L (4.30-5.90) m/uL Hgb 9.3 L (13.0-17.5) gm/dL Hct 28.2 L (39.0-53.0) % MCV 106.6 H (80.0-100.0) fL MCH 35.2 H (25.0-35.0) pg RDW 15.6 H (11.5-15.5) % Plt Count 97 L (150-450) k/uL Lymphocytes # 0.5 L (1.0-4.8) k/uL Macrocytosis Marked A Sodium (137-145) mmol/L Potassium 3.1 L (3.5-5.1) mmol/L Chloride (98-107) mmol/L Carbon Dioxide (22-30) mmol/L Glucose (74-99) mg/dL POC Glucose (mg/dL) 191 H (70-110) mg/dL Calcium (8.4-10.2) mg/dL 11/07/23 11/07/23 11/07/23 Range/Units 06:10 08:13 11:08 RBC (4.30-5.90) m/uL Hgb (13.0-17.5) gm/dL Hct (39.0-53.0) % MCV (80.0-100.0) fL MCH (25.0-35.0) pg RDW (11.5-15.5) % Plt Count (150-450) k/uL Lymphocytes # (1.0-4.8) k/uL Macrocytosis Sodium 124 L (137-145) mmol/L Potassium (3.5-5.1) mmol/L Chloride 111 H (98-107) mmol/L Carbon Dioxide 11 L (22-30) mmol/L Glucose 113 H (74-99) mg/dL POC Glucose (mg/dL) 147 H 205 H (70-110) mg/dL Calcium 7.7 L (8.4-10.2) mg/dL 11/07/23 Range/Units 11:23 RBC (4.30-5.90) m/uL Hgb (13.0-17.5) gm/dL Hct (39.0-53.0) % MCV (80.0-100.0) fL MCH (25.0-35.0) pg RDW (11.5-15.5) % Plt Count (150-450) k/uL Lymphocytes # (1.0-4.8) k/uL Macrocytosis Sodium (137-145) mmol/L Potassium (3.5-5.1) mmol/L Chloride (98-107) mmol/L Carbon Dioxide (22-30) mmol/L Glucose (74-99) mg/dL POC Glucose (mg/dL) 207 H (70-110) mg/dL Calcium (8.4-10.2) mg/dL Microbiology - Last 24 Hours (Table) 11/05/23 10:57 Urine Culture - Preliminary Urine,Voided Group D Enterococcus 11/05/23 11:31 Blood Culture - Preliminary Blood Assessment and Plan (1) Septic shock Current Visit: Yes Status: Acute Code(s): A41.9 - SEPSIS, UNSPECIFIED ORGANISM; R65.21 - SEVERE SEPSIS WITH SEPTIC SHOCK SNOMED Code(s): 87294013 (2) UTI (urinary tract infection) Current Visit: Yes Status: Acute Code(s): N39.0 - URINARY TRACT INFECTION, SITE NOT SPECIFIED SNOMED Code(s): 39249398 Plan: 1patient presented to hospital with sepsis in this patient who did have a fever tachycardia hypotension elevated white count source likely urinary with significantly positive UA likely from enteric gram-negative pathogen, positive pathogen such as Enterococcus not entirely excluded 2-patient did have diarrhea likely antibiotic associated stool for C. difficile is negative will add Questran for symptomatic relief 3urine is growing Enterococcus we will restart his vancomycin discontinue cefepime discussed with admitting physician and nursing staff and was updated to present at the bedside Dictation was produced using [employer] software. please excuse any grammatical, word or spelling errors. Time with Patient: Less than 30
[2023-11-07 16:01] LABS: Glucose,Whole Blood 161 mg/dL (70-110)
[2023-11-07] MEDS: CHOLESTYRAMINE (WITH SUGAR) 4 GM PACKET PO SCH (16:47)
[2023-11-07] MEDS: LOPERAMIDE 2 MG CAP PO PRN (16:47)
[2023-11-07] MEDS: FUROSEMIDE 10 MG/ML 4 ML VIAL IV STA (16:47)
[2023-11-07] MEDS: INSULIN ASPART (NovoLOG) 100 UNIT/ML VIAL SQ SCH (21:36)
[2023-11-07 21:37] LABS: Glucose,Whole Blood 170 mg/dL (70-110)
--- NOTE | 2023-11-07 22:22 | P.PN ---
Subjective Progress Note Date: 11/07/23 Principal diagnosis: UTI, urinary retention The patient is resting comfortably. The Kirk catheter remains in place, draining clear yellow urine. Objective - Vital Signs Vital signs: Vital Signs Temp 97.9 F 11/07/23 13:43 Pulse 88 11/07/23 13:43 Resp 24 11/07/23 13:43 BP 105/57 11/07/23 13:43 Pulse Ox 96 11/07/23 13:43 FiO2 Intake & Output 11/06/23 11/07/23 11/07/23 18:59 06:59 18:59 Intake Total 2114.328 1665 150.588 Output Total 695 1075 400 Balance 1419.328 590 -249.412 Weight 77.111 kg 86 kg Intake: IV 1140 1425 150 0.9 1140 825 150 Cefepime 2 gm In Sodium 100 Chloride 0.9% 100 ml @ 25 mls/hr IVPB Q12H [facility] Rx# :[id number] Vancomycin 1,500 mg In 500 Sodium Chloride 0.9% 500 ml 500 ml @ 167 mls/hr IVPB Q16H KERRY Rx#: [id number] Intake, IV Titration 737.328 0.588 Amount Norepinephrine 4 mg In 437.328 0.588 Sodium Chloride 0.9% 250 ml @ 0.03 MCG/KG/MIN 8. 814 mls/hr IV .Q24H [facility]Y Rx#:[id number] Potassium Chloride 20 meq 200 In Water For Injection 1 100ml.bag @ 50 mls/hr IVPB Q2H [facility]ERRY Rx#: [id number] cefTRIAXone 2 gm In 100 Sodium Chloride 0.9% 50 ml @ 100 mls/hr IVPB Q24HR KERRY Rx#:[id number] Oral 237 240 Output: Urine 695 1075 400 Other: Voiding Method Indwelling Catheter Indwelling Catheter Indwelling Catheter # Bowel Movements 1 1 - Constitutional General appearance: Present: average body habitus, cooperative, no acute distress - Psychiatric Psychiatric: Present: A&O x's 3 - Labs CBC & Chem 7: 11/07/23 06:10 11/07/23 06:10 Labs: Abnormal Lab Results - Last 24 Hours (Table) 11/06/23 11/07/23 11/07/23 Range/Units 20:10 06:10 06:10 RBC 2.64 L (4.30-5.90) m/uL Hgb 9.3 L (13.0-17.5) gm/dL Hct 28.2 L (39.0-53.0) % MCV 106.6 H (80.0-100.0) fL MCH 35.2 H (25.0-35.0) pg RDW 15.6 H (11.5-15.5) % Plt Count 97 L (150-450) k/uL Lymphocytes # 0.5 L (1.0-4.8) k/uL Macrocytosis Marked A Sodium 124 L (137-145) mmol/L Chloride 111 H (98-107) mmol/L Carbon Dioxide 11 L (22-30) mmol/L Glucose 113 H (74-99) mg/dL POC Glucose (mg/dL) 191 H (70-110) mg/dL Calcium 7.7 L (8.4-10.2) mg/dL 11/07/23 11/07/23 11/07/23 Range/Units 08:13 11:08 11:23 RBC (4.30-5.90) m/uL Hgb (13.0-17.5) gm/dL Hct (39.0-53.0) % MCV (80.0-100.0) fL MCH (25.0-35.0) pg RDW (11.5-15.5) % Plt Count (150-450) k/uL Lymphocytes # (1.0-4.8) k/uL Macrocytosis Sodium (137-145) mmol/L Chloride (98-107) mmol/L Carbon Dioxide (22-30) mmol/L Glucose (74-99) mg/dL POC Glucose (mg/dL) 147 H 205 H 207 H (70-110) mg/dL Calcium (8.4-10.2) mg/dL 11/07/23 Range/Units 16:00 RBC (4.30-5.90) m/uL Hgb (13.0-17.5) gm/dL Hct (39.0-53.0) % MCV (80.0-100.0) fL MCH (25.0-35.0) pg RDW (11.5-15.5) % Plt Count (150-450) k/uL Lymphocytes # (1.0-4.8) k/uL Macrocytosis Sodium (137-145) mmol/L Chloride (98-107) mmol/L Carbon Dioxide (22-30) mmol/L Glucose (74-99) mg/dL POC Glucose (mg/dL) 161 H (70-110) mg/dL Calcium (8.4-10.2) mg/dL Microbiology - Last 24 Hours (Table) 11/05/23 10:57 Urine Culture - Preliminary Urine,Voided Group D Enterococcus 11/05/23 11:31 Blood Culture - Preliminary Blood Assessment and Plan (1) Retention of urine, unspecified Current Visit: Yes Status: Acute Code(s): R33.9 - RETENTION OF URINE, UNSPECIFIED SNOMED Code(s): 486652437 (2) UTI (urinary tract infection) Current Visit: Yes Status: Acute Code(s): N39.0 - URINARY TRACT INFECTION, SITE NOT SPECIFIED SNOMED Code(s): 51905228 Plan: - Continue Kirk catheter drainage - Continue tamsulosin - Continue Vancomycin - Voiding trial soon
[2023-11-08 06:07] LABS: Glucose,Whole Blood 201 mg/dL (70-110)
[2023-11-08 08:58] LABS: Basophils # (A) 0.03 X 10*3/uL (0.00-0.10); Basophils % (A) 0.3 %; Eosinophils # (A) 0.03 X 10*3/uL (0.04-0.35); Eosinophils % (A) 0.3 %; HCT 28.8 % (39.6-50.0); HGB 9.4 g/dL (13.0-17.0); Lymphocytes # (A) 0.54 X 10*3/uL (0.90-5.00); Lymphocytes % (A) 6.1 %; MCH 33.6 pg (27.0-32.0); MCHC 32.6 g/dL (32.0-37.0); MCV 102.9 FL (80.0-97.0); Mean Platelet Volume 10.3 FL (9.5-12.2); Monocytes # (A) 0.81 X 10*3/uL (0.20-1.00); Monocytes % (A) 9.1 %; NRBC Per 100 WBC 0 X 10*3/uL (0.00-0.01); Neutrophils # (A) 7.43 X 10*3/uL (1.80-7.70); Neutrophils % (A) 83.3 %; Platelet Count 80 X 10*3/uL (140-440); RDW 15.5 % (11.5-14.5); WBC 8.92 X 10*3/uL (4.50-10.00)
[2023-11-08 09:11] LABS: BUN/Creat Ratio 10.18 Ratio (12.00-20.00); Blood Urea Nitrogen 11.2 mg/dL (9.0-27.0); Calcium 7.8 mg/dL (8.7-10.3); Carbon Dioxide 15.8 mmol/L (21.6-31.8); Chloride 105 mmol/L (96-109); Glucose 199 mg/dL (70-110); Potassium 3.5 mmol/L (3.5-5.5); Sodium 133 mmol/L (135-145)
[2023-11-08 09:52] VITALS: BMI 26.4
[2023-11-08 11:46] LABS: Glucose,Whole Blood 283 mg/dL (70-110)
--- NOTE | 2023-11-08 12:48 | P.PN ---
Subjective Progress Note Date: 11/08/23 Principal diagnosis: Reason for follow-up is sepsis UTI Patient is a 83-year-old male with a past medical history significant for atrial fibrillation hypertension hyperlipidemia CLL BPH UTIs presenting to the ER for evaluation of weakness, patient diagnosed with sepsis secondary urinary tract infection requiring admission to ICU because of hypotension. On today's evaluation that is 11/08/2023, Patient is afebrile this morning patient denies having any chest pain shortness of breath or cough, the patient is breathing comfortably and currently on room air, patient denies any abdominal pain no nausea no vomiting, and diarrhea has almost resolved Patient white count 8.8, creat is 1.1 urine is growing Enterococcus with sensitivities pending Objective - Vital Signs Vital signs: Vital Signs Temp 98.1 F 11/08/23 02:06 Pulse 80 11/08/23 07:28 Resp 17 11/08/23 07:28 BP 106/67 11/08/23 07:28 Pulse Ox 100 11/08/23 07:28 FiO2 Intake & Output 11/07/23 11/08/23 11/08/23 18:59 06:59 18:59 Intake Total 985.588 Output Total 1600 2575 Balance -614.412 -2575 Weight 86 kg Intake: IV 625 0.9 525 Cefepime 2 gm In Sodium 100 Chloride 0.9% 100 ml @ 25 mls/hr IVPB Q12H [facility] Rx# :[id number] Intake, IV Titration 0.588 Amount Norepinephrine 4 mg In 0.588 Sodium Chloride 0.9% 250 ml @ 0.03 MCG/KG/MIN 8. 814 mls/hr IV .Q24H [facility] Rx#:[id number] Oral 360 Output: Urine 1600 2575 Other: Voiding Method Indwelling Catheter Indwelling Catheter Indwelling Catheter # Bowel Movements 2 - Exam GENERAL DESCRIPTION: An elderly male lying in bed in no distress RESPIRATORY SYSTEM: Unlabored breathing , coarse breath sounds bilaterally HEART: S1 S2 regular rate and rhythm , ABDOMEN: Soft , no tenderness EXTREMITIES: No edema feet - Labs CBC & Chem 7: 11/08/23 04:28 11/08/23 04:28 Labs: Abnormal Lab Results - Last 24 Hours (Table) 11/07/23 11/07/23 11/07/23 Range/Units 11:08 11:23 16:00 RBC (4.40-5.60) X 10*6/uL Hgb (13.0-17.0) g/dL Hct (39.6-50.0) % MCV (80.0-97.0) FL MCH (27.0-32.0) pg RDW (11.5-14.5) % Plt Count (140-440) X 10*3/uL Immature Gran # (0.00-0.04) X 10*3/uL Lymphocytes # (0.90-5.00) X 10*3/uL Eosinophils # (0.04-0.35) X 10*3/uL Sodium (135-145) mmol/L Carbon Dioxide (21.6-31.8) mmol/L Anion Gap (4.00-12.00) mmol/L BUN/Creatinine Ratio (12.00-20.00) Ratio Glucose (70-110) mg/dL POC Glucose (mg/dL) 205 H 207 H 161 H (70-110) mg/dL Calcium (8.7-10.3) mg/dL 11/07/23 11/08/23 11/08/23 Range/Units 21:35 04:28 04:28 RBC 2.80 L (4.40-5.60) X 10*6/uL Hgb 9.4 L (13.0-17.0) g/dL Hct 28.8 L (39.6-50.0) % MCV 102.9 H (80.0-97.0) FL MCH 33.6 H (27.0-32.0) pg RDW 15.5 H (11.5-14.5) % Plt Count 80 L (140-440) X 10*3/uL Immature Gran # 0.08 H (0.00-0.04) X 10*3/uL Lymphocytes # 0.54 L (0.90-5.00) X 10*3/uL Eosinophils # 0.03 L (0.04-0.35) X 10*3/uL Sodium 133 L (135-145) mmol/L Carbon Dioxide 15.8 L (21.6-31.8) mmol/L Anion Gap 12.20 H (4.00-12.00) mmol/L BUN/Creatinine Ratio 10.18 L (12.00-20.00) Ratio Glucose 199 H (70-110) mg/dL POC Glucose (mg/dL) 170 H (70-110) mg/dL Calcium 7.8 L (8.7-10.3) mg/dL 11/08/23 Range/Units 06:06 RBC (4.40-5.60) X 10*6/uL Hgb (13.0-17.0) g/dL Hct (39.6-50.0) % MCV (80.0-97.0) FL MCH (27.0-32.0) pg RDW (11.5-14.5) % Plt Count (140-440) X 10*3/uL Immature Gran # (0.00-0.04) X 10*3/uL Lymphocytes # (0.90-5.00) X 10*3/uL Eosinophils # (0.04-0.35) X 10*3/uL Sodium (135-145) mmol/L Carbon Dioxide (21.6-31.8) mmol/L Anion Gap (4.00-12.00) mmol/L BUN/Creatinine Ratio (12.00-20.00) Ratio Glucose (70-110) mg/dL POC Glucose (mg/dL) 201 H (70-110) mg/dL Calcium (8.7-10.3) mg/dL Microbiology - Last 24 Hours (Table) 11/05/23 11:31 Blood Culture - Preliminary Blood Assessment and Plan (1) Septic shock Current Visit: Yes Status: Acute Code(s): A41.9 - SEPSIS, UNSPECIFIED ORGANI SM; R65.21 - SEVERE SEPSIS WITH SEPTIC SHOCK SNOMED Code(s): 85986426 (2) UTI (urinary tract infection) Current Visit: Yes Status: Acute Code(s): N39.0 - URINARY TRACT INFECTION, SITE NOT SPECIFIED SNOMED Code(s): 05324851 Plan: 1patient presented to hospital with sepsis in this patient who did have a fever tachycardia hypotension elevated white count source likely urinary with significantly positive UA likely from enteric gram-negative pathogen, positive pathogen such as Enterococcus not entirely excluded 2-patient did have diarrhea likely antibiotic associated stool for C. difficile is negative patient did have improvement with Questran to continue 3urine is growing Enterococcus continue vancomycin while waiting for sensitivity to finalize Dictation was produced using [employer]uweikang[employer] software. please excuse any grammatical, word or spelling errors. Time with Patient: Less than 30
--- NOTE | 2023-11-08 13:04 | P.PN ---
Subjective Progress Note Date: 11/08/23 I was contacted by sound physician about this patient who is an ER hold at the moment. He was originally brought in for generalized weakness and thought to have urinary tract infection/urosepsis. He has been hypotensive and received several fluid boluses. He has been fluid resuscitated with a total of 30 mL per kilogram of Normal saline. Despite this, he remains hypotensive, most recent blood pressure 70s/40s mmHg. We were asked to evaluate this patient for possible ICU transfer. Patient is a 83-year-old white male with past medical history significant for atrial fibrillation, hyperlipidemia, hypertension, CLL, frequent falls, lower extremity weakness, BPH, urinary retention, previous urinary tract infections, among other things. Of note, he was evaluated by the emergency room department on 11/04/2023. Apparently, had a fall while at home. He has been progressively more weak. He was found to have urinary retention, had an indwelling urinary catheter placed, and diagnosed with urinary tract infection. He was discharged home on antibiotics and direction to follow-up with urologist. Less than 24 hours later, could not stand up out of chair without assistance, and brought back into the emergency department for evaluation. Urinalysis positive for leukocyte esterase. Urine culture pending. Patient currently covered on broad-spectrum antibiotics in the form of cefepime and vancomycin. CBC: WBC count 11, hemoglobin 9.5, hematocrit 28.9, platelets 105. Most recent BMP: Sodium 132, potassium 2.9, chloride 112, serum bicarb 15, BUN 17, creatinine 0.98, glucose 79. Lactic 0.8. Troponin 0.026. Patient is currently in the emergency department. Current vital signs include blood pressure 78/49, heart rate 81 bpm, respiratory rate 20, SpO2 97% on room air, febrile with a Tmax of 100.5 F. Normal saline infusing at 130 mL/h. He is currently lying in bed with his legs elevated. No apparent distress. He is very hard of hearing. He is alert and answers most of my questions appropriately, although unfamiliar with some of his medical history. He denies any specific complaints. Previously, was having issues with "dribbling" and incomplete voiding. Denies any dysuria, hematuria. There is an indwelling urinary catheter. He is also been incontinent to stool. He has chronic lumbar back pain. Previously evaluated by orthopedics. Denies flank pain. Denies nausea, vomiting, abdominal pain, suprapubic pain. As stated above, patient's blood pressure remains hypotensive, he will have to be started on vasopressors. Will be admitted to the intensive care unit once bed available. The patient is seen today November 07, 2023 in follow-up in the intensive care [facility]. He is currently awake and alert in no acute distress. Resting comfortably in bed. Maintaining good O2 saturations in the 90s on room air. He has been off norepinephrine. He has normal saline at 75 mL/h. He remains on cefepime and vancomycin. He has been having some issues with diarrhea. C. difficile screen was negative. His urine culture is positive for group D Enterococcus. White count 7.9. Hemoglobin 9.3. Platelets 97,000. Sodium 124. Potassium 4.0. Chloride 111. Bicarb 11. BUN 10. Creatinine 0.91. Glucose 113. He is anticoagulated with Xarelto. The patient is seen today November 08, 2023 in follow-up on the regular medical floor. He was transferred out of the intensive care unit yesterday. He is awake and alert in no acute distress. He is maintaining good O2 saturations in the 90s on room air. He remains on normal saline at KVO. He is being treated for group D Enterococcus urinary tract infection. White count 8.9. Hemoglobin 9.4. Platelets 80,000. Sodium 133. Potassium 3.5. Bicarb 16. BUN 11. Creatinine 1.1. Glucose 199. He is continued on vancomycin per infectious disease. Anticoagulated with Xarelto. Objective - Vital Signs Vital signs: Vital Signs Temp 98.1 F 11/08/23 02:06 Pulse 80 11/08/23 07:28 Resp 17 11/08/23 07:28 BP 106/67 11/08/23 07:28 Pulse Ox 100 11/08/23 07:28 FiO2 Intake & Output 11/07/23 11/08/23 11/08/23 18:59 06:59 18:59 Intake Total 985.588 Output Total 1600 9055 Balance -215.963 -8954 Weight 86 kg Intake: IV 625 0.9 525 Cefepime 2 gm In Sodium 100 Chloride 0.9% 100 ml @ 25 mls/hr IVPB Q12H [facility] Rx# :[id number] Intake, IV Titration 0.588 Amount Norepinephrine 4 mg In 0.588 Sodium Chloride 0.9% 250 ml @ 0.03 MCG/KG/MIN 8. 814 mls/hr IV .Q24H [facility] Rx#:[id number] Oral 360 Output: Urine 1600 2575 Other: Voiding Method Indwelling Catheter Indwelling Catheter Indwelling Catheter # Bowel Movements 2 - Exam GENERAL EXAM: Alert, pleasant 83-year-old male, on room air, comfortable in no apparent distress. HEAD: Normocephalic and atraumatic EYES: Normal reaction of pupils, equal size. NOSE: Clear with pink turbinates. THROAT: No erythema or exudates. NECK: No masses, no JVD. CHEST: No chest wall deformity. LUNGS: Equal air entry with no crackles, wheeze, rhonchi or dullness. No conversational dyspnea. CVS: S1 and S2 normal with no audible murmur, regular rhythm. No extra heart sounds ABDOMEN: No hepatosplenomegaly, active bowel sounds, no guarding or rigidity. SPINE: No scoliosis or deformity. Negative for CVA tenderness. SKIN: No rashes CENTRAL NERVOUS SYSTEM: No focal deficits, tone is normal in all 4 extremities. EXTREMITIES: There is bilateral lower extremity mild nonpitting edema. Distal extremities warm. No cyanosis. Peripheral pulses are intact. - Labs CBC & Chem 7: 11/08/23 04:28 11/08/23 04:28 Labs: Abnormal Lab Results - Last 24 Hours (Table) 11/07/23 11/07/23 11/08/23 Range/Units 16:00 21:35 04:28 RBC 2.80 L (4.40-5.60) X 10*6/uL Hgb 9.4 L (13.0-17.0) g/dL Hct 28.8 L (39.6-50.0) % MCV 102.9 H (80.0-97.0) FL MCH 33.6 H (27.0-32.0) pg RDW 15.5 H (11.5-14.5) % Plt Count 80 L (140-440) X 10*3/uL Immature Gran # 0.08 H (0.00-0.04) X 10*3/uL Lymphocytes # 0.54 L (0.90-5.00) X 10*3/uL Eosinophils # 0.03 L (0.04-0.35) X 10*3/uL Sodium (135-145) mmol/L Carbon Dioxide (21.6-31.8) mmol/L Anion Gap (4.00-12.00) mmol/L BUN/Creatinine Ratio (12.00-20.00) Ratio Glucose (70-110) mg/dL POC Glucose (mg/dL) 161 H 170 H (70-110) mg/dL Calcium (8.7-10.3) mg/dL 11/08/23 11/08/23 11/08/23 Range/Units 04:28 06:06 11:44 RBC (4.40-5.60) X 10*6/uL Hgb (13.0-17.0) g/dL Hct (39.6-50.0) % MCV (80.0-97.0) FL MCH (27.0-32.0) pg RDW (11.5-14.5) % Plt Count (140-440) X 10*3/uL Immature Gran # (0.00-0.04) X 10*3/uL Lymphocytes # (0.90-5.00) X 10*3/uL Eosinophils # (0.04-0.35) X 10*3/uL Sodium 133 L (135-145) mmol/L Carbon Dioxide 15.8 L (21.6-31.8) mmol/L Anion Gap 12.20 H (4.00-12.00) mmol/L BUN/Creatinine Ratio 10.18 L (12.00-20.00) Ratio Glucose 199 H (70-110) mg/dL POC Glucose (mg/dL) 201 H 283 H (70-110) mg/dL Calcium 7.8 L (8.7-10.3) mg/dL Microbiology - Last 24 Hours (Table) 11/05/23 11:31 Blood Culture - Preliminary Blood Assessment and Plan Assessment: Hypotension, refractory to fluid resuscitation with a total of 30 mL/kg, initiated on vasopressors in the form of norepinephrine, since recovered and off pressors Sepsis and septic shock, secondary to group D Enterococcus urinary tract infection. Remains on vancomycin Urinary retention, status post indwelling urinary catheterization History of BPH Acute kidney injury, likely postrenal, improved Hypokalemia, being replaced per protocol Hyponatremia Diarrhea, C. difficile screen negative Non-anion gap metabolic acidosis Diabetes mellitus type 2 Hypoglycemia, treated with 1 amp dextrose History of hyperlipidemia Atrial fibrillation with controlled ventricular response, anticoagulated on Xarelto Chronic lymphocytic leukemia Anemia Frequent falls, bilateral lower extremity weakness, and gait disturbance, previous evaluated by orthopedic surgery Plan: The patient was seen and evaluated Labs and medications reviewed Stable and on room air Continue vancomycin per ID service Anticoagulated with Xarelto Increase his activity as tolerated Plan is for subacute rehabilitation at [facility] at discharge This patient was seen independently by the pulmonary/critical care nurse practitioner addressing pulmonary/critical care issues I have personally seen and examined the patient, performed the documentation and the assessment and plan as written. Number of minutes spent on the visit: 24.
--- NOTE | 2023-11-08 14:48 | P.PN ---
Subjective Progress Note Date: 11/08/23 Principal diagnosis: UTI patient is better, diarrhea has improved. He was initiated on Questran and Imodium. Still weak however. Denies having any pain or shortness of breath. No fevers or chills. Objective - Vital Signs Vital signs: Vital Signs Temp 98.1 F 11/08/23 02:06 Pulse 80 11/08/23 07:28 Resp 17 11/08/23 07:28 BP 106/67 11/08/23 07:28 Pulse Ox 100 11/08/23 07:28 FiO2 Intake & Output 11/07/23 11/08/23 11/08/23 18:59 06:59 18:59 Intake Total 985.588 Output Total 1600 2575 Balance -614.412 -2575 Weight 86 kg Intake: IV 625 0.9 525 Cefepime 2 gm In Sodium 100 Chloride 0.9% 100 ml @ 25 mls/hr IVPB Q12H [facility] Rx# :[id number] Intake, IV Titration 0.588 Amount Norepinephrine 4 mg In 0.588 Sodium Chloride 0.9% 250 ml @ 0.03 MCG/KG/MIN 8. 814 mls/hr IV .Q24H [facility] Rx#:[id number] Oral 360 Output: Urine 1600 2575 Other: Voiding Method Indwelling Catheter Indwelling Catheter Indwelling Catheter # Bowel Movements 2 - Exam Vital signs reviewed and stable. General: Nontoxic, no distress and appears stated age. Derm: Skin warm and dry, normal coloration for ethnicity. Head: Atraumatic, normocephalic and symmetric. Eyes: EOM's intact, no lid lag, and anicteric sclera Mouth: no lip lesions, mucus membranes moist Cardiovascular: Irregularly irregular with systolic murmur, positive posterior tibial pulses bilaterally, and cap refill < 2 seconds. Lungs: Respirations even, regular, and unlabored on room air. Lungs CTA bilaterally, no rhonchi, no rales, no wheezing, and no accessory muscle usage. Abdominal: soft, nontender to palpation, no guarding, no appreciable organomeg teofilo. Mason catheter in place. Ext: ROM intact. No gross muscle atrophy, plus pitting bilateral lower extremity edema, no contractures Neuro: Speech clear, face symmetrical and CN II-XII grossly intact with no noted focal neuro deficits Psych: Alert and oriented to person, place, time, and situation. Appropriate and pleasant affect. - Labs CBC & Chem 7: 11/08/23 04:28 11/08/23 04:28 Labs: Abnormal Lab Results - Last 24 Hours (Table) 11/07/23 11/07/23 11/08/23 Range/Units 16:00 21:35 04:28 RBC 2.80 L (4.40-5.60) X 10*6/uL Hgb 9.4 L (13.0-17.0) g/dL Hct 28.8 L (39.6-50.0) % MCV 102.9 H (80.0-97.0) FL MCH 33.6 H (27.0-32.0) pg RDW 15.5 H (11.5-14.5) % Plt Count 80 L (140-440) X 10*3/uL Immature Gran # 0.08 H (0.00-0.04) X 10*3/uL Lymphocytes # 0.54 L (0.90-5.00) X 10*3/uL Eosinophils # 0.03 L (0.04-0.35) X 10*3/uL Sodium (135-145) mmol/L Carbon Dioxide (21.6-31.8) mmol/L Anion Gap (4.00-12.00) mmol/L BUN/Creatinine Ratio (12.00-20.00) Ratio Glucose (70-110) mg/dL POC Glucose (mg/dL) 161 H 170 H (70-110) mg/dL Calcium (8.7-10.3) mg/dL 11/08/23 11/08/23 11/08/23 Range/Units 04:28 06:06 11:44 RBC (4.40-5.60) X 10*6/uL Hgb (13.0-17.0) g/dL Hct (39.6-50.0) % MCV (80.0-97.0) FL MCH (27.0-32.0) pg RDW (11.5-14.5) % Plt Count (140-440) X 10*3/uL Immature Gran # (0.00-0.04) X 10*3/uL Lymphocytes # (0.90-5.00) X 10*3/uL Eosinophils # (0.04-0.35) X 10*3/uL Sodium 133 L (135-145) mmol/L Carbon Dioxide 15.8 L (21.6-31.8) mmol/L Anion Gap 12.20 H (4.00-12.00) mmol/L BUN/Creatinine Ratio 10.18 L (12.00-20.00) Ratio Glucose 199 H (70-110) mg/dL POC Glucose (mg/dL) 201 H 283 H (70-110) mg/dL Calcium 7.8 L (8.7-10.3) mg/dL Microbiology - Last 24 Hours (Table) 11/05/23 11:31 Blood Culture - Preliminary Blood Assessment and Plan Plan: Acute cystitis has hx of MDR organisms Urinary retention, hx of BPH Generalized weakness, secondary to above Acute kidney injury on chronic kidney disease--resolved Continue gentle IV fluid hydration with 0.9% normal saline at 75 cc/h. Continue IV antibiotic with vancomycin. growing enterococcus in the urine, we'll follow final cultures. Seen by urology, has mason---voiding trial soon Continue Flomax 0.8 mg nightly. Hypotension, refractory to fluid resuscitation, on vasopressors in the form of norepinephrine. Sepsis and septic shock, likely urinary source did not require pressors for the past 48 hours. hyponatremia Secondary to diarrhea, IV fluids Follow sodium in a.m. Diarrhea likely abx related -On questeran and immodium, better Chronic atrial fibrillation Hypertension Hyperlipidemia CLL in remission Insulin-dependent diabetes mellitus with hypoglycemia Diabetic neuropathy Continue daily medication regimen with Xarelto 20 mg daily, atorvastatin 10 mg nightly, fenofibrate 160 mg daily and will hold Bumex at this time secondary to GUERITA and mild hyponatremia. Continue glycemic protocol with NovoLog sliding scale. NO LONG ACTING INSULIN FOR NOW HE IS NOT EATING Continue Neurontin 300 mg daily for treatment of diabetic neuropathy. Gen weakness Seen by PT and OT advised rehab. CODE STATUS: Full code DVT prophylaxis: Xarelto Anticipated discharge date: clear for discharge, awaiting auth. d/w care management Anticipated discharge place: SNF
[2023-11-08 17:00] LABS: Glucose,Whole Blood 302 mg/dL (70-110)
[2023-11-08 20:07] LABS: Glucose,Whole Blood 314 mg/dL (70-110)
[2023-11-09 06:05] LABS: Glucose,Whole Blood 216 mg/dL (70-110)
--- NOTE | 2023-11-09 10:00 | P.PN ---
Subjective Progress Note Date: 11/09/23 Principal diagnosis: UTI, urinary retention The patient has no complaints. The Kirk catheter remains in place, draining clear yellow urine. Urine culture confirms an Enterococcus UTI. Blood cultures are negative. Objective - Vital Signs Vital signs: Vital Signs Temp 98.4 F 11/09/23 02:00 Pulse 72 11/09/23 02:00 Resp 18 11/09/23 02:00 BP 95/58 11/09/23 02:00 Pulse Ox 98 11/09/23 02:00 FiO2 Intake & Output 11/08/23 11/08/23 11/09/23 06:59 18:59 06:59 Output Total 2575 820 1500 Balance -7678 -820 -1500 Weight 86 kg Output: Urine 2575 820 1500 Other: Voiding Method Indwelling Catheter Indwelling Catheter Indwelling Catheter # Bowel Movements 2 - Constitutional General appearance: Present: average body habitus, cooperative, no acute distress - Psychiatric Psychiatric: Present: A&O x's 3 - Labs CBC & Chem 7: 11/08/23 04:28 11/08/23 04:28 Labs: Abnormal Lab Results - Last 24 Hours (Table) 11/08/23 11/08/23 11/08/23 Range/Units 04:28 04:28 11:44 RBC 2.80 L (4.40-5.60) X 10*6/uL Hgb 9.4 L (13.0-17.0) g/dL Hct 28.8 L (39.6-50.0) % MCV 102.9 H (80.0-97.0) FL MCH 33.6 H (27.0-32.0) pg RDW 15.5 H (11.5-14.5) % Plt Count 80 L (140-440) X 10*3/uL Immature Gran # 0.08 H (0.00-0.04) X 10*3/uL Lymphocytes # 0.54 L (0.90-5.00) X 10*3/uL Eosinophils # 0.03 L (0.04-0.35) X 10*3/uL Sodium 133 L (135-145) mmol/L Carbon Dioxide 15.8 L (21.6-31.8) mmol/L Anion Gap 12.20 H (4.00-12.00) mmol/L BUN/Creatinine Ratio 10.18 L (12.00-20.00) Ratio Glucose 199 H (70-110) mg/dL POC Glucose (mg/dL) 283 H (70-110) mg/dL Calcium 7.8 L (8.7-10.3) mg/dL 11/08/23 11/08/23 11/09/23 Range/Units 16:59 20:06 06:04 RBC (4.40-5.60) X 10*6/uL Hgb (13.0-17.0) g/dL Hct (39.6-50.0) % MCV (80.0-97.0) FL MCH (27.0-32.0) pg RDW (11.5-14.5) % Plt Count (140-440) X 10*3/uL Immature Gran # (0.00-0.04) X 10*3/uL Lymphocytes # (0.90-5.00) X 10*3/uL Eosinophils # (0.04-0.35) X 10*3/uL Sodium (135-145) mmol/L Carbon Dioxide (21.6-31.8) mmol/L Anion Gap (4.00-12.00) mmol/L BUN/Creatinine Ratio (12.00-20.00) Ratio Glucose (70-110) mg/dL POC Glucose (mg/dL) 302 H 314 H 216 H (70-110) mg/dL Calcium (8.7-10.3) mg/dL Microbiology - Last 24 Hours (Table) 11/05/23 10:57 Urine Culture - Final Urine,Voided Enterococcus faecium 11/05/23 11:31 Blood Culture - Preliminary Blood Assessment and Plan (1) Retention of urine, unspecified Current Visit: Yes Status: Acute Code(s): R33.9 - RETENTION OF URINE, U NSPECIFIED SNOMED Code(s): 522903506 (2) UTI (urinary tract infection) Current Visit: Yes Status: Acute Code(s): N39.0 - URINARY TRACT INFECTION, SITE NOT SPECIFIED SNOMED Code(s): 44546372 Plan: - Continue tamsulosin. - Continue Vancomycin. - Voiding trial. Will replace Kirk if patient is unable to void or empties his bladder incompletely.
--- NOTE | 2023-11-09 11:07 | P.PN ---
Subjective Progress Note Date: 11/09/23 I was contacted by sound physician about this patient who is an ER hold at the moment. He was originally brought in for generalized weakness and thought to have urinary tract infection/urosepsis. He has been hypotensive and received several fluid boluses. He has been fluid resuscitated with a total of 30 mL per kilogram of Normal saline. Despite this, he remains hypotensive, most recent blood pressure 70s/40s mmHg. We were asked to evaluate this patient for possible ICU transfer. Patient is a 83-year-old white male with past medical history significant for atrial fibrillation, hyperlipidemia, hypertension, CLL, frequent falls, lower extremity weakness, BPH, urinary retention, previous urinary tract infections, among other things. Of note, he was evaluated by the emergency room department on 11/04/2023. Apparently, had a fall while at home. He has been progressively more weak. He was found to have urinary retention, had an indwelling urinary catheter placed, and diagnosed with urinary tract infection. He was discharged home on antibiotics and direction to follow-up with urologist. Less than 24 hours later, could not stand up out of chair without assistance, and brought back into the emergency department for evaluation. Urinalysis positive for leukocyte esterase. Urine culture pending. Patient currently covered on broad-spectrum antibiotics in the form of cefepime and vancomycin. CBC: WBC count 11, hemoglobin 9.5, hematocrit 28.9, platelets 105. Most recent BMP: Sodium 132, potassium 2.9, chloride 112, serum bicarb 15, BUN 17, creatinine 0.98, glucose 79. Lactic 0.8. Troponin 0.026. Patient is currently in the emergency department. Current vital signs include blood pressure 78/49, heart rate 81 bpm, respiratory rate 20, SpO2 97% on room air, febrile with a Tmax of 100.5 F. Normal saline infusing at 130 mL/h. He is currently lying in bed with his legs elevated. No apparent distress. He is very hard of hearing. He is alert and answers most of my questions appropriately, although unfamiliar with some of his medical history. He denies any specific complaints. Previously, was having issues with "dribbling" and incomplete voiding. Denies any dysuria, hematuria. There is an indwelling urinary catheter. He is also been incontinent to stool. He has chronic lumbar back pain. Previously evaluated by orthopedics. Denies flank pain. Denies nausea, vomiting, abdominal pain, suprapubic pain. As stated above, patient's blood pressure remains hypotensive, he will have to be started on vasopressors. Will be admitted to the intensive care unit once bed available. The patient is seen today November 07, 2023 in follow-up in the intensive care [facility]. He is currently awake and alert in no acute distress. Resting comfortably in bed. Maintaining good O2 saturations in the 90s on room air. He has been off norepinephrine. He has normal saline at 75 mL/h. He remains on cefepime and vancomycin. He has been having some issues with diarrhea. C. difficile screen was negative. His urine culture is positive for group D Enterococcus. White count 7.9. Hemoglobin 9.3. Platelets 97,000. Sodium 124. Potassium 4.0. Chloride 111. Bicarb 11. BUN 10. Creatinine 0.91. Glucose 113. He is anticoagulated with Xarelto. The patient is seen today November 08, 2023 in follow-up on the regular medical floor. He was transferred out of the intensive care unit yesterday. He is awake and alert in no acute distress. He is maintaining good O2 saturations in the 90s on room air. He remains on normal saline at KVO. He is being treated for group D Enterococcus urinary tract infection. White count 8.9. Hemoglobin 9.4. Platelets 80,000. Sodium 133. Potassium 3.5. Bicarb 16. BUN 11. Creatinine 1.1. Glucose 199. He is continued on vancomycin per infectious disease. Anticoagulated with Xarelto. The patient is seen today November 09, 2023 in follow-up on the regular medical floor. He is currently up in a chair. Awake and alert in no acute distress. Continue good O2 saturations in the 90s on room air. He has normal saline at KVO. He is continued on vancomycin. Urine culture was positive for Enterococcus faecium. Blood cultures revealed no growth. Glucose 216. He remains anticoagulated with Xarelto. Objective - Vital Signs Vital signs: Vital Signs Temp 97.6 F 11/09/23 07:33 Pulse 85 11/09/23 07:33 Resp 18 11/09/23 07:33 BP 118/79 11/09/23 07:33 Pulse Ox 99 11/09/23 07:33 FiO2 Intake & Output 11/08/23 11/09/23 11/09/23 18:59 06:59 18:59 Output Total 820 1500 Balance -820 -1500 Weight 86 kg Output: Urine 820 1500 Other: Voiding Method Indwelling Catheter Indwelling Catheter - Exam GENERAL EXAM: Alert, pleasant 83-year-old male, sitting up in a chair, on room air, in no apparent distress. HEAD: Normocephalic and atraumatic EYES: Normal reaction of pupils, equal size. NOSE: Clear with pink turbinates. THROAT: No erythema or exudates. NECK: No masses, no JVD. CHEST: No chest wall deformity. LUNGS: Equal air entry with no crackles, wheeze, rhonchi or dullness. No conversational dyspnea. CVS: S1 and S2 normal with no audible murmur, regular rhythm. No extra heart sounds ABDOMEN: No hepatosplenomegaly, active bowel sounds, no guarding or rigidity. SPINE: No scoliosis or deformity. Negative for CVA tenderness. SKIN: No rashes CENTRAL NERVOUS SYSTEM: No focal deficits, tone is normal in all 4 extremities. EXTREMITIES: There is bilateral lower extremity mild nonpitting edema. No cyanosis. Peripheral pulses are intact. - Labs CBC & Chem 7: 11/08/23 04:28 11/08/23 04:28 Labs: Abnormal Lab Results - Last 24 Hours (Table) 11/08/23 11/08/23 11/08/23 Range/Units 11:44 16:59 20:06 POC Glucose (mg/dL) 283 H 302 H 314 H (70-110) mg/dL 11/09/23 Range/Units 06:04 POC Glucose (mg/dL) 216 H (70-110) mg/dL Microbiology - Last 24 Hours (Table) 11/05/23 10:57 Urine Culture - Final Urine,Voided Enterococcus faecium 11/05/23 11:31 Blood Culture - Preliminary Blood Assessment and Plan Assessment: Hypotension, refractory to fluid resuscitation with a total of 30 mL/kg, initiated on vasopressors in the form of norepinephrine, since recovered and off pressors Sepsis and septic shock, secondary to Enterococcus faecium urinary tract infection. Remains on vancomycin Urinary retention, status post indwelling urinary catheterization History of BPH Acute kidney injury, likely postrenal, improved Hypokalemia, being replaced per protocol Hyponatremia Diarrhea, C. difficile screen negative Non-anion gap metabolic acidosis Diabetes mellitus type 2 Hypoglycemia, treated with 1 amp dextrose History of hyperlipidemia Atrial fibrillation with controlled ventricular response, anticoagulated on Xarelto Chronic lymphocytic leukemia Anemia Frequent falls, bilateral lower extremity weakness, and gait disturbance, previous evaluated by orthopedic surgery Plan: The patient was seen and evaluated Labs and medications reviewed Stable and on room air Continue vancomycin per ID service Plan is for rehabilitation at [facility] at discharge We will see the patient on an as-needed basis I have personally seen and examined the patient, performed the documentation and the assessment and plan as written. Number of minutes spent on the visit: 10.
[2023-11-09] MEDS: VANCOMYCIN TROUGH DUE 1 EACH MISC MISCELLANE ONE (11:37)
[2023-11-09 11:50] LABS: Glucose,Whole Blood 305 mg/dL (70-110)
[2023-11-09 12:33] LABS: African American GFR (CKD) >90 (>60 ml/min/1.73 sqM); Non-African American GFR(CKD) 82 (>60 ml/min/1.73 sqM)
[2023-11-09] MEDS: INSULIN DETEMIR (LEVEMIR) 100 UNIT/ML SYR SQ SCH (12:56)
[2023-11-09 17:15] LABS: Glucose,Whole Blood 272 mg/dL (70-110)
--- NOTE | 2023-11-09 17:20 | P.PN ---
Subjective Progress Note Date: 11/09/23 Principal diagnosis: UTI Doing well, diarrhea resolved. No pain or sob. No fevers. No other overnight events. Objective - Vital Signs Vital signs: Vital Signs Temp 97.6 F 11/09/23 07:33 Pulse 85 11/09/23 07:33 Resp 18 11/09/23 07:33 BP 118/79 11/09/23 07:33 Pulse Ox 99 11/09/23 07:33 FiO2 Intake & Output 11/08/23 11/09/23 11/09/23 18:59 06:59 18:59 Output Total 820 1500 Balance -820 -1500 Weight 86 kg Output: Urine 820 1500 Other: Voiding Method Indwelling Catheter Indwelling Catheter - Exam Vital signs reviewed and stable. General: Nontoxic, no distress and appears stated age. Derm: Skin warm and dry, normal coloration for ethnicity. Head: Atraumatic, normocephalic and symmetric. Eyes: EOM's intact, no lid lag, and anicteric sclera Mouth: no lip lesions, mucus membranes moist Cardiovascular: Irregularly irregular with systolic murmur, positive posterior tibial pulses bilaterally, and cap refill < 2 seconds. Lungs: Respirations even, regular, and unlabored on room air. Lungs CTA bilat erally, no rhonchi, no rales, no wheezing, and no accessory muscle usage. Abdominal: soft, nontender to palpation, no guarding, no appreciable organomegaly. Mason catheter in place. Ext: ROM intact. No gross muscle atrophy, plus pitting bilateral lower extremity edema, no contractures Neuro: Speech clear, face symmetrical and CN II-XII grossly intact with no noted focal neuro deficits Psych: Alert and oriented to person, place, time, and situation. Appropriate and pleasant affect. - Labs CBC & Chem 7: 11/08/23 04:28 11/09/23 11:33 Labs: Abnormal Lab Results - Last 24 Hours (Table) 11/08/23 11/09/23 11/09/23 Range/Units 20:06 06:04 11:49 POC Glucose (mg/dL) 314 H 216 H 305 H (70-110) mg/dL 11/09/23 Range/Units 17:14 POC Glucose (mg/dL) 272 H (70-110) mg/dL Microbiology - Last 24 Hours (Table) 11/05/23 10:57 Urine Culture - Final Urine,Voided Enterococcus faecium 11/05/23 11:31 Blood Culture - Preliminary Blood Assessment and Plan Plan: Acute cystitis has hx of MDR organisms Urinary retention, hx of BPH Generalized weakness, secondary to above Acute kidney injury on chronic kidney disease--resolved Continue IV vancomycin. growing enterococcus in the urine. Seen by urology, has mason---voiding trial soon Continue Flomax 0.8 mg nightly. Hypotension, refractory to fluid resuscitation, briefly required vasopressors in the ICU. Sepsis and septic shock, likely urinary source Bp stabilized. hyponatremia Resolved Diarrhea likely abx related -On questeran and immodium, better Chronic atrial fibrillation Hypertension Hyperlipidemia CLL in remission Insulin-dependent diabetes mellitus with hypoglycemia Diabetic neuropathy Continue daily medication regimen with Xarelto 20 mg daily, atorvastatin 10 mg nightly, fenofibrate 160 mg daily and will hold Bumex at this time secondary to GUERITA and mild hyponatremia. Continue glycemic protocol with NovoLog sliding scale. NO LONG ACTING INSULIN FOR NOW HE IS NOT EATING Continue Neurontin 300 mg daily for treatment of diabetic neuropathy. Gen weakness Seen by PT and OT advised rehab. CODE STATUS: Full code DVT prophylaxis: Xarelto Anticipated discharge date: clear for discharge to rehab, awaiting auth. Anticipated discharge place: SNF
[2023-11-09 21:00] LABS: Glucose,Whole Blood 182 mg/dL (70-110)
--- NOTE | 2023-11-09 21:10 | P.PN ---
Subjective Progress Note Date: 11/09/23 Principal diagnosis: Reason for follow-up is sepsis UTI Patient is a 83-year-old male with a past medical history significant for atrial fibrillation hypertension hyperlipidemia CLL BPH UTIs presenting to the ER for evaluation of weakness, patient diagnosed with sepsis secondary urinary tract infection requiring admission to ICU because of hypotension. On today's evaluation that is 11/09/2023,the patient denies any fever or any chills, patient is breathing comfortably on room air, the patient denies chest pain shortness of breath and no significant cough, patient denies abdominal pain, no nausea vomiting or diarrhea. Patient did have a creatinine 0.84 vancomycin trough is 21.8 urine with Enterococcus faecium vancomycin sensitive resistant to ampicillin Objective - Vital Signs Vital signs: Vital Signs Temp 98.4 F 11/09/23 02:00 Pulse 72 11/09/23 02:00 Resp 18 11/09/23 02:00 BP 95/58 11/09/23 02:00 Pulse Ox 98 11/09/23 02:00 FiO2 Intake & Output 11/08/23 11/09/23 11/09/23 18:59 06:59 18:59 Output Total 820 1500 Balance -820 -1500 Weight 86 kg Output: Urine 820 1500 Other: Voiding Method Indwelling Catheter Indwelling Catheter - Exam GENERAL DESCRIPTION: An elderly male lying in bed in no distress RESPIRATORY SYSTEM: Unlabored breathing , coarse breath sounds bilaterally HEART: S1 S2 regular rate and rhythm , ABDOMEN: Soft , no tenderness EXTREMITIES: No edema feet - Labs CBC & Chem 7: 11/08/23 04:28 11/09/23 11:33 Labs: Abnormal Lab Results - Last 24 Hours (Table) 11/08/23 11/08/23 11/08/23 Range/Units 04:28 04:28 11:44 RBC 2.80 L (4.40-5.60) X 10*6/uL Hgb 9.4 L (13.0-17.0) g/dL Hct 28.8 L (39.6-50.0) % MCV 102.9 H (80.0-97.0) FL MCH 33.6 H (27.0-32.0) pg RDW 15.5 H (11.5-14.5) % Plt Count 80 L (140-440) X 10*3/uL Immature Gran # 0.08 H (0.00-0.04) X 10*3/uL Lymphocytes # 0.54 L (0.90-5.00) X 10*3/uL Eosinophils # 0.03 L (0.04-0.35) X 10*3/uL Sodium 133 L (135-145) mmol/L Carbon Dioxide 15.8 L (21.6-31.8) mmol/L Anion Gap 12.20 H (4.00-12.00) mmol/L BUN/Creatinine Ratio 10.18 L (12.00-20.00) Ratio Glucose 199 H (70-110) mg/dL POC Glucose (mg/dL) 283 H (70-110) mg/dL Calcium 7.8 L (8.7-10.3) mg/dL 11/08/23 11/08/23 11/09/23 Range/Units 16:59 20:06 06:04 RBC (4.40-5.60) X 10*6/uL Hgb (13.0-17.0) g/dL Hct (39.6-50.0) % MCV (80.0-97.0) FL MCH (27.0-32.0) pg RDW (11.5-14.5) % Plt Count (140-440) X 10*3/uL Immature Gran # (0.00-0.04) X 10*3/uL Lymphocytes # (0.90-5.00) X 10*3/uL Eosinophils # (0.04-0.35) X 10*3/uL Sodium (135-145) mmol/L Carbon Dioxide (21.6-31.8) mmol/L Anion Gap (4.00-12.00) mmol/L BUN/Creatinine Ratio (12.00-20.00) Ratio Glucose (70-110) mg/dL POC Glucose (mg/dL) 302 H 314 H 216 H (70-110) mg/dL Calcium (8.7-10.3) mg/dL Microbiology - Last 24 Hours (Table) 11/05/23 10:57 Urine Culture - Final Urine,Voided Enterococcus faecium 11/05/23 11:31 Blood Culture - Preliminary Blood Assessment and Plan (1) Septic shock Current Visit: Yes Status: Acute Code(s): A41.9 - SEPSIS, UNSPECIFIED ORGANISM; R65.21 - SEVERE SEPSIS WITH SEPTIC SHOCK SNOMED Code(s): 81672550 (2) UTI (urinary tract infection) Current Visit: Yes Status: Acute Code(s): N39.0 - URINARY TRACT INFECTION, SITE NOT SPECIFIED SNOMED Code(s): 40128166 Plan: 1patient presented to hospital with sepsis in this patient who did have a fever tachycardia hypotension elevated white count source likely urinary with significantly positive UA likely from enteric gram-negative pathogen, positive pathogen such as Enterococcus not entirely excluded 2-patient did have diarrhea likely antibiotic associated stool for C. difficile is negative patient did have improvement with Questran to continue 3patient urine has been finalized Enterococcus faecium that is sensitive to vancomycin resistant to ampicillin will continue vancomycin while inpatient Dictation was produced using [employer] dictation software. please excuse any grammatical, word or spelling errors. Time with Patient: Less than 30
[2023-11-10] MEDS: VANCOMYCIN 1,500 MG in SODIUM CHLORIDE 0.9% 500 ML 500 ML IVPB SCH (05:31)
[2023-11-10 06:27] LABS: Glucose,Whole Blood 150 mg/dL (70-110)
[2023-11-10 08:28] LABS: African American GFR (CKD) >90 (>60 ml/min/1.73 sqM); Non-African American GFR(CKD) 82 (>60 ml/min/1.73 sqM)
--- NOTE | 2023-11-10 11:26 | P.PN ---
Subjective Progress Note Date: 11/10/23 Principal diagnosis: UTI, urinary retention The patient has no complaints. The Kirk catheter was removed yesterday, and he states that he is voiding without difficulty. Specifically, he feels that he is emptying his bladder well, and he denies dysuria and hematuria. Objective - Vital Signs Vital signs: Vital Signs Temp 97.5 F L 11/10/23 07:13 Pulse 89 11/10/23 07:13 Resp 18 11/10/23 07:13 BP 127/76 11/10/23 07:13 Pulse Ox 100 11/10/23 07:13 FiO2 Intake & Output 11/09/23 11/10/23 11/10/23 18:59 06:59 18:59 Output Total 2200 Balance -2200 Output: Urine 2200 Uretheral (Kirk) 1100 Other: Voiding Method Indwelling Catheter Toilet Urinal # Voids 1 - Constitutional General appearance: Present: average body habitus, cooperative, no acute distress - Psychiatric Psychiatric: Present: A&O x's 3 - Labs CBC & Chem 7: 11/08/23 04:28 11/10/23 05:36 Labs: Abnormal Lab Results - Last 24 Hours (Table) 11/09/23 11/09/23 11/09/23 Range/Units 11:49 17:14 20:59 POC Glucose (mg/dL) 305 H 272 H 182 H (70-110) mg/dL 11/10/23 Range/Units 06:25 POC Glucose (mg/dL) 150 H (70-110) mg/dL Assessment and Plan Assessment: Urine culture confirms an Enterococcus UTI, for which he is receiving vancomycin. Blood cultures are negative. (1) Retention of urine, unspecified Current Visit: Yes Status: Acute Code(s): R33.9 - RETENTION OF URINE, UNSPECIFIED SNOMED Code(s): 840501365 (2) UTI (urinary tract infection) Current Visit: Yes Status: Acute Code(s): N39.0 - URINARY TRACT INFECTION, SITE NOT SPECIFIED SNOMED Code(s): 76069147 Plan: - Continue tamsulosin. - Continue Vancomycin. - Bladder scan to check postvoid residual.
[2023-11-10 11:44] LABS: Glucose,Whole Blood 312 mg/dL (70-110)
--- NOTE | 2023-11-10 14:54 | P.PN ---
Subjective Progress Note Date: 11/10/23 Principal diagnosis: Reason for follow-up is sepsis UTI Patient is a 83-year-old male with a past medical history significant for atrial fibrillation hypertension hyperlipidemia CLL BPH UTIs presenting to the ER for evaluation of weakness, patient diagnosed with sepsis secondary urinary tract infection requiring admission to ICU because of hypotension. On today's evaluation that is 11/10/2023,the patient remains to be afebrile, patient is on room air not requiring supplemental oxygen, has been complaining of some nosebleed, however denies any shortness of breath no chest pain or cough.Patient denies having any nausea or vomiting, no abdominal pain and no diarrhea has been reported. The patient did have a creatinine 0.82 blood culture negative urine with Enter ococcus faecium Objective - Vital Signs Vital signs: Vital Signs Temp 97.5 F L 11/10/23 07:13 Pulse 89 11/10/23 07:13 Resp 18 11/10/23 07:13 BP 127/76 11/10/23 07:13 Pulse Ox 100 11/10/23 07:13 FiO2 Intake & Output 11/09/23 11/10/23 11/10/23 18:59 06:59 18:59 Output Total 2200 Balance -2200 Output: Urine 2200 Uretheral (Kirk) 1100 Other: Voiding Method Indwelling Catheter Toilet Urinal # Voids 1 - Exam GENERAL DESCRIPTION: An elderly male lying in bed in no distress RESPIRATORY SYSTEM: Unlabored breathing , coarse breath sounds bilaterally HEART: S1 S2 regular rate and rhythm , ABDOMEN: Soft , no tenderness EXTREMITIES: No edema feet - Labs CBC & Chem 7: 11/08/23 04:28 11/10/23 05:36 Labs: Abnormal Lab Results - Last 24 Hours (Table) 11/09/23 11/09/23 11/10/23 Range/Units 17:14 20:59 06:25 POC Glucose (mg/dL) 272 H 182 H 150 H (70-110) mg/dL 11/10/23 Range/Units 11:42 POC Glucose (mg/dL) 312 H (70-110) mg/dL Assessment and Plan (1) Septic shock Current Visit: Yes Status: Acute Code(s): A41.9 - SEPSIS, UNSPECIFIED ORGANISM; R65.21 - SEVERE SEPSIS WITH SEPTIC SHOCK SNOMED Code(s): 99932193 (2) UTI (urinary tract infection) Current Visit: Yes Status: Acute Code(s): N39.0 - URINARY TRACT INFECTION, SITE NOT SPECIFIED SNOMED Code(s): 28590475 Plan: 1patient presented to hospital with sepsis in this patient who did have a fever tachycardia hypotension elevated white count source likely urinary with significantly positive UA likely from enteric gram-negative pathogen, positive pathogen such as Enterococcus not entirely excluded 2-patient did have diarrhea likely antibiotic associated stool for C. difficile is negative patient did have improvement with Questran to continue or if no bowel movement for 24 hours 3patient urine has been finalized Enterococcus faecium that is sensitive to vancomycin patient is covered with vancomycin to continue while inpatient and monitor clinical course closely Dictation was produced using [employer] dictation software. please excuse any grammatical, word or spelling errors. Time with Patient: Less than 30
--- NOTE | 2023-11-10 15:03 | P.PN ---
Subjective Progress Note Date: 11/10/23 Principal diagnosis: UTI patient doing well, Mason catheter was removed yesterday, he is currently voiding without difficulty.. Diarrhea has resolved. No fevers or chills. No p ain. No nausea or vomiting. Objective - Vital Signs Vital signs: Vital Signs Temp 97.5 F L 11/10/23 07:13 Pulse 89 11/10/23 07:13 Resp 18 11/10/23 07:13 BP 127/76 11/10/23 07:13 Pulse Ox 100 11/10/23 07:13 FiO2 Intake & Output 11/09/23 11/10/23 11/10/23 18:59 06:59 18:59 Output Total 2200 Balance -2200 Output: Urine 2200 Uretheral (Mason) 1100 Other: Voiding Method Indwelling Catheter Toilet Urinal # Voids 1 - Exam Vital signs reviewed and stable. General: Nontoxic, no distress and appears stated age. Derm: Skin warm and dry, normal coloration for ethnicity. Head: Atraumatic, normocephalic and symmetric. Eyes: EOM's intact, no lid lag, and anicteric sclera Mouth: no lip lesions, mucus membranes moist Cardiovascular: Irregularly irregular with systolic murmur, positive posterior tibial pulses bilaterally, and cap refill < 2 seconds. Lungs: Respirations even, regular, and unlabored on room air. Lungs CTA bilaterally, no rhonchi, no rales, no wheezing, and no accessory muscle usage. Abdominal: soft, nontender to palpation, no guarding, no appreciable organomegaly. Mason catheter in place. Ext: ROM intact. No gross muscle atrophy, plus pitting bilateral lower extremity edema, no contractures Neuro: Speech clear, face symmetrical and CN II-XII grossly intact with no noted focal neuro deficits Psych: Alert and oriented to person, place, time, and situation. Appropriate and pleasant affect. - Labs CBC & Chem 7: 11/08/23 04:28 11/10/23 05:36 Labs: Abnormal Lab Results - Last 24 Hours (Table) 11/09/23 11/09/23 11/10/23 Range/Units 17:14 20:59 06:25 POC Glucose (mg/dL) 272 H 182 H 150 H (70-110) mg/dL 11/10/23 Range/Units 11:42 POC Glucose (mg/dL) 312 H (70-110) mg/dL Assessment and Plan Plan: Acute cystitis has hx of MDR organisms Urinary retention, hx of BPH Generalized weakness, secondary to above Acute kidney injury on chronic kidney disease--resolved Continue IV vancomycin. growing enterococcus in the urine--ID service following BPH with urinary retention Continue Flomax 0.8 mg nightly. -Seen by urology, mason removed 11/08, will check bladder scan to check post void residuals. Hypotension, refractory to fluid resuscitation, briefly required vasopressors in the ICU. Sepsis and septic shock, likely urinary source Bp stabilized. hyponatremia Resolved Diarrhea likely abx related -On questeran and immodium, better Chronic atrial fibrillation Hypertension Hyperlipidemia CLL in remission Insulin-dependent diabetes mellitus with hypoglycemia Diabetic neuropathy Continue daily medication regimen with Xarelto 20 mg daily, atorvastatin 10 mg nightly, fenofibrate 160 mg daily and will hold Bumex at this time secondary to GUERITA and mild hyponatremia. Continue glycemic protocol with NovoLog sliding scale. NO LONG ACTING INSULIN FOR NOW HE IS NOT EATING Continue Neurontin 300 mg daily for treatment of diabetic neuropathy. Gen weakness Seen by PT and OT advised rehab. CODE STATUS: Full code DVT prophylaxis: Xarelto Anticipated discharge date: clear for discharge to rehab, awaiting auth. Anticipated discharge place: SNF
[2023-11-10 16:54] LABS: Glucose,Whole Blood 333 mg/dL (70-110)
[2023-11-10 21:40] LABS: Glucose,Whole Blood 283 mg/dL (70-110)
[2023-11-11 06:40] LABS: Glucose,Whole Blood 202 mg/dL (70-110)
[2023-11-11] MEDS: INSULIN DETEMIR (LEVEMIR) 100 UNIT/ML SYR SQ SCH (06:50)
[2023-11-11 09:23] LABS: HCT 30.3 % (39.0-53.0); HGB 9.8 gm/dL (13.0-17.5); Hypochromasia Marked; MCH 34.3 pg (25.0-35.0); MCHC 32.4 g/dL (31.0-37.0); Macrocytosis Moderate; Platelet Count 100 k/uL (150-450); RBC 2.86 m/uL (4.30-5.90); RDW 15.5 % (11.5-15.5); WBC 6.5 k/uL (3.8-10.6)
[2023-11-11 09:25] LABS: African American GFR (CKD) >90 (>60 ml/min/1.73 sqM); Anion Gap 6 mmol/L; Blood Urea Nitrogen 13 mg/dL (9-20); Calcium 8.7 mg/dL (8.4-10.2); Carbon Dioxide 19 mmol/L (22-30); Chloride 112 mmol/L (98-107); Glucose 219 mg/dL (74-99); Magnesium 1.7 mg/dL (1.6-2.3); Non-African American GFR(CKD) 83 (>60 ml/min/1.73 sqM); Phosphorus 1.5 mg/dL (2.5-4.5); Potassium 3.6 mmol/L (3.5-5.1); Sodium 137 mmol/L (137-145)
--- NOTE | 2023-11-11 11:07 | P.PN ---
Subjective Progress Note Date: 11/11/23 No acute overnight event, indicates he is able to void without any dysuria or gross hematuria, postvoid residual slightly elevated at 333 mL Objective - Vital Signs Vital signs: Vital Signs Temp 97.8 F 11/11/23 07:26 Pulse 85 11/11/23 07:26 Resp 17 11/11/23 07:26 BP 96/64 11/11/23 07:26 Pulse Ox 100 11/11/23 07:26 FiO2 Intake & Output 11/10/23 11/11/23 11/11/23 18:59 06:59 18:59 Intake Total 500 Output Total 533 Balance 500 -533 Intake: Intake, IV Titration 500 Amount Vancomycin 1,500 mg In 500 Sodium Chloride 0.9% 500 ml 500 ml @ 167 mls/hr IVPB Q16H KERRY Rx#: [id number] Output: Urine 200 Post Void Residual 333 Other: # Voids 2 # Bowel Movements 1 - Constitutional General appearance: Present: no acute distress - Gastrointestinal General gastrointestinal: Present: soft. Absent: distended, tenderness - Labs CBC & Chem 7: 11/11/23 08:43 11/11/23 08:43 Labs: Abnormal Lab Results - Last 24 Hours (Table) 11/10/23 11/10/23 11/10/23 Range/Units 11:42 16:53 21:39 RBC (4.30-5.90) m/uL Hgb (13.0-17.5) gm/dL Hct (39.0-53.0) % MCV (80.0-100.0) fL Plt Count (150-450) k/uL Chloride (98-107) mmol/L Carbon Dioxide (22-30) mmol/L Glucose (74-99) mg/dL POC Glucose (mg/dL) 312 H 333 H 283 H (70-110) mg/dL Phosphorus (2.5-4.5) mg/dL 11/11/23 11/11/23 11/11/23 Range/Units 06:35 08:43 08:43 RBC 2.86 L (4.30-5.90) m/uL Hgb 9.8 L (13.0-17.5) gm/dL Hct 30.3 L (39.0-53.0) % MCV 106.0 H (80.0-100.0) fL Plt Count 100 L (150-450) k/uL Chloride 112 H (98-107) mmol/L Carbon Dioxide 19 L (22-30) mmol/L Glucose 219 H (74-99) mg/dL POC Glucose (mg/dL) 202 H (70-110) mg/dL Phosphorus 1.5 L (2.5-4.5) mg/dL Microbiology - Last 24 Hours (Table) 11/05/23 11:31 Blood Culture - Final Blood Assessment and Plan Assessment: 83-year-old male admitted to the hospital with Enterococcus UTI, urinary retention. Patient Kirk catheter has been removed he is able to void and his postvoid residual is elevated at 330 mL -Continue Flomax -Continue to monitor postvoid residual, if remains under 400 mL no need for Kirk catheter
[2023-11-11 11:18] LABS: Glucose,Whole Blood 305 mg/dL (70-110)
[2023-11-11] MEDS: INSULIN DETEMIR (LEVEMIR) 100 UNIT/ML SYR SQ STA (11:44)
--- NOTE | 2023-11-11 16:22 | P.PN ---
Subjective Progress Note Date: 11/11/23 Subjective: Patient seen and examined at bedside. No acute events overnight. All Systems reviewed and pertinent positives and negatives noted in HPI, all other symptoms are negative Objective: Vital signs reviewed. General: non toxic, no distress, appears at stated age, normal weight Derm: no unusual rashes/lesions, warm Head: atraumatic, normocephalic, symmetric Eyes: EOMI, no lid lag, anicteric sclera, pupils equal round reactive to light ENT: Nose and ears atraumatic Neck: No cervical lymphadenopathy, trachea midline, supple Mouth: no lip lesion, mucus membranes moist Cardiovascular: S1S2 irreg, no murmur, positive dorsalis pedis pulse bilateral, no edema Lungs: CTA bilateral, no rhonchi, no rales, no accessory muscle use Abdominal: soft, nontender to palpation, no guarding Ext: muscle strength 5 out of 5 in all 4 extremities grossly, no gross muscle atrophy, no contractures, Neuro: CN II-XI grossly intact, no gross focal neuro deficits Psych: Alert, oriented, appropriate affect Data reviewed today: Labs: WBC 6.5, hemoglobin 9.8, hematocrit 30.3, MCV 106, platelet 100 Sodium 137, potassium 3.6, chloride 112, bicarb 19, creatinine 0.81, BUN 13, serum glucose 2019, phosphorus 7.5, magnesium 1.7, Images: No new imaging Assessment and Plan: 83-year-old male with past medical history of hypertension, hyperlipidemia, A- fib on Eliquis, IDD M, CKD stage III yea, CLL, and neuropathy presented to the ER with a chief complaint of generalized weakness. Diagnosed with acute cystitis. Patient did develop septic shock, required vasopressors briefly in the ICU. Now normotensive. Pending discharge to subacute rehab. #Acute cystitis Septic shock, resolved Urine culture on 11/09/2023 positive for Enterococcus faecium Blood culture on 11/09/2023 shows no growth Continue with IV vancomycin IVPB every 16 hour, monitor for renal toxicity Infectious disease on board Consider switching IV antibiotic to p.o., Enterococcus sensitive to linezolid and Macrobid #Acute kidney injury on chronic kidney disease (resolved) BUN 13, creatinine 0.81 Continue monitor BMP #Hyperchloremic metabolic acidosis likely secondary to diarrhea, secondary to medications Loperamide 2 mg p.o. 4 times daily, Maalox 30 mL p.o. every 4 hours. Continue monitor BMP Replete electrolytes as needed #BPH with urinary retention Continue Flomax 0.8 mg nightly. Seen by urology, mason removed 11/08, voiding well #Hyponatremia Resolved #Insulin-dependent diabetes mellitus with hyperglycemia Short acting sliding scale insulin Insulin detemir increased from 20 units subcu daily to 30 units subcu daily Continue monitor serum glucose level #Chronic conditions: Chronic atrial fibrillation Hypertension Hyperlipidemia CLL in remission Diabetic neuropathy Continue daily medication regimen with Xarelto 20 mg p.o. daily, atorvastatin 10 mg p.o. nightly, fenofibrate 160 mg p.o. daily and will hold Bumex at this time secondary to GUERITA and mild hyponatremia. Continue Neurontin 300 mg daily for treatment of diabetic neuropathy. F: None E: Phosphorus replacement protocol and potassium replacement protocol N: Consistent carbohydrate diet A: PT/OT DVT ppx: Xarelto 20 mg p.o. daily Code Status: Full code Anticipated discharge place: Subacute rehab Anticipated discharge date: Pending clinical course I have seen and evaluated the patient today. Discussed with the resident and agree with the residents finding and plan as documented in the resident's note. Changes highlighted in blue font. Objective - Vital Signs Vital signs: Vital Signs Temp 97.0 F L 11/11/23 13:51 Pulse 73 11/11/23 13:51 Resp 19 11/11/23 13:51 BP 105/71 11/11/23 13:51 Pulse Ox 100 11/11/23 13:51 FiO2 Intake & Output 11/10/23 11/11/23 11/11/23 18:59 06:59 18:59 Intake Total 500 Output Total 533 Balance 500 -533 Intake: Intake, IV Titration 500 Amount Vancomycin 1,500 mg In 500 Sodium Chloride 0.9% 500 ml 500 ml @ 167 mls/hr IVPB Q16H KERRY Rx#: [id number] Output: Urine 200 Post Void Residual 333 Other: # Voids 2 # Bowel Movements 1 - Labs CBC & Chem 7: 11/11/23 08:43 11/11/23 08:43 Labs: Abnormal Lab Results - Last 24 Hours (Table) 11/10/23 11/10/23 11/11/23 Range/Units 16:53 21:39 06:35 RBC (4.30-5.90) m/uL Hgb (13.0-17.5) gm/dL Hct (39.0-53.0) % MCV (80.0-100.0) fL Plt Count (150-450) k/uL Chloride (98-107) mmol/L Carbon Dioxide (22-30) mmol/L Glucose (74-99) mg/dL POC Glucose (mg/dL) 333 H 283 H 202 H (70-110) mg/dL Phosphorus (2.5-4.5) mg/dL 11/11/23 11/11/23 11/11/23 Range/Units 08:43 08:43 11:16 RBC 2.86 L (4.30-5.90) m/uL Hgb 9.8 L (13.0-17.5) gm/dL Hct 30.3 L (39.0-53.0) % MCV 106.0 H (80.0-100.0) fL Plt Count 100 L (150-450) k/uL Chloride 112 H (98-107) mmol/L Carbon Dioxide 19 L (22-30) mmol/L Glucose 219 H (74-99) mg/dL POC Glucose (mg/dL) 305 H (70-110) mg/dL Phosphorus 1.5 L (2.5-4.5) mg/dL Microbiology - Last 24 Hours (Table) 11/05/23 11:31 Blood Culture - Final Blood
[2023-11-11 17:07] LABS: Glucose,Whole Blood 223 mg/dL (70-110)
[2023-11-11 21:36] LABS: Glucose,Whole Blood 268 mg/dL (70-110)
--- NOTE | 2023-11-11 22:42 | P.PN ---
Subjective Progress Note Date: 11/11/23 Principal diagnosis: Reason for follow-up is sepsis UTI Patient is a 83-year-old male with a past medical history significant for atrial fibrillation hypertension hyperlipidemia CLL BPH UTIs presenting to the ER for evaluation of weakness, patient diagnosed with sepsis secondary urinary tract infection requiring admission to ICU because of hypotension. On today's evaluation that is 11/11/2023, the patient continues to be afebrile, the patient is on room air and breathing comfortably, the Pt denies having any chest pain or cough, the patient denies having any abdominal pain no vomiting or any diarrhea, no further nosebleed today. Patient white count 6.5, creatinine 0.81 blood culture has been negative Objective - Vital Signs Vital signs: Vital Signs Temp 97.8 F 11/11/23 07:26 Pulse 85 11/11/23 07:26 Resp 17 11/11/23 07:26 BP 96/64 11/11/23 07:26 Pulse Ox 100 11/11/23 07:26 FiO2 Intake & Output 11/10/23 11/11/23 11/11/23 18:59 06:59 18:59 Intake Total 500 Output Total 533 Balance 500 -533 Intake: Intake, IV Titration 500 Amount Vancomycin 1,500 mg In 500 Sodium Chloride 0.9% 500 ml 500 ml @ 167 mls/hr IVPB Q16H [facility] Rx#: [id number] Output: Urine 200 Post Void Residual 333 Other: # Voids 2 # Bowel Movements 1 - Exam GENERAL DESCRIPTION: An elderly male lying in bed in no distress RESPIRATORY SYSTEM: Unlabored breathing , coarse breath sounds bilaterally HEART: S1 S2 regular rate and rhythm , ABDOMEN: Soft , no tenderness EXTREMITIES: No edema feet - Labs CBC & Chem 7: 11/11/23 08:43 11/11/23 08:43 Labs: Abnormal Lab Results - Last 24 Hours (Table) 11/10/23 11/10/23 11/11/23 Range/Units 16:53 21:39 06:35 RBC (4.30-5.90) m/uL Hgb (13.0-17.5) gm/dL Hct (39.0-53.0) % MCV (80.0-100.0) fL Plt Count (150-450) k/uL Chloride (98-107) mmol/L Carbon Dioxide (22-30) mmol/L Glucose (74-99) mg/dL POC Glucose (mg/dL) 333 H 283 H 202 H (70-110) mg/dL Phosphorus (2.5-4.5) mg/dL 11/11/23 11/11/23 11/11/23 Range/Units 08:43 08:43 11:16 RBC 2.86 L (4.30-5.90) m/uL Hgb 9.8 L (13.0-17.5) gm/dL Hct 30.3 L (39.0-53.0) % MCV 106.0 H (80.0-100.0) fL Plt Count 100 L (150-450) k/uL Chloride 112 H (98-107) mmol/L Carbon Dioxide 19 L (22-30) mmol/L Glucose 219 H (74-99) mg/dL POC Glucose (mg/dL) 305 H (70-110) mg/dL Phosphorus 1.5 L (2.5-4.5) mg/dL Microbiology - Last 24 Hours (Table) 11/05/23 11:31 Blood Culture - Final Blood Assessment and Plan (1) Septic shock Current Visit: Yes Status: Acute Code(s): A41.9 - SEPSIS, UNSPECIFIED ORGANISM; R65.21 - SEVERE SEPSIS WITH SEPTIC SHOCK SNOMED Code(s): 25540480 (2) UTI (urinary tract infection) Current Visit: Yes Status: Acute Code(s): N39.0 - URINARY TRACT INFECTION, SITE NOT SPECIFIED SNOMED Code(s): 48935005 Plan: 1patient presented to hospital with sepsis in this patient who did have a fever tachycardia hypotension elevated white count source likely urinary with significantly positive UA likely from enteric gram-negative pathogen, positive pathogen such as Enterococcus not entirely excluded 2-patient did have diarrhea likely antibiotic associated stool for C. difficile is negative patient did have improvement with Questran to continue or if no bowel movement for 24 hours 3patient urine has been finalized Enterococcus faecium that is sensitive to vancomycin patient is covered with vancomycin to continue while inpatient and consider finishing therapy with oral Zyvox on discharge Dictation was produced using [employer] dictation software. please excuse any grammatical, word or spelling errors. Time with Patient: Less than 30
[2023-11-12 05:33] LABS: Glucose,Whole Blood 181 mg/dL (70-110)
[2023-11-12 05:48] LABS: African American GFR (CKD) >90 (>60 ml/min/1.73 sqM); Anion Gap 5 mmol/L; Blood Urea Nitrogen 12 mg/dL (9-20); Calcium 8.8 mg/dL (8.4-10.2); Carbon Dioxide 20 mmol/L (22-30); Chloride 114 mmol/L (98-107); Glucose 117 mg/dL (74-99); Non-African American GFR(CKD) 86 (>60 ml/min/1.73 sqM); Potassium 3.7 mmol/L (3.5-5.1); Sodium 139 mmol/L (137-145)
[2023-11-12 05:56] LABS: African American GFR (CKD) >90 (>60 ml/min/1.73 sqM); Non-African American GFR(CKD) 87 (>60 ml/min/1.73 sqM)
[2023-11-12] MEDS: VANCOMYCIN TROUGH DUE 1 EACH MISC MISCELLANE ONE (06:20)
[2023-11-12] MEDS: INSULIN DETEMIR (LEVEMIR) 100 UNIT/ML SYR SQ SCH (07:00)
[2023-11-12 11:50] LABS: Glucose,Whole Blood 198 mg/dL (70-110)
[2023-11-12 14:58] VITALS: BP 91/58; PULSE 68; RESP 18; TEMP 97.5
--- NOTE | 2023-11-12 15:08 | P.DS ---
Providers Date of admission: 11/05/23 13:45 Expected date of discharge: 11/12/23 Attending physician: Endy Osei MD Consults: 11/05/23 17:12 Consult Physician Routine Consulting Provider: Jb Beltran Consult Reason/Comments: urinary retention requiring mason and UTI Do you want consulting provider notified?: Yes 11/06/23 02:25 Consult Physician Urgent Consulting Provider: Viji Sinclair Consult Reason/Comments: Sepsis Do you want consulting provider notified?: Yes 11/06/23 04:45 Consult Physician Urgent Consulting Provider: Kevin Shaffer Consult Reason/Comments: Shock Do you want consulting provider notified?: Yes Primary care physician: Jamie Thomas Hospital Course: Discharge Diagnosis: 1. Acute cystitis 2. Septic shock 3. Acute kidney injury on CKD 4. Hyperchloremic metabolic acidosis 5. BPH with urinary retention 6. Hyponatremia 7. IDDM 8. Chronic conditions Chronic atrial fibrillation Hypertension Hyperlipidemia CLL in remission Diabetic neuropathy Hospital Course: 83-year-old male with past medical history of hypertension hyperlipidemia A-fib on Eliquis, IDDM, CKD stage III, CLL and neuropathy presented to the ER with a c nvef complaint of generalized weakness on 11/05/2023. On this admission patient was diagnosed with acute cystitis. Patient developed septic shock and required vasopressors briefly in the ICU. Urine culture was positive for Enterococcus faecium. Patient was treated with IV vancomycin. Patient status improved and became normotensive and was transferred back to medical floor. Patient to be discharged on linezolid 600 mg p.o. twice daily x 5 days. Patient to follow-up with primary care in 1 to 2 days. Patient is provided with instructions/handout on UTI in men. Vital signs reviewed. General: non toxic, no distress, appears at stated age, normal weight Derm: no unusual rashes/lesions, warm Head: atraumatic, normocephalic, symmetric Eyes: EOMI, no lid lag, anicteric sclera, pupils equal round reactive to light ENT: Nose and ears atraumatic Neck: No cervical lymphadenopathy, trachea midline, supple Mouth: no lip lesion, mucus membranes moist Cardiovascular: S1S2 irreg, no murmur, positive dorsalis pedis pulse bilateral, no edema Lungs: CTA bilateral, no rhonchi, no rales, no accessory muscle use Abdominal: soft, nontender to palpation, no guarding Ext: muscle strength 5 out of 5 in all 4 extremities grossly, no gross muscle atrophy, no contractures, Neuro: CN II-XI grossly intact, no gross focal neuro deficits Psych: Alert, oriented, appropriate affect A total of 33 minutes of time were spent preparing this complex discharge summary. Patient was discharged on 11/12/2023 at 1112. I have seen and evaluated the patient today. Discussed with the resident and agree with the residents finding and plan as documented in the resident's note. Changes highlighted in blue font. Patient Condition at Discharge: Stable Plan - Discharge Summary New Discharge Prescriptions: New Linezolid [Zyvox] 600 mg PO Q12H #10 tab Continue Fenofibrate 160 mg PO DAILY Rivaroxaban [Xarelto] 20 mg PO DAILY Atorvastatin Calcium [Lipitor] 10 mg PO HS Gabapentin [Neurontin] 300 mg PO DAILY Ergocalciferol (Vitamin D2) [Drisdol (50,000 Iu)] 1,250 mcg PO WEEKLY Insulin Glargine,Hum.rec.anlog [Lantus Solostar Pen] 13 units SQ HS metFORMIN HCL ER [Glucophage XR] 500 mg PO DAILY Tamsulosin [Flomax] 0.8 mg PO HS glipiZIDE XL [Glucotrol XL] 10 mg PO DAILY Discontinued Bumetanide [Bumex] 0.5 mg PO DAILY Discharge Medication List Atorvastatin Calcium [Lipitor] 10 mg PO HS 10/12/15 [History] Fenofibrate 160 mg PO DAILY 10/12/15 [History] Rivaroxaban [Xarelto] 20 mg PO DAILY 10/12/15 [History] Tamsulosin [Flomax] 0.8 mg PO HS 05/27/23 [History] metFORMIN HCL ER [Glucophage XR] 500 mg PO DAILY 05/27/23 [History] Ergocalciferol (Vitamin D2) [Drisdol (50,000 Iu)] 1,250 mcg PO WEEKLY 11/05/23 [History] Gabapentin [Neurontin] 300 mg PO DAILY 11/05/23 [History] Insulin Glargine,Hum.rec.anlog [Lantus Solostar Pen] 13 units SQ HS 11/05/23 [History] glipiZIDE XL [Glucotrol XL] 10 mg PO DAILY 11/05/23 [History] Linezolid [Zyvox] 600 mg PO Q12H #10 tab 11/12/23 [Rx] Follow up Appointment(s)/Referral(s): Jamie Thomas DO [Primary Care Provider] - 1-2 days Patient Instructions/Handouts: Urinary Tract Infection in Men (DC) Activity/Diet/Wound Care/Special Instructions: Please see your PCP Discharge/Stand Alone Forms: Who Do I Call?, Adult Foster [facility] List, Assisted Living Facilities, Help In The Home Discharge Disposition: TRANSFER TO SNF/ECF
--- NOTE | 2023-11-12 15:09 | P.PN ---
Subjective Progress Note Date: 11/12/23 On today's evaluation of 11/12/2023, the patient is being seen for a follow-up. No significant events overnight and the patient remains essentially stable. The patient was treated for an acute complicated urine tract infection with secondary sepsis. Urine culture was positive for Enterococcus faecium on 11/09/2023. Blood culture showed no growth. The patient was covered with IV vancomycin. Infectious disease is on board. The patient's renal function has improved and the patient has recovered from acute kidney injury the creatinine is down to 0.8. No active diarrhea. The patient is also known to have chronic A-fib, diabetes mellitus, hypertension hyperlipidemia and CLL and diabetic neuropathy. He remains on anticoagulation with Eliquis. Rest of the home medications have been resumed noted and they remain unchanged. He currently is afebrile. Pulse ox 97% room air oxygen. He is weak and quite debilitated. He is looking for rehabilitation. He does have edema in his lower extremities bilaterally. Objective - Vital Signs Vital signs: Vital Signs Temp 97.7 F 11/12/23 07:04 Pulse 119 H 11/12/23 07:04 Resp 16 11/12/23 07:04 BP 90/58 11/12/23 07:04 Pulse Ox 100 11/12/23 07:04 FiO2 Intake & Output 11/11/23 11/12/23 11/12/23 18:59 06:59 18:59 Intake Total 560 Balance 560 Intake: Oral 560 Other: # Voids 3 3 - Exam GENERAL EXAM: Alert, pleasant 83-year-old male, sitting up in a chair, on room air, in no apparent distress. HEAD: Normocephalic and atraumatic EYES: Normal reaction of pupils, equal size. NOSE: Clear with pink turbinates. THROAT: No erythema or exudates. NECK: No masses, no JVD. CHEST: No chest wall deformity. LUNGS: Equal air entry with no crackles, wheeze, rhonchi or dullness. No conversational dyspnea. CVS: S1 and S2 normal with no audible murmur, regular rhythm. No extra heart sounds ABDOMEN: No hepatosplenomegaly, active bowel sounds, no guarding or rigidity. SPINE: No scoliosis or deformity. Negative for CVA tenderness. SKIN: No rashes CENTRAL NERVOUS SYSTEM: No focal deficits, tone is normal in all 4 extremities. EXTREMITIES: There is bilateral lower extremity mild nonpitting edema. No cyanosis. Peripheral pulses are intact. - Labs CBC & Chem 7: 11/11/23 08:43 11/12/23 05:22 Labs: Abnormal Lab Results - Last 24 Hours (Table) 11/11/23 11/11/23 11/12/23 Range/Units 17:06 21:34 05:22 Chloride 114 H (98-107) mmol/L Carbon Dioxide 20 L (22-30) mmol/L Glucose 117 H (74-99) mg/dL POC Glucose (mg/dL) 223 H 268 H (70-110) mg/dL 11/12/23 11/12/23 Range/Units 05:32 11:45 Chloride (98-107) mmol/L Carbon Dioxide (22-30) mmol/L Glucose (74-99) mg/dL POC Glucose (mg/dL) 181 H 198 H (70-110) mg/dL Assessment and Plan Plan: Sepsis and septic shock, secondary to Enterococcus faecium urinary tract infection. Remains on vancomycin, the patient is normotensive at this point in time clinically and hemodynamically stable Urinary retention, status post indwelling urinary catheterization History of BPH Acute kidney injury, likely postrenal, improved Hypokalemia, treated Diarrhea, C. difficile screen negative Non-anion gap metabolic acidosis, recovered Diabetes mellitus type 2 History of hyperlipidemia Atrial fibrillation with controlled ventricular response, anticoagulated on Xare lto Chronic lymphocytic leukemia Anemia Frequent falls, bilateral lower extremity weakness, and gait disturbance, previous evaluated by orthopedic surgery Chronic lower extremity edema Plan: Stable and on room air Continue vancomycin per ID service Plan is for rehabilitation at [facility] at discharge We will see the patient on an as-needed basis
--- NOTE | 2023-11-12 16:30 | P.PN ---
Subjective Progress Note Date: 11/12/23 Principal diagnosis: Reason for follow-up is sepsis UTI Patient is a 83-year-old male with a past medical history significant for atrial fibrillation hypertension hyperlipidemia CLL BPH UTIs presenting to the ER for evaluation of weakness, patient diagnosed with sepsis secondary urinary tract infection requiring admission to ICU because of hypotension. On today's evaluation that is 11/12/2023, Patient is afebrile patient is currently on room air and denies having any shortness of breath, the patient denies any chest pain or cough, the patient denies any nausea vomiting did not have any abdominal pain and no diarrhea, mention feeling better urinary symptoms improved. Patient did have a creatinine 0.75 Vanco trough is 20.6 blood culture negative Objective - Vital Signs Vital signs: Vital Signs Temp 97.7 F 11/12/23 07:04 Pulse 119 H 11/12/23 07:04 Resp 16 11/12/23 07:04 BP 90/58 11/12/23 07:04 Pulse Ox 100 11/12/23 07:04 FiO2 Intake & Output 11/11/23 11/12/23 11/12/23 18:59 06:59 18:59 Intake Total 560 Balance 560 Intake: Oral 560 Other: # Voids 3 3 - Exam GENERAL DESCRIPTION: An elderly male lying in bed in no distress RESPIRATORY SYSTEM: Unlabored breathing , coarse breath sounds bilaterally HEART: S1 S2 regular rate and rhythm , ABDOMEN: Soft , no tenderness EXTREMITIES: No edema feet - Labs CBC & Chem 7: 11/11/23 08:43 11/12/23 05:22 Labs: Abnormal Lab Results - Last 24 Hours (Table) 11/11/23 11/11/23 11/12/23 Range/Units 17:06 21:34 05:22 Chloride 114 H (98-107) mmol/L Carbon Dioxide 20 L (22-30) mmol/L Glucose 117 H (74-99) mg/dL POC Glucose (mg/dL) 223 H 268 H (70-110) mg/dL 11/12/23 11/12/23 Range/Units 05:32 11:45 Chloride (98-107) mmol/L Carbon Dioxide (22-30) mmol/L Glucose (74-99) mg/dL POC Glucose (mg/dL) 181 H 198 H (70-110) mg/dL Assessment and Plan (1) Septic shock Status: Acute Code(s): A41.9 - SEPSIS, UNSPECIFIED ORGANISM; R65.21 - SEVERE SEPSIS WITH SEPTIC SHOCK SNOMED Code(s): 83815837 (2) UTI (urinary tract infection) Status: Acute Code(s): N39.0 - URINARY TRACT INFECTION, SITE NOT SPECIFIED SNOMED Code(s): 31942540 Plan: 1patient presented to hospital with sepsis in this patient who did have a fever tachycardia hypotension elevated white count source likely urinary with significantly positive UA likely from enteric gram-negative pathogen, positive pathogen such as Enterococcus not entirely excluded 2-patient did have diarrhea likely antibiotic associated stool for C. difficile is negative patient did have improvement with Questran to continue or if no bowel movement for 24 hours 3patient urine has been finalized Enterococcus faecium that is sensitive to vancomycin patient has received adequate IV vancomycin while inpatient and will finish therapy with a 5-day course of oral Zyvox on discharge discussed with admitting physician Dictation was produced using [employer] dictation software. please excuse any grammatical, word or spelling errors. Time with Patient: Less than 30
[2023-11-12] MEDS ORDERED: VANCOMYCIN 1,250 MG in SODIUM CHLORIDE 0.9% 250 ML IVPB SCH (22:00)
== END 2023-11-12 15:53 | DRG 871 ==
LOC: EC 10:48 → 5NMEDONC 13:45 → 3SCARD 21:24 → 2SICU 11-06 03:33 → 4SSUR 11-07 20:27
PROVIDERS: ADMIT Internal Medicine; ATTEND Internal Medicine
DX: A41.9 Sepsis, unspecified organism (principal); R65.21 Severe sepsis with septic shock; N30.00 Acute cystitis without hematuria; C91.10 Chronic lymphocytic leukemia of B-cell type not having achieved remission; E87.1 Hypo-osmolality and hyponatremia; E87.20 Acidosis, unspecified; N17.9 Acute kidney failure, unspecified; I48.20 Chronic atrial fibrillation, unspecified; C91.11 Chronic lymphocytic leukemia of B-cell type in remission; E87.29 Other acidosis; Z16.11 Resistance to penicillins; K52.1 Toxic gastroenteritis and colitis; R53.1 Weakness; I12.9 Hypertensive chronic kidney disease with stage 1 through stage 4 chronic kidney disease, or unspecified chronic kidney disease; E11.42 Type 2 diabetes mellitus with diabetic polyneuropathy; E11.22 Type 2 diabetes mellitus with diabetic chronic kidney disease; E78.5 Hyperlipidemia, unspecified; N18.31 Chronic kidney disease, stage 3a; Z79.01 Long term (current) use of anticoagulants; R33.8 Other retention of urine; D64.9 Anemia, unspecified; E11.649 Type 2 diabetes mellitus with hypoglycemia without coma; E11.65 Type 2 diabetes mellitus with hyperglycemia; E87.6 Hypokalemia; E87.8 Other disorders of electrolyte and fluid balance, not elsewhere classified; G89.29 Other chronic pain; H91.90 Unspecified hearing loss, unspecified ear; I49.3 Ventricular premature depolarization; J06.9 Acute upper respiratory infection, unspecified; N40.1 Benign prostatic hyperplasia with lower urinary tract symptoms; R29.6 Repeated falls; W19.XXXA Unspecified fall, initial encounter; Y92.009 Unspecified place in unspecified non-institutional (private) residence as the place of occurrence of the external cause; Z79.4 Long term (current) use of insulin; Z79.84 Long term (current) use of oral hypoglycemic drugs; Z79.899 Other long term (current) drug therapy; Z87.440 Personal history of urinary (tract) infections; Z87.891 Personal history of nicotine dependence; T36.95XA Adverse effect of unspecified systemic antibiotic, initial encounter
CPT/HCPCS: 36415; 71045; 80048; 80053; 80202; 81001; 82533; 82565; 83605; 83735; 83880; 84100; 84132; 84443; 84484; 85025; 85027; 87040; 87077; 87086; 87186; 87324; 93005; 96361; 96365; 96366; 96367; 99285

== ENCOUNTER → 2024-01-23 | Outpatient (CLI) | payer MEDICARE ==
--- NOTE | 2024-01-24 16:36 | PE ---
EXAMINATION TYPE: PET CT fusion skull to thigh DATE OF EXAM: 01/23/2024 CLINICAL INDICATION:Male, 84 years old with history of C61 PROSTATE CANCER; history of CLL TECHNIQUE: Following the intravenous administration of 6.04 mCi of Ga-68 Illuccix (PSMA), whole bod y images are performed from the skull base to the midthigh. Images are reviewed on the computer in t he coronal, axial, and sagittal planes. Reconstructed rotating images are created on independent wor kstation and reviewed on the computer. A non-contrast CT is performed in conjunction with the PET s can. CT DLP: 747.63 mGycm, Automated exposure control for dose reduction was used. COMPARISON: CT 10/10/2023, PET/CT None, MRI: None FINDINGS: Mediastinal SUV mean is 1.5. Hepatic parenchyma SUV mean is 5.7. SKULL BASE AND NECK: No suspicious radiotracer activity. CHEST, MEDIASTINUM, AND HILAR REGION: No suspicious radiotracer activity. ABDOMEN AND PELVIS: Prostate gland demonstrates diffuse radiotracer uptake and measures 5.6 x 4.7 cm with a maximum SUV o f 36.7. There is some extension of the prostate malignancy anteriorly and posteriorly. Multiple mildly enlarged retroperitoneal periaortic and pericaval lymph nodes with radiotracer uptake . Examples include a left periaortic lymph node measuring up to 1.3 cm with a maximum SUV of 13.7. Bilateral subcentimeter iliac chain lymph nodes demonstrate radiotracer uptake. Examples include a le ft external iliac chain lymph node measuring up to 1.1 cm short axis with a maximum SUV of 17.4. Enlarged right inguinal lymph nodes with largest measuring up to 1.4 cm with a maximum SUV of 36.0. MUSCULOSKELETAL STRUCTURES: Multiple foci of radiotracer uptake within the osseous structures including the visualized spine, man ubrium/sternum, bilateral ribs, pelvic bones, left calvarium, and the left proximal femur. Examples include: C3 vertebral body with a maximum SUV of 33.4. T4 vertebral body with a maximum SUV of 30.8. L3 vertebral body with a maximum SUV of 32.5. S1 vertebral body with a maximum SUV of 42.3. Sternum with a maximum SUV of 49.7. Right hemisacrum with a maximum SUV of 30.4. Left posterior iliac bone with a maximum SUV of 39.7. Left femoral head with a maximum SUV of 32.3. OTHER CT: Near-complete opacification of left frontal and left maxillary sinuses with moderate mucosa l thickening of the anterior left ethmoid sinus. Bilateral carotid bulb calcifications. Multilevel de generative disc disease. Right-sided laminectomy change with particular screw and celine involving L4-L5 . Grade 1 anterolisthesis is of L4-L5. Scattered patchy groundglass opacities likely representing air trapping. Additional regions of pulmonary fibrotic changes. Few small calcific granulomas within alton gs. Mild cardiomegaly. Coronary calcium cage. Aortic valvular calcifications. Gallbladder surgically absent. Bilateral renal cysts. Hyperdense left renal lesion measuring up to 1.2 cm likely representin g a proteinaceous/hemorrhagic cyst. Atherosclerotic calcification of the aorta and its branches. Nono bstructive small bilateral renal calculi. Distal colonic diverticulosis without evidence for acute di verticulitis. IMPRESSION: Findings consistent with prostate cancer with metastasis. There is significant radiotracer uptake mukesh ntified within the prostate gland, multi foci osseous radiotracer uptake, and uptake within the retro peritoneal, bilateral iliac chain, and right inguinal lymph nodes. [facility], , 01/24/2024 4:34 PM
== END | disposition home or self-care (01) ==
LOC: RADPETMAIN 13:18
PROVIDERS: ATTEND Internal Medicine Hematology & Oncology
DX: C61 Malignant neoplasm of prostate (principal); R93.7 Abnormal findings on diagnostic imaging of other parts of musculoskeletal system
CPT/HCPCS: 78815; A9596

== ENCOUNTER 2024-02-11 00:53 | Inpatient (IN) | payer MEDICARE ==
--- NOTE | 2024-02-11 01:10 | ED ---
Fall HPI - General Chief Complaint: Fall Stated Complaint: Fall Time Seen by Provider: 02/11/24 01:02 Source: patient, EMS, old records reviewed Mode of arrival: EMS - History of Present Illness Initial Comments: This is an 84-year-old male with history of atrial fibrillation on Eliquis presented to the emergency department via EMS with c-collar in place after a fall. Patient states that he was in his living room when he got up to go into his kitchen to get a drink of water when he slipped due to his slippers not fitting appropriately. Patient states that he fell and hit the right side of his head and his right hip. Patient denies loss of conscious at the time of the injury. He denies presyncopal symptoms with time of event such as shortness of breath, difficulty breathing, heart palpitations, dizziness or lightheadedness. States that he took a [place] at home prior to arrival. Currently he is denying headache, blurry or double vision, nausea or vomiting or neck pain. He is complaining of pain of his right hip. - Related Data Home Medications Medication Instructions Recorded Confirmed Atorvastatin Calcium [Lipitor] 10 mg PO HS 10/12/15 11/05/23 Fenofibrate 160 mg PO DAILY 10/12/15 11/05/23 Rivaroxaban [Xarelto] 20 mg PO DAILY 10/12/15 11/05/23 Tamsulosin [Flomax] 0.8 mg PO HS 05/27/23 11/05/23 metFORMIN HCL ER [Glucophage XR] 500 mg PO DAILY 05/27/23 11/05/23 Ergocalciferol (Vitamin D2) 1,250 mcg PO WEEKLY 11/05/23 11/05/23 [Drisdol (50,000 Iu)] Gabapentin [Neurontin] 300 mg PO DAILY 11/05/23 11/05/23 Insulin Glargine,Hum.rec.anlog 13 units SQ HS 11/05/23 11/05/23 [Lantus Solostar Pen] glipiZIDE XL [Glucotrol XL] 10 mg PO DAILY 11/05/23 11/05/23 Previous Rx's Medication Instructions Recorded Linezolid [Zyvox] 600 mg PO Q12H #10 tab 11/12/23 Allergies Allergy/AdvReac Type Severity Reaction Status Date / Time No Known Allergies Allergy Verified 02/11/24 00:56 Review of Systems ROS Statement: Those systems with pertinent positive or pertinent negative responses have been documented in the HPI. ROS Other: All systems not noted in ROS Statement are negative. Past Medical History Past Medical History: Atrial Fibrillation, Cancer, Diabetes Mellitus, GERD/Reflux, Hyperlipidemia, Hypertension, Musculoskeletal Disorder, Neurologic Disorder, Osteoarthritis (OA), Renal Disease, Sleep Apnea/CPAP/BIPAP Additional Past Medical History / Comment(s): CLL-dx. 5 yrs. ago, unaware of r enal problems, was having neck pain, neuropathy adonay feet, has cpap machine History of Any Multi-Drug Resistant Organisms: None Reported Past Surgical History: Cholecystectomy, Orthopedic Surgery, Tonsillectomy Additional Past Surgical History / Comment(s): left shoulder rototor cuff repair, Right shoulder Past Anesthesia/Blood Transfusion Reactions: No Reported Reaction Past Psychological History: No Psychological Hx Reported Smoking Status: Former smoker Past Alcohol Use History: Occasional Past Drug Use History: None Reported - Past Family History Mother Family Medical History: Cancer Additional Family Medical History / Comment(s): of pancreatic cancer General Exam Limitations: no limitations General appearance: alert, in no apparent distress Head exam: Present: normocephalic, normal inspection, other (laceration to lateral right eyebrow aprox. 2 mm) Eye exam: Present: normal appearance, PERRL, EOMI. Absent: scleral icterus, conjunctival injection, periorbital swelling ENT exam: Present: normal exam, mucous membranes moist Neck exam: Present: normal inspection. Absent: tenderness, meningismus, lymphadenopathy Respiratory exam: Present: normal lung sounds bilaterally. Absent: respiratory distress, wheezes, rales, rhonchi, stridor Cardiovascular Exam: Present: regular rate, normal rhythm, normal heart sounds. Absent: systolic murmur, diastolic murmur, rubs, gallop, clicks GI/Abdominal exam: Present: soft, normal bowel sounds. Absent: distended, tenderness, guarding, rebound, rigid Right Hip exam: Present: tenderness, deformity. Absent: normal inspection, full ROM, ecchymosis Course Vital Signs 02/11/24 02/11/24 02/11/24 00:56 01:54 02:46 Temperature 98.1 F Pulse Rate 71 83 62 Respiratory 16 18 16 Rate Blood Pressure 154/81 126/73 O2 Sat by Pulse 99 98 98 Oximetry Medical Decision Making - Medical Decision Making Was pt. sent in by a medical professional or institution (QUINTIN Colon, OFFICE ADMINISTRATIVE ASSISTANT, urgent care, hospital, or senior care...) When possible be specific @ -No Did you speak to anyone other than the patient for history (EMS, parent, family, police, friend...)? What history was obtained from this source @ -No Did you review nursing and triage notes (agree or disagree)? Why? @ -I reviewed and agree with nursing and triage notes Were old charts reviewed (outside hosp., previous admission, EMS record, old EKG, old radiological studies, urgent care reports/EKG's, senior care records)? Report findings @ -No old charts were reviewed Differential Diagnosis (chest pain, altered mental status, abdominal pain women, abdominal pain men, vaginal bleeding, weakness, fever, dyspnea, syncope, headache, dizziness, GI bleed, back pain, seizure, CVA, palpatations, mental health, musculoskeletal)? @ -Differential Musculoskeletal Muscular strain, contusion, ligament sprain, fracture, arthritis, septic arthritis, bursitis, cellulitis, muscle spasm, nerve compression, DVT, arterial occlusion, herpes zoster, electrolyte abnormality, tumor.... This is not meant to be in all inclusive list EKG interpreted by me (3pts min.). @ -Completed at 02 12 atrial fibrillation with a ventricular rate of 71, QRS 99, QTc 430. X-rays interpreted by me (1pt min.). @ -X-ray of the right hip and AP pelvis remarkable for a nondisplaced right femoral subcapital fracture with minimal impaction of the lateral aspect Chest x-ray underinflation with suspected minimal cardiomegaly CT interpreted by me (1pt min.). @ -CT of the brain and C-spine without contrast no acute intracranial or cervical spine abnormality. U/S interpreted by me (1pt. min.). @ -None done What testing was considered but not performed or refused? (CT, X-rays, U/S, labs)? Why? @ -None What meds were considered but not given or refused? Why? @ -None Did you discuss the management of the patient with other professionals (professionals i.e. QUINTIN Colon, OFFICE ADMINISTRATIVE ASSISTANT, lab, RT, psych nurse, social media manager, broke beater, teacher, retirement officer, lining caser)? Give summary @ -Spoke with on-call legal support specialist, Dr. Kenyon, who was agreed to admit the patient with general medicine on consult recommends that his blood thinning medication be held. Was smoking cessation discussed for >3mins.? @ -No Was critical care preformed (if so, how long)? @ -No Were there social determinants of health that impacted care today? How? (Homelessness, low income, unemployed, alcoholism, drug addiction, transpor tation, low edu. Level, literacy, decrease access to med. care, fdc, rehab)? @ -No Was there de-escalation of care discussed even if they declined (Discuss DNR or withdrawal of care, Hospice)? DNR status @ -No What co-morbidities impacted this encounter? (DM, HTN, Smoking, COPD, CAD, Cancer, CVA, ARF, Chemo, Hep., AIDS, mental health diagnosis, sleep apnea, morbid obesity)? @ -None Was patient admitted / discharged? Hospital course, mention meds given and route, prescriptions, significant lab abnormalities, going to OR and other pertinent info. @ -Admitted. 84-year-old male with a mechanical fall and subsequent head injury and right hip injury. On evaluation patient noted to have c-collar in place that was placed by EMS. Was noted to have a minor abrasion to his right eyelid. Neurological patient with no acute deficits. Patient has pain of the right hip on palpation and unable to complete range of motion. He is provided with pain medication. X-ray concerning for right hip fracture. Patient's laboratories unremarkable. Patient will be admitted to orthopedics with general medicine on consult for further evaluation. He will be continued on pain medications as needed. Discussed with Dr. Hemphill Undiagnosed new problem with uncertain prognosis? @ -No Drug Therapy requiring intensive monitoring for toxicity (Heparin, Nitro, Insulin, Cardizem)? @ -No Were any procedures done? @ -No Diagnosis/symptom? @ -Hip fracture Acute, or Chronic, or Acute on Chronic? @ -acute Uncomplicated (without systemic symptoms) or Complicated (systemic symptoms)? @ -uncomplicated Side effects of treatment? @ -No Exacerbation, Progression, or Severe Exacerbation? @ -No Poses a threat to life or bodily function? How? (Chest pain, USA, NC, pneumonia, PE, COPD, DKA, ARF, appy, cholecystitis, CVA, Diverticulitis, Homicidal, Suicidal, threat to staff... and all critical care pts) @ -No - Lab Data Result diagrams: 02/11/24 01:05 02/11/24 01:05 Lab Results 02/11/24 02/11/24 02/11/24 Range/Units 01:05 01:05 01:05 WBC 7.7 (3.8-10.6) k/uL RBC 3.63 L (4.30-5.90) m/uL Hgb 12.3 L (13.0-17.5) gm/dL Hct 38.6 L (39.0-53.0) % MCV 106.4 H (80.0-100.0) fL MCH 34.0 (25.0-35.0) pg MCHC 32.0 (31.0-37.0) g/dL RDW 15.9 H (11.5-15.5) % Plt Count 209 (150-450) k/uL MPV 7.9 Neutrophils % 73 % Lymphocytes % 16 % Monocytes % 9 % Eosinophils % 1 % Basophils % 0 % Neutrophils # 5.6 (1.3-7.7) k/uL Lymphocytes # 1.2 (1.0-4.8) k/uL Monocytes # 0.7 (0-1.0) k/uL Eosinophils # 0.1 (0-0.7) k/uL Basophils # 0.0 (0-0.2) k/uL Hypochromasia Slight Macrocytosis Moderate PT 11.0 (10.0-12.5) sec INR 1.0 (<1.2) APTT 24.3 (22.0-30.0) sec Sodium 141 (137-145) mmol/L Potassium 4.3 (3.5-5.1) mmol/L Chloride 112 H (98-107) mmol/L Carbon Dioxide 18 L (22-30) mmol/L Anion Gap 11 mmol/L BUN 32 H (9-20) mg/dL Creatinine 1.20 (0.66-1.25) mg/dL Est GFR (CKD-EPI)AfAm 64 (>60 ml/min/1.73 sqM) Est GFR (CKD-EPI)NonAf 56 (>60 ml/min/1.73 sqM) Glucose 147 H (74-99) mg/dL Calcium 9.3 (8.4-10.2) mg/dL Total Bilirubin 0.6 (0.2-1.3) mg/dL AST 30 (17-59) U/L ALT 15 (4-49) U/L Alkaline Phosphatase 84 (38-126) U/L Total Protein 6.9 (6.3-8.2) g/dL Albumin 4.2 (3.5-5.0) g/dL Disposition Clinical Impression: Closed subcapital fracture of femur Disposition: ADMITTED IP TO THIS HOSP Condition: Stable Referrals: Jamie Thomas DO [Primary Care Provider] - 1-2 days Decision to Admit Reason: Admit from EC Decision Date: 02/11/24 Decision Time: 02:28
[2024-02-11] MEDS: MORPHINE SULFATE 4 MG/ML SYRINGE IVP STA (01:30)
--- NOTE | 2024-02-11 01:50 | CT ---
1297 images EXAM: CT Head Without Intravenous Contrast CLINICAL HISTORY: Pt presents after a fall. Pt was ambulating to restroom when he fall striking the right side of his head there is a small abrasion to right eye brow glasses intact. Pt on Xarelto for a fib. PT complains of right hip pain , pt took a norco at home prior to calling EMS. fall was at 2200. Pt denies LOC. Fall, head injury, on thinners TECHNIQUE: Axial computed tomography images of the head/brain without intravenous contrast. CTDI is 45.2 mGy and DLP is 1044 mGy-cm. This CT exam was performed using one or more of the following dose reduction techniques: automated exposure control, adjustment of the mA and/or kV according to patient size, and/or use of iterative reconstruction technique. Coronal and sagittal reformatted images were created and reviewed. COMPARISON: No relevant prior studies available. FINDINGS: Brain: Age-related generalized brain volume loss and chronic small vessel ischemic changes. No hemorrhage. 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 Ventricles: Unremarkable. No ventriculomegaly. Bones/joints: No acute findings. Soft tissues: Unremarkable. Sinuses: Severe left sinus disease. Mastoid air cells: Unremarkable as visualized. No mastoid effusion. Orbits: Bilateral cataract surgeries. IMPRESSION: 1. No intracranial hemorrhage or skull fracture. 2. Severe left sinus disease. EXAM: CT Cervical Spine Without Intravenous Contrast CLINICAL HISTORY: Pt presents after a fall. Pt was ambulating to restroom when he fall striking the right side of his head there is a small abrasion to right eye brow glasses intact. pt on Xarelto for a fib. PT complains of right hip pain , pt took a norco at home prior to calling EMS. fall was at 2200. Pt denies LOC. fall, head injury, on thinners TECHNIQUE: Axial computed tomography images of the cervical spine without intravenous contrast. CTDI is 11.6 mGy and DLP is 319.7 mGy-cm. This CT exam was performed using one or more of the following dose reduction techniques: automated exposure control, adjustment of the mA and/or kV according to patient size, and/or use of iterative reconstruction technique. Coronal and sagittal reformatted images were created and reviewed. COMPARISON: No relevant prior studies available. FINDINGS: Bones: Osteopenia. No fracture or acute subluxation. 2-3 mm of anterolisthesis of C2 on C3, C3 on C4, C4 on C5, C5 on C6, likely related to moderate-advanced degenerative disc disease. Which causes various degrees of spinal canal stenosis and neuroforaminal narrowing. Soft tissues: Unremarkable. Thyroid: Coarse calcifications in the right lobe of the thyroid gland. IMPRESSION: No acute findings in the cervical spine.
[2024-02-11] MEDS: HYDROmorphone 1 MG/ML 1 ML SYRINGE IVP STA (01:53)
--- NOTE | 2024-02-11 01:56 | XR ---
EXAM: XR Chest, 1 View CLINICAL HISTORY: TRAUMA TECHNIQUE: Frontal view of the chest. COMPARISON: No relevant prior studies available. FINDINGS: Lungs: Mild diffuse airspace opacities throughout both lungs. Lungs are slightly underinflated. Pleural space: Unremarkable. Mediastinum: Calcified aorta. Suspect minimal cardiomegaly. Bones/joints: No acute findings. Vasculature: Calcified aorta. IMPRESSION: Lung findings can be due to underinflation versus mild pulmonary edema.
--- NOTE | 2024-02-11 01:59 | XR ---
EXAM: XR Pelvis, 1 or 2 Views CLINICAL HISTORY: fall, pain TECHNIQUE: Frontal view of the pelvis, frontal and crosstable lateral views of right hip. COMPARISON: No relevant prior studies available. FINDINGS: Bones/joints: Suspect nondisplaced right femoral subcapital fracture with minimal impaction in the lateral aspect. No dislocation. Right lower lumbar fusion hardware. Soft tissues: Unremarkable. IMPRESSION: Suspect nondisplaced right femoral subcapital fracture with minimal impaction in the lateral aspect.
[2024-02-11 02:07] LABS: Basophils % (A) 0 %; Eosinophils # (A) 0.1 k/uL (0-0.7); Eosinophils % (A) 1 %; HCT 38.6 % (39.0-53.0); HGB 12.3 gm/dL (13.0-17.5); Hypochromasia Slight; Lymphocytes # (A) 1.2 k/uL (1.0-4.8); Lymphocytes % (A) 16 %; MCV 106.4 fL (80.0-100.0); Macrocytosis Moderate; Mean Platelet Volume 7.9; Monocytes # (A) 0.7 k/uL (0-1.0); Monocytes % (A) 9 %; Neutrophils # (A) 5.6 k/uL (1.3-7.7); Neutrophils % (A) 73 %; Platelet Count 209 k/uL (150-450); RBC 3.63 m/uL (4.30-5.90); RDW 15.9 % (11.5-15.5); WBC 7.7 k/uL (3.8-10.6)
[2024-02-11 02:23] LABS: Partial Thromboplastin Time 24.3 sec (22.0-30.0)
[2024-02-11] MEDS ORDERED: NALOXONE 0.4 MG/ML 1 ML VIAL IV PRN (02:25)
[2024-02-11] MEDS ORDERED: ACETAMINOPHEN TAB 325 MG TAB PO PRN (02:25)
[2024-02-11 02:39] LABS: ALT 15 U/L (4-49); African American GFR (CKD) 64 (>60 ml/min/1.73 sqM); Albumin 4.2 g/dL (3.5-5.0); Anion Gap 11 mmol/L; Blood Urea Nitrogen 32 mg/dL (9-20); Calcium 9.3 mg/dL (8.4-10.2); Carbon Dioxide 18 mmol/L (22-30); Chloride 112 mmol/L (98-107); Glucose 147 mg/dL (74-99); Non-African American GFR(CKD) 56 (>60 ml/min/1.73 sqM); Sodium 141 mmol/L (137-145); Total Bilirubin 0.6 mg/dL (0.2-1.3); Total Protein 6.9 g/dL (6.3-8.2)
[2024-02-11 02:48] LABS: AST 30 U/L (17-59); Alkaline Phosphatase 84 U/L (38-126); Potassium 4.3 mmol/L (3.5-5.1)
[2024-02-11] MEDS: HYDROmorphone 1 MG/ML 1 ML SYRINGE IVP PRN (04:51)
[2024-02-11] MEDS ORDERED: DEXTROSE 50% SYRINGE 50 ML IVP PRN ×2 (08:18)
[2024-02-11] MEDS: GABAPENTIN 300 MG CAP PO SCH (08:33)
[2024-02-11] MEDS: PANTOPRAZOLE 40 MG/10 ML VIAL IV SCH (08:33)
[2024-02-11] MEDS: FENOFIBRATE 160 MG TAB PO SCH (08:33)
--- NOTE | 2024-02-11 10:19 | P.HPOR ---
History of Present Illness H&P Date: 02/11/24 Chief Complaint: right hip pain Patient is an 84-year-old male with a past medical history of atrial fibrillation who presents to the emergency department late last night via EMS with c-collar in place after a fall at home. Patient was seen at bedside this morning on 4 S. lying in semirecumbent position with the right lower extremity shortened and externally rotated. Patient states he was at home last night when he got up into his kitchen he tripped while walking to the kitchen and fell landing onto his right hip. Patient denies any loss of consciousness. Patient denies any previous orthopedic surgeries. He states he is on Xarelto. Patient cannot recall who his website developer is but states he thinks he saw website developer within the past year. Patient states he has a type II diabetic and does take medication daily for this. Denies any previous history of stroke or heart attack. Patient states he does live at home with his . He says he does have a walker and a cane and does drive on his own. Patient states he does not always use a walker or cane during ambulation. Patient states most of the pain is located at the right hip. He denies any radiation of pain. Patient also mentions some right shoulder pain, but this has been controlled with oral m edication. Patient denies any other significant issues at this time. Patient does have a history of chronic lymphocytic leukemia which she has been following with Dr. Murillo for. patient denies loss of bowel/bladder control. Past Medical History Past Medical History: Atrial Fibrillation, Cancer, Diabetes Mellitus, GERD/Reflux, Hyperlipidemia, Hypertension, Musculoskeletal Disorder, Neurologic Disorder, Osteoarthritis (OA), Renal Disease, Sleep Apnea/CPAP/BIPAP Additional Past Medical History / Comment(s): CLL-dx. 5 yrs. ago, unaware of renal problems, was having neck pain, neuropathy adonay feet, has cpap machine History of Any Multi-Drug Resistant Organisms: None Reported Past Surgical History: Cholecystectomy, Orthopedic Surgery, Tonsillectomy Additional Past Surgical History / Comment(s): left shoulder rototor cuff repair, Right shoulder Past Anesthesia/Blood Transfusion Reactions: No Reported Reaction Past Psychological History: No Psychological Hx Reported Smoking Status: Former smoker Past Alcohol Use History: Occasional Additional Past Alcohol Use History / Comment(s): Patient was a smoker 3 packs per day for 25 years, quit 28 years ago. Past Drug Use History: None Reported - Past Family History Mother Family Medical History: Cancer Additional Family Medical History / Comment(s): of pancreatic cancer Medications and Allergies Home Medications Medication Instructions Recorded Confirmed Type Atorvastatin Calcium [Lipitor] 10 mg PO HS 10/12/15 02/11/24 History Fenofibrate 160 mg PO DAILY 10/12/15 02/11/24 History Rivaroxaban [Xarelto] 20 mg PO DAILY 10/12/15 02/11/24 History Tamsulosin [Flomax] 0.8 mg PO HS 05/27/23 02/11/24 History metFORMIN HCL ER [Glucophage XR] 500 mg PO DAILY 05/27/23 02/11/24 History Gabapentin [Neurontin] 300 mg PO TID 11/05/23 02/11/24 History Insulin Glargine,Hum.rec.anlog 13 units SQ HS 11/05/23 02/11/24 History [Lantus Solostar Pen] glipiZIDE XL [Glucotrol XL] 10 mg PO DAILY 11/05/23 02/11/24 History Apalutamide [Erleada] 240 mg PO DAILY 02/11/24 02/11/24 History Bumetanide [BUMEX] 0.5 mg PO DAILY 02/11/24 02/11/24 History HYDROcodone/APAP 5-325MG [[place] 1 tab PO QID PRN 02/11/24 02/11/24 History 5-325] Insulin Aspart [NovoLOG Flexpen] See Protocol SQ AC-TID 02/11/24 02/11/24 History Allergies Allergy/AdvReac Type Severity Reaction Status Date / Time No Known Allergies Allergy Verified 02/11/24 09:38 Physical Examination Inspection: Right hip is shortened and externally rotated. There is pedal edema present bilaterally. There is some swelling diffusely near the right hip. Negative for any significant ecchymosis. Negative for any open fractures. Sensation: Patient does have diminished sensation in bilateral lower extremities extending from the calves down to the digits in the feet. Sensation is equal, symmetric, intact throughout the rest of the lower extremities and upper extremities. Palpation: There is a moderate amount of tenderness to palpation diffusely throughout the right hip. Nontender to palpation throughout rest of exam. Range of motion: Patient is able to wiggle digits in bilateral feet. Patient does have good range of motion of bilateral elbows and wrist in flexion ext ension. Patient does have limited range of motion in the right shoulder secondary to pain and stiffness resulting from fall last night. Right hip and knee exam not performed due to the injury. Motor: 4/5 in bilateral upper extremities. 4-/5 in left lower extremity. Right lower extremity motor exam not performed due to injury Neurovascular: Very diminished pedal pulses bilaterally. Radial pulse intact bilaterally. Cap refill diminished in digits of bilateral feet Special test: Positive logroll maneuver to the right. Negative Homans bilaterally. Results - Labs Labs: Abnormal Lab Results - Last 24 Hours (Table) 02/11/24 02/11/24 Range/Units 01:05 01:05 RBC 3.63 L (4.30-5.90) m/uL Hgb 12.3 L (13.0-17.5) gm/dL Hct 38.6 L (39.0-53.0) % MCV 106.4 H (80.0-100.0) fL RDW 15.9 H (11.5-15.5) % Chloride 112 H (98-107) mmol/L Carbon Dioxide 18 L (22-30) mmol/L BUN 32 H (9-20) mg/dL Glucose 147 H (74-99) mg/dL H & H 02/11/24 Range/Units 01:05 Hgb 12.3 L (13.0-17.5) gm/dL Hct 38.6 L (39.0-53.0) % Coagulation 02/11/24 Range/Units 01:05 INR 1.0 (<1.2) Result Diagrams: 02/11/24 01:05 02/11/24 01:05 - Diagnostic results Hip x-ray: report reviewed, image reviewed (X-ray of the right hip does reveal i mpacted subcapital femoral neck fracture.) Assessment and Plan Assessment: 1. Right hip femoral neck fracture Plan: 1. Right hip femoral neck fracture - X-ray of the right hip does reveal impacted subcapital femoral neck fracture. I did review the findings of the imaging and exam with my attending, Dr. Kenyon. At this time we are recommending orthopedic surgical intervention in the form of right hip hemiarthroplasty versus direct anterior right total hip arthroplasty. Surgery has been scheduled for tomorrow, 02/12/2024. Patient to be n.p.o. starting at midnight tonight. Due to the patient's cardiac history, we have com insulted Dr. Dyer for cardiac clearance. Medicine has also been consulted for medical clearance. Withhold blood thinners at this time. Pain medication as needed. Nonweightbearing right lower extremity. We will continue to follow patient during stay in hospital. 2. Appreciate medical and cardiac clearance and management 3. Pain management - norco; gabapentin 4. DVT prophylaxis -mechanical; with hold blood thinners at this time 5. GI prophylaxis - senna 6. PT/OT -nonweightbearing right lower extremity 7. Encourage incentive spirometer use Time with Patient: Less than 30
--- NOTE | 2024-02-11 10:34 | P.CONS ---
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 He presented to the emergency department status post slip and fall at home in which patient reportedly slipped on his slippers falling onto his right side hitting his head and right hip. Patient denied having any loss of consciousness, dizziness, lightheadedness, palpitations, chest pain, shortness of breath, or experiencing focal numbness/weakness prior to or after fall, but does report significant right hip pain resulting from fall patient currently denies any other complaints. Patient walks with a cane and/or walker at baseline but reports being independent of his activities of daily living prior to fall. Upon arrival to our facility, patient underwent evaluation in the emergency department. Vital signs upon arrival show blood pressure 154/81, heart rate 71, respiratory rate 16, temp 98.1 F, and SpO2 of 99% on room air. EKG completed showing atrial fibrillation with a controlled ventricular rate of 71 bpm, T wave inversion in inferior leads III and aVF, and occasional PVC. With the exception of rate, EKG is unchanged when compared to previous EKG completed 11/05/2023 upon personal review and interpretation. Labs completed and reviewed. CBC showing macrocytic anemia with hemoglobin of 12.3 and MCV of 106.4. Coagulation profile normal findings. BMP showing non-anion gap metabolic acidosis with chloride of 112, bicarb of 18, anion gap of 11, and elevated BUN of 32 with creatinine of 1.20, and GFR of 56. Liver profile unremarkable. Glucose elevated at 147. CT head negative for acute intracranial process showing severe chronic left sinus disease. CT cervical spine negative for acute process revealing coarse calcifications in the right lobe of the thyroid gland and moderate/advanced degenerative disc disease of cervical spine. Chest x-ray reporting slightly under inflated lungs with possible mild pulmonary edema. X-ray right hip showing nondisplaced right femoral subcapital fracture with minimal impaction in the lateral aspect. Patient admitted under orthopedic surgery team and we were consulted for surgical clearance and medical management throughout hospitalization. Review of systems: Pertinent positives and negatives as discussed in HPI, a complete review of systems was performed and all other systems are negative. Physical exam: Vital signs reviewed and stable. General: Nontoxic, no distress and appears stated age. Derm: Skin warm and dry, normal coloration for ethnicity. Head: Atraumatic, normocephalic and symmetric. Eyes: EOM's intact, no lid lag, and anicteric sclera Mouth: no lip lesions, mucus membranes moist Cardiovascular: Irregularly irregular with systolic murmur, positive posterior tibial pulses bilaterally, and cap refill < 2 seconds. 2+ pitting bilateral lower extremity edema. Lungs: Respirations even, regular, and unlabored on room air. Lungs CTA bilaterally, no rhonchi, no rales, no wheezing, and no accessory muscle usage. Abdominal: soft, nontender to palpation, no guarding, no appreciable or ganomegaly Ext: No gross muscle atrophy, no edema, no contractures. Movement and sensation intact. Patient with right lower extremity shortening and right lateral rotation. Neuro: Speech clear, face symmetrical and CN II-XII grossly intact with no noted focal neuro deficits Psych: Alert and oriented to person, place, time, and situation. Appropriate and pleasant affect. Assessment and Plan of Care: Surgical clearance Nondisplaced right femoral subcapital fracture -NSQIP score calculated. Patient is at an above average risk of serious complications at 15.4% with average risk of serious complication of 11.6%, and above average risk for cardiac complication at 3.3% with average risk being 2.0%, and an increased risk for at 6% with average risk being 3.6%. -Patient is medically optimized to proceed with scheduled right hip hemiarthroplasty for repair of subcapital femur fracture. He is at high risk for surgical intervention, although there are no absolute contraindications to undergo scheduled surgery from a medical standpoint at this time. However, secondary to his high risk patient will require continuous cardiac monitoring intraoperatively and postoperatively throughout hospitalization. Chronic diastolic heart failure Chronic atrial fibrillation Hypertension Hyperlipidemia -CXR Showing mild pulmonary edema, patient reports chronic shortness of breath lower extremity edema, but denies having any increased shortness of breath, chest pain, palpitations, or experiencing increased lower extremity edema. -Hold Xarelto pending clearance from orthopedic surgery team to resume. -Cardiology was consulted for cardiac surgical clearance. -Patient currently with controlled ventricular rate. -Order placed for continuous telemetry monitoring. -Recommend patient continue atorvastatin 10 mg nightly, Bumex 0.5 mg daily, and fenofibrate 160 mg daily. -Preoperative EKG was completed and reviewed, showing atrial fibrillation with a controlled ventricular rate of 71 bpm with T wave inversion in inferior leads III and aVF and occasional PVC and with the exception of rate, this EKG is unchanged when compared to previous EKG completed 11/05/2023 upon personal review and interpretation. -Echocardiogram completed 07/08/2023 was reviewed showing a preserved EF of 55 to 60%. -Will obtain a baseline BNP, as patient at higher risk for worsening heart failure secondary to need for IV fluids during surgical procedure. Insulin-dependent diabetes mellitus with hyperglycemia -Hold oral hypoglycemic agents and patient was placed on glycemic protocol with NovoLog sliding scale. Metastatic prostate cancer -Hold apalutamide at this time, may resume postoperatively after cleared by orthopedic surgery team to resume. -Continue Flomax 0.8 mg nightly. Thyroid calcifications -CT cervical spine negative for acute process revealing coarse calcifications in the right lobe of the thyroid gland -Recommend outpatient follow-up with PCP for scheduling of thyroid ultrasound. Data and imaging reviewed: As stated above in HPI as well as assessment and plan of care. Thank you for allowing us to participate in the care of this pleasant patient. Do not hesitate to contact us with questions. Someone can be reached from the [facility] [place] [facility] group all hours of the day at [phone] or via perfect serve. Patient was seen independently by Nurse Practitioner. This document was prepared using [employer] dictation software. Please allow for errors in hot metal mixer operator while rare they do occur. Siva Lizarraga NP rendered care for this patient independently, reviewed the findings and plan as documented in the note above and agree with plan. I did not physically speak with or examine the patient on this date. Past Medical History Past Medical History: Atrial Fibrillation, Cancer, Diabetes Mellitus, GERD/Reflux, Hyperlipidemia, Hypertension, Musculoskeletal Disorder, Neurologic Disorder, Osteoarthritis (OA), Renal Disease, Sleep Apnea/CPAP/BIPAP Additional Past Medical History / Comment(s): CLL-dx. 5 yrs. ago, unaware of renal problems, was having neck pain, neuropathy adonay feet, has cpap machine History of Any Multi-Drug Resistant Organisms: None Reported Past Surgical History: Cholecystectomy, Orthopedic Surgery, Tonsillectomy Additional Past Surgical History / Comment(s): left shoulder rototor cuff repair, Right shoulder Past Anesthesia/Blood Transfusion Reactions: No Reported Reaction Past Psychological History: No Psychological Hx Reported Smoking Status: Former smoker Past Alcohol Use History: Occasional Additional Past Alcohol Use History / Comment(s): Patient was a smoker 3 packs per day for 25 years, quit 28 years ago. Past Drug Use History: None Reported - Past Family History Mother Family Medical History: Cancer Additional Family Medical History / Comment(s): of pancreatic cancer Medications and Allergies Home Medications Medication Instructions Recorded Confirmed Type Atorvastatin Calcium [Lipitor] 10 mg PO HS 10/12/15 02/11/24 History Fenofibrate 160 mg PO DAILY 10/12/15 02/11/24 History Rivaroxaban [Xarelto] 20 mg PO DAILY 10/12/15 02/11/24 History Tamsulosin [Flomax] 0.8 mg PO HS 05/27/23 02/11/24 History metFORMIN HCL ER [Glucophage XR] 500 mg PO DAILY 05/27/23 02/11/24 History Gabapentin [Neurontin] 300 mg PO TID 11/05/23 02/11/24 History Insulin Glargine,Hum.rec.anlog 13 units SQ HS 11/05/23 02/11/24 History [Lantus Solostar Pen] glipiZIDE XL [Glucotrol XL] 10 mg PO DAILY 11/05/23 02/11/24 History Apalutamide [Erleada] 240 mg PO DAILY 02/11/24 02/11/24 History Bumetanide [BUMEX] 0.5 mg PO DAILY 02/11/24 02/11/24 History HYDROcodone/APAP 5-325MG [[place]ett 1 tab PO QID PRN 02/11/24 02/11/24 History 5-325] Insulin Aspart [NovoLOG Flexpen] See Protocol SQ AC-TID 02/11/24 02/11/24 History Allergies Allergy/AdvReac Type Severity Reaction Status Date / Time No Known Allergies Allergy Verified 02/11/24 09:38 Physical Exam Vitals: Vital Signs Temp Pulse Pulse Resp BP BP Pulse Ox 02/11/24 04:42 97.8 F 90 17 149/88 95 02/11/24 04:07 98.6 F 78 18 131/75 96 02/11/24 02:46 62 16 98 02/11/24 01:54 83 18 126/73 98 02/11/24 00:56 98.1 F 71 16 154/81 99 Intake and Output 02/10/24 02/11/24 02/11/24 22:59 06:59 14:59 Output Total 200 Balance -200 Output: Urine 200 Other: # Bowel Movements 1 Weight 81.647 kg Results CBC & Chem 7: 02/11/24 01:05 02/11/24 01:05 Labs: Abnormal Lab Results - Last 24 Hours (Table) 02/11/24 02/11/24 Range/Units 01:05 01:05 RBC 3.63 L (4.30-5.90) m/uL Hgb 12.3 L (13.0-17.5) gm/dL Hct 38.6 L (39.0-53.0) % MCV 106.4 H (80.0-100.0) fL RDW 15.9 H (11.5-15.5) % Chloride 112 H (98-107) mmol/L Carbon Dioxide 18 L (22-30) mmol/L BUN 32 H (9-20) mg/dL Glucose 147 H (74-99) mg/dL
[2024-02-11] MEDS: MORPHINE SULFATE 4 MG/ML SYRINGE IV PRN (10:38)
[2024-02-11] MEDS: SENNOSIDES 8.6 MG TAB PO SCH (10:39)
[2024-02-11] MEDS: BUMETANIDE 0.5 MG TABLET PO SCH (11:04)
[2024-02-11 11:54] LABS: Glucose,Whole Blood 171 mg/dL (70-110)
--- NOTE | 2024-02-11 12:46 | P.CRDCN ---
History of Present Illness History of present illness: HISTORY OF PRESENTING ILLNESS This is a pleasant 84-year-old with past medical history significant for hypertension, hyperlipidemia, diabetes mellitus type 2, prostate cancer with metastasis to the bones, CLL, chronic diastolic heart failure, mild aortic stenosis. He follows in the office with Dr. Saavedra. Patient unfortunately had a mechanical fall. He admits he is somewhat unstable on his feet and should've been using a walker and fell and broke his hip. He denies any actual loss of consciousness. EKG shows atrial fibrillation with controlled ventricular rate. He does have chronic dyspnea. Chest x-ray showing mild pulmonary vascular congestion. He has had chronic issues with shortness breath and mild lower extremity edema. Usually takes Bumex 0.5 mg daily at home. Currently he is on room air without any significant respiratory distress. He does take anticoagulation without any significant hematochezia or melena. Prior echo from 06/29/2023 showed preserved EF with mild LVH and mild aortic stenosis. REVIEW OF SYSTEMS At the time of my exam: CONSTITUTIONAL: Denies fever or chills. CARDIOVASCULAR: Denies chest pain, +chronic shortness of breath, no orthopnea, PND or palpitations. RESPIRATORY: Denies cough. GASTROINTESTINAL: Denies abdominal pain, diarrhea, constipation, nausea or vomiting. MUSCULOSKELETAL: Denies myalgias. NEUROLOGIC: Denies numbness, tingling or weakness. ENDOCRINE: Denies fatigue, weight change, polydipsia or polyurina. GENITOURINARY: Denies burning, hematuria or urgency with micturation. HEMATOLOGIC: Denies history of anemia or bleeding. PHYSICAL EXAMINATION Vital signs reviewed. CONSTITUTIONAL: No apparent distress. HEENT: Head is normocephalic. Pupils are equal, round. Sclerae anicteric. Mucous membranes of the mouth are moist. No JVD. No carotid bruit. CHEST EXAMINATION: Lungs are clear to auscultation. No chest wall tenderness is noted on palpation or with deep breathing. HEART EXAMINATION: Regular rate and rhythm. S1, S2 heard. No murmurs, gallops or rub. ABDOMEN: Soft, nontender. Positive bowel sounds. EXTREMITIES: 2+ peripheral pulses, 1+ lower extremity edema and no calf tenderness. NEUROLOGIC EXAMINATION: Patient is awake, alert and oriented x3. ASSESSMENT Preoperative cardiovascular exam Chronic diastolic heart failure Persistent A. fib with controlled ventricular rates Status post mechanical fall with hip fracture Hypertension Diabetes mellitus type 2 Mild aortic stenosis PLAN Patient without any overt heart failure, electrical instability or angina-type symptoms. Patient is moderate risk for proposed hip surgery however discussed risks and benefits and patient agreeable. Okay to hold Xarelto and reinitiated after surgery. Stop IV fluids and limit IV fluid resuscitation given some lower extremity edema and higher propensity for heart failure. Past Medical History Past Medical History: Atrial Fibrillation, Cancer, Diabetes Mellitus, GERD/Reflux, Hyperlipidemia, Hypertension, Musculoskeletal Disorder, Neurologic Disorder, Osteoarthritis (OA), Renal Disease, Sleep Apnea/CPAP/BIPAP Additional Past Medical History / Comment(s): CLL-dx. 5 yrs. ago, unaware of renal problems, was having neck pain, neuropathy adonay feet, has cpap machine History of Any Multi-Drug Resistant Organisms: None Reported Past Surgical History: Cholecystectomy, Orthopedic Surgery, Tonsillectomy Additional Past Surgical History / Comment(s): left shoulder rototor cuff r epair, Right shoulder Past Anesthesia/Blood Transfusion Reactions: No Reported Reaction Past Psychological History: No Psychological Hx Reported Smoking Status: Former smoker Past Alcohol Use History: Occasional Additional Past Alcohol Use History / Comment(s): Patient was a smoker 3 packs per day for 25 years, quit 28 years ago. Past Drug Use History: None Reported - Past Family History Mother Family Medical History: Cancer Additional Family Medical History / Comment(s): of pancreatic cancer Medications and Allergies Home Medications Medication Instructions Recorded Confirmed Type Atorvastatin Calcium [Lipitor] 10 mg PO HS 10/12/15 02/11/24 History Fenofibrate 160 mg PO DAILY 10/12/15 02/11/24 History Rivaroxaban [Xarelto] 20 mg PO DAILY 10/12/15 02/11/24 History Tamsulosin [Flomax] 0.8 mg PO HS 05/27/23 02/11/24 History metFORMIN HCL ER [Glucophage XR] 500 mg PO DAILY 05/27/23 02/11/24 History Gabapentin [Neurontin] 300 mg PO TID 11/05/23 02/11/24 History Insulin Glargine,Hum.rec.anlog 13 units SQ HS 11/05/23 02/11/24 History [Lantus Solostar Pen] glipiZIDE XL [Glucotrol XL] 10 mg PO DAILY 11/05/23 02/11/24 History Apalutamide [Erleada] 240 mg PO DAILY 02/11/24 02/11/24 History Bumetanide [BUMEX] 0.5 mg PO DAILY 02/11/24 02/11/24 History HYDROcodone/APAP 5-325MG [[place] 1 tab PO QID PRN 02/11/24 02/11/24 History 5-325] Insulin Aspart [NovoLOG Flexpen] See Protocol SQ AC-TID 02/11/24 02/11/24 History Allergies Allergy/AdvReac Type Severity Reaction Status Date / Time No Known Allergies Allergy Verified 02/11/24 09:38 Physical Exam Vitals: Vital Signs Temp Pulse Pulse Pulse Resp BP BP 02/11/24 08:00 98.3 F 86 17 94/52 02/11/24 04:42 97.8 F 90 17 02/11/24 04:07 98.6 F 78 18 131/75 02/11/24 02:46 62 16 02/11/24 01:54 83 18 126/73 02/11/24 00:56 98.1 F 71 16 154/81 BP Pulse Ox 02/11/24 08:00 98 02/11/24 04:42 149/88 95 02/11/24 04:07 96 02/11/24 02:46 98 02/11/24 01:54 98 02/11/24 00:56 99 Intake and Output 02/10/24 02/11/24 02/11/24 22:59 06:59 14:59 Output Total 200 450 Balance -200 -450 Output: Urine 200 450 Other: # Bowel Movements 1 Weight 81.647 kg Results 02/11/24 01:05 02/11/24 01:05 Cardiac Enzymes 02/11/24 Range/Units 01:05 AST 30 (17-59) U/L Coagulation 02/11/24 Range/Units 01:05 PT 11.0 (10.0-12.5) sec APTT 24.3 (22.0-30.0) sec CBC 02/11/24 Range/Units 01:05 WBC 7.7 (3.8-10.6) k/uL RBC 3.63 L (4.30-5.90) m/uL Hgb 12.3 L (13.0-17.5) gm/dL Hct 38.6 L (39.0-53.0) % Plt Count 209 (150-450) k/uL Comprehensive Metabolic Panel 02/11/24 Range/Units 01:05 Sodium 141 (137-145) mmol/L Potassium 4.3 (3.5-5.1) mmol/L Chloride 112 H (98-107) mmol/L Carbon Dioxide 18 L (22-30) mmol/L BUN 32 H (9-20) mg/dL Creatinine 1.20 (0.66-1.25) mg/dL Glucose 147 H (74-99) mg/dL Calcium 9.3 (8.4-10.2) mg/dL AST 30 (17-59) U/L ALT 15 (4-49) U/L Alkaline Phosphatase 84 (38-126) U/L Total Protein 6.9 (6.3-8.2) g/dL Albumin 4.2 (3.5-5.0) g/dL Current Medications Generic Name Dose Route Start Last Admin Trade Name Freq PRN Reason Stop Dose Admin Acetaminophen 650 mg 02/11/24 02:25 Acetaminophen Tab 325 Mg Tab PO Q6HR PRN Mild Pain or Fever > 100.5 Hydrocodone Bitart/Acetaminophen 1 each 02/11/24 10:17 Hydrocodone/Apap 5-325mg 1 Each Tab PO Q6HR PRN Moderate Pain (Scale 4 to 6) Atorvastatin Calcium 10 mg 02/11/24 21:00 Atorvastatin 10 Mg Tab PO HS KERRY Bumetanide 0.5 mg 02/11/24 10:45 02/11/24 11:04 Bumetanide 0.5 Mg Tablet PO 0.5 mg DAILY KERRY Administration Dextrose/Water 25 ml 02/11/24 08:18 Dextrose 50% Syringe 50 Ml IVP PER PROTOCOL PRN Hypoglycemia Protocol Dextrose/Water 50 ml 02/11/24 08:18 Dextrose 50% Syringe 50 Ml IVP PER PROTOCOL PRN Hypoglycemia Protocol Fenofibrate 160 mg 02/11/24 09:00 02/11/24 08:33 Fenofibrate 160 Mg Tab PO 160 mg DAILY KERRY Administration Gabapentin 300 mg 02/11/24 09:00 02/11/24 08:33 Gabapentin 300 Mg Cap PO 300 mg DAILY KERRY Administration Hydromorphone HCl 1 mg 02/11/24 02:25 02/11/24 08:33 Hydromorphone 1 Mg/Ml 1 Ml Syringe IVP 1 mg Q3HR PRN Administration Severe Pain (Scale 7 to 10) Insulin Aspart 0 unit 02/11/24 12:30 Insulin Aspart (Novolog) 100 Unit/Ml Vial SQ ACHS [facility] Protocol Morphine Sulfate 4 mg 02/11/24 02:25 02/11/24 10:38 Morphine Sulfate 4 Mg/Ml Syringe IV 4 mg Q4HR PRN Administration Severe Pain (Scale 7 to 10) Naloxone HCl 0.2 mg 02/11/24 02:25 Naloxone 0.4 Mg/Ml 1 Ml Vial IV Q2M PRN Opioid Reversal Ondansetron HCl 4 mg 02/11/24 02:25 Ondansetron 4 Mg/2 Ml Vial IVP Q8HR PRN Nausea And Vomiting Pantoprazole Sodium 40 mg 02/11/24 09:00 02/11/24 08:33 Pantoprazole 40 Mg/10 Ml Vial IV 40 mg DAILY KERRY Administration Senna 8.6 mg 02/11/24 10:30 02/11/24 10:39 Sennosides 8.6 Mg Tab PO 8.6 mg DAILY KERRY Administration Tamsulosin HCl 0.8 mg 02/11/24 21:00 Tamsulosin 0.4 Mg Cap.Er.24h PO HS KERRY Intake and Output 02/10/24 02/11/24 02/11/24 22:59 06:59 14:59 Output Total 200 450 Balance -200 -450 Output: Urine 200 450 Other: # Bowel Movements 1 Weight 81.647 kg 02/11/24 01:05 02/11/24 01:05
[2024-02-11] MEDS: INSULIN ASPART (NovoLOG) 100 UNIT/ML VIAL SQ SCH (13:22)
[2024-02-11 17:16] LABS: Glucose,Whole Blood 118 mg/dL (70-110)
[2024-02-11 21:22] LABS: Glucose,Whole Blood 103 mg/dL (70-110)
[2024-02-11] MEDS: TAMSULOSIN 0.4 MG CAP.ER.24H PO SCH (21:54)
[2024-02-11] MEDS: ATORVASTATIN 10 MG TAB PO SCH (21:54)
[2024-02-12 06:44] LABS: Glucose,Whole Blood 108 mg/dL (70-110)
[2024-02-12 08:23] LABS: HCT 33.5 % (39.6-50.0); HGB 10.8 g/dL (13.0-17.0); MCH 34.6 pg (27.0-32.0); MCHC 32.2 g/dL (32.0-37.0); MCV 107.4 FL (80.0-97.0); Mean Platelet Volume 9.9 FL (9.5-12.2); NRBC Per 100 WBC 0 X 10*3/uL (0.00-0.01); Platelet Count 144 X 10*3/uL (140-440); RBC 3.12 X 10*6/uL (4.40-5.60); WBC 9.54 X 10*3/uL (4.50-10.00)
[2024-02-12 08:58] LABS: BUN/Creat Ratio 18.54 Ratio (12.00-20.00); Blood Urea Nitrogen 24.1 mg/dL (9.0-27.0); Glucose 98 mg/dL (70-110); Magnesium 1.5 mg/dL (1.5-2.4)
[2024-02-12 08:59] LABS: ALT 12 U/L (10-49); AST 25 U/L (14-35); Albumin 3.5 g/dL (3.8-4.9); Albumin/Globulin Ratio 1.67 Ratio (1.60-3.17); Alkaline Phosphatase 70 U/L (41-126); Calcium 8.6 mg/dL (8.7-10.3); Chloride 105 mmol/L (96-109); Globulin 2.1 g/dL (1.6-3.3); Sodium 139 mmol/L (135-145); Total Bilirubin 0.8 mg/dL (0.3-1.2); Total Protein 5.6 g/dL (6.2-8.2)
--- NOTE | 2024-02-12 10:12 | P.PN ---
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 He presented to the emergency department status post slip and fall at home in which patient reportedly slipped on his slippers falling onto his right side hitting his head and right hip. Patient denied having any loss of consciousness, dizziness, lightheadedness, palpitations, chest pain, shortness of breath, or experiencing focal numbness/weakness prior to or after fall, but does report significant right hip pain resulting from fall patient currently denies any other complaints. Patient walks with a cane and/or walker at baseline but reports being independent of his activities of daily living prior to fall. Upon arrival to our facility, patient underwent evaluation in the emergency department. Vital signs upon arrival show blood pressure 154/81, heart rate 71, respiratory rate 16, temp 98.1 F, and SpO2 of 99% on room air. EKG completed showing atrial fibrillation with a controlled ventricular rate of 71 bpm, T wave inversion in inferior leads III and aVF, and occasional PVC. With the exception of rate, EKG is unchanged when compared to previous EKG completed 11/05/2023 upon personal review and interpretation. Labs completed and reviewed. CBC showing macrocytic anemia with hemoglobin of 12.3 and MCV of 106.4. Coagulation profile normal findings. BMP showing non-anion gap metabolic acidosis with chloride of 112, bicarb of 18, anion gap of 11, and elevated BUN of 32 with creatinine of 1.20, and GFR of 56. Liver profile unremarkable. Glucose elevated at 147. CT head negative for acute intracranial process showing severe chronic left sinus disease. CT cervical spine negative for acute process revealing coarse calcifications in the right lobe of the thyroid gland and moderate/advanced degenerative disc disease of cervical spine. Chest x-ray reporting slightly under inflated lungs with possible mild pulmonary edema. X-ray right hip showing nondisplaced right femoral subcapital fracture with minimal impaction in the lateral aspect. Patient admitted under orthopedic surgery team and we were consulted for surgical clearance and medical management throughout hospitalization. Physical exam: Patient seen and fully evaluated at bedside this morning. Patient reporting moderate pain in right hip at time of assessment. RN notified and to provide patient with additional pain medications at this time. Patient is scheduled to undergo right hip hemiarthroplasty later today, RN reports around 1:30 PM. Patient denies having any other complaints at this time including headache, lightheadedness, dizziness, chest pain, palpitations, shortness of breath, or experiencing any numbness in his extremities. Vital signs reviewed and stable. General: Nontoxic, no distress and appears stated age. Derm: Skin warm and dry, normal coloration for ethnicity. Head: Atraumatic, normocephalic and symmetric. Eyes: EOM's intact, no lid lag, and anicteric sclera Mouth: no lip lesions, mucus membranes moist Cardiovascular: Irregularly irregular with systolic murmur, positive posterior tibial pulses bilaterally, and cap refill < 2 seconds. 2+ pitting bilateral lower extremity edema. Lungs: Respirations even, regular, and unlabored on room air. Lungs CTA bilaterally, no rhonchi, no rales, no wheezing, and no accessory muscle usage. Abdominal: soft, nontender to palpation, no guarding, no appreciable organomegaly Ext: No gross muscle atrophy, no edema, no contractures. Movement and sensation intact. Patient with right lower extremity shortening and right lateral rotation. Neuro: Speech clear, face symmetrical and CN II-XII grossly intact with no noted focal neuro deficits Psych: Alert and oriented to person, place, time, and situation. Appropriate and pleasant affect. Assessment and Plan of Care: Surgical clearance Nondisplaced right femoral subcapital fracture -NSQIP score calculated. Patient is at an above average risk of serious complications at 15.4% with average risk of serious complication of 11.6%, and above average risk for cardiac complication at 3.3% with average risk being 2.0%, and an increased risk for at 6% with average risk being 3.6%. -Patient is medically optimized to proceed with scheduled right hip hemiarthroplasty for repair of subcapital femur fracture. He is at high risk for surgical intervention, although there are no absolute contraindications to undergo scheduled surgery from a medical standpoint at this time. However, secondary to his high risk patient will require continuous cardiac monitoring intraoperatively and postoperatively throughout hospitalization. Chronic diastolic heart failure Chronic atrial fibrillation Hypertension Hyperlipidemia -CXR Showing mild pulmonary edema, patient reports chronic shortness of breath lower extremity edema, but denies having any increased shortness of breath, chest pain, palpitations, or experiencing increased lower extremity edema. -Hold Xarelto pending clearance from orthopedic surgery team to resume. -Cardiology was consulted for cardiac surgical clearance. -Patient currently with controlled ventricular rate. -Order placed for continuous telemetry monitoring. -Recommend patient continue atorvastatin 10 mg nightly, Bumex 0.5 mg daily, and fenofibrate 160 mg daily. -Preoperative EKG was reviewed, showing atrial fibrillation with a controlled ventricular rate of 71 bpm with T wave inversion in inferior leads III and aVF and occasional PVC and with the exception of rate, this EKG is unchanged when compared to previous EKG completed 11/05/2023 upon personal review and interpretation. -Echocardiogram completed 07/08/2023 was reviewed showing a preserved EF of 55 to 60%. -proBNP 2149. Insulin-dependent diabetes mellitus with hyperglycemia -Hold oral hypoglycemic agents and patient was placed on glycemic protocol with NovoLog sliding scale. Metastatic prostate cancer -Hold apalutamide at this time, may resume postoperatively after cleared by or thopedic surgery team to resume. -Continue Flomax 0.8 mg nightly. Thyroid calcifications -CT cervical spine negative for acute process revealing coarse calcifications in the right lobe of the thyroid gland -Recommend outpatient follow-up with PCP for scheduling of thyroid ultrasound. Data and imaging reviewed: Labs completed and reviewed. CBC showing stable macrocytic anemia with hemoglobin of 10.8 and MCV of 107.4. BMP showing high anion gap metabolic acidosis with chloride of 105, bicarb of 21, and anion gap of 13. Renal function slightly elevated this morning with BUN of 24.1, creatinine of 1.3, and GFR of 55. Will continue to monitor closely and place additional orders if any further elevation including holding of Bumex. Vital signs reviewed. Blood pressure 121/74, heart rate 83, respiratory rate 18, temp 99.5 F, and SpO2 of 96% on room air. Thank you for allowing us to participate in the care of this pleasant patient. Do not hesitate to contact us with questions. Someone can be reached from the [facility] hospitalist group all hours of the day at [phone] or via perfect serve. Patient was seen independently by Nurse Practitioner. This document was prepared using [employer] dictation software. Please allow for errors in apprentice painter hand while rare they do occur. Siva Lizarraga NP rendered care for this patient independently, reviewed the findings and plan as documented in the note above and agree with plan. I did not physically speak with or examine the patient on this date. Objective - Vital Signs Vital signs: Vital Signs Temp 97.6 F 02/12/24 02:00 Pulse 77 02/12/24 02:00 Resp 18 02/12/24 02:00 BP 118/68 02/12/24 02:00 Pulse Ox 95 02/12/24 02:00 FiO2 Intake & Output 02/11/24 02/12/24 02/12/24 18:59 06:59 18:59 Output Total 450 Balance -450 Output: Urine 450 Other: Voiding Method Urinal # Voids 2 2 # Bowel Movements 1 - Labs CBC & Chem 7: 02/12/24 03:02 02/12/24 03:02 Labs: Abnormal Lab Results - Last 24 Hours (Table) 02/11/24 02/11/24 02/12/24 Range/Units 11:53 17:14 03:02 RBC 3.12 L (4.40-5.60) X 10*6/uL Hgb 10.8 L (13.0-17.0) g/dL Hct 33.5 L (39.6-50.0) % MCV 107.4 H (80.0-97.0) FL MCH 34.6 H (27.0-32.0) pg RDW 16.0 H (11.5-14.5) % POC Glucose (mg/dL) 171 H 118 H (70-110) mg/dL
[2024-02-12 11:32] LABS: Glucose,Whole Blood 107 mg/dL (70-110)
--- NOTE | 2024-02-12 12:28 | P.PN ---
Subjective HISTORY OF PRESENT ILLNESS: This is a pleasant 84-year-old with past medical history significant for hypertension, hyperlipidemia, diabetes mellitus type 2, prostate cancer with metastasis to the bones, CLL, chronic diastolic heart failure, mild aortic stenosis. He follows in the office with Dr. Saavedra. Patient unfortunately had a mechanical fall. He admits he is somewhat unstable on his feet and should've been using a walker and fell and broke his hip. He denies any actual loss of consciousness. EKG shows atrial fibrillation with controlled ventricular rate. He does have chronic dyspnea. Chest x-ray showing mild pulmonary vascular c ongestion. He has had chronic issues with shortness breath and mild lower extremity edema. Usually takes Bumex 0.5 mg daily at home. Currently he is on room air without any significant respiratory distress. He does take anticoagulation without any significant hematochezia or melena. Prior echo from 06/29/2023 showed preserved EF with mild LVH and mild aortic stenosis. 02/12/2024 Patient examined this morning at the bedside. Patient currently denies chest pain or pressure. He denies shortness of breath. He reports pain in his hip with movement. Vital signs are stable. He is scheduled to undergo surgical intervention this afternoon with orthopedics. PHYSICAL EXAM: VITAL SIGNS: Reviewed. GENERAL: Well-developed in no acute distress. NECK: Supple. No JVD or thyromegaly LUNGS: Respirations even and unlabored. Lungs essentially clear to auscultation bilaterally. HEART: Irregular rate and rhythm. S1 and S2 heard. EXTREMITIES: Normal range of motion. No clubbing or cyanosis. Peripheral pulses intact. No lower extremity edema ASSESSMENT: Preoperative cardiovascular exam Chronic diastolic heart failure Persistent A. fib with controlled ventricular rates Status post mechanical fall with hip fracture Hypertension Diabetes mellitus type 2 Mild aortic stenosis PLAN: Continue to hold Xarelto. Resume postoperatively when okay with orthopedics Patient is at moderate risk for surgery however there are no absolute contraindications from a cardiac perspective Further recommendations pending patient course Nurse practitioner note has been reviewed by physician. Signing provider agrees with the documented findings, assessment, and plan of care documented by REINSURANCE ANALYST as a scribe. Objective - Vital Signs Vital signs: Vital Signs Temp 99.5 F 02/12/24 08:05 Pulse 83 02/12/24 08:35 Resp 18 02/12/24 08:35 BP 121/74 02/12/24 08:05 Pulse Ox 96 02/12/24 08:05 FiO2 Intake & Output 02/11/24 02/12/24 02/12/24 18:59 06:59 18:59 Output Total 450 Balance -450 Output: Urine 450 Other: Voiding Method Urinal Urinal # Voids 2 2 # Bowel Movements 1 - Labs CBC & Chem 7: 02/12/24 03:02 02/12/24 03:02 Labs: Abnormal Lab Results - Last 24 Hours (Table) 02/11/24 02/11/24 02/12/24 Range/Units 11:53 17:14 03:02 RBC 3.12 L (4.40-5.60) X 10*6/uL Hgb 10.8 L (13.0-17.0) g/dL Hct 33.5 L (39.6-50.0) % MCV 107.4 H (80.0-97.0) FL MCH 34.6 H (27.0-32.0) pg RDW 16.0 H (11.5-14.5) % Carbon Dioxide (21.6-31.8) mmol/L Anion Gap (4.00-12.00) mmol/L Est GFR (CKD-EPI) (>=60) POC Glucose (mg/dL) 171 H 118 H (70-110) mg/dL Calcium (8.7-10.3) mg/dL Total Protein (6.2-8.2) g/dL Albumin (3.8-4.9) g/dL 02/12/24 Range/Units 03:02 RBC (4.40-5.60) X 10*6/uL Hgb (13.0-17.0) g/dL Hct (39.6-50.0) % MCV (80.0-97.0) FL MCH (27.0-32.0) pg RDW (11.5-14.5) % Carbon Dioxide 21.0 L (21.6-31.8) mmol/L Anion Gap 13.00 H (4.00-12.00) mmol/L Est GFR (CKD-EPI) 55 L (>=60) POC Glucose (mg/dL) (70-110) mg/dL Calcium 8.6 L (8.7-10.3) mg/dL Total Protein 5.6 L (6.2-8.2) g/dL Albumin 3.5 L (3.8-4.9) g/dL
[2024-02-12] MEDS: IV FLUID CONTINUATION 1,000 ML IV ONE (15:08)
[2024-02-12 15:27] LABS: Glucose,Whole Blood 123 mg/dL (70-110)
[2024-02-12] MEDS: ONDANSETRON 4 MG/2 ML VIAL IVP PRN (15:50)
[2024-02-12] MEDS: DEXAMETHASONE SOD PHOSPHATE 4 MG/ML 1 ML VIAL IVP STA (15:51)
[2024-02-12] MEDS: MIDAZOLAM 2 MG/2 ML VIAL IV STA (15:55)
[2024-02-12] MEDS: fentaNYL (PF) 50 MCG/ML 2 ML AMP IVP STA ×2 (15:56→15:59)
[2024-02-12] MEDS: LACTATED RINGERS 1,000 ML BAG IV STA (16:10)
--- NOTE | 2024-02-12 16:24 | P.ANPRN ---
Procedure Note - Anesthesia - Nerve Block Performed Right Thomas Single Time Out Performed: Yes Date of Procedure: 02/12/24 Procedure Start Time: 15:54 Procedure Stop Time: 16:01 Location of Patient: PreOp Indication: Acute Post-Operative Pain, Analgesia, Requested by Surgeon Sedation Type: Sedate with meaningful contact maintained Preparation: Sterile Prep Position: Supine Catheter: None Needle Types: Pajunk Needle Gauge: 21 Ultrasound used to visualize needle placement: Yes Ultrasound used to observe medication spread: Yes Injectate: 0.5% Ropivacaine (see comment for volume) (Ropiv 20ml+Decadron 4mg) Blood Aspirated: No Pain Paresthesia on Injection Noted: No Resistance on Injection: Normal Image Stored and Saved: Yes Events: Uneventful and Well Tolerated
[2024-02-12] MEDS ORDERED: ROPIVACAINE 5 MG/ML 30 ML VIAL ONE (16:45)
[2024-02-12] MEDS ORDERED: LIDOCAINE 1% INJ 10MG/ML (20 ML MDV) ONE (16:45)
[2024-02-12] MEDS ORDERED: SUCCINYLCHOLINE CHLORIDE 200 MG/10 ML VIAL IV ONE (16:45)
[2024-02-12] MEDS ORDERED: VASOPRESSIN 20 UNIT/ML 1 ML VIAL ONE (16:45)
[2024-02-12] MEDS ORDERED: DEXAMETHASONE SOD PHOSPHATE 4 MG/ML 1 ML VIAL ONE (16:45)
[2024-02-12] MEDS ORDERED: fentaNYL (PF) 50 MCG/ML 2 ML AMP ONE (16:45)
[2024-02-12] MEDS ORDERED: PROPOFOL 10 MG/ML 20 ML VIAL IV ONE (16:45)
[2024-02-12] MEDS: SODIUM CHLORIDE 0.9% 100 ML with ceFAZolin 2,000 MG IV ONE (16:45)
[2024-02-12] MEDS ORDERED: PHENYLEPHRINE 10 MG/ML VIAL ONE (16:45)
[2024-02-12] MEDS: ceFAZolin 1,000 MG in SODIUM CHLORIDE 0.9% 1,000 ML IRRIGATION ONE (17:12)
[2024-02-12] MEDS: LACTATED RINGERS 1,000 ML IV ONE (17:27)
[2024-02-12] MEDS ORDERED: hydrOXYzine pamoate 25 MG CAP PO PRN (18:09)
[2024-02-12] MEDS ORDERED: HYDROmorphone 0.5 MG/0.5 ML SYRINGE IVP PRN (18:09)
[2024-02-12] MEDS ORDERED: MAGNESIUM HYDROXIDE 2,400 MG/30 ML CUP PO PRN (18:09)
[2024-02-12] MEDS ORDERED: NALOXONE 0.4 MG/ML 1 ML VIAL IV PRN (18:09)
--- NOTE | 2024-02-12 18:29 | P.OP ---
Date of Procedure: 02/12/24 Preoperative Diagnosis: Impacted right subcapital femoral neck fracture Postoperative Diagnosis: Same Procedure(s) Performed: Right hip hemiarthroplastypress-fit Implants: DePuy Corail size 14/125 degree/collared press-fit femoral stem, -3 neck, 48 mm unipolar femoral head. Anesthesia: ISABELA Surgeon: David Kenyon Facsimile Machine Operator #1: Torres Garcia Estimated Blood Loss (ml): 100 Pathology: none sent Condition: stable Disposition: PACU Indications for Procedure: The patient is a 84-year-old male who is a community ambulator presents after falling injuring his right hip. Upon evaluation he was noted to have an impacted right subcapital femoral neck fracture. A discussion of the risks and benefits of operative intervention was made with the patient and his family. They opted to proceed. Operative options were discussed. We planned on proceeding with hemiarthroplasty. Specific risks of surgery to include infection, neurovascular injury, fracture, possible leg length discrepancy, stability, possible component loosening/failure and need for subsequent procedures was discussed. Informed consent was obtained. Operative Findings: As below Description of Procedure: The patient was brought to the operating room, and after induction of spinal anesthesia was placed in the lateral decubitus position. Bony prominences were appropriately padded. The pelvis was stabilized perpendicular to the floor with a pegboard. The right lower extremity was prepped and draped in normal fashion. A 12 cm incision was then made centered over the greater trochanter extending superiorly to level ASIS and distally along the femoral shaft. Skin and subcutaneous tissues were divided sharply. Electrocautery was used for hemostasis. The fascia nathalia and gluteus suze fascia was split in line with the skin incision. Muscle fibers were bluntly dissected proximally. A self- retaining retractor was placed. The anterior and posterior margins of the gluteus medius muscles identified in the into two thirds detached the greater trochanter with electrocautery. The gluteus minimus tendon was identified and detached in a similar fashion. A T-shaped capsulotomy was performed. The capsular flaps were tagged with #2 Ethibond suture. The femoral neck fracture was then identified. A lower neck cut was made at 45 the shaft with a sagittal saw to help facilitate head extraction. Head was then extracted with a corkscrew. It measured 48 millimeters . The acetabulum was inspected. No significant chondral injury was noted. Attention was then paid towards preparing the proximal femur. A box chisel was used to open the metaphyseal region. A canal finder was used to find the femoral canal. Sequential broaching was performed up to a size 14 broach with the leg perpendicular to the floor in 15 of anteversion. There was good rotational stability. A calcar mill was used to fashion the medial calcar. A -3 neck and 48 mm unipolar head was placed. The hip was gently reduced. It was taken through range of motion and felt to be stable in flexion and extension with internal and external rotation. I felt there was adequate caodaism of soft tissue tension. Hip wa s gently dislocated. The trial components were then removed. Pulsatile lavage was utilized. The final size 14/125 degree collared femoral stem was inserted again with the leg perpendicular to the floor in 15 of anteversion. This was fully seated. Again there was good rotational stability. A -3 neck and 48 mm unipolar head was gently impacted. Hip was gently reduced. Again it was taken through range of motion felt to be stable in flexion and extension with internal and external rotation. Again I felt there was adequate caodaism of soft tissue tension. Pulsatile lavage was again utilized. The capsular layer was closed with interrupted #2 Ethibond suture. The gluteus minimus and medius tendons reattached the greater trochanter with #2 Ethibond suture. The fascia nathalia and gluteus suze fascia was closed with running #2 Ethibond suture. There is minimal drainage therefore a deep drain was not placed. The subcutaneous tissues were reapproximated interrupted 2-0 Vicryl sutures. Skin was reapproximated with 3-0 subcuticular strata fix suture. Skin tape and adhesive was applied. A sterile dressing was applied. The patient was then awoken from sedation and transferred to recovery room in fair condition. Blood loss was estimated 100 mL. No complications were incurred. Sponge and needle counts were correct at the end the case. Torres RIBEIRO assisted during the major components the case to include positioning, exposure, implantation, and closure.
--- NOTE | 2024-02-12 19:00 | XR ---
EXAMINATION TYPE: XR Hip Limited RT DATE OF EXAM: 02/12/2024 CLINICAL HISTORY: Right hip pain and osteoarthritis. TECHNIQUE: Single AP portable view of right hip is obtained immediately postoperatively. COMPARISON: None. FINDINGS: Metallic hardware from right hip arthroplasty is seen and appears satisfactory in alignment and position. There is evidence of recent surgery with subcutaneous gas noted surrounding prosthesi s. IMPRESSION: Metallic hardware from right hip arthroplasty is satisfactory in position. [facility], , 02/12/2024 6:58 PM
[2024-02-12 20:57] LABS: Basophils % (A) 0 %; Eosinophils % (A) 0 %; HCT 33.6 % (39.0-53.0); HGB 10.4 gm/dL (13.0-17.5); Hypochromasia Moderate; Lymphocytes # (A) 0.3 k/uL (1.0-4.8); Lymphocytes % (A) 3 %; MCH 33.8 pg (25.0-35.0); MCHC 30.8 g/dL (31.0-37.0); MCV 109.6 fL (80.0-100.0); Macrocytosis Marked; Mean Platelet Volume 8.5; Monocytes # (A) 0.5 k/uL (0-1.0); Monocytes % (A) 4 %; Neutrophils # (A) 9.9 k/uL (1.3-7.7); Neutrophils % (A) 92 %; Platelet Count 130 k/uL (150-450); RBC 3.07 m/uL (4.30-5.90); RDW 15.8 % (11.5-15.5); WBC 10.8 k/uL (3.8-10.6)
[2024-02-12 21:00] LABS: Glucose,Whole Blood 191 mg/dL (70-110)
[2024-02-12] MEDS: SENNOSIDES-DOCUSATE SODIUM 1 EACH TAB PO SCH (21:26)
[2024-02-13 06:13] LABS: Glucose,Whole Blood 162 mg/dL (70-110)
[2024-02-13] MEDS: HYDROcodone/APAP 5-325MG 1 EACH TAB PO PRN (07:25)
[2024-02-13 09:03] LABS: HCT 28.6 % (39.6-50.0); HGB 9.1 g/dL (13.0-17.0); MCH 34.5 pg (27.0-32.0); MCHC 31.8 g/dL (32.0-37.0); MCV 108.3 FL (80.0-97.0); Mean Platelet Volume 10.1 FL (9.5-12.2); NRBC Per 100 WBC 0 X 10*3/uL (0.00-0.01); Platelet Count 122 X 10*3/uL (140-440); RBC 2.64 X 10*6/uL (4.40-5.60); RDW 15.4 % (11.5-14.5); WBC 7.07 X 10*3/uL (4.50-10.00)
[2024-02-13 09:26] LABS: Magnesium 1.6 mg/dL (1.5-2.4)
[2024-02-13 09:35] LABS: ALT 15 U/L (10-49); AST 36 U/L (14-35); Albumin 3.3 g/dL (3.8-4.9); Albumin/Globulin Ratio 1.74 Ratio (1.60-3.17); Alkaline Phosphatase 63 U/L (41-126); BUN/Creat Ratio 19.79 Ratio (12.00-20.00); Blood Urea Nitrogen 27.7 mg/dL (9.0-27.0); Calcium 8.5 mg/dL (8.7-10.3); Carbon Dioxide 17.2 mmol/L (21.6-31.8); Chloride 105 mmol/L (96-109); Globulin 1.9 g/dL (1.6-3.3); Glucose 160 mg/dL (70-110); Potassium 4.1 mmol/L (3.5-5.5); Sodium 137 mmol/L (135-145); Total Bilirubin 0.6 mg/dL (0.3-1.2); Total Protein 5.2 g/dL (6.2-8.2)
[2024-02-13] MEDS: HYDROmorphone 0.5 MG/0.5 ML SYRINGE IVP PRN (10:10)
[2024-02-13 11:22] LABS: Glucose,Whole Blood 150 mg/dL (70-110)
--- NOTE | 2024-02-13 13:28 | P.PN ---
Subjective HISTORY OF PRESENT ILLNESS: This is a pleasant 84-year-old with past medical history significant for hypertension, hyperlipidemia, diabetes mellitus type 2, prostate cancer with metastasis to the bones, CLL, chronic diastolic heart failure, mild aortic stenosis. He follows in the office with Dr. Saavedra. Patient unfortunately had a mechanical fall. He admits he is somewhat unstable on his feet and should've been using a walker and fell and broke his hip. He denies any actual loss of consciousness. EKG shows atrial fibrillation with controlled ventricular rate. He does have chronic dyspnea. Chest x-ray showing mild pulmonary vascular c ongestion. He has had chronic issues with shortness breath and mild lower extremity edema. Usually takes Bumex 0.5 mg daily at home. Currently he is on room air without any significant respiratory distress. He does take anticoagulation without any significant hematochezia or melena. Prior echo from 06/29/2023 showed preserved EF with mild LVH and mild aortic stenosis. 02/12/2024 Patient examined this morning at the bedside. Patient currently denies chest pain or pressure. He denies shortness of breath. He reports pain in his hip with movement. Vital signs are stable. He is scheduled to undergo surgical intervention this afternoon with orthopedics. 02/13/2024 Patient is status post right hip hemiarthroplasty. Postop day #1. Patient is sitting up in the chair. Patient currently denies chest pain or pressure. He denies shortness of breath. Vital signs are stable. Most recent blood pressure 126/63. He is on room air with oxygen saturations greater than 92%. He has been resumed on Xarelto. PHYSICAL EXAM: VITAL SIGNS: Reviewed. GENERAL: Well-developed in no acute distress. NECK: Supple. No JVD or thyromegaly LUNGS: Respirations even and unlabored. Lungs essentially clear to auscultation bilaterally. HEART: Irregular rate and rhythm. S1 and S2 heard. EXTREMITIES: Normal range of motion. No clubbing or cyanosis. Peripheral pulses intact. No lower extremity edema ASSESSMENT: Preoperative cardiovascular exam Chronic diastolic heart failure Persistent A. fib with controlled ventricular rates Status post mechanical fall with hip fracture Hypertension Diabetes mellitus type 2 Mild aortic stenosis PLAN: Patient Xarelto has been resumed Continue additional cardiac medications No further inpatient recommendations from a cardiac standpoint We will sign off. Please reconsult if needed. Nurse practitioner note has been reviewed by physician. Signing provider agrees with the documented findings, assessment, and plan of care documented by SAMPLE PATTERNMAKER as a scribe. Objective - Vital Signs Vital signs: Vital Signs Temp 97.5 F L 02/13/24 07:35 Pulse 89 02/13/24 07:35 Resp 20 02/13/24 07:35 BP 126/63 02/13/24 07:35 Pulse Ox 94 L 02/13/24 07:35 FiO2 Intake & Output 02/12/24 02/13/24 02/13/24 18:59 06:59 18:59 Intake Total 1501 Output Total 100 475 Balance 1401 -475 Intake: IV 1501 Output: Urine 475 Estimated Blood Loss 100 Other: Voiding Method Urinal # Voids 2 - Labs CBC & Chem 7: 02/13/24 06:01 02/13/24 06:01 Labs: Abnormal Lab Results - Last 24 Hours (Table) 02/12/24 02/12/24 02/12/24 Range/Units 15:24 20:19 20:58 WBC 10.8 H (3.8-10.6) k/uL RBC 3.07 L (4.30-5.90) m/uL Hgb 10.4 L (13.0-17.5) gm/dL Hct 33.6 L (39.0-53.0) % MCV 109.6 H (80.0-100.0) fL MCH (27.0-32.0) pg MCHC 30.8 L (31.0-37.0) g/dL RDW 15.8 H (11.5-15.5) % Plt Count 130 L (150-450) k/uL Neutrophils # 9.9 H (1.3-7.7) k/uL Lymphocytes # 0.3 L (1.0-4.8) k/uL Macrocytosis Marked A Carbon Dioxide (21.6-31.8) mmol/L Anion Gap (4.00-12.00) mmol/L BUN (9.0-27.0) mg/dL Est GFR (CKD-EPI) (>=60) Glucose (70-110) mg/dL POC Glucose (mg/dL) 123 H 191 H (70-110) mg/dL Calcium (8.7-10.3) mg/dL AST (14-35) U/L Total Protein (6.2-8.2) g/dL Albumin (3.8-4.9) g/dL 02/13/24 02/13/24 02/13/24 Range/Units 06:01 06:01 06:12 WBC (3.8-10.6) k/uL RBC 2.64 L (4.30-5.90) m/uL Hgb 9.1 L (13.0-17.5) gm/dL Hct 28.6 L (39.0-53.0) % MCV 108.3 H (80.0-100.0) fL MCH 34.5 H (27.0-32.0) pg MCHC 31.8 L (31.0-37.0) g/dL RDW 15.4 H (11.5-15.5) % Plt Count 122 L (150-450) k/uL Neutrophils # (1.3-7.7) k/uL Lymphocytes # (1.0-4.8) k/uL Macrocytosis Carbon Dioxide 17.2 L (21.6-31.8) mmol/L Anion Gap 14.80 H (4.00-12.00) mmol/L BUN 27.7 H (9.0-27.0) mg/dL Est GFR (CKD-EPI) 50 L (>=60) Glucose 160 H (70-110) mg/dL POC Glucose (mg/dL) 162 H (70-110) mg/dL Calcium 8.5 L (8.7-10.3) mg/dL AST 36 H (14-35) U/L Total Protein 5.2 L (6.2-8.2) g/dL Albumin 3.3 L (3.8-4.9) g/dL 02/13/24 Range/Units 11:19 WBC (3.8-10.6) k/uL RBC (4.30-5.90) m/uL Hgb (13.0-17.5) gm/dL Hct (39.0-53.0) % MCV (80.0-100.0) fL MCH (27.0-32.0) pg MCHC (31.0-37.0) g/dL RDW (11.5-15.5) % Plt Count (150-450) k/uL Neutrophils # (1.3-7.7) k/uL Lymphocytes # (1.0-4.8) k/uL Macrocytosis Carbon Dioxide (21.6-31.8) mmol/L Anion Gap (4.00-12.00) mmol/L BUN (9.0-27.0) mg/dL Est GFR (CKD-EPI) (>=60) Glucose (70-110) mg/dL POC Glucose (mg/dL) 150 H (70-110) mg/dL Calcium (8.7-10.3) mg/dL AST (14-35) U/L Total Protein (6.2-8.2) g/dL Albumin (3.8-4.9) g/dL
--- NOTE | 2024-02-13 13:40 | P.PN ---
Subjective Progress Note Date: 02/13/24 Principal diagnosis: Right hip femoral neck fracture Patient was seen at bedside this morning sitting up in chair with dressing present over right hip. Patient says he was able to stand up at the edge of the bed earlier this morning with physical therapy and says he did have a lot of pain in the hip when he stood up however he was able to put some weight on the right leg. Patient says he has urinated since surgery without issue. Patient says pain is somewhat controlled with oral medication however he does get increased pain when changing positions. Patient denies any other orthopedic complaints at this time. Objective - Vital Signs Vital signs: Vital Signs Temp 97.5 F L 02/13/24 07:35 Pulse 89 02/13/24 07:35 Resp 20 02/13/24 07:35 BP 126/63 02/13/24 07:35 Pulse Ox 94 L 02/13/24 07:35 FiO2 Intake & Output 02/12/24 02/13/24 02/13/24 18:59 06:59 18:59 Intake Total 1501 Output Total 100 475 Balance 1401 -475 Intake: IV 1501 Output: Urine 475 Estimated Blood Loss 100 Other: Voiding Method Urinal # Voids 2 1 - Exam Inspection: Dressing present over the right lateral hip. Dressing appears to be clean, dry, intact. Negative for any active drainage. Some minor spotting over dressing. There is some swelling diffusely near the right hip. Negative for any significant ecchymosis. Negative for any open fractures. Sensation: Patient does have diminished sensation in bilateral lower extremities extending from the calves down to the digits in the feet. Sensation is equal, symmetric, intact throughout the rest of the lower extremities and upper extremities. Palpation: There is a moderate amount of tenderness to palpation diffusely throughout the right hip. Nontender to palpation throughout rest of exam. Range of motion: Patient is able to wiggle digits in bilateral feet. Patient does have good range of motion of bilateral elbows and wrist in flexion extensi on. Patient does have limited range of motion in the right shoulder secondary to pain and stiffness resulting from fall last night. Patient is able to fire quad and right lower extremity. Unable to lift the right leg off the chair. Motor: 4/5 in bilateral upper extremities. 4-/5 in left lower extremity. Right lower extremity motor exam not performed due to injury Neurovascular: Very diminished pedal pulses bilaterally. Radial pulse intact bilaterally. Cap refill diminished in digits of bilateral feet Special test: Positive logroll maneuver to the right. Negative Homans bilaterally. - Labs CBC & Chem 7: 02/13/24 06:01 02/13/24 06:01 Labs: Abnormal Lab Results - Last 24 Hours (Table) 02/12/24 02/12/24 02/12/24 Range/Units 15:24 20:19 20:58 WBC 10.8 H (3.8-10.6) k/uL RBC 3.07 L (4.30-5.90) m/uL Hgb 10.4 L (13.0-17.5) gm/dL Hct 33.6 L (39.0-53.0) % MCV 109.6 H (80.0-100.0) fL MCH (27.0-32.0) pg MCHC 30.8 L (31.0-37.0) g/dL RDW 15.8 H (11.5-15.5) % Plt Count 130 L (150-450) k/uL Neutrophils # 9.9 H (1.3-7.7) k/uL Lymphocytes # 0.3 L (1.0-4.8) k/uL Macrocytosis Marked A Carbon Dioxide (21.6-31.8) mmol/L Anion Gap (4.00-12.00) mmol/L BUN (9.0-27.0) mg/dL Est GFR (CKD-EPI) (>=60) Glucose (70-110) mg/dL POC Glucose (mg/dL) 123 H 191 H (70-110) mg/dL Calcium (8.7-10.3) mg/dL AST (14-35) U/L Total Protein (6.2-8.2) g/dL Albumin (3.8-4.9) g/dL 02/13/24 02/13/24 02/13/24 Range/Units 06:01 06:01 06:12 WBC (3.8-10.6) k/uL RBC 2.64 L (4.30-5.90) m/uL Hgb 9.1 L (13.0-17.5) gm/dL Hct 28.6 L (39.0-53.0) % MCV 108.3 H (80.0-100.0) fL MCH 34.5 H (27.0-32.0) pg MCHC 31.8 L (31.0-37.0) g/dL RDW 15.4 H (11.5-15.5) % Plt Count 122 L (150-450) k/uL Neutrophils # (1.3-7.7) k/uL Lymphocytes # (1.0-4.8) k/uL Macrocytosis Carbon Dioxide 17.2 L (21.6-31.8) mmol/L Anion Gap 14.80 H (4.00-12.00) mmol/L BUN 27.7 H (9.0-27.0) mg/dL Est GFR (CKD-EPI) 50 L (>=60) Glucose 160 H (70-110) mg/dL POC Glucose (mg/dL) 162 H (70-110) mg/dL Calcium 8.5 L (8.7-10.3) mg/dL AST 36 H (14-35) U/L Total Protein 5.2 L (6.2-8.2) g/dL Albumin 3.3 L (3.8-4.9) g/dL 02/13/24 Range/Units 11:19 WBC (3.8-10.6) k/uL RBC (4.30-5.90) m/uL Hgb (13.0-17.5) gm/dL Hct (39.0-53.0) % MCV (80.0-100.0) fL MCH (27.0-32.0) pg MCHC (31.0-37.0) g/dL RDW (11.5-15.5) % Plt Count (150-450) k/uL Neutrophils # (1.3-7.7) k/uL Lymphocytes # (1.0-4.8) k/uL Macrocytosis Carbon Dioxide (21.6-31.8) mmol/L Anion Gap (4.00-12.00) mmol/L BUN (9.0-27.0) mg/dL Est GFR (CKD-EPI) (>=60) Glucose (70-110) mg/dL POC Glucose (mg/dL) 150 H (70-110) mg/dL Calcium (8.7-10.3) mg/dL AST (14-35) U/L Total Protein (6.2-8.2) g/dL Albumin (3.8-4.9) g/dL Assessment and Plan Assessment: 1. Right hip femoral neck fracture -Postop day 1 status post right hip hemiarthroplasty Plan: 1. Right hip femoral neck fracture - X surgery performed yesterday, 02/12/2024ight hip hemiarthroplasty. Patient stable at bedside this morning with dressing in place over right hip. Patient to be weightbearing as tolerated with walker and assistance as needed. Pain medication as needed. Case management working on rehab placement. Pending rehab within the next few days. We will continue to follow patient during stay in hospital. Patient to be n.p.o . starting at midnight tonight. Due to the patient's cardiac history, we have com insulted Dr. Dyer for cardiac clearance. Medicine has also been consulted for medical clearance. Withhold blood thinners at this time. Pain medication as needed. Nonweightbearing right lower extremity. Continue Xarelto for DVT prophylaxis. we will continue to follow patient during stay in hospital. 2. Appreciate medical and cardiac management 3. Pain management - norco; gabapentin 4. DVT prophylaxis -mechanical; Xarelto daily 5. GI prophylaxis - senna 6. PT/OT -weightbearing as tolerated with walker and assistance 7. Encourage incentive spirometer use 8. Discharge planning -[facility] pending within the next few days Time with Patient: Less than 30
[2024-02-13 13:58] VITALS: RESP 17
--- NOTE | 2024-02-13 15:23 | P.PN ---
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 He presented to the emergency department status post slip and fall at home in which patient reportedly slipped on his slippers falling onto his right side hitting his head and right hip. Patient denied having any loss of consciousness, dizziness, lightheadedness, palpitations, chest pain, shortness of breath, or experiencing focal numbness/weakness prior to or after fall, but does report significant right hip pain resulting from fall patient currently denies any other complaints. Patient walks with a cane and/or walker at baseline but reports being independent of his activities of daily living prior to fall. Upon arrival to our facility, patient underwent evaluation in the emergency department. Vital signs upon arrival show blood pressure 154/81, heart rate 71, respiratory rate 16, temp 98.1 F, and SpO2 of 99% on room air. EKG completed showing atrial fibrillation with a controlled ventricular rate of 71 bpm, T wave inversion in inferior leads III and aVF, and occasional PVC. With the exception of rate, EKG is unchanged when compared to previous EKG completed 11/05/2023 upon personal review and interpretation. Labs completed and reviewed. CBC showing macrocytic anemia with hemoglobin of 12.3 and MCV of 106.4. Coagulation profile normal findings. BMP showing non-anion gap metabolic acidosis with chloride of 112, bicarb of 18, anion gap of 11, and elevated BUN of 32 with creatinine of 1.20, and GFR of 56. Liver profile unremarkable. Glucose elevated at 147. CT head negative for acute intracranial process showing severe chronic left sinus disease. CT cervical spine negative for acute process revealing coarse calcifications in the right lobe of the thyroid gland and moderate/advanced degenerative disc disease of cervical spine. Chest x-ray reporting slightly under inflated lungs with possible mild pulmonary edema. X-ray right hip showing nondisplaced right femoral subcapital fracture with minimal impaction in the lateral aspect. Patient admitted under orthopedic surgery team and we were consulted for surgical clearance and medical management throughout hospitalization. Physical exam: Patient seen and fully evaluated at bedside this morning. He was sitting up in the chair. He does report uncontrolled pain to right hip and requesting additional pain medications and RN notified at this time. Patient denies having any other complaints, expresses frustration over pain and continued inability to walk. Patient educated that recovery can be a slower process and he is not expected to run a marathon today. Patient slightly agitated stating he should have been told this. Patient denies having headache, lightheadedness, dizziness, chest pain, palpitations, shortness of breath, or experiencing any numbness/tingling/weakness in his extremities. He is urinating without any difficulties and denies having any nausea or vomiting. Vital signs reviewed and stable. General: Nontoxic, no distress and appears stated age. Derm: Skin warm and dry, normal coloration for ethnicity. Head: Atraumatic, normocephalic and symmetric. Eyes: EOM's intact, no lid lag, and anicteric sclera Mouth: no lip lesions, mucus membranes moist Cardiovascular: Irregularly irregular with systolic murmur, positive posterior tibial pulses bilaterally, and cap refill < 2 seconds. 2+ pitting bilateral lower extremity edema. Lungs: Respirations even, regular, and unlabored on room air. Lungs CTA bilaterally, no rhonchi, no rales, no wheezing, and no accessory muscle usage. Abdominal: soft, nontender to palpation, no guarding, no appreciable organomegaly Ext: No gross muscle atrophy, no edema, no contractures. Movement and sensation intact. Patient with right lower extremity shortening and right lateral rotation. Neuro: Speech clear, face symmetrical and CN II-XII grossly intact with no noted focal neuro deficits Psych: Alert and oriented to person, place, time, and situation. Appropriate and pleasant affect. Assessment and Plan of Care: Status post right hip hemiarthroplasty Nondisplaced right femoral subcapital fracture -Management per primary admitting orthopedic surgery team including DVT proph ylaxis, pain management, wound/dressing management, weightbearing, and PT/OT. Acute postoperative blood loss anemia -This is an expected and stable finding. No need for transfusion or further intervention at this time. Will continue to monitor with repeat morning CBC and place additional orders if/as indicated based upon these findings. Chronic diastolic heart failure Chronic atrial fibrillation Hypertension Hyperlipidemia -CXR Showing mild pulmonary edema, patient reports chronic shortness of breath lower extremity edema, but denies having any increased shortness of breath, chest pain, palpitations, or experiencing increased lower extremity edema. -Hold Xarelto pending clearance from orthopedic surgery team to resume. -Cardiology was consulted for cardiac surgical clearance. -Patient currently with controlled ventricular rate. -Order placed for continuous telemetry monitoring. -Recommend patient continue atorvastatin 10 mg nightly, Bumex 0.5 mg daily, and fenofibrate 160 mg daily. -Preoperative EKG was reviewed, showing atrial fibrillation with a controlled ventricular rate of 71 bpm with T wave inversion in inferior leads III and aVF and occasional PVC and with the exception of rate, this EKG is unchanged when compared to previous EKG completed 11/05/2023 upon personal review and interpretation. -Echocardiogram completed 07/08/2023 was reviewed showing a preserved EF of 55 to 60%. -proBNP 2149. Insulin-dependent diabetes mellitus with hyperglycemia -Hold oral hypoglycemic agents and patient was placed on glycemic protocol with NovoLog sliding scale. Metastatic prostate cancer -Hold apalutamide at this time, may resume postoperatively after cleared by orthopedic surgery team to resume. -Continue Flomax 0.8 mg nightly. Thyroid calcifications -CT cervical spine negative for acute process revealing coarse calcifications in the right lobe of the thyroid gland -Recommend outpatient follow-up with PCP for scheduling of thyroid ultrasound. Data and imaging reviewed: Labs completed and reviewed. CBC showing thrombocytopenia with platelet count of 122 and acute blood loss anemia with hemoglobin of 9.1 with initial hemoglobin of 12.3 upon arrival to our facility. BMP showing high anion gap metabolic acidosis with chloride of 105, bicarb of 17.2, and anion gap of 14.28 and prerenal azotemia with BUN of 27.7. Blood glucose 160. Magnesium was low at 1.6. Liver profile showing elevated AST of 36 otherwise normal findings. Albumin was low at 3.3. Vital signs reviewed. Blood pressure 126/63, heart rate 89, respiratory rate 20, temp 97.5 F, and SpO2 of 94% on room air. Thank you for allowing us to participate in the care of this pleasant patient. Do not hesitate to contact us with questions. Someone can be reached from the [facility] hospitalist group all hours of the day at [phone] or via perfect serve. Patient was seen independently by Nurse Practitioner. This document was prepared using [employer] dictation software. Please allow for errors in gray tender while rare they do occur. Siva Lizarraga NP rendered care for this patient independently, reviewed the findings and plan as documented in the note above and agree with plan. I did not physically speak with or examine the patient on this date. Objective - Vital Signs Vital signs: Vital Signs Temp 97.5 F L 02/13/24 07:35 Pulse 89 02/13/24 07:35 Resp 20 02/13/24 07:35 BP 126/63 02/13/24 07:35 Pulse Ox 94 L 02/13/24 07:35 FiO2 Intake & Output 02/12/24 02/13/24 02/13/24 18:59 06:59 18:59 Intake Total 1501 Output Total 100 475 Balance 1401 -475 Intake: IV 1501 Output: Urine 475 Estimated Blood Loss 100 Other: Voiding Method Urinal # Voids 2 - Labs CBC & Chem 7: 02/13/24 06:01 02/13/24 06:01 Labs: Abnormal Lab Results - Last 24 Hours (Table) 02/12/24 02/12/24 02/12/24 Range/Units 15:24 20:19 20:58 WBC 10.8 H (3.8-10.6) k/uL RBC 3.07 L (4.30-5.90) m/uL Hgb 10.4 L (13.0-17.5) gm/dL Hct 33.6 L (39.0-53.0) % MCV 109.6 H (80.0-100.0) fL MCH (27.0-32.0) pg MCHC 30.8 L (31.0-37.0) g/dL RDW 15.8 H (11.5-15.5) % Plt Count 130 L (150-450) k/uL Neutrophils # 9.9 H (1.3-7.7) k/uL Lymphocytes # 0.3 L (1.0-4.8) k/uL Macrocytosis Marked A POC Glucose (mg/dL) 123 H 191 H (70-110) mg/dL 02/13/24 02/13/24 Range/Units 06:01 06:12 WBC (3.8-10.6) k/uL RBC 2.64 L (4.30-5.90) m/uL Hgb 9.1 L (13.0-17.5) gm/dL Hct 28.6 L (39.0-53.0) % MCV 108.3 H (80.0-100.0) fL MCH 34.5 H (27.0-32.0) pg MCHC 31.8 L (31.0-37.0) g/dL RDW 15.4 H (11.5-15.5) % Plt Count 122 L (150-450) k/uL Neutrophils # (1.3-7.7) k/uL Lymphocytes # (1.0-4.8) k/uL Macrocytosis POC Glucose (mg/dL) 162 H (70-110) mg/dL
[2024-02-13] MEDS: MAGNESIUM SULFATE-D5W PMX 1 GM in DEXTROSE/WATER 1 100ML.BAG IVPB SCH (15:57)
[2024-02-13 16:31] LABS: Glucose,Whole Blood 289 mg/dL (70-110)
[2024-02-13] MEDS: RIVAROXABAN 20 MG TAB PO SCH (17:21)
[2024-02-13 21:02] LABS: Glucose,Whole Blood 226 mg/dL (70-110)
[2024-02-14 06:33] LABS: Glucose,Whole Blood 229 mg/dL (70-110)
[2024-02-14 08:22] VITALS: BP 102/63; PULSE 88; TEMP 99.3
[2024-02-14 08:39] LABS: HCT 25.8 % (39.6-50.0); HGB 8.3 g/dL (13.0-17.0); MCH 34.2 pg (27.0-32.0); MCHC 32.2 g/dL (32.0-37.0); MCV 106.2 FL (80.0-97.0); Mean Platelet Volume 10.7 FL (9.5-12.2); NRBC Per 100 WBC 0.02 X 10*3/uL (0.00-0.01); Platelet Count 108 X 10*3/uL (140-440); RBC 2.43 X 10*6/uL (4.40-5.60); RDW 15.4 % (11.5-14.5); WBC 4.73 X 10*3/uL (4.50-10.00)
[2024-02-14 08:57] LABS: ALT 11 U/L (10-49); AST 29 U/L (14-35); Albumin 2.9 g/dL (3.8-4.9); Albumin/Globulin Ratio 1.61 Ratio (1.60-3.17); Alkaline Phosphatase 60 U/L (41-126); BUN/Creat Ratio 20.31 Ratio (12.00-20.00); Blood Urea Nitrogen 26.4 mg/dL (9.0-27.0); Calcium 7.9 mg/dL (8.7-10.3); Carbon Dioxide 18.5 mmol/L (21.6-31.8); Chloride 105 mmol/L (96-109); Globulin 1.8 g/dL (1.6-3.3); Glucose 219 mg/dL (70-110); Magnesium 1.9 mg/dL (1.5-2.4); Potassium 3.7 mmol/L (3.5-5.5); Sodium 135 mmol/L (135-145); Total Bilirubin 0.5 mg/dL (0.3-1.2); Total Protein 4.7 g/dL (6.2-8.2)
--- NOTE | 2024-02-14 11:20 | P.DS ---
Providers Date of admission: 02/11/24 03:24 Expected date of discharge: 02/14/24 Attending physician: David Kenyon Consults: 02/11/24 02:27 Consult Physician Stat Consulting Provider: Heide Corona Consult Reason/Comments: medical management Do you want consulting provider notified?: Yes, Notify in am Primary care physician: Jamie hTomas Hospital Course: Date of admission: 02/11/2024 Date of discharge: 02/14/2024 Admission diagnosis: Right hip femoral neck fracture Discharge diagnosis: Same Attending physician: Dr. Kenyon Surgical procedures: Right hip hemiarthroplasty Brief history: Patient is a 84-year-old male with a history of right hip femoral neck fracture status post fall. At this point patient has failed conservative treatment measures and has opted to proceed with a elective right hip hemiarthroplasty. Hospital course: Details of patient's surgery can be found in operative report. Patient tolerated the procedure well and was subsequently transported to orthopedic floor. Patient's orthopeidc and medical care was provided daily. Patient had daily laboratory tests performed for evaluation of overall blood counts. Patient had daily physical therapy to include strengthening range of motion as well as education with walker ambulation. Patient was treated with Xarelto for their postoperative DVT prophylaxis during their inpatient stay. Patient was noted to have a relatively uneventful postoperative course. Patient reported satisfactory pain control with oral pain medications by postoperative day 2. Patient showed satisfactory progress with physical therapy. Patient moved steadily through the program and had no difficulty meeting the goals by postoperative day 2. Given patient's otherwise satisfactory course and having met physical therapy goals, plan is to discharge patient to rehab on postoperative day 2. Discharge condition/disposition: Patient will be discharged to rehab in stable condition. Discharge medications: Instructions are given on resumption of patient's normal daily medications per primary care recommendation, in addition patient will be prescribed [place]; Xarelto; senna. Discharge instructions: 1. Wound care and infection precautions, keep incision dry and covered while showering, no lotions, creams, moisturizers. No soaking, tubs, pools, hottubs. Do not scrub over the incision. 2. Weight-bear as tolerated with walker / cane until follow-up. 3. Ice and elevate when necessary. Do not exceed 20 minutes per hour with ice pack. 4. Utilize compression sleeve until seen at first follow up appointment. 5. Nursing care. 6. Physical therapy 7. Pain meds and anticoagulants per prescription. 8. Pain medication has potential to cause constipation. Increase oral fluid and fiber intake. Contact primary care provider if you have not had a bowel movement within 48 hours after discharge 9. No anti-inflammatory medication until discussed at first post operative visit, this including Motrin, Aleve, Mobic, Diclofenac. 10. Follow up in office at 2 weeks postop with Estuardo Min PA-C / Torres Garcia PA-C 11. Follow up with your primary care doctor 7-10 days after discharge. 12. Contact [facility] with any questions, . Assessment: Right hip femoral neck fracture Procedures: Right hip hemiarthroplasty Patient Condition at Discharge: Stable Plan - Discharge Summary Discharge Rx Participant: Yes New Discharge Prescriptions: New Sennosides [Senokot] 8.6 mg PO DAILY tab Sennosides-Docusate Sodium [Senokot-S] 2 each PO HS tab HYDROcodone/APAP 5-325MG [[place] 5-325] 1 tab PO Q6HR PRN #18 tab PRN Reason: Pain Magnesium Hydroxide [Milk of Magnesia] 2,400 mg PO DAILY PRN ml PRN Reason: Constipation INSULIN ASPART (NovoLOG) [NovoLOG (formulary)] See Rx Instructions .ROUTE .COMPLEX each Acetaminophen Tab [Tylenol] 650 mg PO Q6HR PRN tab PRN Reason: Mild Pain Or Fever > 100.5 Continue Fenofibrate 160 mg PO DAILY Rivaroxaban [Xarelto] 20 mg PO DAILY Atorvastatin Calcium [Lipitor] 10 mg PO HS Gabapentin [Neurontin] 300 mg PO TID Insulin Glargine,Hum.rec.anlog [Lantus Solostar Pen] 13 units SQ HS Bumetanide [BUMEX] 0.5 mg PO DAILY metFORMIN HCL ER [Glucophage XR] 500 mg PO DAILY Tamsulosin [Flomax] 0.8 mg PO HS glipiZIDE XL [Glucotrol XL] 10 mg PO DAILY Discontinued Insulin Aspart [NovoLOG Flexpen] See Protocol SQ AC-TID No Action Apalutamide [Erleada] 240 mg PO DAILY HYDROcodone/APAP 5-325MG [[place] 5-325] 1 tab PO QID PRN PRN Reason: Pain Discharge Medication List Atorvastatin Calcium [Lipitor] 10 mg PO HS 10/12/15 [History] Fenofibrate 160 mg PO DAILY 10/12/15 [History] Rivaroxaban [Xarelto] 20 mg PO DAILY 10/12/15 [History] Tamsulosin [Flomax] 0.8 mg PO HS 05/27/23 [History] metFORMIN HCL ER [Glucophage XR] 500 mg PO DAILY 05/27/23 [History] Gabapentin [Neurontin] 300 mg PO TID 11/05/23 [History] Insulin Glargine,Hum.rec.anlog [Lantus Solostar Pen] 13 units SQ HS 11/05/23 [History] glipiZIDE XL [Glucotrol XL] 10 mg PO DAILY 11/05/23 [History] Apalutamide [Erleada] 240 mg PO DAILY 02/11/24 [History] Bumetanide [BUMEX] 0.5 mg PO DAILY 02/11/24 [History] HYDROcodone/APAP 5-325MG [[place] 5-325] 1 tab PO QID PRN 02/11/24 [History] Acetaminophen Tab [Tylenol] 650 mg PO Q6HR PRN tab 02/14/24 [Rx] HYDROcodone/APAP 5-325MG [[place] 5-325] 1 tab PO Q6HR PRN #18 tab 02/14/24 [Rx] INSULIN ASPART (NovoLOG) [NovoLOG (formulary)] See Rx Instructions .ROUTE .COMPLEX each 02/14/24 [Rx] Magnesium Hydroxide [Milk of Magnesia] 2,400 mg PO DAILY PRN ml 02/14/24 [Rx] Sennosides [Senokot] 8.6 mg PO DAILY tab 02/14/24 [Rx] Sennosides-Docusate Sodium [Senokot-S] 2 each PO HS tab 02/14/24 [Rx] Follow up Appointment(s)/Referral(s): Torres Garcia PAC [PHYSICIAN MUSIC EDUCATION DIRECTOR] - 02/26/24 10:10 am Jamie Thomas DO [Primary Care Provider] - 1-2 days Activity/Diet/Wound Care/Special Instructions: Activity/Orthopedic discharge instructions: Diet: Heart healthy and carb consistent diet. Avoid salts, or foods with hidden salts such as canned or boxed foods and frozen dinners. Extra salt makes your heart work harder and traps the fluid in your body for longer. Special Instructions: Take all of your medications as directed and remember to keep all of your doctor's appointments and follow-up as needed. Due to snf requirement, your Apalumatmide (Erleada) will need to be held while you are undergoing rehab and this medication may be resumed once you return home and are discharged from rehab. Continue use of incentive spirometry 10 times hourly while awake until back to ambulating at baseline. Thank you for allowing us to participate in your care, it was truly a pleasure having you for our patient!!! Discharge instructions: 1. Wound care and infection precautions, keep incision dry and covered while showering, no lotions, creams, moisturizers. No soaking, tubs, pools, hottubs. Do not scrub over the incision. 2. Weight-bear as tolerated with walker / cane until follow-up. 3. Ice and elevate when necessary. Do not exceed 20 minutes per hour with ice pack. 4. Utilize compression sleeve until seen at first follow up appointment. 5. Nursing care. 6. Physical therapy 7. Pain meds and anticoagulants per prescription. 8. Pain medication has potential to cause constipation. Increase oral fluid and fiber intake. Contact primary care provider if you have not had a bowel movement within 48 hours after discharge 9. No anti-inflammatory medication until discussed at first post operative visit, this including Motrin, Aleve, Mobic, Diclofenac. 10. Follow up in office at 2 weeks postop with Estuardo Min PA-C / Torres Garcia PA-C 11. Follow up with your primary care doctor 7-10 days after discharge. 12. Contact [facility] with any questions, . . Discharge Disposition: TRANSFER TO SNF/ECF
--- NOTE | 2024-02-14 11:30 | P.PN ---
Subjective Progress Note Date: 02/14/24 Principal diagnosis: Right hip femoral neck fracture Patient was seen at bedside this morning sitting up in chair with dressing present over right hip. Patient says he was able to stand up at the edge of the bed earlier this morning with physical therapy and says he did have a lot of pain in the hip when he stood up however he was able to put some weight on the right leg. Patient says he has urinated since surgery without issue. Patient says pain is somewhat controlled with oral medication however he does get increased pain when changing positions. Patient denies any other orthopedic complaints at this time. Objective - Vital Signs Vital signs: Vital Signs Temp 99.3 F 02/14/24 07:42 Pulse 88 02/14/24 07:42 Resp 17 02/14/24 07:42 BP 102/63 02/14/24 07:42 Pulse Ox 98 02/14/24 07:42 FiO2 Intake & Output 02/13/24 02/14/24 02/14/24 18:59 06:59 18:59 Intake Total 240 Output Total 100 Balance 140 Intake: Oral 240 Output: Urine 100 Other: Voiding Method Bedside Commode Urinal # Voids 1 4 # Bowel Movements 2 - Exam Inspection: Dressing present over the right lateral hip. Dressing appears to be clean, dry, intact. Negative for any active drainage. Some minor spotting over dressing. There is some swelling diffusely near the right hip. Negative for any significant ecchymosis. Negative for any open fractures. Sensation: Patient does have diminished sensation in bilateral lower extremities extending from the calves down to the digits in the feet. Sensation is equal, symmetric, intact throughout the rest of the lower extremities and upper extremities. Palpation: There is a moderate amount of tenderness to palpation diffusely throughout the right hip. Nontender to palpation throughout rest of exam. Range of motion: Patient is able to wiggle digits in bilateral feet. Patient does have good range of motion of bilateral elbows and wrist in flexion ex tension. Patient does have limited range of motion in the right shoulder secondary to pain and stiffness resulting from fall last night. Patient is able to fire quad and right lower extremity. Unable to lift the right leg off the chair. Motor: 4/5 in bilateral upper extremities. 4-/5 in left lower extremity. Right lower extremity motor exam not performed due to injury Neurovascular: Very diminished pedal pulses bilaterally. Radial pulse intact bilaterally. Cap refill diminished in digits of bilateral feet Special test: Negative Homans bilaterally. - Labs CBC & Chem 7: 02/14/24 04:21 02/14/24 04:21 Labs: Abnormal Lab Results - Last 24 Hours (Table) 02/13/24 02/13/24 02/13/24 Range/Units 11:19 16:29 21:00 RBC (4.40-5.60) X 10*6/uL Hgb (13.0-17.0) g/dL Hct (39.6-50.0) % MCV (80.0-97.0) FL MCH (27.0-32.0) pg RDW (11.5-14.5) % Plt Count (140-440) X 10*3/uL NRBC/100 WBC Diff (0.00-0.01) X 10*3/uL Carbon Dioxide (21.6-31.8) mmol/L Est GFR (CKD-EPI) (>=60) BUN/Creatinine Ratio (12.00-20.00) Ratio Glucose (70-110) mg/dL POC Glucose (mg/dL) 150 H 289 H 226 H (70-110) mg/dL Calcium (8.7-10.3) mg/dL Total Protein (6.2-8.2) g/dL Albumin (3.8-4.9) g/dL 02/14/24 02/14/24 02/14/24 Range/Units 04:21 04:21 06:31 RBC 2.43 L (4.40-5.60) X 10*6/uL Hgb 8.3 L (13.0-17.0) g/dL Hct 25.8 L (39.6-50.0) % MCV 106.2 H (80.0-97.0) FL MCH 34.2 H (27.0-32.0) pg RDW 15.4 H (11.5-14.5) % Plt Count 108 L (140-440) X 10*3/uL NRBC/100 WBC Diff 0.02 H (0.00-0.01) X 10*3/uL Carbon Dioxide 18.5 L (21.6-31.8) mmol/L Est GFR (CKD-EPI) 55 L (>=60) BUN/Creatinine Ratio 20.31 H (12.00-20.00) Ratio Glucose 219 H (70-110) mg/dL POC Glucose (mg/dL) 229 H (70-110) mg/dL Calcium 7.9 L (8.7-10.3) mg/dL Total Protein 4.7 L (6.2-8.2) g/dL Albumin 2.9 L (3.8-4.9) g/dL Assessment and Plan Assessment: 1. Right hip femoral neck fracture -Postop day 2 status post right hip hemiarthroplasty Plan: 1. Right hip femoral neck fracture - surgery performed 02/12/2024 right hip hemiarthroplasty. Patient stable at bedside this morning with dressing in place over right hip. Patient to be weightbearing as tolerated with walker and assistance as needed. Pain medication as needed. Pain medication as needed. Weightbearing as tolerated with walker. continue Xarelto for DVT prophylaxis. Discharge to rehab today. 2. Appreciate medical and cardiac management 3. Pain management - norco; gabapentin 4. DVT prophylaxis -mechanical; Xarelto daily 5. GI prophylaxis - senna 6. PT/OT -weightbearing as tolerated with walker and assistance 7. Encourage incentive spirometer use 8. Discharge planning -[facility] today Time with Patient: Less than 30
[2024-02-14 11:50] LABS: Glucose,Whole Blood 233 mg/dL (70-110)
--- NOTE | 2024-02-14 15:01 | P.PN ---
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 He presented to the emergency department status post slip and fall at home in which patient reportedly slipped on his slippers falling onto his right side hitting his head and right hip. Patient denied having any loss of consciousness, dizziness, lightheadedness, palpitations, chest pain, shortness of breath, or experiencing focal numbness/weakness prior to or after fall, but does report significant right hip pain resulting from fall patient currently denies any other complaints. Patient walks with a cane and/or walker at baseline but reports being independent of his activities of daily living prior to fall. Upon arrival to our facility, patient underwent evaluation in the emergency department. Vital signs upon arrival show blood pressure 154/81, heart rate 71, respiratory rate 16, temp 98.1 F, and SpO2 of 99% on room air. EKG completed showing atrial fibrillation with a controlled ventricular rate of 71 bpm, T wave inversion in inferior leads III and aVF, and occasional PVC. With the exception of rate, EKG is unchanged when compared to previous EKG completed 11/05/2023 upon personal review and interpretation. Labs completed and reviewed. CBC showing macrocytic anemia with hemoglobin of 12.3 and MCV of 106.4. Coagulation profile normal findings. BMP showing non-anion gap metabolic acidosis with chloride of 112, bicarb of 18, anion gap of 11, and elevated BUN of 32 with creatinine of 1.20, and GFR of 56. Liver profile unremarkable. Glucose elevated at 147. CT head negative for acute intracranial process showing severe chronic left sinus disease. CT cervical spine negative for acute process revealing coarse calcifications in the right lobe of the thyroid gland and moderate/advanced degenerative disc disease of cervical spine. Chest x-ray reporting slightly under inflated lungs with possible mild pulmonary edema. X-ray right hip showing nondisplaced right femoral subcapital fracture with minimal impaction in the lateral aspect. Patient admitted under orthopedic surgery team and we were consulted for surgical clearance and medical management throughout hospitalization. Physical exam: Patient seen and fully evaluated at bedside this morning. He was sitting up in the chair. Postoperative day 2 and appears to be doing well. Patient currently reports mild pain to R hip but denies any other complaints at this time. Vital signs reviewed and stable. General: Nontoxic, no distress and appears stated age. Derm: Skin warm and dry, normal coloration for ethnicity. Head: Atraumatic, normocephalic and symmetric. Eyes: EOM's intact, no lid lag, and anicteric sclera Mouth: no lip lesions, mucus membranes moist Cardiovascular: Irregularly irregular with systolic murmur, positive posterior tibial pulses bilaterally, and cap refill < 2 seconds. 2+ pitting bilateral lower extremity edema. Lungs: Respirations even, regular, and unlabored on room air. Lungs CTA bilaterally, no rhonchi, no rales, no wheezing, and no accessory muscle usage. Abdominal: soft, nontender to palpation, no guarding, no appreciable organomegaly Ext: No gross muscle atrophy, no edema, no contractures. Movement and sensation intact. Patient with right lower extremity shortening and right lateral rotation. Neuro: Speech clear, face symmetrical and CN II-XII grossly intact with no noted focal neuro deficits Psych: Alert and oriented to person, place, time, and situation. Appropriate and pleasant affect. Assessment and Plan of Care: Status post right hip hemiarthroplasty Nondisplaced right femoral subcapital fracture -Management per primary admitting orthopedic surgery team including DVT prophylaxis, pain management, wound/dressing management, weightbearing, and PT/OT. Acute postoperative blood loss anemia -This is an expected and stable finding. No need for transfusion or further intervention at this time. Will continue to monitor with repeat morning CBC and place additional orders if/as indicated based upon these findings. Chronic diastolic heart failure Chronic atrial fibrillation Hypertension Hyperlipidemia -CXR Showing mild pulmonary edema, patient reports chronic shortness of breath lower extremity edema, but denies having any increased shortness of breath, chest pain, palpitations, or experiencing increased lower extremity edema. -Hold Xarelto pending clearance from orthopedic surgery team to resume. -Cardiology was consulted for cardiac surgical clearance. -Patient currently with controlled ventricular rate. -Order placed for continuous telemetry monitoring. -Recommend patient continue atorvastatin 10 mg nightly, Bumex 0.5 mg daily, and fenofibrate 160 mg daily. -Preoperative EKG was reviewed, showing atrial fibrillation with a controlled ventricular rate of 71 bpm with T wave inversion in inferior leads III and aVF and occasional PVC and with the exception of rate, this EKG is unchanged when compared to previous EKG completed 11/05/2023 upon personal review and interpretation. -Echocardiogram completed 07/08/2023 was reviewed showing a preserved EF of 55 to 60%. -proBNP 2150. Insulin-dependent diabetes mellitus with hyperglycemia -Hold oral hypoglycemic agents and patient was placed on glycemic protocol with NovoLog sliding scale. Metastatic prostate cancer -Hold apalutamide at this time, may resume postoperatively after cleared by orthopedic surgery team to resume. -Continue Flomax 0.8 mg nightly. Thyroid calcifications -CT cervical spine negative for acute process revealing coarse calcifications in the right lobe of the thyroid gland -Recommend outpatient follow-up with PCP for scheduling of thyroid ultrasound. Data and imaging reviewed: Labs completed and reviewed. CBC showing thrombocytopenia with platelet count of 108 and acute blood loss anemia with hemoglobin of 8.3. CT showing mild hypocarbia with bicarb of 18.5. Magnesium 1.9. Liver profile unremarkable with exception of hypoalbuminemia with albumin of 2.9. Vital signs reviewed. Blood pressure 102/63, heart rate 88, respiratory rate 17, temp 99.3 F, and SpO2 of 98% on room air. Patient is medically optimized and may be discharged once cleared by primary admitting orthopedic surgery team to [facility] facility. Thank you for allowing us to participate in the care of this pleasant patient. Do not hesitate to contact us with questions. Someone can be reached from the [facility] hospitalist group all hours of the day at [phone] or via perfect serve. Patient was seen independently by Nurse Practitioner. This document was prepared using [employer] dictation software. Please allow for errors in double end chucking machine operator while rare they do occur. Siva Lizarraga NP rendered care for this patient independently, reviewed the findings and plan as documented in the note above and agree with plan. I did not physically speak with or examine the patient on this date. Objective - Vital Signs Vital signs: Vital Signs Temp 99.3 F 02/14/24 07:42 Pulse 88 02/14/24 07:42 Resp 17 02/14/24 07:42 BP 102/63 02/14/24 07:42 Pulse Ox 98 02/14/24 07:42 FiO2 Intake & Output 02/13/24 02/14/24 02/14/24 18:59 06:59 18:59 Intake Total 240 Output Total 100 Balance 140 Intake: Oral 240 Output: Urine 100 Other: Voiding Method Bedside Commode Urinal # Voids 1 4 # Bowel Movements 2 - Labs CBC & Chem 7: 02/14/24 04:21 02/14/24 04:21 Labs: Abnormal Lab Results - Last 24 Hours (Table) 02/13/24 02/13/24 02/13/24 Range/Units 06:01 11:19 16:29 RBC (4.40-5.60) X 10*6/uL Hgb (13.0-17.0) g/dL Hct (39.6-50.0) % MCV (80.0-97.0) FL MCH (27.0-32.0) pg RDW (11.5-14.5) % Plt Count (140-440) X 10*3/uL NRBC/100 WBC Diff (0.00-0.01) X 10*3/uL Carbon Dioxide 17.2 L (21.6-31.8) mmol/L Anion Gap 14.80 H (4.00-12.00) mmol/L BUN 27.7 H (9.0-27.0) mg/dL Est GFR (CKD-EPI) 50 L (>=60) BUN/Creatinine Ratio (12.00-20.00) Ratio Glucose 160 H (70-110) mg/dL POC Glucose (mg/dL) 150 H 289 H (70-110) mg/dL Calcium 8.5 L (8.7-10.3) mg/dL AST 36 H (14-35) U/L Total Protein 5.2 L (6.2-8.2) g/dL Albumin 3.3 L (3.8-4.9) g/dL 02/13/24 02/14/24 02/14/24 Range/Units 21:00 04:21 04:21 RBC 2.43 L (4.40-5.60) X 10*6/uL Hgb 8.3 L (13.0-17.0) g/dL Hct 25.8 L (39.6-50.0) % MCV 106.2 H (80.0-97.0) FL MCH 34.2 H (27.0-32.0) pg RDW 15.4 H (11.5-14.5) % Plt Count 108 L (140-440) X 10*3/uL NRBC/100 WBC Diff 0.02 H (0.00-0.01) X 10*3/uL Carbon Dioxide 18.5 L (21.6-31.8) mmol/L Anion Gap (4.00-12.00) mmol/L BUN (9.0-27.0) mg/dL Est GFR (CKD-EPI) 55 L (>=60) BUN/Creatinine Ratio 20.31 H (12.00-20.00) Ratio Glucose 219 H (70-110) mg/dL POC Glucose (mg/dL) 226 H (70-110) mg/dL Calcium 7.9 L (8.7-10.3) mg/dL AST (14-35) U/L Total Protein 4.7 L (6.2-8.2) g/dL Albumin 2.9 L (3.8-4.9) g/dL 02/14/24 Range/Units 06:31 RBC (4.40-5.60) X 10*6/uL Hgb (13.0-17.0) g/dL Hct (39.6-50.0) % MCV (80.0-97.0) FL MCH (27.0-32.0) pg RDW (11.5-14.5) % Plt Count (140-440) X 10*3/uL NRBC/100 WBC Diff (0.00-0.01) X 10*3/uL Carbon Dioxide (21.6-31.8) mmol/L Anion Gap (4.00-12.00) mmol/L BUN (9.0-27.0) mg/dL Est GFR (CKD-EPI) (>=60) BUN/Creatinine Ratio (12.00-20.00) Ratio Glucose (70-110) mg/dL POC Glucose (mg/dL) 229 H (70-110) mg/dL Calcium (8.7-10.3) mg/dL AST (14-35) U/L Total Protein (6.2-8.2) g/dL Albumin (3.8-4.9) g/dL
[2024-02-14] MEDS: ARTIFICIAL TEARS-HYPROMELLOSE DROPS 15 ML BTL LEFT EYE PRN (16:06)
== END 2024-02-14 16:40 | DRG 522 ==
LOC: EC 00:53 → 4SSUR 03:24
PROVIDERS: ADMIT Orthopaedic Surgery; ATTEND Orthopaedic Surgery
PROC: 0SRR0JA Replacement of Right Hip Joint, Femoral Surface with Synthetic Substitute, Uncemented, Open Approach (ICD-10-PCS; principal; 2024-02-12 07:30)
DX: S72.011A Unspecified intracapsular fracture of right femur, initial encounter for closed fracture (principal); I13.0 Hypertensive heart and chronic kidney disease with heart failure and stage 1 through stage 4 chronic kidney disease, or unspecified chronic kidney disease; I50.32 Chronic diastolic (congestive) heart failure; C79.51 Secondary malignant neoplasm of bone; E87.20 Acidosis, unspecified; D62 Acute posthemorrhagic anemia; I48.19 Other persistent atrial fibrillation; E78.5 Hyperlipidemia, unspecified; E11.22 Type 2 diabetes mellitus with diabetic chronic kidney disease; I35.0 Nonrheumatic aortic (valve) stenosis; Z79.4 Long term (current) use of insulin; M18.31 Unilateral post-traumatic osteoarthritis of first carpometacarpal joint, right hand; Z85.46 Personal history of malignant neoplasm of prostate; Z79.01 Long term (current) use of anticoagulants; D53.9 Nutritional anemia, unspecified; E07.89 Other specified disorders of thyroid; I49.3 Ventricular premature depolarization; E11.42 Type 2 diabetes mellitus with diabetic polyneuropathy; N18.31 Chronic kidney disease, stage 3a; W01.0XXA Fall on same level from slipping, tripping and stumbling without subsequent striking against object, initial encounter; Y92.009 Unspecified place in unspecified non-institutional (private) residence as the place of occurrence of the external cause; Y93.01 Activity, walking, marching and hiking; Z79.84 Long term (current) use of oral hypoglycemic drugs; Z79.899 Other long term (current) drug therapy; Z85.6 Personal history of leukemia; Z87.891 Personal history of nicotine dependence; Z90.49 Acquired absence of other specified parts of digestive tract
CPT/HCPCS: 36415; 64999; 70450; 71045; 72125; 73501; 73502; 80053; 83735; 83880; 85025; 85027; 85610; 85730; 93005; 96374; 96375; 99285

== ENCOUNTER 2024-04-01 10:02 | Inpatient (IN) | payer MEDICARE ==
--- NOTE | 2024-04-01 10:37 | ED ---
Recheck HPI - General Chief Complaint: Recheck/Abnormal Lab/Rx Stated Complaint: low hemoglobin Time Seen by Provider: 04/01/24 10:11 Source: patient, EMS, RN notes reviewed Mode of arrival: EMS Limitations: physical limitation - History of Present Illness Initial Comments: Patient is a 84 year old male with past medical history of CLL, prostate cancer with metastasis, renal disease, hypertension, AFib and DM presenting for a hemoglobin of 6.6 and bilateral LE pitting edema sent in by his PCP today. He states that he is feeling short of breath and low back pain, both of which are chronic for him, and are at his baseline. He also endorses having trouble walking, and that he has an "ulcer on his left heal". He states that he follows with Dr. Fournier for his CLL and metastatic prostate cancer, and he denies any treatment at this time. Of note, he did have a fall last week where he hit his head. He denies any headache, lightheadedness, nausea, vomiting, abdominal pain, diarrhea, melena, hematochezia, hematuria, chest pain, or cough. - Related Data Home Medications Medication Instructions Recorded Confirmed Atorvastatin Calcium [Lipitor] 10 mg PO HS 10/12/15 02/11/24 Fenofibrate 160 mg PO DAILY 10/12/15 02/11/24 Rivaroxaban [Xarelto] 20 mg PO DAILY 10/12/15 02/11/24 Tamsulosin [Flomax] 0.8 mg PO HS 05/27/23 02/11/24 metFORMIN HCL ER [Glucophage XR] 500 mg PO DAILY 05/27/23 02/11/24 Gabapentin [Neurontin] 300 mg PO TID 11/05/23 02/11/24 Insulin Glargine,Hum.rec.anlog 13 units SQ HS 11/05/23 02/11/24 [Lantus Solostar Pen] glipiZIDE XL [Glucotrol XL] 10 mg PO DAILY 11/05/23 02/11/24 Bumetanide [BUMEX] 0.5 mg PO DAILY 02/11/24 02/11/24 HYDROcodone/APAP 5-325MG [[place] 1 tab PO QID PRN 02/11/24 02/11/24 5-325] Previous Rx's Medication Instructions Recorded Acetaminophen Tab [Tylenol] 650 mg PO Q6HR PRN tab 02/14/24 HYDROcodone/APAP 5-325MG [[place] 1 tab PO Q6HR PRN #18 tab 02/14/24 5-325] INSULIN ASPART (NovoLOG) [NovoLOG See Rx Instructions .ROUTE 02/14/24 (formulary)] .COMPLEX each Magnesium Hydroxide [Milk of 2,400 mg PO DAILY PRN ml 02/14/24 Magnesia] Sennosides [Senokot] 8.6 mg PO DAILY tab 02/14/24 Sennosides-Docusate Sodium 2 each PO HS tab 02/14/24 [Senokot-S] Allergies Allergy/AdvReac Type Severity Reaction Status Date / Time No Known Allergies Allergy Verified 04/01/24 10:12 Review of Systems ROS Statement: Those systems with pertinent positive or pertinent negative responses have been documented in the HPI. ROS Other: All systems not noted in ROS Statement are negative. Past Medical History Past Medical History: Atrial Fibrillation, Cancer, Diabetes Mellitus, GERD/Reflux, Hyperlipidemia, Hypertension, Musculoskeletal Disorder, Neurologic Disorder, Osteoarthritis (OA), Renal Disease, Sleep Apnea/CPAP/BIPAP Additional Past Medical History / Comment(s): CLL-dx. 5 yrs. ago, unaware of renal problems, was having neck pain, neuropathy adonay feet, has cpap machine History of Any Multi-Drug Resistant Organisms: None Reported Past Surgical History: Cholecystectomy, Orthopedic Surgery, Tonsillectomy Additional Past Surgical History / Comment(s): left shoulder rototor cuff repair, Right shoulder Past Anesthesia/Blood Transfusion Reactions: No Reported Reaction Past Psychological History: No Psychological Hx Reported Smoking Status: Former smoker Past Alcohol Use History: Occasional Past Drug Use History: None Reported - Past Family History Mother Family Medical History: Cancer Additional Family Medical History / Comment(s): of pancreatic cancer General Exam Limitations: physical limitation General appearance: alert, in distress (on side holding onto bed due to lower back pain) Head exam: Present: other (ecchymosis to left side of eye) Respiratory exam: Present: normal lung sounds bilaterally, wheezes. Absent: respiratory distress, rales, rhonchi, stridor Cardiovascular Exam: Present: regular rate, systolic murmur GI/Abdominal exam: Present: soft, normal bowel sounds. Absent: distended, tenderness, guarding, rebound, rigid Back exam: Present: tenderness Neurological exam: Present: alert, oriented X3, CN II-XII intact Course Vital Signs 04/01/24 04/01/24 10:09 11:35 Temperature 98.4 F Pulse Rate 96 80 Respiratory 22 18 Rate Blood Pressure 123/78 104/56 O2 Sat by Pulse 97 97 Oximetry Medical Decision Making - Medical Decision Making Was pt. sent in by a medical professional or institution (, PA, COUNSELING AIDE, urgent care, hospital, or group home...) When possible be specific @ -PCP Did you speak to anyone other than the patient for history (EMS, parent, family, police, friend...)? What history was obtained from this source @ -No Did you review nursing and triage notes (agree or disagree)? Why? @ -I reviewed and agree with nursing and triage notes Were old charts reviewed (outside hosp., previous admission, EMS record, old EKG, old radiological studies, urgent care reports/EKG's, group home records)? Report findings @ -No old charts were reviewed Differential Diagnosis (chest pain, altered mental status, abdominal pain women, abdominal pain men, vaginal bleeding, weakness, fever, dyspnea, syncope, headache, dizziness, GI bleed, back pain, seizure, CVA, palpatations, mental health, musculoskeletal)? @ -[Differential GI Bleed: Esophageal varices, aortoenteric fistula, Kianna-Maxwell, gastritis, peptic ulcer disease, diverticulosis, inflammatory bowel disease, hemorrhoids, fissure, colitis, malignancy, Meckel's diverticulum, this is not meant to be an all- inclusive list. EKG interpreted by me (3pts min.). @ -As above X-rays interpreted by me (1pt min.). @ -None done CT interpreted by me (1pt min.). @ -None done U/S interpreted by me (1pt. min.). @ -None done What testing was considered but not performed or refused? (CT, X-rays, U/S, labs)? Why? @ -None What meds were considered but not given or refused? Why? @ -None Did you discuss the management of the patient with other professionals (professionals i.e. , PA, COUNSELING AIDE, lab, RT, psych nurse, social services designee, tool rental technician, teacher, chief revenue officer, manager rn case)? Give summary @ -Sound physician for admission Was smoking cessation discussed for >3mins.? @ -No Was critical care preformed (if so, how long)? @ -35 Were there social determinants of health that impacted care today? How? (Homelessness, low income, unemployed, alcoholism, drug addiction, transportation, low edu. Level, literacy, decrease access to med. care, penitentiary, rehab)? @ -No Was there de-escalation of care discussed even if they declined (Discuss DNR or withdrawal of care, Hospice)? DNR status @ -No What co-morbidities impacted this encounter? (DM, HTN, Smoking, COPD, CAD, Cancer, CVA, ARF, Chemo, Hep., AIDS, mental health diagnosis, sleep apnea, morbid obesity)? @ -Cancers, CLL Was patient admitted / discharged? Hospital course, mention meds given and route, prescriptions, significant lab abnormalities, going to OR and other pertinent info. @ -The patient's is anemic at 6.7 hemoglobin. Unclear cause whether small GI bleed versus current cancer. Patient denied current treatments 1 unit of blood was ordered. Patient have hematology evaluation, repeat H&H Undiagnosed new problem with uncertain prognosis? @ -No Drug Therapy requiring intensive monitoring for toxicity (Heparin, Nitro, Insulin, Cardizem)? @ -No Were any procedures done? @ -No Diagnosis/symptom? @ -Anemia, metastatic prostate cancer, CLL, exertional dyspnea, leg edema Acute, or Chronic, or Acute on Chronic? @ -Acute Uncomplicated (without systemic symptoms) or Complicated (systemic symptoms)? @ -Complicated Side effects of treatment? @ -No Exacerbation, Progression, or Severe Exacerbation? @ -No Poses a threat to life or bodily function? How? (Chest pain, [place], [place], pneumonia, PE, COPD, DKA, ARF, appy, cholecystitis, CVA, Diverticulitis, Homicidal, Suicidal, threat to staff... and all critical care pts) @ -Yes anemia, endorgan failure - Lab Data Result diagrams: 04/01/24 10:30 04/01/24 10:30 Lab Results 04/01/24 04/01/24 04/01/24 Range/Units 10:30 10:30 10:30 WBC 8.4 (3.8-10.6) k/uL RBC 2.00 L (4.30-5.90) m/uL Hgb 6.8 L* D (13.0-17.5) gm/dL Hct 21.0 L (39.0-53.0) % MCV 105.0 H (80.0-100.0) fL MCH 34.0 (25.0-35.0) pg MCHC 32.4 (31.0-37.0) g/dL RDW 17.0 H (11.5-15.5) % Plt Count 171 (150-450) k/uL MPV 8.3 Neutrophils % 82 % Lymphocytes % 12 % Monocytes % 4 % Eosinophils % 2 % Basophils % 0 % Neutrophils # 6.8 (1.3-7.7) k/uL Lymphocytes # 1.0 (1.0-4.8) k/uL Monocytes # 0.3 (0-1.0) k/uL Eosinophils # 0.1 (0-0.7) k/uL Basophils # 0.0 (0-0.2) k/uL Hypochromasia Slight Anisocytosis Slight Macrocytosis Moderate PT 12.1 (10.0-12.5) sec INR 1.1 (<1.2) APTT 22.5 (22.0-30.0) sec Sodium 134 L (137-145) mmol/L Potassium 4.1 (3.5-5.1) mmol/L Chloride 102 (98-107) mmol/L Carbon Dioxide 19 L (22-30) mmol/L Anion Gap 13 mmol/L BUN 29 H (9-20) mg/dL Creatinine 0.94 (0.66-1.25) mg/dL Est GFR (CKD-EPI)AfAm 87 (>60 ml/min/1.73 sqM) Est GFR (CKD-EPI)NonAf 75 (>60 ml/min/1.73 sqM) Glucose 201 H (74-99) mg/dL Calcium 9.7 (8.4-10.2) mg/dL Total Bilirubin 1.4 H (0.2-1.3) mg/dL AST 20 (17-59) U/L ALT 18 (4-49) U/L Alkaline Phosphatase 108 (38-126) U/L Troponin I (0.000-0.034) ng/mL NT-Pro-B Natriuret Pep 2310 pg/mL Total Protein 6.2 L (6.3-8.2) g/dL Albumin 3.4 L (3.5-5.0) g/dL Blood Type Blood Type Recheck Bld Type Recheck Status Antibody Screen Spec Expiration Date 04/01/24 04/01/24 Range/Units 10:30 10:30 WBC (3.8-10.6) k/uL RBC (4.30-5.90) m/uL Hgb (13.0-17.5) gm/dL Hct (39.0-53.0) % MCV (80.0-100.0) fL MCH (25.0-35.0) pg MCHC (31.0-37.0) g/dL RDW (11.5-15.5) % Plt Count (150-450) k/uL MPV Neutrophils % % Lymphocytes % % Monocytes % % Eosinophils % % Basophils % % Neutrophils # (1.3-7.7) k/uL Lymphocytes # (1.0-4.8) k/uL Monocytes # (0-1.0) k/uL Eosinophils # (0-0.7) k/uL Basophils # (0-0.2) k/uL Hypochromasia Anisocytosis Macrocytosis PT (10.0-12.5) sec INR (<1.2) APTT (22.0-30.0) sec Sodium (137-145) mmol/L Potassium (3.5-5.1) mmol/L Chloride (98-107) mmol/L Carbon Dioxide (22-30) mmol/L Anion Gap mmol/L BUN (9-20) mg/dL Creatinine (0.66-1.25) mg/dL Est GFR (CKD-EPI)AfAm (>60 ml/min/1.73 sqM) Est GFR (CKD-EPI)NonAf (>60 ml/min/1.73 sqM) Glucose (74-99) mg/dL Calcium (8.4-10.2) mg/dL Total Bilirubin (0.2-1.3) mg/dL AST (17-59) U/L ALT (4-49) U/L Alkaline Phosphatase (38-126) U/L Troponin I <0.012 (0.000-0.034) ng/mL NT-Pro-B Natriuret Pep pg/mL Total Protein (6.3-8.2) g/dL Albumin (3.5-5.0) g/dL Blood Type A Positive Blood Type Recheck A Pos Bld Type Recheck Status No Antibody Screen NEGATIVE Spec Expiration Date 04/04/20242329 - EKG Data -: EKG Interpreted by Me EKG Comments: EKG performed at 10: 35 A-fib with a rate of 99 QRS 102 QT/QTc 367/423 Critical Care Time Critical Care Time: Yes Total Critical Care Time: 35 Disposition Clinical Impression: Anemia, Prostate cancer metastatic to bone, CLL (chronic lymphocytic leukemia), Leg edema Disposition: ADMITTED IP TO THIS [facility] Condition: Poor Time of Disposition: 11:46
[2024-04-01 10:52] LABS: Anisocytosis Slight; Basophils % (A) 0 %; Eosinophils # (A) 0.1 k/uL (0-0.7); Eosinophils % (A) 2 %; Hypochromasia Slight; Lymphocytes % (A) 12 %; MCHC 32.4 g/dL (31.0-37.0); Macrocytosis Moderate; Mean Platelet Volume 8.3; Monocytes # (A) 0.3 k/uL (0-1.0); Monocytes % (A) 4 %; Neutrophils # (A) 6.8 k/uL (1.3-7.7); Neutrophils % (A) 82 %; Platelet Count 171 k/uL (150-450); WBC 8.4 k/uL (3.8-10.6)
[2024-04-01 11:02] LABS: HGB 6.8 gm/dL (13.0-17.5)
[2024-04-01 11:05] LABS: ALT 18 U/L (4-49); AST 20 U/L (17-59); African American GFR (CKD) 87 (>60 ml/min/1.73 sqM); Albumin 3.4 g/dL (3.5-5.0); Alkaline Phosphatase 108 U/L (38-126); Anion Gap 13 mmol/L; Blood Urea Nitrogen 29 mg/dL (9-20); Calcium 9.7 mg/dL (8.4-10.2); Carbon Dioxide 19 mmol/L (22-30); Chloride 102 mmol/L (98-107); Glucose 201 mg/dL (74-99); Non-African American GFR(CKD) 75 (>60 ml/min/1.73 sqM); Potassium 4.1 mmol/L (3.5-5.1); Sodium 134 mmol/L (137-145); Total Bilirubin 1.4 mg/dL (0.2-1.3); Total Protein 6.2 g/dL (6.3-8.2)
[2024-04-01 11:12] LABS: INR 1.1 (<1.2); Partial Thromboplastin Time 22.5 sec (22.0-30.0); Prothrombin Time 12.1 sec (10.0-12.5)
[2024-04-01 11:14] LABS: NT-Pro-B-Type Natriuretic Pept 2310 pg/mL
[2024-04-01] MEDS ORDERED: NALOXONE 0.4 MG/ML 1 ML VIAL IV PRN (11:46)
--- NOTE | 2024-04-01 13:42 | CT ---
EXAMINATION TYPE: CT ChestAbdPelvis w con DATE OF EXAM: 04/01/2024 1:31 PM COMPARISON: Pet/CT 01/23/2024. CLINICAL INDICATION: Male, 84 years old with history of F/U retroperitoneal LAD, on Tx; PHH, low hemo globin Technique: CT ChestAbdPelvis w con; Multiple axial images were obtained. Two-dimensional coronal and sagittal reconstructions were obtained. Contrast used:100ml mL of Isovue 300 with IV Contrast, (None if empty) Oral contrast used: without Oral Contrast CT DLP: 937.6 mGycm, Automated exposure control for dose reduction was used. Findings: CHEST: LUNGS/ PLEURA: Consolidation changes medially in the right lower lobe possibly due to atelectasis. Ne w from prior.. New pulmonary nodules on the right measuring up to 13 mm in the right lung base and in the right upper lung measuring up to 11 mm. lung pulmonary nodule measuring up to 11 mm increased in size from prior AIRWAY: Patent and unremarkable. HEART: Cardiomegaly is demonstrated.Atherosclerosis of the arterial vasculature. MEDIASTINUM: No gross evidence of adenopathy. VASCULATURE: No aortic aneurysm. MUSCULOSKELETAL: No acute osseous abnormalities. SOFT TISSUES/LYMPH NODES: Unremarkable. LOWER NECK: No significant findings. ABDOMEN: ABDOMEN LIVER: Unremarkable GALLBLADDER AND BILE DUCTS: Unremarkable. PANCREAS: Unremarkable. SPLEEN: Unremarkable. ADRENAL GLANDS: Unremarkable. KIDNEYS AND URETERS: Bilateral renal cortical cysts and nonobstructing calculi measuring up to 3 mm. No evidence of hydronephrosis or renal calculus. The ureters are unremarkable. PELVIS BLADDER: Limited evaluation due to streak artifact. No obvious abnormality. REPRODUCTIVE: Streak artifact limits evaluation , punctate calcifications are present. ABDOMEN & PELVIS STOMACH AND BOWEL: No evidence of bowel obstruction.. Visualized and normal. Scattered colonic divert icula. PERITONEUM/RETROPERITONEUM: No evidence of pneumoperitoneum or free fluid. VASCULATURE: No evidence of aortic aneurysm. MUSCULOSKELETAL: No acute osseous abnormalities, right hip arthroplasty with hardware intact. Scatter ed sclerotic bony metastatic disease as seen on prior PET/CT. Degenerative changes in the spine appea r intact. LYMPH NODES: Scattered prominent retroperitoneal lymph nodes including 11 mm the level of the left ki dney.e SOFT TISSUE/ABDOMINAL WALL: Right fat containing inguinal hernia. IMPRESSION: 1. No evidence for hematoma or evidence for active bleeding. 2. Scattered metastatic disease as seen on prior PET/CT. There is enlarging right sided pulmonary no dule concerning for progression of disease. Consolidation in the medial aspect of the right lower lob e thought to be due to atelectasis attention follow-up imaging. 3. Bilateral renal cortical cysts. 4. Bilateral nonobstructing renal calculi. 5. Colonic diverticulosis. [facility], , 04/01/2024 1:40 PM
[2024-04-01] MEDS ORDERED: DEXTROSE 50% SYRINGE 50 ML IVP PRN ×2 (13:50)
[2024-04-01 14:09] LABS: Reticulocyte % 3.1 % (0.5-2.0)
[2024-04-01] MEDS: GABAPENTIN 300 MG CAP PO SCH (15:17)
[2024-04-01] MEDS: HYDROcodone/APAP 5-325MG 1 EACH TAB PO PRN (15:48)
[2024-04-01 17:16] LABS: Glucose,Whole Blood 166 mg/dL (70-110)
--- NOTE | 2024-04-01 17:21 | P.HPIM ---
History of Present Illness H&P Date: 04/01/24 Patient is a 84-year-old male with history of atrial fibrillation on Xarelto, type 2 diabetes, hypertension, dyslipidemia, CLL, prostate cancer with metastatic bone disease, stage III CKD, diastolic CHF, peripheral neuropathy presenting from PCP office for anemia. Patient claims that he is a little fatigued but denies any chest pain, shortness of breath, abdominal pain, nausea, vomiting, urinary or bowel complaints. Denies any recent fevers or chills, sick contacts or travel history. In the ED, temperature was 98.4, pulse 96, respiratory rate 22, blood pressure 123/78, saturating at 97% on room air. WBC 8.4, hemoglobin 6.8, baseline close to 9, WBC 105, platelet 171, INR 1.1, APTT 22.5, sodium 134, bicarb 19, anion gap 13, BUN 29, creatinine 0.94, troponin negative. EKG independently interpreted, shows atrial fibrillation rate controlled. Chest CT abdomen pelvis shows no evidence of hematoma or active bleeding, scattered metastatic disease, enlarging right-sided pulmonary nodule, consolidation in the medial aspect of right lower lobe likely atelectasis, nonobstructing bilateral renal calculi, colonic diverticulosis. Patient being given 1 unit of PRBCs. Oncology also consulted. Patient being admitted as inpatient for acute on chronic anemia. Pertinent positives and negatives as discussed in HPI, a complete review of systems was performed and all other systems are negative. Patient seen and examined at bedside. Vital signs reviewed General: nontoxic, no distress, appears at stated age, chronically ill-appearing Derm: warm, dry Head: atraumatic, normocephalic, symmetric, Eyes: EOMI, no lid lag, anicteric sclera, pupils equal round reactive to light mild right periorbital ecchymosis ENT: Nose and ears atraumatic Neck: No thyromegaly, supple Mouth: no lip lesion, mucus membranes moist Cardiovascular: S1S2 reg, no murmur, no edema Lungs: clear to auscultation bilateral, no rhonchi, no rales, no wheeze, no accessory muscle use Abdominal: soft, nontender to palpation, no guarding, no appreciable organomegaly Ext: no gross muscle atrophy, muscle strength muscle strength 5 out of 5 in all 4 extremities, no contractures Neuro: CN II-XII grossly intact Psych: Alert, oriented, appropriate affect Assessment/Plan: Active: Acute on chronic anemia Prostate cancer with metastatic bone disease CLL -CT abdomen pelvis does not show any hematoma or active bleeding -Reticulocyte count, iron studies, folic acid, B12 ordered -Discussed with oncology, may need bone marrow biopsy -Recheck CBC later this afternoon after 1 unit of PRBCs -Hold Xarelto Type 2 diabetes -Continue Lantus 13 units nightly, aspart 3 units 3 times daily -Add sliding scale insulin, monitor for hypoglycemia Chronic: Chronic atrial fibrillation Dyslipidemia Hypertension Diastolic heart failure, not in exacerbation Neuropathy CKD 3 The patient is admitted with an anticipated greater than 2 midnight stay as inpatient status for evaluation of anemia. Surrogate decision-maker: Spouse CODE STATUS: Full code DVT prophylaxis: SCDs Anticipated discharge date: Pending clinical course Anticipated discharge place: Pending clinical course A total of 55 minutes was spent on the care of this complex patient more than 50% of the time was spent in counseling and care coordination. Past Medical History Past Medical History: Atrial Fibrillation, Cancer, Diabetes Mellitus, GERD/Reflux, Hyperlipidemia, Hypertension, Musculoskeletal Disorder, Neurologic Disorder, Osteoarthritis (OA), Renal Disease, Sleep Apnea/CPAP/BIPAP Additional Past Medical History / Comment(s): CLL-dx. 5 yrs. ago, unaware of chrisitne al problems, was having neck pain, neuropathy adonay feet, has cpap machine History of Any Multi-Drug Resistant Organisms: None Reported Past Surgical History: Cholecystectomy, Orthopedic Surgery, Tonsillectomy Additional Past Surgical History / Comment(s): left shoulder rototor cuff repair, Right shoulder Past Anesthesia/Blood Transfusion Reactions: No Reported Reaction Past Psychological History: No Psychological Hx Reported Smoking Status: Former smoker Past Alcohol Use History: Occasional Past Drug Use History: None Reported - Past Family History Mother Family Medical History: Cancer Additional Family Medical History / Comment(s): of pancreatic cancer Medications and Allergies Home Medications Medication Instructions Recorded Confirmed Type Atorvastatin Calcium [Lipitor] 10 mg PO HS 10/12/15 04/01/24 History Fenofibrate 160 mg PO DAILY 10/12/15 04/01/24 History Rivaroxaban [Xarelto] 20 mg PO DAILY 10/12/15 04/01/24 History Tamsulosin [Flomax] 0.8 mg PO HS 05/27/23 04/01/24 History metFORMIN HCL ER [Glucophage XR] 500 mg PO DAILY 05/27/23 04/01/24 History Gabapentin [Neurontin] 300 mg PO Q8H 11/05/23 04/01/24 History Insulin Glargine,Hum.rec.anlog 13 units SQ HS 11/05/23 04/01/24 History [Lantus Solostar Pen] glipiZIDE XL [Glucotrol XL] 10 mg PO DAILY 11/05/23 04/01/24 History Bumetanide [BUMEX] 0.5 mg PO DAILY 02/11/24 04/01/24 History Sennosides [Senokot] 8.6 mg PO DAILY tab 02/14/24 04/01/24 Rx Acetaminophen Tab [Tylenol] 325 - 650 mg PO Q6HR PRN 04/01/24 04/01/24 History Amoxic-Pot Clav 875-125Mg 1 tab PO DIRECTED 04/01/24 04/01/24 History [Augmentin 875-125] Artificial Tears-Hypromellose 1 drop BOTH EYES QID PRN 04/01/24 04/01/24 History [Artificial Tear Drops] Ascorbic Acid [Vitamin C] 500 mg PO DAILY 04/01/24 04/01/24 History Biofreeze Roll On Gel 1 applic TOPICAL DAILY PRN 04/01/24 04/01/24 History Cholecalciferol (Vitamin D3) 50 mcg PO DAILY 04/01/24 04/01/24 History [Vitamin D3 (50 Mcg = 2000 Iu)] Collagenase [Santyl Ointment] 1 applic TOPICAL DAILY 04/01/24 04/01/24 History Ergocalciferol [Vitamin D2 (1250 1,250 mcg PO DIRECTED 04/01/24 04/01/24 History Mcg = 80313 Iu)] HYDROcodone/APAP 5-325MG [[place] 1 tab PO Q8H PRN 04/01/24 04/01/24 History 5-325] Insulin Aspart [NovoLOG Flexpen] 3 units SQ AC-TID 04/01/24 04/01/24 History Insulin Aspart [NovoLOG Flexpen] See Protocol SQ AC-TID 04/01/24 04/01/24 History Melatonin 3 mg PO HS 04/01/24 04/01/24 History Sennosides [Senokot] 17.2 mg PO HS 04/01/24 04/01/24 History Zinc Sulfate [Orazinc] 220 mg PO DAILY 04/01/24 04/01/24 History Allergies Allergy/AdvReac Type Severity Reaction Status Date / Time No Known Allergies Allergy Verified 04/01/24 13:45 Physical Exam Vitals: Vital Signs Temp Pulse Resp BP Pulse Ox 04/01/24 11:35 80 18 104/56 97 04/01/24 10:09 98.4 F 96 22 123/78 97 Intake and Output 03/31/24 04/01/24 04/01/24 22:59 06:59 14:59 Other: Weight 80.286 kg Results CBC & Chem 7: 04/01/24 10:30 04/01/24 10:30 Labs: Abnormal Lab Results - Last 24 Hours (Table) 04/01/24 04/01/24 04/01/24 Range/Units 10:30 10:30 10:30 RBC 2.00 L (4.30-5.90) m/uL Hgb 6.8 L* D (13.0-17.5) gm/dL Hct 21.0 L (39.0-53.0) % MCV 105.0 H (80.0-100.0) fL RDW 17.0 H (11.5-15.5) % Sodium 134 L (137-145) mmol/L Carbon Dioxide 19 L (22-30) mmol/L BUN 29 H (9-20) mg/dL Glucose 201 H (74-99) mg/dL Total Bilirubin 1.4 H (0.2-1.3) mg/dL Total Protein 6.2 L (6.3-8.2) g/dL Albumin 3.4 L (3.5-5.0) g/dL Crossmatch See Detail
[2024-04-01] MEDS: INSULIN ASPART (NovoLOG) 100 UNIT/ML VIAL SQ SCH ×2 (18:06)
[2024-04-01 18:55] LABS: Anisocytosis Slight; Basophils % (A) 0 %; Eosinophils # (A) 0.1 k/uL (0-0.7); Eosinophils % (A) 1 %; HCT 23.5 % (39.0-53.0); HGB 7.8 gm/dL (13.0-17.5); Hypochromasia Slight; Lymphocytes # (A) 0.9 k/uL (1.0-4.8); Lymphocytes % (A) 13 %; MCH 34.1 pg (25.0-35.0); MCHC 33.1 g/dL (31.0-37.0); Macrocytosis Moderate; Mean Platelet Volume 8.8; Monocytes # (A) 0.3 k/uL (0-1.0); Monocytes % (A) 5 %; Neutrophils # (A) 5.5 k/uL (1.3-7.7); Neutrophils % (A) 80 %; Platelet Count 132 k/uL (150-450); RBC 2.28 m/uL (4.30-5.90); RDW 16.9 % (11.5-15.5); WBC 6.8 k/uL (3.8-10.6)
[2024-04-01] MEDS ORDERED: NYSTATIN 100,000 UNIT/GM POWD 15 GM TOPICAL PRN (19:11)
--- NOTE | 2024-04-01 19:35 | P.CONS ---
History of Present Illness - Reason for Consult Consult date: 04/01/24 prostate carcinoma, CLL, anemia Requesting physician: Davy Nye - Chief Complaint Abnormal lab - History of Present Illness Mr. Whitt is a very pleasant 84-year-old male patient of Dr. Fournier well-known to our practice. Patient was initially diagnosed with CLL in December 2008 and was maintained on a watchful approach until July 2013, he had progressive anemia, workup was negative for hemolysis, iron studies were normal. Anemia and lymphocytosis progressedl. Bone marrow biopsy 09/08/2013 revealed 95% involvement with CLL, cytogenetics showed multiple abnormalities, FISH analysis revealed a 17p deletion and a [address] CAP 09/08/2013 showed borderline enlarged lymphadenopathies, generalized as well as splenomegaly. He was started on ibrutinib 10/05/2013 on trial. He came off the trial in September 2014, as that trial was no longer available, adn cont on. Repeat CT CAP 05/11/2014 showed no adenopathy. Repeat bone marrow 05/11/2014 revealed 30 to 35% monoclonal B cells. He continued on the same. 05/15/2015 patient had right upper quadrant pain, right sided back pain, found to have significantly elevated LFTs, CT AP 10/12/2015 was normal. Ibrutinib was held. He was found to have a common bile duct stone, ERCP, sphincterectomy, 11/2015 with cholecystectomy. He resumed treatment and did well until 2022. 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 He started venetoclax in July/2022, however, it was held in September/2023 due to progressive fatigue. 10/10/2023 CT CAP showed retroperitoneal and plevis nodes,enlarged prostate. His PSA on 11/25/2023 was up to 46.5. 12/19/2023 prostate biopsy was positive for prostate carcinoma,6/6 cores were positive [place] grade 4+4. 01/08/2024, PSA was 74.9. PSMA PET scan on 01/23/2024 showed findings consistent with prostate cancer with metastasis. There is significant radiotracer uptake identified within the prostate gland, multi foci osseous radiotracer uptake, and uptake within the retroperitoneal, bilateral iliac chain, and right inguinal lymph nodes. He started Lupron/erleada in January 2024. He fell in early February 2024, broke his right hip, required surgery and went to rehab, discharged 03/24/2024.(has been off erleada during that time). PSA 6. Patient's performance status was poor when he was seen by Dr. Fournier about a week ago, plan at that time was to continue on just the Lupron for prostate cancer. He was not restarted on any medications for CLL. It was noted that patient's hemoglobin was trending downward. Plans were for imaging, possible bone marrow biopsy to reassess. Patient is currently admitted to the hospital, he was seen by his primary care physician yesterday, lab results reported and he was found to be significantly anemic with a hemoglobin of 6.8. He was contacted and told to come to the emergency room. When seen the patient is receiving a PRBC transfusion. He denies any other significant physical complaints. He does have some bruising on the left side of his forehead and around the eye, he is not straight with me on what happened, denies epistaxis, gum bleeding, hematemesis, hemoptysis, hematuria, black or bloody stool, he denies any significant blood loss. No fevers, N,V, abd pain. Review of Systems 10 point review of systems is negative except as stated in HPI Past Medical History Past Medical History: Atrial Fibrillation, Cancer, Diabetes Mellitus, GERD/Reflux, Hyperlipidemia, Hypertension, Musculoskeletal Disorder, Neurologic Disorder, Osteoarthritis (OA), Renal Disease, Sleep Apnea/CPAP/BIPAP Additional Past Medical History / Comment(s): CLL-dx. 5 yrs. ago, unaware of renal problems, was having neck pain, neuropathy adonay feet, has cpap machine History of Any Multi-Drug Resistant Organisms: None Reported Past Surgical History: Cholecystectomy, Orthopedic Surgery, Tonsillectomy Additional Past Surgical History / Comment(s): left shoulder rototor cuff repair, Right shoulder Past Anesthesia/Blood Transfusion Reactions: No Reported Reaction Smoking Status: Former smoker - Past Family History Mother Family Medical History: Cancer Additional Family Medical History / Comment(s): of pancreatic cancer Medications and Allergies Home Medications Medication Instructions Recorded Confirmed Type Atorvastatin Calcium [Lipitor] 10 mg PO HS 10/12/15 04/01/24 History Fenofibrate 160 mg PO DAILY 10/12/15 04/01/24 History Rivaroxaban [Xarelto] 20 mg PO DAILY 10/12/15 04/01/24 History Tamsulosin [Flomax] 0.8 mg PO HS 05/27/23 04/01/24 History metFORMIN HCL ER [Glucophage XR] 500 mg PO DAILY 05/27/23 04/01/24 History Gabapentin [Neurontin] 300 mg PO Q8H 11/05/23 04/01/24 History Insulin Glargine,Hum.rec.anlog 13 units SQ HS 11/05/23 04/01/24 History [Lantus Solostar Pen] glipiZIDE XL [Glucotrol XL] 10 mg PO DAILY 11/05/23 04/01/24 History Bumetanide [BUMEX] 0.5 mg PO DAILY 02/11/24 04/01/24 History Sennosides [Senokot] 8.6 mg PO DAILY tab 02/14/24 04/01/24 Rx Acetaminophen Tab [Tylenol] 325 - 650 mg PO Q6HR PRN 04/01/24 04/01/24 History Amoxic-Pot Clav 875-125Mg 1 tab PO DIRECTED 04/01/24 04/01/24 History [Augmentin 875-125] Artificial Tears-Hypromellose 1 drop BOTH EYES QID PRN 04/01/24 04/01/24 History [Artificial Tear Drops] Ascorbic Acid [Vitamin C] 500 mg PO DAILY 04/01/24 04/01/24 History Biofreeze Roll On Gel 1 applic TOPICAL DAILY PRN 04/01/24 04/01/24 History Cholecalciferol (Vitamin D3) 50 mcg PO DAILY 04/01/24 04/01/24 History [Vitamin D3 (50 Mcg = 2000 Iu)] Collagenase [Santyl Ointment] 1 applic TOPICAL DAILY 04/01/24 04/01/24 History Ergocalciferol [Vitamin D2 (1250 1,250 mcg PO DIRECTED 04/01/24 04/01/24 History Mcg = 43040 Iu)] HYDROcodone/APAP 5-325MG [[place] 1 tab PO Q8H PRN 04/01/24 04/01/24 History 5-325] Insulin Aspart [NovoLOG Flexpen] 3 units SQ AC-TID 04/01/24 04/01/24 History Insulin Aspart [NovoLOG Flexpen] See Protocol SQ AC-TID 04/01/24 04/01/24 History Melatonin 3 mg PO HS 04/01/24 04/01/24 History Sennosides [Senokot] 17.2 mg PO HS 04/01/24 04/01/24 History Zinc Sulfate [Orazinc] 220 mg PO DAILY 04/01/24 04/01/24 History Allergies Allergy/AdvReac Type Severity Reaction Status Date / Time No Known Allergies Allergy Verified 04/01/24 13:45 Physical Exam Vitals: Vital Signs Temp Pulse Pulse Resp BP BP Pulse Ox 04/01/24 18:07 98.1 F 94 16 147/76 99 04/01/24 17:08 98.0 F 80 16 94/56 99 04/01/24 15:21 97.7 F 90 18 110/77 100 04/01/24 14:53 97.9 F 93 18 109/73 100 04/01/24 14:33 97.6 F 89 18 86/50 100 04/01/24 14:23 97.8 F 95 18 92/52 99 04/01/24 14:08 97.6 F 92 18 99/68 100 04/01/24 11:35 80 18 104/56 97 04/01/24 10:09 98.4 F 96 22 123/78 97 Intake and Output 04/01/24 04/01/24 04/01/24 06:59 14:59 22:59 Intake Total 0 1090 Balance 0 1090 Intake: Oral 780 Blood Product 0 310 Rc As-1 Unit 0 310 [id number] Other: # Voids 1 Weight 80.286 kg 80.286 kg - Constitutional General appearance: average body habitus, cooperative, no acute distress - EENT Eyes: anicteric sclerae, EOMI ENT: hearing grossly normal - Neck Neck: no lymphadenopathy - Respiratory Respiratory: bilateral: CTA - Cardiovascular Rhythm: regular - Gastrointestinal General gastrointestinal: normal bowel sounds, soft - Integumentary Bruising of the left forehead and left eye - Neurologic Neurologic: CNII-XII intact - Musculoskeletal Musculoskeletal: generalized weakness - Psychiatric Psychiatric: A&O x's 3, appropriate affect, intact judgment & insight Results CBC & Chem 7: 04/01/24 18:40 04/01/24 10:30 Labs: Abnormal Lab Results - Last 24 Hours (Table) 04/01/24 04/01/24 04/01/24 Range/Units 10:30 10:30 10:30 RBC 2.00 L (4.30-5.90) m/uL Hgb 6.8 L* D (13.0-17.5) gm/dL Hct 21.0 L (39.0-53.0) % MCV 105.0 H (80.0-100.0) fL RDW 17.0 H (11.5-15.5) % Plt Count (150-450) k/uL Lymphocytes # (1.0-4.8) k/uL Retic Count (0.5-2.0) % Sodium 134 L (137-145) mmol/L Carbon Dioxide 19 L (22-30) mmol/L BUN 29 H (9-20) mg/dL Glucose 201 H (74-99) mg/dL POC Glucose (mg/dL) (70-110) mg/dL Total Bilirubin 1.4 H (0.2-1.3) mg/dL Total Protein 6.2 L (6.3-8.2) g/dL Albumin 3.4 L (3.5-5.0) g/dL Crossmatch See Detail 04/01/24 04/01/24 04/01/24 Range/Units 10:30 17:15 18:40 RBC 2.28 L (4.30-5.90) m/uL Hgb 7.8 L (13.0-17.5) gm/dL Hct 23.5 L (39.0-53.0) % MCV 103.0 H (80.0-100.0) fL RDW 16.9 H (11.5-15.5) % Plt Count 132 L (150-450) k/uL Lymphocytes # 0.9 L (1.0-4.8) k/uL Retic Count 3.1 H (0.5-2.0) % Sodium (137-145) mmol/L Carbon Dioxide (22-30) mmol/L BUN (9-20) mg/dL Glucose (74-99) mg/dL POC Glucose (mg/dL) 166 H (70-110) mg/dL Total Bilirubin (0.2-1.3) mg/dL Total Protein (6.3-8.2) g/dL Albumin (3.5-5.0) g/dL Crossmatch Assessment and Plan (1) Anemia Current Visit: Yes Status: Acute Priority: High Code(s): D64.9 - ANEMIA, UNSPECIFIED SNOMED Code(s): 699052688 (2) CLL (chronic lymphocytic leukemia) Current Visit: Yes Status: Chronic Priority: High Code(s): C91.10 - CHRONIC LYMPHOCYTIC LEUK OF B-CELL TYPE NOT ACHIEVE REMIS SNOMED Code(s): 74303950 (3) Prostate cancer metastatic to bone Current Visit: Yes Status: Chronic Priority: Medium Code(s): C61 - M ALIGNANT NEOPLASM OF PROSTATE; C79.51 - SECONDARY MALIGNANT NEOPLASM OF BONE SNOMED Code(s): 46312749 Plan: Anemia -This has been progressive over the last 6 weeks. This is the first PRBC transfusion patient has needed. -Anemia workup in the office did show low iron saturation, ferritin was not yet reported. -Discussed with patient and his that there are concerns for transformation of CLL, due to the sudden onset of the anemia. Plan at this time is to repeat CT CAP to assess for lymphadenopathy as well as assess patient's prostate cancer. Prostate cancer was felt to be a little less likely for progression because the PSA did drastically come down from 80 to 6, that lab is from just over a week ago. -Agree with transfusion at this time. -Transfuse for hemoglobin less than 7 or if patient is symptomatic. -Will follow-up on imaging results. Further testing, including possible bone marrow biopsy, was discussed with patient and his . They verbalized understanding the plan and agree with the same. CLL -Diagnosis and treatment as reported in HPI -Patient has not been on any treatment for CLL since September, he was on treatment for just 2 months, was not able to tolerate. -Progressive anemia, concerning for transformation of his CLL as described above. Pending CT CAP results. Further recommendations to follow. Prostate carcinoma, metastatic -Patient has remained on Lupron-it was given before hip surgery and rehab, it is not due again until Apr. -Most recent PSA done in the office was 6, the one prior to that was 80.
[2024-04-01 20:16] LABS: Glucose,Whole Blood 268 mg/dL (70-110)
[2024-04-01] MEDS: INSULIN DETEMIR (LEVEMIR) 100 UNIT/ML SYR SQ SCH (23:58)
[2024-04-01] MEDS: MELATONIN 3 MG TABLET PO SCH (23:59)
[2024-04-01] MEDS: SENNOSIDES 8.6 MG TAB PO SCH (23:59)
[2024-04-01] MEDS: TAMSULOSIN 0.4 MG CAP.ER.24H PO SCH (23:59)
[2024-04-01] MEDS: ATORVASTATIN 10 MG TAB PO SCH (23:59)
[2024-04-02 07:43] LABS: Glucose,Whole Blood 149 mg/dL (70-110)
[2024-04-02 09:37] LABS: Basophils # (A) 0.01 X 10*3/uL (0.00-0.10); Basophils % (A) 0.2 %; Eosinophils # (A) 0.05 X 10*3/uL (0.04-0.35); Eosinophils % (A) 0.9 %; HCT 21.1 % (39.6-50.0); HGB 6.7 g/dL (13.0-17.0); Lymphocytes # (A) 0.93 X 10*3/uL (0.90-5.00); Lymphocytes % (A) 15.9 %; MCH 33.2 pg (27.0-32.0); MCHC 31.8 g/dL (32.0-37.0); MCV 104.5 FL (80.0-97.0); Monocytes # (A) 0.53 X 10*3/uL (0.20-1.00); Monocytes % (A) 9.1 %; NRBC Per 100 WBC 0.03 X 10*3/uL (0.00-0.01); Neutrophils # (A) 4.29 X 10*3/uL (1.80-7.70); Neutrophils % (A) 73.2 %; Platelet Count 122 X 10*3/uL (140-440); RBC 2.02 X 10*6/uL (4.40-5.60); RDW 17.6 % (11.5-14.5); WBC 5.85 X 10*3/uL (4.50-10.00)
[2024-04-02] MEDS: SENNOSIDES 8.6 MG TAB PO SCH (09:40)
[2024-04-02] MEDS: BUMETANIDE 0.5 MG TABLET PO SCH (09:40)
[2024-04-02] MEDS: FENOFIBRATE 160 MG TAB PO SCH (09:40)
[2024-04-02 10:02] LABS: ALT 13 U/L (10-49); AST 14 U/L (14-35); Albumin 2.8 g/dL (3.8-4.9); Alkaline Phosphatase 72 U/L (41-126); BUN/Creat Ratio 21.78 Ratio (12.00-20.00); Blood Urea Nitrogen 19.6 mg/dL (9.0-27.0); Calcium 8.6 mg/dL (8.7-10.3); Carbon Dioxide 20.4 mmol/L (21.6-31.8); Chloride 109 mmol/L (96-109); Glucose 159 mg/dL (70-110); Potassium 3.9 mmol/L (3.5-5.5); Sodium 140 mmol/L (135-145); Total Bilirubin 0.7 mg/dL (0.3-1.2); Total Protein 4.8 g/dL (6.2-8.2)
[2024-04-02 10:08] VITALS: BMI 24.7
--- NOTE | 2024-04-02 11:01 | P.PN ---
Subjective Progress Note Date: 04/02/24 Hospital Course: Patient is a 84-year-old male with history of atrial fibrillation on Xarelto, type 2 diabetes, hypertension, dyslipidemia, CLL not currently on treatment, prostate cancer with metastatic bone disease (on Lupron), stage III CKD, diastolic CHF, peripheral neuropathy who was admitted for anemia. He recieved 1 unit of pRBC yesterday, with improvement in hemoglobin from 6.[address] abdom en/pelvis was negative for a hematoma or active bleeding, showed scattered metastatic disease, enlarging right-sided pulmonary nodule concerning for metastatic disease, consolidation in the medial aspect of right lower lobe likely atelectasis. He was evaluated by Oncology, who believes the patient will likely need a bone marrow biospy to assess for possible progression of CLL. This morning, hemoglobin is 6.7. Subjective: The patient states he feels tired and complains of generalized pain but denies active chest pain, shortness of breath, nausea vomiting, abdominal pain, hematemesis or melena/hematochezia. Pertinent positives and negatives as discussed above, a complete review of systems was performed and all other systems are negative. Vitals Signs Reviewed. General: [nontoxic], [no distress], [appears at stated age] Derm: [warm], [dry] Head: Small echymosis noted over left eyebrow, [normocephalic], [symmetric] Eyes: [EOMI], [no lid lag], [anicteric sclera] Mouth: [no lip lesion], [mucus membranes moist] Cardiovascular: [S1S2 reg], [no murmur] Lungs: [CTA bilateral], [no rhonchi, no rales] , [no accessory muscle use] Abdominal: [soft], [ nontender to palpation], [no guarding], [no appreciable organomegaly] Ext: +2 pitting edema in bilateral lower extremities, [no gross muscle atrophy], [no contractures] Neuro: [ CN II-XI grossly intact], [no focal neuro deficits] Psych: [Alert], [oriented], [appropriate affect] Data Reviewed Today: Pertinent Labs: Hemoglobin at 6.7, platelets at 122, iron 122, TIBC 249, Ferritin 1142.0, transferrin 178.0, reticulocyte count of 3.1% Assessment and Plan: [Active:] Acute on chronic anemia CLL Metastatic prostate cancer with mets to the bone, on Lupron -Baseline hemoglobin around 9.0, s/p 1 unit pRBC. Followed by Oncology, believed to be possible progression of CLL, will likely need bone marrow biopsy -Transfuse 1 unit pRBC today, will recheck CBC in the afternoon -Daily CBC -Continue to hold Xarelto Diabetes mellitus, insulin dependent: -Continue 13 units of Lantus nightly, aspart 3 units three times a day with sliding scale -Continue glucose monitoring [Chronic:] -Hypertension -Chronic atrial fibrillation, rate controlled -Diastolic heart failure, stable -Chronic kidney disease, stage III -Dyslipidemia -Peripheral neuropathy DVT ppx: SCDs Code status: Full Code Anticipated discharge place: Pending clinical stabilization Anticipated discharge time: Pending clinical stabilization Objective - Vital Signs Vital signs: Vital Signs Temp 97.6 F 04/02/24 07:38 Pulse 76 04/02/24 07:38 Resp 18 04/02/24 07:38 BP 102/58 04/02/24 07:38 Pulse Ox 98 04/02/24 07:38 FiO2 Intake & Output 04/01/24 04/02/24 04/02/24 18:59 06:59 18:59 Intake Total 1090 Output Total 900 Balance 1090 -900 Weight 80.286 kg 80.286 kg Intake: Oral 780 Blood Product 310 Rc As-1 Unit 310 [id number] Output: Urine 900 Other: Voiding Method External Catheter # Voids 1 # Bowel Movements 2 - Labs CBC & Chem 7: 04/02/24 04:36 04/02/24 04:36 Labs: Abnormal Lab Results - Last 24 Hours (Table) 04/01/24 04/01/24 04/01/24 Range/Units 10:30 10:30 10:30 RBC 2.00 L (4.30-5.90) m/uL Hgb 6.8 L* D (13.0-17.5) gm/dL Hct 21.0 L (39.0-53.0) % MCV 105.0 H (80.0-100.0) fL MCH (27.0-32.0) pg MCHC (32.0-37.0) g/dL RDW 17.0 H (11.5-15.5) % Plt Count (150-450) k/uL Lymphocytes # (1.0-4.8) k/uL NRBC/100 WBC Diff (0.00-0.01) X 10*3/uL Retic Count (0.5-2.0) % Sodium 134 L (137-145) mmol/L Carbon Dioxide 19 L (22-30) mmol/L BUN 29 H (9-20) mg/dL BUN/Creatinine Ratio (12.00-20.00) Ratio Glucose 201 H (74-99) mg/dL POC Glucose (mg/dL) (70-110) mg/dL Hemoglobin A1c (<=6.0) % Calcium (8.7-10.3) mg/dL Transferrin (204.0-354.0) mg/dL Ferritin (22.0-322.0) ng/mL Total Bilirubin 1.4 H (0.2-1.3) mg/dL Total Protein 6.2 L (6.3-8.2) g/dL Albumin 3.4 L (3.5-5.0) g/dL Albumin/Globulin Ratio (1.60-3.17) Ratio Crossmatch See Detail 04/01/24 04/01/24 04/01/24 Range/Units 10:30 17:15 18:40 RBC 2.28 L (4.30-5.90) m/uL Hgb 7.8 L (13.0-17.5) gm/dL Hct 23.5 L (39.0-53.0) % MCV 103.0 H (80.0-100.0) fL MCH (27.0-32.0) pg MCHC (32.0-37.0) g/dL RDW 16.9 H (11.5-15.5) % Plt Count 132 L (150-450) k/uL Lymphocytes # 0.9 L (1.0-4.8) k/uL NRBC/100 WBC Diff (0.00-0.01) X 10*3/uL Retic Count 3.1 H (0.5-2.0) % Sodium (137-145) mmol/L Carbon Dioxide (22-30) mmol/L BUN (9-20) mg/dL BUN/Creatinine Ratio (12.00-20.00) Ratio Glucose (74-99) mg/dL POC Glucose (mg/dL) 166 H (70-110) mg/dL Hemoglobin A1c (<=6.0) % Calcium (8.7-10.3) mg/dL Transferrin (204.0-354.0) mg/dL Ferritin (22.0-322.0) ng/mL Total Bilirubin (0.2-1.3) mg/dL Total Protein (6.3-8.2) g/dL Albumin (3.5-5.0) g/dL Albumin/Globulin Ratio (1.60-3.17) Ratio Crossmatch 04/01/24 04/01/24 04/01/24 Range/Units 18:40 18:40 18:40 RBC (4.30-5.90) m/uL Hgb (13.0-17.5) gm/dL Hct (39.0-53.0) % MCV (80.0-100.0) fL MCH (27.0-32.0) pg MCHC (32.0-37.0) g/dL RDW (11.5-15.5) % Plt Count (150-450) k/uL Lymphocytes # (1.0-4.8) k/uL NRBC/100 WBC Diff (0.00-0.01) X 10*3/uL Retic Count (0.5-2.0) % Sodium (137-145) mmol/L Carbon Dioxide (22-30) mmol/L BUN (9-20) mg/dL BUN/Creatinine Ratio (12.00-20.00) Ratio Glucose (74-99) mg/dL POC Glucose (mg/dL) (70-110) mg/dL Hemoglobin A1c 7.2 H (<=6.0) % Calcium (8.7-10.3) mg/dL Transferrin 178.0 L 178.0 L (204.0-354.0) mg/dL Ferritin 1142.0 H (22.0-322.0) ng/mL Total Bilirubin (0.2-1.3) mg/dL Total Protein (6.3-8.2) g/dL Albumin (3.5-5.0) g/dL Albumin/Globulin Ratio (1.60-3.17) Ratio Crossmatch 04/01/24 04/02/24 04/02/24 Range/Units 20:10 04:36 04:36 RBC 2.02 L (4.30-5.90) m/uL Hgb 6.7 A* (13.0-17.5) gm/dL Hct 21.1 L (39.0-53.0) % MCV 104.5 H (80.0-100.0) fL MCH 33.2 H (27.0-32.0) pg MCHC 31.8 L (32.0-37.0) g/dL RDW 17.6 H (11.5-15.5) % Plt Count 122 L (150-450) k/uL Lymphocytes # (1.0-4.8) k/uL NRBC/100 WBC Diff 0.03 H (0.00-0.01) X 10*3/uL Retic Count (0.5-2.0) % Sodium (137-145) mmol/L Carbon Dioxide 20.4 L (22-30) mmol/L BUN (9-20) mg/dL BUN/Creatinine Ratio 21.78 H (12.00-20.00) Ratio Glucose 159 H (74-99) mg/dL POC Glucose (mg/dL) 268 H (70-110) mg/dL Hemoglobin A1c (<=6.0) % Calcium 8.6 L (8.7-10.3) mg/dL Transferrin (204.0-354.0) mg/dL Ferritin (22.0-322.0) ng/mL Total Bilirubin (0.2-1.3) mg/dL Total Protein 4.8 L (6.3-8.2) g/dL Albumin 2.8 L (3.5-5.0) g/dL Albumin/Globulin Ratio 1.40 L (1.60-3.17) Ratio Crossmatch 04/02/24 Range/Units 07:41 RBC (4.30-5.90) m/uL Hgb (13.0-17.5) gm/dL Hct (39.0-53.0) % MCV (80.0-100.0) fL MCH (27.0-32.0) pg MCHC (32.0-37.0) g/dL RDW (11.5-15.5) % Plt Count (150-450) k/uL Lymphocytes # (1.0-4.8) k/uL NRBC/100 WBC Diff (0.00-0.01) X 10*3/uL Retic Count (0.5-2.0) % Sodium (137-145) mmol/L Carbon Dioxide (22-30) mmol/L BUN (9-20) mg/dL BUN/Creatinine Ratio (12.00-20.00) Ratio Glucose (74-99) mg/dL POC Glucose (mg/dL) 149 H (70-110) mg/dL Hemoglobin A1c (<=6.0) % Calcium (8.7-10.3) mg/dL Transferrin (204.0-354.0) mg/dL Ferritin (22.0-322.0) ng/mL Total Bilirubin (0.2-1.3) mg/dL Total Protein (6.3-8.2) g/dL Albumin (3.5-5.0) g/dL Albumin/Globulin Ratio (1.60-3.17) Ratio Crossmatch
[2024-04-02 12:24] LABS: Glucose,Whole Blood 212 mg/dL (70-110)
[2024-04-02 17:10] LABS: Glucose,Whole Blood 144 mg/dL (70-110)
[2024-04-02 18:54] LABS: Anisocytosis Slight; Basophils % (A) 0 %; Eosinophils # (A) 0.1 k/uL (0-0.7); Eosinophils % (A) 1 %; HCT 28.6 % (39.0-53.0); Lymphocytes # (A) 1.3 k/uL (1.0-4.8); Lymphocytes % (A) 16 %; MCHC 34.3 g/dL (31.0-37.0); MCV 99.1 fL (80.0-100.0); Macrocytosis Slight; Mean Platelet Volume 8.5; Monocytes # (A) 0.3 k/uL (0-1.0); Monocytes % (A) 4 %; Neutrophils # (A) 6.2 k/uL (1.3-7.7); Neutrophils % (A) 77 %; Platelet Count 136 k/uL (150-450); Poikilocytosis Slight; RBC 2.88 m/uL (4.30-5.90); RDW 18.5 % (11.5-15.5)
[2024-04-02 18:57] LABS: HGB 9.8 gm/dL (13.0-17.5)
[2024-04-02 20:19] LABS: Glucose,Whole Blood 187 mg/dL (70-110)
--- NOTE | 2024-04-02 23:21 | P.PN ---
Subjective Progress Note Date: 04/02/24 Principal diagnosis: Anemia. CLL. Metastatic prostate cancer In follow-up today patient is reporting he feels cold, denies any fevers, sweats, nausea or vomiting, he is tolerating oral intake no nausea or vomiting, no chest pain, abdominal pain or cramping. He does have swelling in the lower extremities. Objective - Vital Signs Vital signs: Vital Signs Temp 98.6 F 04/02/24 14:12 Pulse 86 04/02/24 14:12 Resp 16 04/02/24 14:12 BP 118/61 04/02/24 14:12 Pulse Ox 92 L 04/02/24 14:12 FiO2 Intake & Output 04/01/24 04/02/24 04/02/24 18:59 06:59 18:59 Intake Total 1090 10 Output Total 900 Balance 1090 -900 10 Weight 80.286 kg 80.286 kg Intake: Oral 780 Blood Product 310 10 Rc As-1 Unit 310 [id number] Rc As-1 Unit 10 [id number] Output: Urine 900 Other: Voiding Method External Catheter External Catheter # Voids 1 # Bowel Movements 2 - Constitutional General appearance: Present: average body habitus, cooperative, no acute distress - EENT Eyes: Present: anicteric sclerae, EOMI ENT: Present: hearing grossly normal - Respiratory Respiratory: bilateral: CTA - Cardiovascular Heart sounds: normal: S1, S2 - Peripheral edema leg Peripheral Edema: bilateral: 1+ - Integumentary Integumentary: Present: pale - Neurologic Neurologic: Present: CNII-XII intact - Musculoskeletal Musculoskeletal: Present: generalized weakness - Psychiatric Psychiatric: Present: A&O x's 3, appropriate affect, intact judgment & insight - Labs CBC & Chem 7: 04/02/24 18:09 04/02/24 04:36 Labs: Abnormal Lab Results - Last 24 Hours (Table) 04/01/24 04/01/24 04/01/24 Range/Units 10:30 17:15 18:40 RBC 2.28 L (4.30-5.90) m/uL Hgb 7.8 L (13.0-17.5) gm/dL Hct 23.5 L (39.0-53.0) % MCV 103.0 H (80.0-100.0) fL MCH (27.0-32.0) pg MCHC (32.0-37.0) g/dL RDW 16.9 H (11.5-15.5) % Plt Count 132 L (150-450) k/uL Lymphocytes # 0.9 L (1.0-4.8) k/uL NRBC/100 WBC Diff (0.00-0.01) X 10*3/uL Carbon Dioxide (21.6-31.8) mmol/L BUN/Creatinine Ratio (12.00-20.00) Ratio Glucose (70-110) mg/dL POC Glucose (mg/dL) 166 H (70-110) mg/dL Hemoglobin A1c (<=6.0) % Calcium (8.7-10.3) mg/dL Transferrin (204.0-354.0) mg/dL Ferritin (22.0-322.0) ng/mL Total Protein (6.2-8.2) g/dL Albumin (3.8-4.9) g/dL Albumin/Globulin Ratio (1.60-3.17) Ratio Crossmatch See Detail 04/01/24 04/01/24 04/01/24 Range/Units 18:40 18:40 18:40 RBC (4.30-5.90) m/uL Hgb (13.0-17.5) gm/dL Hct (39.0-53.0) % MCV (80.0-100.0) fL MCH (27.0-32.0) pg MCHC (32.0-37.0) g/dL RDW (11.5-15.5) % Plt Count (150-450) k/uL Lymphocytes # (1.0-4.8) k/uL NRBC/100 WBC Diff (0.00-0.01) X 10*3/uL Carbon Dioxide (21.6-31.8) mmol/L BUN/Creatinine Ratio (12.00-20.00) Ratio Glucose (70-110) mg/dL POC Glucose (mg/dL) (70-110) mg/dL Hemoglobin A1c 7.2 H (<=6.0) % Calcium (8.7-10.3) mg/dL Transferrin 178.0 L 178.0 L (204.0-354.0) mg/dL Ferritin 1142.0 H (22.0-322.0) ng/mL Total Protein (6.2-8.2) g/dL Albumin (3.8-4.9) g/dL Albumin/Globulin Ratio (1.60-3.17) Ratio Crossmatch 04/01/24 04/02/24 04/02/24 Range/Units 20:10 04:36 04:36 RBC 2.02 L (4.30-5.90) m/uL Hgb 6.7 A* (13.0-17.5) gm/dL Hct 21.1 L (39.0-53.0) % MCV 104.5 H (80.0-100.0) fL MCH 33.2 H (27.0-32.0) pg MCHC 31.8 L (32.0-37.0) g/dL RDW 17.6 H (11.5-15.5) % Plt Count 122 L (150-450) k/uL Lymphocytes # (1.0-4.8) k/uL NRBC/100 WBC Diff 0.03 H (0.00-0.01) X 10*3/uL Carbon Dioxide 20.4 L (21.6-31.8) mmol/L BUN/Creatinine Ratio 21.78 H (12.00-20.00) Ratio Glucose 159 H (70-110) mg/dL POC Glucose (mg/dL) 268 H (70-110) mg/dL Hemoglobin A1c (<=6.0) % Calcium 8.6 L (8.7-10.3) mg/dL Transferrin (204.0-354.0) mg/dL Ferritin (22.0-322.0) ng/mL Total Protein 4.8 L (6.2-8.2) g/dL Albumin 2.8 L (3.8-4.9) g/dL Albumin/Globulin Ratio 1.40 L (1.60-3.17) Ratio Crossmatch 04/02/24 04/02/24 Range/Units 07:41 12:22 RBC (4.30-5.90) m/uL Hgb (13.0-17.5) gm/dL Hct (39.0-53.0) % MCV (80.0-100.0) fL MCH (27.0-32.0) pg MCHC (32.0-37.0) g/dL RDW (11.5-15.5) % Plt Count (150-450) k/uL Lymphocytes # (1.0-4.8) k/uL NRBC/100 WBC Diff (0.00-0.01) X 10*3/uL Carbon Dioxide (21.6-31.8) mmol/L BUN/Creatinine Ratio (12.00-20.00) Ratio Glucose (70-110) mg/dL POC Glucose (mg/dL) 149 H 212 H (70-110) mg/dL Hemoglobin A1c (<=6.0) % Calcium (8.7-10.3) mg/dL Transferrin (204.0-354.0) mg/dL Ferritin (22.0-322.0) ng/mL Total Protein (6.2-8.2) g/dL Albumin (3.8-4.9) g/dL Albumin/Globulin Ratio (1.60-3.17) Ratio Crossmatch Assessment and Plan (1) Anemia Current Visit: Yes Status: Acute Priority: High Code(s): D64.9 - ANEMIA, UNSPECIFIED SNOMED Code(s): 121122709 (2) CLL (chronic lymphocytic leukemia) Current Visit: Yes Status: Chronic Priority: High Code(s): C91.10 - CHRONIC LYMPHOCYTIC LEUK OF B-CELL TYPE NOT ACHIEVE REMIS SNOMED Code(s): 94562949 (3) Prostate cancer metastatic to bone Current Visit: Yes Status: Chronic Priority: Medium Code(s): C61 - MALIGNANT NEOPLASM OF PROSTATE; C79.51 - SECONDARY MALIGNANT NEOPLASM OF BONE SNOMED Code(s): 71429969 Plan: Anemia -This has been progressive over the last 6 weeks. This is the first PRBC transfusion patient has needed. -Anemia workup in the office did show low iron saturation, ferritin was not yet reported. -Concerns for transformation of CLL has been discussed with the patient, due to the sudden onset of the anemia. -Reviewed CT CAP, no significant changes to suggest progression of prostate cancer. Prostate cancer was felt to be a little less likely for progression because the PSA did drastically come down from 80 to 6, that lab is from just over a week ago. -Patient received 1 unit of blood for hemoglobin of 6.8. His next hemoglobin drawn was 7.8. Hemoglobin drawn this a.m. was 6.8. Another unit of blood has been ordered -Transfuse for hemoglobin less than 7 or if patient is symptomatic. -Bone marrow biopsy was again discussed with the patient. He is agreeable to the same. -If patient's hemoglobin is stabilized within the next 24 hours, bone marrow biopsy can be scheduled outpatient. -There is a lab encounter at the office next week on Saturday to assess patient's hemoglobin and if needed, transfuse an outpatient CLL -Diagnosis and treatment as reported in consult -Patient has not been on any treatment for CLL since September, he was on treatment for just 2 months, was not able to tolerate. -Progressive anemia, concerning for transformation of his CLL as described above. CT CAP results not suggestive of progressive prostate cancer, therefore concerns for a primary hematological problem. -Bone marrow biopsy has been discussed. As above, this can be scheduled outpatient. Prostate carcinoma, metastatic -Patient has remained on Lupron-it was given before hip surgery and rehab, it is not due again until Apr. -Most recent PSA done in the office was 6, the one prior to that was 80. -Plans to continue Lupron as prescribed. Doctor attests: I performed a history and physical examination of this patient, developed impression and plan of care. Discussed with dictator. I agree with dictators note, documented as a scribe.
[2024-04-03 07:46] LABS: Glucose,Whole Blood 119 mg/dL (70-110)
[2024-04-03 10:04] LABS: Anisocytosis Slight; Basophils % (A) 0 %; Eosinophils # (A) 0.1 k/uL (0-0.7); Eosinophils % (A) 1 %; HCT 26.5 % (39.0-53.0); HGB 8.7 gm/dL (13.0-17.5); Hypochromasia Slight; Lymphocytes # (A) 0.8 k/uL (1.0-4.8); Lymphocytes % (A) 10 %; MCH 32.6 pg (25.0-35.0); MCHC 32.7 g/dL (31.0-37.0); MCV 99.8 fL (80.0-100.0); Macrocytosis Slight; Mean Platelet Volume 9.1; Monocytes # (A) 0.4 k/uL (0-1.0); Monocytes % (A) 4 %; Neutrophils # (A) 6.9 k/uL (1.3-7.7); Neutrophils % (A) 84 %; Platelet Count 108 k/uL (150-450); RBC 2.66 m/uL (4.30-5.90); RDW 17.7 % (11.5-15.5); WBC 8.2 k/uL (3.8-10.6)
--- NOTE | 2024-04-03 10:20 | P.CONS ---
History of Present Illness - Reason for Consult Consult date: 04/03/24 wound care - History of Present Illness This is an 84-year-old patient being seen on [address] for nonhealing ulceration to the left heel. Patient has a stage II pressure ulceration that he states has been there for few weeks now has been being treated by home care. Patient does not know what was being utilized however it appears to be collagen. Patient does not know how the ulceration started. Ulceration measures approximately 1 x 2.3 x 0.2 cm with granulation seen throughout wound edges are attached to the wound base no tunneling or undermining noted. Slough and nonviable tissue present. Patient's past medical history significant for Atrial fibrillation, diabetes, hypertension, hyperlipidemia, sleep apnea, neuropathy bilateral feet. Review Of Systems: Constitutional: No fever, no chills, no night sweats. No weight change. No weakness, fatigue or lethargy. No daytime sleepiness. Integumentary:reports wounds, no lesions. No rash or pruritus. No unusual bruising. No change in hair or nails. Physical exam: General Appearance: Alert, cooperative, no distress, appears stated age. Skin: See HPI all other Skin color, texture, tugor normal, no rashes or lesions. Neurologic: Alert oriented x3 Assessment: 1. Stage II pressure ulcer left heel 2. Diabetic foot ulcer Plan: 1. Apply collagen, saline moist gauze and bordered foam change Saturday. Utilize heel protectors for offloading. Patient would benefit from advanced wound care and wound care setting. Patient states that he home care is taking care of his wound at this time. Thank you for the consultation any questions please contact the wound care center DNP note has been reviewed and discussed with Dr. Meza and the impression and plan of care has been directed as dictated. Past Medical History Past Medical History: Atrial Fibrillation, Cancer, Diabetes Mellitus, GERD/Reflux, Hyperlipidemia, Hypertension, Musculoskeletal Disorder, Neurologic Disorder, Osteoarthritis (OA), Renal Disease, Sleep Apnea/CPAP/BIPAP Additional Past Medical History / Comment(s): CLL-dx. 5 yrs. ago, unaware of renal problems, was having neck pain, neuropathy adonay feet, has cpap machine History of Any Multi-Drug Resistant Organisms: None Reported Past Surgical History: Cholecystectomy, Orthopedic Surgery, Tonsillectomy Additional Past Surgical History / Comment(s): left shoulder rototor cuff repair, Right shoulder Past Anesthesia/Blood Transfusion Reactions: No Reported Reaction Smoking Status: Former smoker - Past Family History Mother Family Medical History: Cancer Additional Family Medical History / Comment(s): of pancreatic cancer Medications and Allergies Home Medications Medication Instructions Recorded Confirmed Type Atorvastatin Calcium [Lipitor] 10 mg PO HS 10/12/15 04/01/24 History Fenofibrate 160 mg PO DAILY 10/12/15 04/01/24 History Rivaroxaban [Xarelto] 20 mg PO DAILY 10/12/15 04/01/24 History Tamsulosin [Flomax] 0.8 mg PO HS 05/27/23 04/01/24 History metFORMIN HCL ER [Glucophage XR] 500 mg PO DAILY 05/27/23 04/01/24 History Gabapentin [Neurontin] 300 mg PO Q8H 11/05/23 04/01/24 History Insulin Glargine,Hum.rec.anlog 13 units SQ HS 11/05/23 04/01/24 History [Lantus Solostar Pen] glipiZIDE XL [Glucotrol XL] 10 mg PO DAILY 11/05/23 04/01/24 History Bumetanide [BUMEX] 0.5 mg PO DAILY 02/11/24 04/01/24 History Sennosides [Senokot] 8.6 mg PO DAILY tab 02/14/24 04/01/24 Rx Acetaminophen Tab [Tylenol] 325 - 650 mg PO Q6HR PRN 04/01/24 04/01/24 History Amoxic-Pot Clav 875-125Mg 1 tab PO DIRECTED 04/01/24 04/01/24 History [Augmentin 875-125] Artificial Tears-Hypromellose 1 drop BOTH EYES QID PRN 04/01/24 04/01/24 History [Artificial Tear Drops] Ascorbic Acid [Vitamin C] 500 mg PO DAILY 04/01/24 04/01/24 History Biofreeze Roll On Gel 1 applic TOPICAL DAILY PRN 04/01/24 04/01/24 History Cholecalciferol (Vitamin D3) 50 mcg PO DAILY 04/01/24 04/01/24 History [Vitamin D3 (50 Mcg = 2000 Iu)] Collagenase [Santyl Ointment] 1 applic TOPICAL DAILY 04/01/24 04/01/24 History Ergocalciferol [Vitamin D2 (1250 1,250 mcg PO DIRECTED 04/01/24 04/01/24 History Mcg = 18855 Iu)] HYDROcodone/APAP 5-325MG [Elk 1 tab PO Q8H PRN 04/01/24 04/01/24 History 5-325] Insulin Aspart [NovoLOG Flexpen] 3 units SQ AC-TID 04/01/24 04/01/24 History Insulin Aspart [NovoLOG Flexpen] See Protocol SQ AC-TID 04/01/24 04/01/24 History Melatonin 3 mg PO HS 04/01/24 04/01/24 History Sennosides [Senokot] 17.2 mg PO HS 04/01/24 04/01/24 History Zinc Sulfate [Orazinc] 220 mg PO DAILY 04/01/24 04/01/24 History Allergies Allergy/AdvReac Type Severity Reaction Status Date / Time No Known Allergies Allergy Verified 04/01/24 13:45 Physical Exam Vitals: Vital Signs Temp Pulse Pulse Resp BP BP Pulse Ox 04/03/24 07:06 97.3 F L 72 17 108/65 99 04/03/24 01:14 98.6 F 65 16 101/53 94 L 04/02/24 20:00 16 04/02/24 19:37 98.7 F 68 16 100/55 93 L 04/02/24 17:43 98.0 F 78 16 124/66 99 04/02/24 16:14 97.9 F 79 16 92/57 96 04/02/24 14:12 98.6 F 86 16 118/61 92 L 04/02/24 13:52 97.8 F 91 16 105/63 100 04/02/24 13:23 97.9 F 85 16 111/67 100 04/02/24 13:13 97.8 F 81 16 98/61 99 04/02/24 12:39 98.5 F 74 18 110/59 99 Intake and Output 04/02/24 04/03/24 04/03/24 22:59 06:59 14:59 Intake Total 1674 Output Total 1500 1000 Balance 174 -1000 Intake: Oral 1374 Blood Product 300 Rc As-1 Unit 300 [id number] Output: Urine 1500 1000 Other: Voiding Method External Catheter # Bowel Movements 1 Results CBC & Chem 7: 04/03/24 09:32 04/02/24 04:36 Labs: Abnormal Lab Results - Last 24 Hours (Table) 04/01/24 04/02/24 04/02/24 Range/Units 10:30 12:22 17:09 RBC (4.30-5.90) m/uL Hgb (13.0-17.5) gm/dL Hct (39.0-53.0) % RDW (11.5-15.5) % Plt Count (150-450) k/uL Lymphocytes # (1.0-4.8) k/uL POC Glucose (mg/dL) 212 H 144 H (70-110) mg/dL Crossmatch See Detail 04/02/24 04/02/24 04/03/24 Range/Units 18:09 20:17 07:33 RBC 2.88 L (4.30-5.90) m/uL Hgb 9.8 L D (13.0-17.5) gm/dL Hct 28.6 L (39.0-53.0) % RDW 18.5 H (11.5-15.5) % Plt Count 136 L (150-450) k/uL Lymphocytes # (1.0-4.8) k/uL POC Glucose (mg/dL) 187 H 119 H (70-110) mg/dL Crossmatch 04/03/24 Range/Units 09:32 RBC 2.66 L (4.30-5.90) m/uL Hgb 8.7 L (13.0-17.5) gm/dL Hct 26.5 L (39.0-53.0) % RDW 17.7 H (11.5-15.5) % Plt Count 108 L (150-450) k/uL Lymphocytes # 0.8 L (1.0-4.8) k/uL POC Glucose (mg/dL) (70-110) mg/dL Crossmatch Assessment and Plan (1) Stage II pressure ulcer of left heel Current Visit: Yes Status: Acute Code(s): L89.622 - PRESSURE ULCER OF LEFT HEEL, STAGE 2 SNOMED Code(s): 86926389179511 (2) Type 2 diabetes mellitus with foot ulcer Current Visit: Yes Status: Acute Code(s): E11.621 - TYPE 2 DIABETES MELLITUS WITH FOOT ULCER; L97.509 - NON-PRESSURE CHRONIC ULCER OTH PRT UNSP FOOT W UNSP SEVERITY SNOMED Code(s): 2776135884200
[2024-04-03 12:27] LABS: Glucose,Whole Blood 192 mg/dL (70-110)
--- NOTE | 2024-04-03 14:33 | P.PN ---
Subjective Progress Note Date: 04/03/24 Hospital Course: Patient is a 84-year-old male with history of atrial fibrillation on Xarelto, type 2 diabetes, hypertension, dyslipidemia, CLL not currently on treatment, prostate cancer with metastatic bone disease (on Lupron), stage III CKD, diastolic CHF, peripheral neuropathy who was admitted for anemia. He recieved 1 unit of pRBC yesterday, with improvement in hemoglobin from 6.[address] abdomen/pelvis was negative for a hematoma or active bleeding, showed scattered metastatic disease, enlarging right-sided pulmonary nodule concerning for metastatic disease, consolidation in the medial aspect of right lower lobe likely atelectasis. He was evaluated by Oncology, who believes the patient will likely need a bone marrow biospy to assess for possible progression of CLL. Patient had 2 units of PRBC transfused, hemoglobin improved to 8.5. Wound care consulted for stage II pressure ulcer on the left heel. Recommended wound care clinic follow-up. Patient's stated that she is no longer able to take care of . 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 PT OT consulted, patient will need placement Pertinent Imaging: No new imaging Subjective: Patient does not feel well, although it is hard for him to specify, mostly complaining about being weak, not being able to ambulate and having to use a w heelchair Pertinent positives and negatives as discussed above, a complete review of systems was performed and all other systems are negative. Vitals Signs Reviewed. General: [nontoxic], [no distress], [appears at stated age] Derm: [warm], [dry] Head: Small echymosis noted over left eyebrow, [normocephalic], [symmetric] Eyes: [EOMI], [no lid lag], [anicteric sclera] Mouth: [no lip lesion], [mucus membranes moist] Cardiovascular: [S1S2 reg], [no murmur] Lungs: [CTA bilateral], [no rhonchi, no rales] , [no accessory muscle use] Abdominal: [soft], [ nontender to palpation], [no guarding], [no appreciable organomegaly] Ext: +2 pitting edema in bilateral lower extremities, [no gross muscle atrophy], [no contractures] Neuro: [ CN II-XI grossly intact], [no focal neuro deficits] Psych: [Alert], [oriented], [appropriate affect] Data Reviewed Today: Pertinent Labs: [Hemoglobin 8.7, no leukocytosis, platelet count 108] Assessment and Plan: Acute on chronic anemia CLL Metastatic prostate cancer with mets to the bone, on Lupron -Baseline hemoglobin around 9.0, s/p 1 unit pRBC. Followed by Oncology, believed to be possible progression of CLL, will likely need bone marrow biopsy -Daily CBC -Continue to hold Xarelto Chronic debility Wheelchair-bound/bedbound Pressure ulcers -Patient's spouse cannot take care of him, patient will need placement, stable for discharge, SW, PT OT following -Will need to follow-up with wound care Diabetes mellitus, insulin dependent: -Continue 13 units of Lantus nightly, aspart 3 units three times a day with sliding scale -Continue glucose monitoring [Chronic:] -Hypertension -Chronic atrial fibrillation, rate controlled -Diastolic heart failure, stable -Chronic kidney disease, stage III -Dyslipidemia -Peripheral neuropathy DVT ppx: SCDs Code status: Full Code Anticipated discharge place: Pending PT OT Anticipated discharge time: Clinically stable for discharge Objective - Vital Signs Vital signs: Vital Signs Temp 97.7 F 04/03/24 13:20 Pulse 84 04/03/24 13:20 Resp 19 04/03/24 13:20 BP 114/65 04/03/24 13:20 Pulse Ox 100 04/03/24 13:20 FiO2 Intake & Output 04/02/24 04/03/24 04/03/24 18:59 06:59 18:59 Intake Total 1684 Output Total 1500 1000 Balance 184 -1000 Weight 80.286 kg Intake: Oral 1374 Blood Product 310 Rc As-1 Unit 310 [id number] Output: Urine 1500 1000 Other: Voiding Method External Catheter External Catheter External Catheter # Bowel Movements 1 - Labs CBC & Chem 7: 04/03/24 09:32 04/02/24 04:36 Labs: Abnormal Lab Results - Last 24 Hours (Table) 04/01/24 04/02/24 04/02/24 Range/Units 10:30 17:09 18:09 RBC 2.88 L (4.30-5.90) m/uL Hgb 9.8 L D (13.0-17.5) gm/dL Hct 28.6 L (39.0-53.0) % RDW 18.5 H (11.5-15.5) % Plt Count 136 L (150-450) k/uL Lymphocytes # (1.0-4.8) k/uL POC Glucose (mg/dL) 144 H (70-110) mg/dL Crossmatch See Detail 04/02/24 04/03/24 04/03/24 Range/Units 20:17 07:33 09:32 RBC 2.66 L (4.30-5.90) m/uL Hgb 8.7 L (13.0-17.5) gm/dL Hct 26.5 L (39.0-53.0) % RDW 17.7 H (11.5-15.5) % Plt Count 108 L (150-450) k/uL Lymphocytes # 0.8 L (1.0-4.8) k/uL POC Glucose (mg/dL) 187 H 119 H (70-110) mg/dL Crossmatch 04/03/24 Range/Units 12:10 RBC (4.30-5.90) m/uL Hgb (13.0-17.5) gm/dL Hct (39.0-53.0) % RDW (11.5-15.5) % Plt Count (150-450) k/uL Lymphocytes # (1.0-4.8) k/uL POC Glucose (mg/dL) 192 H (70-110) mg/dL Crossmatch
[2024-04-03 17:21] LABS: Glucose,Whole Blood 253 mg/dL (70-110)
--- NOTE | 2024-04-03 20:05 | P.PN ---
Subjective Progress Note Date: 04/03/24 No acute events. Pt experinecing weakness. concerned she is not able to take care of him at home Objective - Vital Signs Vital signs: Vital Signs Temp 97.7 F 04/03/24 13:20 Pulse 84 04/03/24 13:20 Resp 19 04/03/24 13:20 BP 114/65 04/03/24 13:20 Pulse Ox 100 04/03/24 13:20 FiO2 Intake & Output 04/02/24 04/03/24 04/03/24 18:59 06:59 18:59 Intake Total 1684 Output Total 1500 1000 Balance 184 -1000 Weight 80.286 kg Intake: Oral 1374 Blood Product 310 Rc As-1 Unit 310 [id number] Output: Urine 1500 1000 Other: Voiding Method External Catheter External Catheter External Catheter # Bowel Movements 1 - Constitutional General appearance: Present: no acute distress - EENT Eyes: Present: EOMI ENT: Present: hearing grossly normal - Respiratory Details: breathing is even and unlabored - Cardiovascular Details: skin warm and dry - Gastrointestinal General gastrointestinal: Present: soft. Absent: tenderness - Integumentary Integumentary: Absent: cyanotic, jaundiced - Musculoskeletal Musculoskeletal: Present: generalized weakness - Psychiatric Psychiatric: Present: A&O x's 3 - Labs CBC & Chem 7: 04/03/24 09:32 04/02/24 04:36 Labs: Abnormal Lab Results - Last 24 Hours (Table) 04/01/24 04/02/24 04/02/24 Range/Units 10:30 17:09 18:09 RBC 2.88 L (4.30-5.90) m/uL Hgb 9.8 L D (13.0-17.5) gm/dL Hct 28.6 L (39.0-53.0) % RDW 18.5 H (11.5-15.5) % Plt Count 136 L (150-450) k/uL Lymphocytes # (1.0-4.8) k/uL POC Glucose (mg/dL) 144 H (70-110) mg/dL Crossmatch See Detail 04/02/24 04/03/24 04/03/24 Range/Units 20:17 07:33 09:32 RBC 2.66 L (4.30-5.90) m/uL Hgb 8.7 L (13.0-17.5) gm/dL Hct 26.5 L (39.0-53.0) % RDW 17.7 H (11.5-15.5) % Plt Count 108 L (150-450) k/uL Lymphocytes # 0.8 L (1.0-4.8) k/uL POC Glucose (mg/dL) 187 H 119 H (70-110) mg/dL Crossmatch 04/03/24 Range/Units 12:10 RBC (4.30-5.90) m/uL Hgb (13.0-17.5) gm/dL Hct (39.0-53.0) % RDW (11.5-15.5) % Plt Count (150-450) k/uL Lymphocytes # (1.0-4.8) k/uL POC Glucose (mg/dL) 192 H (70-110) mg/dL Crossmatch Assessment and Plan (1) Anemia Current Visit: Yes Status: Acute Priority: High Code(s): D64.9 - ANEMIA, UNSPECIFIED SNOMED Code(s): 740064640 (2) CLL (chronic lymphocytic leukemia) Current Visit: Yes Status: Chronic Priority: High Code(s): C91.10 - CHRONIC LYMPHOCYTIC LEUK OF B-CELL TYPE NOT ACHIEVE REMIS SNOMED Code(s): 18363865 (3) Prostate cancer metastatic to bone Current Visit: Yes Status: Chronic Priority: Medium Code(s): C61 - MALIGNANT NEOPLASM OF PROSTATE; C79.51 - SECONDARY MALIGNANT NEOPLASM OF BONE SNOMED Code(s): 50831728 Plan: Anemia -This has been progressive over the last 6 weeks. This is the first PRBC transfusion patient has needed. -Anemia workup in the office did show low iron saturation, ferritin was not yet reported. -Concerns for transformation of CLL has been discussed with the patient, due to the sudden onset of the anemia. -Reviewed CT CAP, no significant changes to suggest progression of prostate can cer. Prostate cancer was felt to be a little less likely for progression because the PSA did drastically come down from 80 to 6, that lab is from just over a week ago. -S./p 2 units PRBCs, Hgb 8.7 today. -Transfuse for hemoglobin less than 7 or if patient is symptomatic. -Bone marrow biopsy was again discussed with the patient. He is agreeable to the same. -If patient's hemoglobin is stabilized within the next 24 hours, bone marrow biopsy can be scheduled outpatient. -There is a lab encounter at the office next week on Saturday to assess patient's hemoglobin and if needed, transfuse an outpatient CLL -Diagnosis and treatment as reported in consult -Patient has not been on any treatment for CLL since September, he was on treatment for just 2 months, was not able to tolerate. -Progressive anemia, concerning for possible transformation of his CLL as described above. CT CAP results not suggestive of progressive prostate cancer, therefore concerns for a primary hematological problem. -Bone marrow biopsy has been discussed. As above, this can be scheduled outpatient. Prostate carcinoma, metastatic -Patient has remained on Lupron-it was given before hip surgery and rehab, it is not due again until Apr. -Most recent PSA done in the office was 6, the one prior to that was 80. -Plans to continue Lupron as prescribed. Weakness: Was discharged from rehab 10 days ago, states pt was still having weakness and had subsequent fall at home s/p discharge from rehab. She is concerned about him coming home and his safety -Pt consulted placed to evaluate pt. Will f/u on recommendations Doctor attests: I performed a history and physical examination of this patient, developed impression and plan of care. Discussed with dictator. I agree with dictators note, documented as a scribe.
[2024-04-03 20:11] LABS: Glucose,Whole Blood 195 mg/dL (70-110)
[2024-04-04] MEDS: ZINC OXIDE PASTE (Z-GUARD) 1 APPLIC TOPICAL PRN (01:02)
[2024-04-04 07:16] LABS: Glucose,Whole Blood 185 mg/dL (70-110)
[2024-04-04 10:40] LABS: Basophils # (A) 0.02 X 10*3/uL (0.00-0.10); Basophils % (A) 0.3 %; Eosinophils # (A) 0.06 X 10*3/uL (0.04-0.35); Eosinophils % (A) 0.8 %; HCT 25.1 % (39.6-50.0); HGB 8.1 g/dL (13.0-17.0); Lymphocytes # (A) 1.01 X 10*3/uL (0.90-5.00); Lymphocytes % (A) 13.3 %; MCH 32.7 pg (27.0-32.0); MCHC 32.3 g/dL (32.0-37.0); MCV 101.2 FL (80.0-97.0); Mean Platelet Volume 10.9 FL (9.5-12.2); Monocytes # (A) 0.51 X 10*3/uL (0.20-1.00); Monocytes % (A) 6.7 %; NRBC Per 100 WBC 0.03 X 10*3/uL (0.00-0.01); Neutrophils # (A) 5.95 X 10*3/uL (1.80-7.70); Neutrophils % (A) 78.1 %; Platelet Count 93 X 10*3/uL (140-440); RBC 2.48 X 10*6/uL (4.40-5.60); RBC Morphology Normal (Normal); RDW 18.3 % (11.5-14.5); WBC 7.61 X 10*3/uL (4.50-10.00)
[2024-04-04 12:32] LABS: Glucose,Whole Blood 205 mg/dL (70-110)
--- NOTE | 2024-04-04 16:56 | P.PN ---
Subjective Progress Note Date: 04/04/24 Patient is a 84-year-old male with history of atrial fibrillation on Xarelto, type 2 diabetes, hypertension, dyslipidemia, CLL not currently on treatment, prostate cancer with metastatic bone disease (on Lupron), stage III CKD, diastolic CHF, peripheral neuropathy who was admitted for anemia. He recieved 1 unit of pRBC yesterday, with improvement in hemoglobin from 6.[address] abdomen/pelvis was negative for a hematoma or active bleeding, showed scattered metastatic disease, enlarging right-sided pulmonary nodule concerning for metastatic disease, consolidation in the medial aspect of right lower lobe likely atelectasis. He was evaluated by Oncology, who believes the patient will likely need a bone marrow biospy to assess for possible progression of CLL. Patient had 2 units of PRBC transfused, hemoglobin improved to above 8 Wound care consulted for stage II pressure ulcer on the left heel. Recommended wound care clinic follow-up. Patient's stated that she is no longer able to take care of . Per discussion with RN and social work, appears that patient has DURABLE POWER OF BROADCAST TRAFFIC COORDINATOR, his daughter. PT OT consulted, patient will need placement Pertinent Imaging: No new imaging Subjective: Patient feels fatigued, no other complaints Pertinent positives and negatives as discussed above, a complete review of systems was performed and all other systems are negative. Vitals Signs Reviewed. General: [nontoxic], [no distress], [appears at stated age] Derm: [warm], [dry] Head: Small echymosis noted over left eyebrow, [normocephalic], [symmetric] Eyes: [EOMI], [no lid lag], [anicteric sclera] Mouth: [no lip lesion], [mucus membranes moist] Cardiovascular: [S1S2 reg], [no murmur] Lungs: [CTA bilateral], [no rhonchi, no rales] , [no accessory muscle use] Abdominal: [soft], [ nontender to palpation], [no guarding], [no appreciable organomegaly] Ext: +2 pitting edema in bilateral lower extremities, [no gross muscle atrophy], [no contractures] Neuro: [ CN II-XI grossly intact], [no focal neuro deficits] Psych: [Alert], [oriented], [appropriate affect] Data Reviewed Today: Data Reviewed Today: Pertinent Labs: Hemoglobin stable 8.1, no leukocytosis, platelet count 93, glucose is fairly controlled Assessment and Plan: Acute on chronic anemia CLL Metastatic prostate cancer with mets to the bone, on Lupron -Baseline hemoglobin around 9.0, s/p 1 unit pRBC. Followed by Oncology, believed to be possible progression of CLL, will likely need bone marrow biopsy -Daily CBC -Continue to hold Xarelto Chronic debility Wheelchair-bound/bedbound Pressure ulcers -Patient's spouse cannot take care of him, patient will need placement, stable for discharge, SW, PT OT following -Will need to follow-up with wound care Diabetes mellitus, insulin dependent: -Increased Levemir to 15 units, aspart 3 units three times a day with sliding scale -Continue glucose monitoring [Chronic:] -Hypertension -Chronic atrial fibrillation, rate controlled -Diastolic heart failure, stable -Chronic kidney disease, stage III -Dyslipidemia -Peripheral neuropathy DVT ppx: SCDs Code status: Full Code Anticipated discharge place: placement in progress Anticipated discharge time: Clinically stable for discharge Objective - Vital Signs Vital signs: Vital Signs Temp 97.4 F L 04/04/24 13:15 Pulse 64 04/04/24 13:15 Resp 18 04/04/24 13:15 BP 97/58 04/04/24 13:15 Pulse Ox 96 04/04/24 13:15 FiO2 Intake & Output 04/03/24 04/04/24 04/04/24 18:59 06:59 18:59 Intake Total 540 590 Output Total 400 1300 Balance 140 -710 Intake: Oral 540 590 Output: Urine 400 1300 Other: Voiding Method External Catheter External Catheter External Catheter # Bowel Movements 2 - Labs CBC & Chem 7: 04/04/24 05:07 04/02/24 04:36 Labs: Abnormal Lab Results - Last 24 Hours (Table) 04/03/24 04/03/24 04/04/24 Range/Units 17:15 20:10 05:07 RBC 2.48 L (4.40-5.60) X 10*6/uL Hgb 8.1 L (13.0-17.0) g/dL Hct 25.1 L (39.6-50.0) % MCV 101.2 H (80.0-97.0) FL MCH 32.7 H (27.0-32.0) pg RDW 18.3 H (11.5-14.5) % Plt Count 93 L (140-440) X 10*3/uL Immature Gran # 0.06 H (0.00-0.04) X 10*3/uL NRBC/100 WBC Diff 0.03 H (0.00-0.01) X 10*3/uL POC Glucose (mg/dL) 253 H 195 H (70-110) mg/dL 04/04/24 04/04/24 Range/Units 06:59 12:24 RBC (4.40-5.60) X 10*6/uL Hgb (13.0-17.0) g/dL Hct (39.6-50.0) % MCV (80.0-97.0) FL MCH (27.0-32.0) pg RDW (11.5-14.5) % Plt Count (140-440) X 10*3/uL Immature Gran # (0.00-0.04) X 10*3/uL NRBC/100 WBC Diff (0.00-0.01) X 10*3/uL POC Glucose (mg/dL) 185 H 205 H (70-110) mg/dL
[2024-04-04 17:21] LABS: Glucose,Whole Blood 128 mg/dL (70-110)
[2024-04-04 20:00] LABS: Glucose,Whole Blood 200 mg/dL (70-110)
[2024-04-04] MEDS: INSULIN DETEMIR (LEVEMIR) 100 UNIT/ML SYR SQ SCH (20:11)
[2024-04-05 07:15] LABS: Glucose,Whole Blood 74 mg/dL (70-110)
[2024-04-05 09:35] LABS: HGB 8.6 g/dL (13.0-17.0); MCH 32.7 pg (27.0-32.0); MCHC 31.9 g/dL (32.0-37.0); MCV 102.7 FL (80.0-97.0); Mean Platelet Volume 10.9 FL (9.5-12.2); NRBC Per 100 WBC 0 X 10*3/uL (0.00-0.01); Platelet Count 96 X 10*3/uL (140-440); RBC 2.63 X 10*6/uL (4.40-5.60); WBC 7.31 X 10*3/uL (4.50-10.00)
[2024-04-05 09:36] LABS: Basophils # (A) 0.02 X 10*3/uL (0.00-0.10); Basophils % (A) 0.3 %; Eosinophils # (A) 0.08 X 10*3/uL (0.04-0.35); Eosinophils % (A) 1.1 %; Monocytes # (A) 0.52 X 10*3/uL (0.20-1.00); Monocytes % (A) 7.1 %; Neutrophils # (A) 5.55 X 10*3/uL (1.80-7.70)
[2024-04-05 12:36] LABS: Glucose,Whole Blood 91 mg/dL (70-110)
--- NOTE | 2024-04-05 14:08 | P.PN ---
Subjective Progress Note Date: 04/05/24 Hospital Course: Patient is a 84-year-old male with history of atrial fibrillation on Xarelto, type 2 diabetes, hypertension, dyslipidemia, CLL not currently on treatment, prostate cancer with metastatic bone disease (on Lupron), stage III CKD, diastolic CHF, peripheral neuropathy who was admitted for anemia. He recieved 1 unit of pRBC yesterday, with improvement in hemoglobin from 6.[address] abdomen/pelvis was negative for a hematoma or active bleeding, showed scattered metastatic disease, enlarging right-sided pulmonary nodule concerning for metastatic disease, consolidation in the medial aspect of right lower lobe likely atelectasis. He was evaluated by Oncology, who believes the patient will likely need a bone marrow biospy to assess for possible progression of CLL. Patient had 2 units of PRBC transfused, hemoglobin improved to above 8 Wound care consulted for stage II pressure ulcer on the left heel. Recommended wound care clinic follow-up. Patient's stated that she is no longer able to take care of . Per discussion with RN and social work, appears that patient has DURABLE POWER OF PERSONAL LINES AGENT, his daughter. PT OT consulted, patient will need placement 12/04, complains of right lower extremity pain, there is tenderness on palpation, patient is off anticoagulation, thus, venous duplex ordered Pertinent Imaging: No new imaging Subjective: Feeling fatigued, complains of right lower extremity pain and tenderness Pertinent positives and negatives as discussed above, a complete review of systems was performed and all other systems are negative. Vitals Signs Reviewed. General: [nontoxic], [no distress], [appears at stated age] Derm: [warm], [dry] Head: Small echymosis noted over left eyebrow, [normocephalic], [symmetric] Eyes: [EOMI], [no lid lag], [anicteric sclera] Mouth: [no lip lesion], [mucus membranes moist] Cardiovascular: [S1S2 reg], [no murmur] Lungs: [CTA bilateral], [no rhonchi, no rales] , [no accessory muscle use] Abdominal: [soft], [ nontender to palpation], [no guarding], [no appreciable organomegaly] Ext: +2 pitting edema in bilateral lower extremities, [no gross muscle atrophy], [no contractures], right lower extremity tenderness, calf tenderness Neuro: [ CN II-XI grossly intact], [no focal neuro deficits] Psych: [Alert], [oriented], [appropriate affect] Data Reviewed Today: Data Reviewed Today: Pertinent Labs: No leukocytosis, stable hemoglobin 8.6, platelet count 96. Assessment and Plan:Acute on chronic anemia CLL Metastatic prostate cancer with mets to the bone, on Lupron -Baseline hemoglobin around 9.0, s/p 1 unit pRBC. Followed by Oncology, believed to be possible progression of CLL, will likely need bone marrow biopsy -Daily CBC -Continue to hold Xarelto Chronic debility Wheelchair-bound/bedbound Pressure ulcers -Patient's spouse cannot take care of him, patient will need placement, stable for discharge, SW, PT OT following -Will need to follow-up with wound care Diabetes mellitus, insulin dependent: -Adjusted Levemir again to 12 units, aspart 3 units three times a day with sliding scale -Continue glucose monitoring Right lower extremity pain, calf tenderness -Rule out DVT, duplex ordered [Chronic:] -Hypertension -Chronic atrial fibrillation, rate controlled -Diastolic heart failure, stable -Chronic kidney disease, stage III -Dyslipidemia -Peripheral neuropathy DVT ppx: SCDs Code status: Full Code Anticipated discharge place: placement in progress Anticipated discharge time: Clinically stable for discharge Objective - Vital Signs Vital signs: Vital Signs Temp 97.5 F L 04/05/24 08:00 Pulse 70 04/05/24 08:00 Resp 17 04/05/24 08:00 BP 102/61 04/05/24 08:00 Pulse Ox 97 04/05/24 08:00 FiO2 Intake & Output 04/04/24 04/05/24 04/05/24 18:59 06:59 18:59 Intake Total 960 240 380 Output Total 1500 1300 1200 Balance -540 -1060 -820 Intake: Oral 960 240 380 Output: Urine 1500 1300 1200 Other: Voiding Method External Catheter External Catheter External Catheter # Bowel Movements 2 1 - Labs CBC & Chem 7: 04/05/24 04:58 04/02/24 04:36 Labs: Abnormal Lab Results - Last 24 Hours (Table) 04/04/24 04/04/24 04/05/24 Range/Units 17:19 19:57 04:58 RBC 2.63 L (4.40-5.60) X 10*6/uL Hgb 8.6 L (13.0-17.0) g/dL Hct 27.0 L (39.6-50.0) % MCV 102.7 H (80.0-97.0) FL MCH 32.7 H (27.0-32.0) pg MCHC 31.9 L (32.0-37.0) g/dL RDW 18.0 H (11.5-14.5) % Plt Count 96 L (140-440) X 10*3/uL POC Glucose (mg/dL) 128 H 200 H (70-110) mg/dL
--- NOTE | 2024-04-05 15:42 | US ---
EXAMINATION TYPE: US venous doppler duplex LE RT DATE OF EXAM: 04/05/2024 2:05 PM COMPARISON: NONE CLINICAL INDICATION: Male, 84 years old with history of Right lower extremity swelling; On thinners; Right knee pain, Pain TECHNIQUE: The lower extremity deep venous system is examined utilizing real time linear array sonog cheryl with graded compression, color doppler sonography, and spectral doppler. SIDE PERFORMED: Right FINDINGS: VESSELS IMAGED: Common Femoral Vein Deep Femoral Vein Greater Saphenous Vein * Femoral Vein Popliteal Vein Small Saphenous Vein * Proximal Calf Veins (* superficial vessels) Right Leg: Negative for DVT, Color Doppler imaging shows patency of the vessels. Spectral waveforms are within normal limits. IMPRESSION: No ultrasound evidence for deep venous thrombosis. [facility], , 04/05/2024 3:40 PM
[2024-04-05 17:14] LABS: Glucose,Whole Blood 232 mg/dL (70-110)
[2024-04-05 20:13] LABS: Glucose,Whole Blood 184 mg/dL (70-110)
[2024-04-05] MEDS: INSULIN DETEMIR (LEVEMIR) 100 UNIT/ML SYR SQ SCH (22:30)
[2024-04-06 07:06] LABS: Glucose,Whole Blood 111 mg/dL (70-110)
[2024-04-06] MEDS: BUMETANIDE 0.5 MG TABLET PO SCH (09:50)
[2024-04-06 10:03] LABS: Basophils # (A) 0.02 X 10*3/uL (0.00-0.10); Basophils % (A) 0.3 %; Eosinophils # (A) 0.09 X 10*3/uL (0.04-0.35); Eosinophils % (A) 1.2 %; HCT 29.6 % (39.6-50.0); HGB 9.4 g/dL (13.0-17.0); Lymphocytes # (A) 0.99 X 10*3/uL (0.90-5.00); Lymphocytes % (A) 12.8 %; MCH 32.8 pg (27.0-32.0); MCHC 31.8 g/dL (32.0-37.0); MCV 103.1 FL (80.0-97.0); NRBC Per 100 WBC 0 X 10*3/uL (0.00-0.01); Neutrophils # (A) 5.91 X 10*3/uL (1.80-7.70); Neutrophils % (A) 76.2 %; Platelet Count 118 X 10*3/uL (140-440); RBC 2.87 X 10*6/uL (4.40-5.60); RDW 17.9 % (11.5-14.5); WBC 7.75 X 10*3/uL (4.50-10.00)
[2024-04-06 12:32] LABS: Glucose,Whole Blood 222 mg/dL (70-110)
--- NOTE | 2024-04-06 14:25 | P.PN ---
Subjective Progress Note Date: 04/06/24 Hospital Course: Patient is a 84-year-old male with history of atrial fibrillation on Xarelto, type 2 diabetes, hypertension, dyslipidemia, CLL not currently on treatment, prostate cancer with metastatic bone disease (on Lupron), stage III CKD, diastolic CHF, peripheral neuropathy who was admitted for anemia. He recieved 1 unit of pRBC yesterday, with improvement in hemoglobin from 6.[address] abdomen/pelvis was negative for a hematoma or active bleeding, showed scattered metastatic disease, enlarging right-sided pulmonary nodule concerning for metastatic disease, consolidation in the medial aspect of right lower lobe likely atelectasis. He was evaluated by Oncology, who believes the patient will likely need a bone marrow biospy to assess for possible progression of CLL. Patient had 2 units of PRBC transfused, hemoglobin improved to above 8 Wound care consulted for stage II pressure ulcer on the left heel. Recommended wound care clinic follow-up. Patient's stated that she is no longer able to take care of . Per discussion with RN and social work, appears that patient has DURABLE POWER OF WATERSHED ENGINEER, his daughter. PT OT consulted, patient will need placement 04/05, complains of right lower extremity pain, there is tenderness on palpation, patient is off anticoagulation, thus, venous duplex ordered-negative 04/06: Patient's daughter, his DPOA, requested hospice consult, consult placed Pertinent Imaging: Venous duplex negative for DVT Subjective: No significant changes, continues to complain of right lower extremity pain, although somewhat improved Pertinent positives and negatives as discussed above, a complete review of systems was performed and all other systems are negative. Vitals Signs Reviewed. General: [nontoxic], [no distress], [appears at stated age], chronically ill- appearing Derm: [warm], [dry], bruising present Head: [atraumatic], [normocephalic], [symmetric] Eyes: [EOMI], [no lid lag], [anicteric sclera] Mouth: [no lip lesion], [mucus membranes moist] Cardiovascular: [S1S2 reg], [no murmur] Lungs: [CTA bilateral], [no rhonchi, no rales] , [no accessory muscle use] Abdominal: [soft], [ nontender to palpation], [no guarding], [no appreciable organomegaly] Ext: [no gross muscle atrophy], [bilateral pitting lower extremity edema], [no contractures] Neuro: [ CN II-XI grossly intact], [no focal neuro deficits] Psych: [Alert], [oriented], [appropriate affect] Data Reviewed Today: Pertinent Labs: Hemoglobin stabilized 9.4, platelet 1118, Assessment and Plan:CLL Metastatic prostate cancer with mets to the bone, on Lupron -Baseline hemoglobin around 9.0, s/p 1 unit pRBC. Followed by Oncology, believed to be possible progression of CLL, will likely need bone marrow biopsy -Hemoglobin at baseline now -Continue to hold Xarelto Chronic debility Wheelchair-bound/bedbound Pressure ulcers -Patient's spouse cannot take care of him, patient will need placement, stable for discharge, SW, PT OT following -Will need to follow-up with wound care -Hospice consult placed 04/06 Diabetes mellitus, insulin dependent: -Adjusted Levemir again to 12 units, aspart 3 units three times a day with sliding scale -Continue glucose monitoring Right lower extremity pain, calf tenderness -Negative duplex [Chronic:] -Hypertension -Chronic atrial fibrillation, rate controlled -Diastolic heart failure, stable -Chronic kidney disease, stage III -Dyslipidemia -Peripheral neuropathy DVT ppx: SCDs Code status: Full Code Anticipated discharge place: placement in progress Anticipated discharge time: Clinically stable for discharge Objective - Vital Signs Vital signs: Vital Signs Temp 98 F 04/06/24 12:39 Pulse 71 04/06/24 12:39 Resp 18 04/06/24 12:39 BP 105/64 04/06/24 12:39 Pulse Ox 99 04/06/24 12:39 FiO2 Intake & Output 04/05/24 04/06/24 04/06/24 18:59 06:59 18:59 Intake Total 380 240 Output Total 1200 600 Balance -820 -360 Intake: Oral 380 240 Output: Urine 1200 600 Other: Voiding Method External Catheter External Catheter # Bowel Movements 2 1 - Labs CBC & Chem 7: 04/06/24 04:45 04/02/24 04:36 Labs: Abnormal Lab Results - Last 24 Hours (Table) 04/05/24 04/05/24 04/06/24 Range/Units 17:12 20:11 04:45 RBC 2.87 L (4.40-5.60) X 10*6/uL Hgb 9.4 L (13.0-17.0) g/dL Hct 29.6 L (39.6-50.0) % MCV 103.1 H (80.0-97.0) FL MCH 32.8 H (27.0-32.0) pg MCHC 31.8 L (32.0-37.0) g/dL RDW 17.9 H (11.5-14.5) % Plt Count 118 L (140-440) X 10*3/uL POC Glucose (mg/dL) 232 H 184 H (70-110) mg/dL 04/06/24 04/06/24 Range/Units 07:01 12:17 RBC (4.40-5.60) X 10*6/uL Hgb (13.0-17.0) g/dL Hct (39.6-50.0) % MCV (80.0-97.0) FL MCH (27.0-32.0) pg MCHC (32.0-37.0) g/dL RDW (11.5-14.5) % Plt Count (140-440) X 10*3/uL POC Glucose (mg/dL) 111 H 222 H (70-110) mg/dL
[2024-04-06 17:23] LABS: Glucose,Whole Blood 195 mg/dL (70-110)
[2024-04-06 20:30] LABS: Glucose,Whole Blood 270 mg/dL (70-110)
--- NOTE | 2024-04-06 21:10 | P.PN ---
Subjective Progress Note Date: 04/06/24 Principal diagnosis: Anemia. CLL. Metastatic prostate cancer In follow-up today patient is denies any pain, he has no other acute c/o. Objective - Vital Signs Vital signs: Vital Signs Temp 98 F 04/06/24 12:39 Pulse 71 04/06/24 12:39 Resp 18 04/06/24 12:39 BP 105/64 04/06/24 12:39 Pulse Ox 99 04/06/24 12:39 FiO2 Intake & Output 04/05/24 04/06/24 04/06/24 18:59 06:59 18:59 Intake Total 380 240 Output Total 1200 600 Balance -820 -360 Intake: Oral 380 240 Output: Urine 1200 600 Other: Voiding Method External Catheter External Catheter # Bowel Movements 2 1 - Constitutional General appearance: Present: average body habitus, cooperative, no acute distress - EENT Eyes: Present: anicteric sclerae, EOMI ENT: Present: hearing grossly normal - Respiratory Details: resp unlabored at rest - Cardiovascular Details: skin warm, well perfused - Peripheral edema leg Peripheral Edema: bilateral: 1+ - Integumentary Integumentary: Present: pale - Neurologic Neurologic: Present: CNII-XII intact - Musculoskeletal Musculoskeletal: Present: generalized weakness - Psychiatric Psychiatric: Present: A&O x's 3, appropriate affect, intact judgment & insight - Labs CBC & Chem 7: 04/06/24 04:45 04/02/24 04:36 Labs: Abnormal Lab Results - Last 24 Hours (Table) 04/05/24 04/05/24 04/06/24 Range/Units 17:12 20:11 04:45 RBC 2.87 L (4.40-5.60) X 10*6/uL Hgb 9.4 L (13.0-17.0) g/dL Hct 29.6 L (39.6-50.0) % MCV 103.1 H (80.0-97.0) FL MCH 32.8 H (27.0-32.0) pg MCHC 31.8 L (32.0-37.0) g/dL RDW 17.9 H (11.5-14.5) % Plt Count 118 L (140-440) X 10*3/uL POC Glucose (mg/dL) 232 H 184 H (70-110) mg/dL 04/06/24 04/06/24 Range/Units 07:01 12:17 RBC (4.40-5.60) X 10*6/uL Hgb (13.0-17.0) g/dL Hct (39.6-50.0) % MCV (80.0-97.0) FL MCH (27.0-32.0) pg MCHC (32.0-37.0) g/dL RDW (11.5-14.5) % Plt Count (140-440) X 10*3/uL POC Glucose (mg/dL) 111 H 222 H (70-110) mg/dL Assessment and Plan (1) Anemia Current Visit: Yes Status: Acute Priority: High Code(s): D64.9 - ANEMIA, UNSPECIFIED SNOMED Code(s): 571834460 (2) CLL (chronic lymphocytic leukemia) Current Visit: Yes Status: Chronic Priority: High Code(s): C91.10 - CHRONIC LYMPHOCYTIC LEUK OF B-CELL TYPE NOT ACHIEVE REMIS SNOMED Code(s): 18964376 (3) Prostate cancer metastatic to bone Current Visit: Yes Status: Chronic Priority: Medium Code(s): C61 - MALIGNANT NEOPLASM OF PROSTATE; C79.51 - SECONDARY MALIGNANT NEOPLASM OF BONE SNOMED Code(s): 41118312 Plan: Anemia -This has been progressive over the last 6 weeks. This is the first PRBC transfusion patient has needed. -Anemia workup in the office did show low iron saturation, ferritin was not yet reported. -Concerns for transformation of CLL has been discussed with the patient, due to the sudden onset of the anemia. -Reviewed CT CAP, no significant changes to suggest progression of prostate cancer. Prostate cancer was felt to be a little less likely for progression because the PSA did drastically come down from 80 to 6, that lab is from just over a week ago. -Patient received 1 unit of blood for hemoglobin of 6.8. His next hemoglobin drawn was 7.8. Hemoglobin drawn this a.m. was 6.8. Another unit of blood was ordered. Hgb was stable over the weekend and is 9.4 today -Bone marrow biopsy may be considered in the future, not urgent at this time CLL -Diagnosis and treatment as reported in consult -Patient has not been on any treatment for CLL since September, he was on treatment for just 2 months, was not able to tolerate. -Progressive anemia, concerning for transformation of his CLL as described above. CT CAP results not suggestive of progressive prostate cancer, therefore concerns for a primary hematological problem. -Bone marrow biopsy has been discussed. As above, this can be scheduled outpatient. Prostate carcinoma, metastatic -Patient has remained on Lupron-it was given before hip surgery and rehab, it is not due again until Apr. -Most recent PSA done in the office was 6, the one prior to that was 80. -Plans to continue Lupron as prescribed. It can be held if pt goes to rehab Pt can be discharged from Hem/Onc standpoint once cleared by IM and Consults
[2024-04-07 01:44] VITALS: RESP 16
[2024-04-07 06:59] LABS: Glucose,Whole Blood 120 mg/dL (70-110)
--- NOTE | 2024-04-07 11:49 | P.PN ---
Subjective Progress Note Date: 04/07/24 Principal diagnosis: Patient is a 84-year-old male with history of atrial fibrillation on Xarelto, type 2 diabetes, hypertension, dyslipidemia, CLL not currently on treatment, prostate cancer with metastatic bone disease (on Lupron), stage III CKD, diastolic CHF, peripheral neuropathy who was admitted for anemia. He recieved 1 unit of pRBC yesterday, with improvement in hemoglobin from 6.[address] abdomen/pelvis was negative for a hematoma or active bleeding, showed scattered metastatic disease, enlarging right-sided pulmonary nodule concerning for metastatic disease, consolidation in the medial aspect of right lower lobe likely atelectasis. He was evaluated by Oncology, who believes the patient will likely need a bone marrow biospy to assess for possible progression of CLL. Patient had 2 units of PRBC transfused, hemoglobin improved to above 8 Wound care consulted for stage II pressure ulcer on the left heel. Recommended wound care clinic follow-up. Patient's stated that she is no longer able to take care of . Per discussion with RN and social work, appears that patient has DURABLE POWER OF HOME DEMONSTRATION AGENT, his daughter. PT OT consulted, patient will need placement 04/05, complains of right lower extremity pain, there is tenderness on palpation, patient is off anticoagulation, thus, venous duplex ordered-negative 04/06: Patient's daughter, his DPOA, requested hospice consult, consult placed Patient seen and examined. I spoke with the social insurance analyst and there is a plan for a hospice meeting later today. The patient denies any nausea vomiting Objective - Vital Signs Vital signs: Vital Signs Temp 98.4 F 04/07/24 07:13 Pulse 90 04/07/24 07:13 Resp 16 04/07/24 07:13 BP 104/68 04/07/24 07:13 Pulse Ox 98 04/07/24 07:13 FiO2 Intake & Output 04/06/24 04/07/24 04/07/24 18:59 06:59 18:59 Intake Total 1140 Output Total 1100 1000 Balance 40 -1000 Intake: Oral 1140 Output: Urine 1100 1000 Other: Voiding Method External Catheter External Catheter External Catheter - Exam General: [nontoxic], [no distress], [appears at stated age], chronically ill- appearing male, appears stated age Derm: [warm], [dry], bruising present Head: [atraumatic], [normocephalic], [symmetric] Eyes: [EOMI], [no lid lag], [anicteric sclera] Mouth: [no lip lesion], [mucus membranes moist] Cardiovascular: [S1S2 reg], [no murmur] Lungs: [CTA bilateral], [no rhonchi, no rales] , [no accessory muscle use] Abdominal: [soft], [ nontender to palpation], [no guarding], [no appreciable organomegaly] Ext: [no gross muscle atrophy], [bilateral pitting lower extremity edema], [no contractures] Neuro: Moving all extremity spontaneously Psych: [Alert], [oriented], [appropriate affect] - Labs CBC & Chem 7: 04/06/24 04:45 04/02/24 04:36 Labs: Abnormal Lab Results - Last 24 Hours (Table) 04/06/24 04/06/24 04/06/24 Range/Units 12:17 17:14 20:28 POC Glucose (mg/dL) 222 H 195 H 270 H (70-110) mg/dL 04/07/24 Range/Units 06:52 POC Glucose (mg/dL) 120 H (70-110) mg/dL Assessment and Plan Assessment: #) Metastatic prostate cancer with mets to the bone, on Lupron. Baseline hemoglobin is 9.0 status post 1 unit PBC. Oncology believes this is a possible progression of CLL. Hold Xarelto at this time #) Wheelchair-bound/bedbound #) Pressure ulcers #) Diabetes mellitus, insulin dependent:, levemir 12 units daily #) Advance care planning [Chronic:] -Hypertension -Chronic atrial fibrillation, rate controlled -Diastolic heart failure, stable -Chronic kidney disease, stage III -Dyslipidemia -Peripheral neuropathy DVT ppx: SCDs hospice meeting to be held later this afternoon
[2024-04-07 12:41] LABS: Glucose,Whole Blood 153 mg/dL (70-110)
[2024-04-07 17:16] LABS: Glucose,Whole Blood 232 mg/dL (70-110)
[2024-04-07 20:32] LABS: Glucose,Whole Blood 353 mg/dL (70-110)
[2024-04-08 07:28] LABS: Glucose,Whole Blood 143 mg/dL (70-110)
--- NOTE | 2024-04-08 08:12 | P.DS ---
Providers Date of admission: 04/01/24 11:42 Attending physician: Davide Quach Consults: 04/01/24 11:46 Consult Physician Urgent Consulting Provider: Bridger Murillo Consult Reason/Comments: Metastatic cancer, CLL, anemia Do you want consulting provider notified?: Yes Primary care physician: [facility] Course: Patient is a 84-year-old male with history of atrial fibrillation on Xarelto, type 2 diabetes, hypertension, dyslipidemia, CLL not currently on treatment, prostate cancer with metastatic bone disease (on Lupron), stage III CKD, diastolic CHF, peripheral neuropathy who was admitted for anemia. He recieved 1 unit of pRBC yesterday, with improvement in hemoglobin from 6.[address] abdomen/pelvis was negative for a hematoma or active bleeding, showed scattered metastatic disease, enlarging right-sided pulmonary nodule concerning for metastatic disease, consolidation in the medial aspect of right lower lobe likely atelectasis. He was evaluated by Oncology, who believes the patient will likely need a bone marrow biospy to assess for possible progression of CLL. Patient had 2 units of PRBC transfused, hemoglobin improved to above 8 Wound care consulted for stage II pressure ulcer on the left heel. Recommended wound care clinic follow-up. Patient's stated that she is no longer able to take care of . Per discussion with RN and social work, appears that patient has [employer], his daughter. PT OT consulted, patient will need placement 04/05, complains of right lower extremity pain, there is tenderness on palpation, patient is off anticoagulation, thus, venous duplex ordered-negative 04/06: Patient's daughter, his DPOA, requested hospice consult, Family had met with hospice on 04/07 and the patient was discharged to inpatient hospice on 04/08. Assessment: #) Metastatic prostate cancer with mets to the bone, on Lupron. Baseline hemoglobin is 9.0 status post 1 unit PBC. #) Wheelchair-bound/bedbound #) Pressure ulcers #) Diabetes mellitus, insulin dependent:, levemir 12 units daily #) Advance care planning Plan - Discharge Summary New Discharge Prescriptions: Continue Fenofibrate 160 mg PO DAILY Rivaroxaban [Xarelto] 20 mg PO DAILY Atorvastatin Calcium [Lipitor] 10 mg PO HS Gabapentin [Neurontin] 300 mg PO Q8H Insulin Glargine,Hum.rec.anlog [Lantus Solostar Pen] 13 units SQ HS Bumetanide [BUMEX] 0.5 mg PO DAILY Sennosides [Senokot] 8.6 mg PO DAILY tab Sennosides [Senokot] 17.2 mg PO HS Collagenase [Santyl Ointment] 1 applic TOPICAL DAILY Insulin Aspart [NovoLOG Flexpen] 3 units SQ AC-TID Biofreeze Roll On Gel 1 applic TOPICAL DAILY PRN PRN Reason: Pain Acetaminophen Tab [Tylenol] 325 - 650 mg PO Q6HR PRN PRN Reason: Fever And/ Or Pain metFORMIN HCL ER [Glucophage XR] 500 mg PO DAILY Tamsulosin [Flomax] 0.8 mg PO HS glipiZIDE XL [Glucotrol XL] 10 mg PO DAILY Artificial Tears-Hypromellose [Artificial Tear Drops] 1 drop BOTH EYES QID PRN PRN Reason: Dry Eye(S) Insulin Aspart [NovoLOG Flexpen] See Protocol SQ AC-TID Melatonin 3 mg PO HS HYDROcodone/APAP 5-325MG [[place] 5-325] 1 tab PO Q8H PRN PRN Reason: Pain Discontinued Zinc Sulfate [Orazinc] 220 mg PO DAILY Ergocalciferol [Vitamin D2 (1250 Mcg = 53481 Iu)] 1,250 mcg PO DIRECTED Amoxic-Pot Clav 875-125Mg [Augmentin 875-125] 1 tab PO DIRECTED Cholecalciferol (Vitamin D3) [Vitamin D3 (50 Mcg = 2000 Iu)] 50 mcg PO DAILY Ascorbic Acid [Vitamin C] 500 mg PO DAILY Discharge Medication List Atorvastatin Calcium [Lipitor] 10 mg PO HS 10/12/15 [History] Fenofibrate 160 mg PO DAILY 10/12/15 [History] Rivaroxaban [Xarelto] 20 mg PO DAILY 10/12/15 [History] Tamsulosin [Flomax] 0.8 mg PO HS 05/27/23 [History] metFORMIN HCL ER [Glucophage XR] 500 mg PO DAILY 05/27/23 [History] Gabapentin [Neurontin] 300 mg PO Q8H 11/05/23 [History] Insulin Glargine,Hum.rec.anlog [Lantus Solostar Pen] 13 units SQ HS 11/05/23 [History] glipiZIDE XL [Glucotrol XL] 10 mg PO DAILY 11/05/23 [History] Bumetanide [BUMEX] 0.5 mg PO DAILY 02/11/24 [History] Sennosides [Senokot] 8.6 mg PO DAILY tab 02/14/24 [Rx] Acetaminophen Tab [Tylenol] 325 - 650 mg PO Q6HR PRN 04/01/24 [History] Artificial Tears-Hypromellose [Artificial Tear Drops] 1 drop BOTH EYES QID PRN 04/01/24 [History] Biofreeze Roll On Gel 1 applic TOPICAL DAILY PRN 04/01/24 [History] Collagenase [Santyl Ointment] 1 applic TOPICAL DAILY 04/01/24 [History] HYDROcodone/APAP 5-325MG [[place] 5-325] 1 tab PO Q8H PRN 04/01/24 [History] Insulin Aspart [NovoLOG Flexpen] 3 units SQ AC-TID 04/01/24 [History] Insulin Aspart [NovoLOG Flexpen] See Protocol SQ AC-TID 04/01/24 [History] Melatonin 3 mg PO HS 04/01/24 [History] Sennosides [Senokot] 17.2 mg PO HS 04/01/24 [History] Follow up Appointment(s)/Referral(s): Marcelino Meza DO [STAFF PHYSICIAN] - 1-2 days Hiram Fournier MD [STAFF PHYSICIAN] - 04/07/24 11:00 am (04/07 appt is for CBC monitoring-lab encounter only. Lupron injection appt 04/[address] at [address] Appt [address] Fournier is 04/21 at 2:15) Discharge Disposition: HOME WITH HOSPICE
[2024-04-08 08:22] VITALS: BP 115/61; PULSE 79; TEMP 99.2
== END 2024-04-08 12:18 | disposition still patient (30) | DRG 841 ==
LOC: SUPCPDRO 10:02 → EC 10:02 → 5NMEDONC 11:42
PROVIDERS: ADMIT Student in an Organized Health Care Education/Training Program; ATTEND Student in an Organized Health Care Education/Training Program
PROC: 30233N1 Transfusion of Nonautologous Red Blood Cells into Peripheral Vein, Percutaneous Approach (ICD-10-PCS; principal; 2024-04-01)
DX: C91.10 Chronic lymphocytic leukemia of B-cell type not having achieved remission (principal); C79.51 Secondary malignant neoplasm of bone; I13.0 Hypertensive heart and chronic kidney disease with heart failure and stage 1 through stage 4 chronic kidney disease, or unspecified chronic kidney disease; L89.622 Pressure ulcer of left heel, stage 2; I50.32 Chronic diastolic (congestive) heart failure; D64.9 Anemia, unspecified; E11.22 Type 2 diabetes mellitus with diabetic chronic kidney disease; E11.42 Type 2 diabetes mellitus with diabetic polyneuropathy; N18.30 Chronic kidney disease, stage 3 unspecified; I48.20 Chronic atrial fibrillation, unspecified; L97.528 Non-pressure chronic ulcer of other part of left foot with other specified severity; J98.11 Atelectasis; K57.30 Diverticulosis of large intestine without perforation or abscess without bleeding; E11.621 Type 2 diabetes mellitus with foot ulcer; E78.5 Hyperlipidemia, unspecified; M18.30 Unilateral post-traumatic osteoarthritis of first carpometacarpal joint, unspecified hand; Z79.4 Long term (current) use of insulin; Z74.01 Bed confinement status; Z99.3 Dependence on wheelchair; N20.0 Calculus of kidney; N40.0 Benign prostatic hyperplasia without lower urinary tract symptoms; Z79.01 Long term (current) use of anticoagulants; Z79.84 Long term (current) use of oral hypoglycemic drugs; Z79.899 Other long term (current) drug therapy; Z85.46 Personal history of malignant neoplasm of prostate; Z87.891 Personal history of nicotine dependence; R16.1 Splenomegaly, not elsewhere classified
CPT/HCPCS: 36415; 36430; 71260; 74177; 80053; 82607; 82728; 82746; 83036; 83540; 83550; 83880; 84466; 84484; 85025; 85045; 85610; 85730; 86850; 86900; 86901; 86920; 93005; 99291